=== PATIENT | male | born 1945 | race Caucasian/White ===

== ENCOUNTER → 2017-08-26 07:46 | Outpatient (CLI) | payer OTHER, SELFPAY ==
[2017-08-26 10:06] LABS: Hematocrit 43.9 % (40-54); Hemoglobin 14.7 g/dl (13.0-16.5); Mean Corp Hgb Conc 33.5 g/gl (32-36); Mean Corpuscular Hgb 30.6 pg (27.0-32.0); Mean Corpuscular Volume 91.3 fL (80-94); Mean Platelet Vol. 9.6 fl (6.2-12.0); Platelet Count 251 K/mm3 (150-450); RBC Distribution Width CV 13.4 % (11.6-14.6); RBC Distribution Width SD 44.7 fl (35.1-43.9); Red Blood Count 4.81 M/mm3 (4.6-6.2); White Blood Count 6.7 K/mm3 (4.4-11.0)
[2017-08-26 10:07] LABS: Scan Indicated on CBC? Y/N NO
[2017-08-26 10:29] LABS: AST(SGOT) 16 U/L (15-37); Alanine Aminotransfer ALT/SGPT 20 U/L (16-61); Albumin, Serum 3.9 g/dL (3.2-5.0); Alkaline Phosphatase 80 U/L (45-117); Anion Gap 6 (5-15); BUN 18 mg/dL (7-18); BUN/Creat Ratio 16.1 RATIO (10-20); Bilirubin, Direct 0.09 mg/dL (0.00-0.30); Calcium,Total 8.6 mg/dL (8.5-10.1); Chloride 107 mmol/L (98-107); Cholesterol 143 mg/dL (200); Creatinine, Serum 1.12 mg/dL (0.70-1.30); EST Glomerular Filtration Rate 69 mL/min (>60); Est Glom Filt Rate - Afr Amer 83 mL/min (>60); Globulin 3.6 g/dL (2.2-4.2); Glucose 88 mg/dL (74-106); High Density Lipoprotein 42 mg/dL; PSA,Total - Annual Screen 5.02 ng/mL (0.00-4.00); Protein, Total 7.5 g/dL (6.4-8.2); Sodium Level 143 mmol/L (136-145); Triglycerides 117 mg/dL; Very Low Density Lipoprotein 23 mg/dL (5-40)
== END ==
PROVIDERS: Family Provider Family Medicine; PCP Family Medicine; Visit Provider Family Medicine
DX: N40.0 Benign prostatic hyperplasia without lower urinary tract symptoms (principal); K85.90 Acute pancreatitis without necrosis or infection, unspecified; Z13.220 Encounter for screening for lipoid disorders; R56.9 Unspecified convulsions; Z13.1 Encounter for screening for diabetes mellitus
CPT/HCPCS: 36415; 80048; 80061; 80076; 84153; 85027; G0103

== ENCOUNTER → 2017-11-08 09:02 | Outpatient (CLI) | payer OTHER, SELFPAY ==
--- NOTE | 2017-11-08 09:02 | DT_ITS ---
This patient was seen during an EMR downtime November 07, 2017 - November 14, 2017. This patient may have a combination of paper and electronic documentation or all paper documentation. All documentation is viewable within the e-chart portion of [facility] for each patient visit.
[2017-11-15 02:52] LABS: ALB/GLOB Ratio 1.2 RATIO (0.9-2.4); Albumin, Serum 3.9 g/dL (3.2-5.0); BUN 14 mg/dL (7-18); BUN/Creat Ratio 13.1 RATIO (10-20); Creatinine, Serum 1.07 mg/dL (0.70-1.30); EST Glomerular Filtration Rate 73 mL/min (>60); Est Glom Filt Rate - Afr Amer 88 mL/min (>60); Globulin 3.2 g/dL (2.2-4.2); Glucose 85 mg/dL (74-106); Protein, Total 7.1 g/dL (6.4-8.2)
[2017-11-15 02:53] LABS: AST(SGOT) 17 U/L (15-37); Alanine Aminotransfer ALT/SGPT 39 U/L (16-61); Alkaline Phosphatase 69 U/L (45-117); Anion Gap 9 (5-15); CRP < 2.90 mg/L (0.0-3.0); Calcium,Total 8.8 mg/dL (8.5-10.1); Chloride 108 mmol/L (98-107); Sodium Level 143 mmol/L (136-145); Thyroid Stim Hormone (TSH) 0.73 uIU/mL (0.358-3.74)
== END ==
PROVIDERS: Family Provider Family Medicine; PCP Family Medicine; Visit Provider Nurse Practitioner Adult Health
DX: R97.20 Elevated prostate specific antigen [PSA] (principal); N40.1 Benign prostatic hyperplasia with lower urinary tract symptoms; N40.2 Nodular prostate without lower urinary tract symptoms; I10 Essential (primary) hypertension
CPT/HCPCS: 36415; 80053; 84153; 84443; 86038; 86140

== ENCOUNTER → 2017-11-21 07:08 | Outpatient (CLI) | payer OTHER, SELFPAY ==
[2017-11-22 11:14] LABS: PSA, Free 0.99 ng/mL; PSA, Free % 23.6 % (.); PSA, Total Ultrasensitive 4.2 ng/mL (0.0-4.0)
== END ==
PROVIDERS: Family Provider Family Medicine; PCP Family Medicine; Visit Provider Nurse Practitioner Adult Health
DX: R97.20 Elevated prostate specific antigen [PSA] (principal)
CPT/HCPCS: 36415; 84153; 84154

== ENCOUNTER → 2018-03-15 06:39 | Outpatient (CLI) | payer OTHER, SELFPAY ==
--- NOTE | 2018-03-15 06:44 | CT_ITS ---
STUDY: CT ABDOMEN AND PELVIS WITH CONTRAST REASON FOR EXAM: Male, 72 years old. Pulsatile abdominal mass RADIATION DOSAGE (If Supplied By Facility): CTDIvol = ( 16.13 ) mGy, DLP = ( 1155.68 ) mGycm TECHNIQUE: Transaxial images were obtained from the dome of the diaphragm to the symphysis pubis without oral contrast. 100 ml of Isovue 300 contrast was administered. Sagittal and coronal images were reconstructed. Individualized dose optimization techniques were used for this CT. COMPARISON: August 26, 2015 FINDINGS: The lung bases are clear. The liver is normal. No dilated intrahepatic biliary radicles. The gallbladder is normal with no calcifications within it. There is no pericholecystic fluid collection or streakiness The spleen is normal. The pancreas is normal. Both adrenals are normal. No hydronephrosis and no abnormal calcifications but there is a 1.6 cm benign left renal cyst. The stomach is normal. There is no bowel distention, acute appendicitis or diverticulitis. No constricting lesions are seen in large bowel. The abdominal wall is intact with no hernias. There is no ascites or any free intraperitoneal air. No indication of epiploic appendagitis. 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 The mass has displaced the loops of small bowel laterally and posteriorly. The vascular structures in the retroperitoneum are normal. No abdominal aortic aneurysm There is no retrocrural, retroperitoneal or mesenteric adenopathy. The bones and joints are normal. The urinary bladder is normal.--The prostate is enlarged. There is no inguinal or pelvic adenopathy. There is no inguinal hernia. . CT/Abdomen/Pelvis WITH Contrast IMPRESSION: Prostatic enlargement. Not much change since the last study A very large mesenteric panniculitis which has not significantly changed since the last dated August 26, 2015. No acute appendicitis or diverticulitis. No abdominal aortic aneurysm Electronically Signed: Barrie Villaseñor MD at 8:06 EDT Tel , Service support ,
[2018-03-15 06:56] LABS: CREATININE FINGERSTICK 0.8 mg/dL (0.70-1.30); EGFR FINGERSTICK > 60.0000 mL/min (>60)
== END ==
PROVIDERS: Family Provider Family Medicine; PCP Family Medicine; Referring Provider Family Medicine; Visit Provider Family Medicine
DX: R19.00 Intra-abdominal and pelvic swelling, mass and lump, unspecified site (principal)
CPT/HCPCS: 74177; Q9967

== ENCOUNTER → 2018-05-09 07:10 | Outpatient (CLI) | payer OTHER, SELFPAY ==
[2018-05-09 11:05] LABS: Anion Gap 5 (5-15); BUN 19 mg/dL (7-18); BUN/Creat Ratio 16.4 RATIO (10-20); Calcium,Total 8.7 mg/dL (8.5-10.1); Chloride 109 mmol/L (98-107); Creatinine, Serum 1.16 mg/dL (0.70-1.30); EST Glomerular Filtration Rate 66 mL/min (>60); Est Glom Filt Rate - Afr Amer 80 mL/min (>60); Glucose 87 mg/dL (74-106); Potassium 4.3 mmol/L (3.5-5.1); Sodium Level 143 mmol/L (136-145)
[2018-05-09 11:38] LABS: PSA,Total- Diagnostic 6.89 ng/mL (0.0-4.0)
== END ==
PROVIDERS: Family Provider Family Medicine; PCP Family Medicine; Referring Provider Urology; Visit Provider Urology
DX: I10 Essential (primary) hypertension (principal); R97.20 Elevated prostate specific antigen [PSA]
CPT/HCPCS: 36415; 80048; 84153

== ENCOUNTER 2018-06-17 02:57 | Emergency (ER) | payer OTHER, SELFPAY ==
[2018-06-17 03:00] VITALS: BP 166/99; PULSE 112; RESP 18; TEMP 36.6; O2SAT 99; BMI 27.8
[2018-06-17 03:40] LABS: Bacteria 0 SEEN /hpf (None Seen); Mucous, Urine 0 SEEN /hpf (<or=2+); White Blood Cells 0 SEEN /hpf (0-5)
[2018-06-17 03:42] LABS: Color, Urine Yellow (Yellow); Glucose, Dipstick Normal (Normal); Ketone-Dipstick Negative (Negative); Leukocyte Esterase-Dipstick Negative /ul (Negative); Nitrite-Dipstick Negative (Negative); Occult Blood-Urine 10 /ul (Negative); Protein-Dipstick Negative (Negative); Urine Bilirubin Dipstick Negative (Negative); Urine Clarity Clear (Clear); Urine Urobilinogen Normal (Normal); Urine pH 6.5 (5.0 - 8.0)
[2018-06-17 03:47] LABS: Red Blood Cells-Urine 0-5 SEEN /hpf (0-5); Squamous Epithelial Cells - UA 0-5 SEEN /hpf (0-5)
--- NOTE | 2018-06-17 05:07 | ED.DCSUM_ITS ---
- ER Visit Summary Date of Service: 06/17/18 Chief Complaint: Urinary retention History of Present Illness: The patient is a 72 M presenting for evaluation secondary to urinary retention. Patient states that over the course last 5 hours he has been unable to urinate. He has a history of this in the past. He has BPH and has a scheduled biopsy coming up the end of this month. Patient denies fevers or flank pain. Physical Examination: Vital signs are normal. Moist mucous membranes. Heart regular lungs clear. Abdomen was soft. was normal to inspection. Test Results: Urinalysis was negative Emergency Department Course and Treatment: Patient presented secondary to urinary retention. Catheter was placed with relief of the patient's urinary retention and a large amount of urine obtained. Urinalysis was negative. Patient will be discharged with follow-up with urology for Vera catheter removal. Disposition: Discharge Impression: 1. Urinary retention This note was generated with [employer] dictation software. It may contain incorrect words, spelling, and punctuation that were not noted in review of the chart prior to signing ED Disposition - Plan for ED Patient: Disposition: Home or Assisted Living Chief Complaint: Complaint Diagnosis: Urinary retention Instructions: ED Retention Urinary Male Referrals: Arnie Ann MD [STAFF PHYSICIAN] - 3-5 Days
[2018-06-17 05:24] VITALS: BP 134/64; PULSE 60; RESP 18; TEMP 36.6; O2SAT 95
== END 2018-06-17 05:25 | disposition home or self-care (01) ==
PROVIDERS: Emergency Provider Emergency Medicine; Family Provider Family Medicine; PCP Family Medicine
DX: N40.1 Benign prostatic hyperplasia with lower urinary tract symptoms (principal); R33.8 Other retention of urine
CPT/HCPCS: 81001; 99282

== ENCOUNTER 2018-07-08 03:17 | Emergency (ER) | payer OTHER, SELFPAY ==
[2018-07-08 03:17] VITALS: BP 141/98; PULSE 112; RESP 18; TEMP 36.6; O2SAT 98; O2SAT 99; BMI 27.1
--- NOTE | 2018-07-08 03:43 | ED.VISSUMM ---
- ER Visit Summary Date of Service: 07/08/18 Chief Complaint: Urinary retention History of Present Illness: The patient is a 72 M who presents unable to urinate. Patient notes suprapubic discomfort. Patient had similar events approximately 2 weeks ago and had a catheter placement. He follows up with Dr. arzola and is scheduled for prostate surgery in the very near future. Last urinated around 2100 Physical Examination: Afebrile noted slight tachycardia. Gen: Well-nourished well-developed Head: Normocephalic atraumatic Eyes: Perrl EOMI ENT: TMs clear no rhinorrhea moist mucous membranes Neck: Supple no lymphadenopathy no JVD nontender CVS: Regular rate rhythm no murmurs normal S1-S2 Respiratory: No distress clear to auscultation bilaterally chest nontender Abdomen: Soft distended bladder normal bowel sounds no masses Back: Nontender Extremity: Nontender no edema Skin: Normal color no rash Neuro: alert orientated ?3 CN II-XII intact normal strength sensation reflexes gait cerebellar Psych: Normal affect normal mood Test Results: Urinalysis obtained Emergency Department Course and Treatment: Bedside ultrasound demonstrates a bladder with the fundus above the umbilicus. Vera catheter was placed. 800 cc removed. Patient be discharged home with leg bag and instructions to follow-up with urology next week. Impression: 1. Acute urinary retention 2. Benign prostatic hypertrophy This note was generated with [employer] dictation software. It may contain incorrect words, spelling, and punctuation that were not noted in review of the chart prior to signing ED Disposition - Plan for ED Patient: Disposition: Home or Assisted Living Instructions: ED Retention Urinary Male Referrals: Arnie Ann MD [STAFF PHYSICIAN] - (call on Tuesday)
[2018-07-08 03:49] LABS: Mucous, Urine 0 SEEN /hpf (<or=2+); Squamous Epithelial Cells - UA 0 SEEN /hpf (0-5)
[2018-07-08 03:50] LABS: Color, Urine Straw (Yellow); Glucose, Dipstick Normal (Normal); Ketone-Dipstick Negative (Negative); Leukocyte Esterase-Dipstick 100 /ul (Negative); Nitrite-Dipstick Negative (Negative); Occult Blood-Urine 25 /ul (Negative); Protein-Dipstick Negative (Negative); Urine Bilirubin Dipstick Negative (Negative); Urine Clarity Clear (Clear); Urine Urobilinogen Normal (Normal)
[2018-07-08 03:57] LABS: Bacteria 1+ /hpf (None Seen); White Blood Cells 0-5 SEEN /hpf (0-5)
[2018-07-08 03:58] LABS: Red Blood Cells-Urine 0-5 SEEN /hpf (0-5)
[2018-07-08 04:58] VITALS: BP 102/74; PULSE 81; RESP 20; O2SAT 97
--- NOTE | 2018-07-08 04:59 | ED.RN ---
THIS NURSE REVIEWED D/C INSTRUCTIONS WITH PT. PT VERBALIZED UNDERSTANDING OF INSTRUCTIONS. PT DENIES FURTHER NEEDS OR QUESTIONS AT THIS TIME. PT AMBULATES FROM ROOM ON OWN WITHOUT ASSISTANCE FROM STAFF
== END 2018-07-08 04:59 | disposition home or self-care (01) ==
PROVIDERS: Emergency Provider Emergency Medicine; Family Provider Family Medicine; PCP Family Medicine
DX: N40.1 Benign prostatic hyperplasia with lower urinary tract symptoms (principal); R33.8 Other retention of urine; Z86.711 Personal history of pulmonary embolism; Z87.19 Personal history of other diseases of the digestive system; Z79.899 Other long term (current) drug therapy
CPT/HCPCS: 51702; 81001; 99283

== ENCOUNTER 2018-07-21 13:08 | Day surgery (SDC) | payer OTHER, SELFPAY ==
[2018-07-14 13:46] VITALS: BP 121/69; PULSE 70; RESP 18; TEMP 36.4; O2SAT 96; BMI 27.3
[2018-07-14 14:18] LABS: Absolute Lymphocyte Count 1.52 X10^3/ul (0.83-4.51); Absolute Neutrophil Count 5.3 X10^3/uL (2.0-7.7); Basophil# 0.02 X10^3/uL; Basophil% 0.3 % (0-1); Eosinophil# 0.23 X10^3/uL; Hematocrit 42.4 % (40-54); Hemoglobin 13.8 g/dl (13.0-16.5); Lymphocyte # 1.52 X10^3/ul (4.0); Lymphocyte % 19.5 % (19-41); Mean Corp Hgb Conc 32.5 g/gl (32-36); Mean Corpuscular Hgb 30.2 pg (27.0-32.0); Mean Corpuscular Volume 92.8 fL (80-94); Mean Platelet Vol. 9.5 fl (6.2-12.0); Monocyte# 0.69 X10^3/uL; Monocyte% 8.9 % (0-10); Neutrophil # 5.32 X10^3/uL (2.7-7.7); Neutrophil % 68.2 % (47-70); Platelet Count 209 K/mm3 (150-450); RBC Distribution Width CV 13.2 % (11.6-14.6); RBC Distribution Width SD 44.7 fl (35.1-43.9); Red Blood Count 4.57 M/mm3 (4.6-6.2); White Blood Count 7.8 K/mm3 (4.4-11.0)
[2018-07-14 14:21] LABS: POSITIVE COUNT NO; POSITIVE DIFFERENTIAL NO; POSITIVE MORPHOLOGY NO
[2018-07-14 14:28] LABS: International Normalized Ratio 1.1; Partial Thromboplast Time 30.7 Seconds (24.1-36.2); Prothrombin Time (Protime)PT. 13.7 SECONDS (11.7-14.9)
[2018-07-14 15:00] LABS: AST(SGOT) 11 U/L (15-37); Alanine Aminotransfer ALT/SGPT 21 U/L (16-61); Albumin, Serum 3.7 g/dL (3.2-5.0); Alkaline Phosphatase 81 U/L (45-117); Bilirubin, Direct 0.07 mg/dL (0.00-0.30); Globulin 3.5 g/dL (2.2-4.2); Protein, Total 7.2 g/dL (6.4-8.2)
--- NOTE | 2018-07-20 17:48 | PCM.HP.BLA ---
History and Physical Date of Admission: 07/21/18 I have urinary retention. HPI: RHONDA PAT is a 72 year-old male established patient who is here for urinary retention. His problem was diagnosed 1 week ago. His current symptoms did not begin after he had a surgical procedure. His urinary retention is being treated with wilkins catheter. Patient denies suprapubic tube, intemittent catheterization, flomax, hytrin, cardura, uroxatrol, rapaflo, avodart, and proscar. He does have an abnormal sensation when needing to urinate. He does have to strain or bear down to start his urinary stream. He does not have a good size and strength to his urinary stream. He is having problems with emptying his bladder well. His urine has shut off completely. He is not having problems with urinary control or incontinence. He has previously had an indwelling catheter in for more than two weeks at a time. CC: I have symptoms of an enlarged prostate. HPI: His symptoms have gotten worse over the last year. He has been treated with Flomax and Proscar. The patient has never had a surgical procedure for bladder outlet obstruction to his prostate. He has previously had an indwelling catheter in for more than two weeks at a time. He has had a PSA done. CC: My PSA is elevated above the normal range. HPI: He has had PSA's drawn prior to this one. When the elevated PSA was drawn, he reports having urinary retention. He denies having urinary tract infection, urinary frequency, urinary burning, slow urine flow, pelvic discomfort, fever, chills, flu symptoms, low back pain, and indwelling catheter. He has had a prostate nodule on a physical examination. He has not had recurrent prostate infections or chronic prostatitis. He has not been on antibiotics for prostate infections previously. He has not had a prostate biopsy done. plan to do biopsy ALLERGIES: Penicillin MEDICATIONS: Finasteride 5 mg tablet 1 tablet PO Daily Fleet Enema 1 kit AR x1 As instructed. At least an hour before procedure. Flomax 0.4 mg capsule 1 capsule PO BID Levetiracetam 750 mg tablet 1 tablet PO BID Lisinopril Lorazepam 0.5 mg tablet PSH: Cystoscopy - 06/19/2018, 2012 Cystoscopy TURBT 2-5 cm - 2012 NON- PSH: Cholecystectomy - 2008 Colonoscopy Patient documented to have received pneumococcal vaccination Pneumococcal Vaccine Admin PMH: Other retention of urine - 06/19/2018 Benign prostatic hyperplasia with lower urinary tract symptoms - 09/06/2017, - 2015, - 2015, - 2014, - 2013 (Stable), - 2012, - 2012 Elevated prostate specific antigen [PSA] - 09/06/2017 Elevated prostate specific antigen [PSA] - 2015, - 2014, - 2013, - 2011 Hematospermia - 2015, - 2014, - 2013, - 2013 Nodular prostate without lower urinary tract symptoms - 2014 Benign prostatic hyperplasia without lower urinary tract symptoms - 2013, - 2012 Nodular prostate with lower urinary tract symptoms - 2013 Spermatocele of epididymis, unspecified - 2013 Encounter for screening for malignant neoplasm of prostate - 2012 Frequency of micturition - 2012 Neoplasm of uncertain behavior of bladder - 2012 Retention of urine, unspecified - 2012, - 2012, - 2012 Neoplasm of uncertain behavior of prostate, Right - 2011 Other microscopic hematuria - 2011 NON- PMH: Other acute pancreatitis Other depressive episodes Other pulmonary embolism without acute cor pulmonale Other seizures Immunizations: None FAMILY HISTORY: None SOCIAL HISTORY: Marital Status: Preferred Language: Gabonese; Ethnicity: Not Or ; Race: White Current Smoking Status: Patient does not smoke anymore. Has not smoked since 03/06/1972. Tobacco Use Assessment Completed: Used Smokeless in last 30 days? Smoking cessation counseling was provided. Does not use smokeless tobacco. Light Drinker. Does not use drugs. Drinks 2 caffeinated drinks per day. Has not had a blood transfusion. Notes: Former chewer of tobacco, quit 15 yrs ago. REVIEW OF SYSTEMS: Constitutional: Patient denies fever, chills, weight loss, and weight gain. Genitourinary: Patient reports urinary retention. Patient denies frequent urination, get up at night to void, leakage of urine, painful urination, blood in the urine, frequent uti's, history of stones, difficulty starting stream, weak stream/scanty, and bedwetting. Notes: Reviewed previous review of systems 06/19/2018. No changes. VITAL SIGNS: 07/13/2018 01:10 PM Weight 194 lb / 88 kg Height 70 in / 177.8 cm BP 128/76 mmHg BMI 27.8 kg/m? - BMI Counseling was provided. PHYSICAL EXAMINATION: Anus and Perineum: No hemorrhoids. No anal stenosis. No rectal fissure, no anal fissure. No edema, no dimple, no perineal tenderness, no anal tenderness. Penis: Penile wilkins catheter present. Circumcised, no foreskin warts, no cracks. No dorsal peyronie's plaques, no left corporal peyronie's plaques, no right corporal peyronie's plaques, no scarring, no shaft warts. No balanitis, no meatal stenosis. Prostate: 40 gram or 2+ size. Nodular left lobe, small nodule at base, and larger nodule along left right lobe normal consistency. Left lobe no tenderness, right lobe no tenderness. Seminal Vesicles: Nonpalpable. Sphincter Tone: Normal sphincter. No rectal tenderness. No rectal mass. MULTI-SYSTEM PHYSICAL EXAMINATION: Constitutional: Well-nourished. No physical deformities. Normally developed. Good grooming. Respiratory: No labored breathing, no use of accessory muscles. Skin: No paleness, no jaundice, no cyanosis. No lesion, no ulcer, no rash. Neurologic / Psychiatric: Oriented to time, oriented to place, oriented to person. No depression, no anxiety, no agitation. Gastrointestinal: No mass, no tenderness, no rigidity, non obese abdomen. Eyes: Normal conjunctivae. Normal eyelids. Ears, Nose, Mouth, and Throat: Left ear no scars, no lesions, no masses. Right ear no scars, no lesions, no masses. Nose no scars, no lesions, no masses. Normal hearing. Normal lips. Musculoskeletal: Normal gait and station of head and neck. PAST DATA REVIEWED: Source Of History: Patient Lab Test Review: PSA, Basic Metabolic Panel (BMP), CBC Records Review: Previous Doctor Records, Previous Hospital Records, Previous Patient Records Urine Test Review: Urinalysis Urodynamics Review: Review Bladder Scan 05/09/18 11/21/17 11/14/17 11/08/17 08/24/17 10/07/15 02/27/15 02/27/14 PSA Total PSA 6.89 ng/mL 4.2 5.00 ng/mL 5.00 5.02 3.54 ng/mL 3.51 ng/ml 2.78 ng/ml Notes [facility] [address] [place] [address]. [place], [place], [id number] This test was performed using the TPSA assay method for the Dimension chemistry system. Values obtained with different assay methods cannot be used interchangably. When changing PSA assays in the course of monitoring a patient, additional sequential testing should be carried out to confirm baseline values. RESULT(S) PREVIOUSLY REPORTED ON MANUAL REQUISITION DURING DOWNTIME. [facility] [address] [place], [place], [id number] This test was performed using the TPSA assay method for the Dimension chemistry system. Values obtained with different assay methods cannot be used interchangably. When changing PSA assays in the course of monitoring a patient, additional sequential testing should be carried out to confirm baseline values. [facility] [address] [place], [address] This test was performed using the TPSA assay method for the Dimension chemistry system. Values obtained with different assay methods cannot be used interchangably. When changing PSA assays in the course of monitoring a patient, additional sequential testing should be carried out to confirm baseline values. Test performed at: [facility] [address] [place] [address] This test was performed using the TPSA assay method for the Dimension chemistry system. Values obtained with different assay methods cannot be used interchangably. When changing PSA assays in the course of monitoring a patient, additional sequential testing should be carried out to confirm baseline values. This test was performed using the TPSA assay method for the Dimension chemistry system. Values obtained with different assay methods cannot be used interchangably. When changing PSA assays in the course of monitoring a patient, additional sequential testing should be carried out to confirm baseline values. PROCEDURES: None ASSESSMENT: ICD-10 Details 1 : Benign prostatic hyperplasia with lower urinary tract symptoms - N40.1 2 Elevated prostate specific antigen [PSA] - R97.20 3 Other retention of urine - R33.8 PLAN: Schedule Procedure: Unspecified Date - Cystoscopy TURP - 25270 Document Letter(s): Created for Patient: Clinical Summary The risks, benefits, and some of the possible complications of the proposed procedure were discussed with the patient at length and in detail including the possibility of postoperative urinary urgency, frequency, incontinence, dysuria, hematuria, retrograde ejaculation, urinary retention, bladder neck contracture, and urethral stricture, as well as the need for a bladder biopsy, retrograde pyelograms, resection of a bladder lesion, dilation of the urethra, postoperative catheterization, placement of a ureteral stent, discovering asymptomatic prostate cancer and others. The possible need for postoperative treatments including further surgical procedures was discussed with the patient. The general risks of the operative procedure and the perioperative period were discussed with the patient at length and in detail including swelling, pain, nausea, fever, infection, wound infection, sepsis, renal failure, internal or external bleeding, postoperative formation of scar tissue, the need for blood transfusions, deep venous thrombosis or blood clots, pulmonary embolus, pulmonary complications and cardiac complications. All of the patient's questions were answered and he voiced an understanding of these risks, benefits and possible complications. The patient gave fully informed consent to proceed with the procedure. Notes: Back in retention, keep wilkins in for now on flomax 0.4mg bid and proscar set up for TURP and prostate biopsy in the OR
[2018-07-21] VITALS (9 sets, daily range): BP systolic 95–136; BP diastolic 60–80; PULSE 52–81; RESP 16–18; TEMP 35.9–36.6; O2SAT 95–99; BMI 27.3
--- NOTE | 2018-07-21 | IMM_PTH ---
PATIENT: RHONDA PAT LOC: [facility] U#:[id number] AGE/SX: 72/M ROOM: RE07/21/[address]: Dr. Arnie Ann MD : 1945 BED: DIS: 07/22/2018 SPEC #: [id number] RECD: 07/25/18 13:15 STATUS: ABEL REQ #: [id number] SONIA: 07/21/18 00:[address]: Arnie Ann DEPT: IMMUNOHISTOCHEMISTRY RECD BY: Norma Richard ENTERED: 07/25/18 13:16 SP TYPE: IMMUNO OTHR DR: Dr. Quentin Dixon MD Tissues: B - PROSTATE RIGHT C - PROSTATE RIGHT Procedures: 34BE12 (add) P40 (add) 34BE12 (initial) PHYSICIAN & INSTITUTION [place] [id number] SPECIMEN INFORMATION: Tissue Source: B - Right apex prostate biopsy, C - Right mid prostate biopsy Clinical Info: BPH, elevated PSA Specimen Number: [id number] B & C CPT code: 56586, 02890 x3 METHODOLOGY: Deparaffinized sections of prefer/formalin-fixed tissue or PAP/DQ stained slides are incubated with monoclonal/polyclonal antibodies/oligonucleotide probes. Localization is made via biotin free immunoperoxidase method. Appropriate controls are performed and reacted as expected. Results on target cell population are indicated in the following table: RESULTS: ANTIBODY / CLONE RESULT Block B P40 (BC28) positive, rare cells 34BE12 (34BE12) negative Block C P40 (BC28) positive 34BE12 (34BE12) positive These tests were developed and their performance characteristics determined by [facility]. They may not have been cleared or approved by the U.S. Food and Drug Administration. The FDA has determined that such clearance or approval is not necessary. INTERPRETATION: B. Right apex prostate, biopsy: Focal adenocarcinoma. C. 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 SJ:samuel 07/25/18 Case has been reviewed in consultation with Dr. Vann who concurs with the above diagnosis. IDC:[id number]
--- NOTE | 2018-07-21 15:10 | PROSBIL_PTH ---
PATIENT: RHONDA PAT [place] [facility] [place][id number] AGE/SX: 72/M ROOM: RE07/21/[address]: Dr. Arnie Ann MD : [id number] BED: DIS: 07/22/2018 SPEC #: [id number] RECD: 07/24/18 10:56 STATUS: ABEL REMarilyn #: [id number] SONIA: 07/21/18 15:[address]: Arnie Ann DEPT: SURGICAL PATHOLOGY RECD BY: Sam Judge ENTERED: 07/24/18 12:53 SP TYPE: PROST BX OTHR DR: Dr. Quentin Dixon MD Tissues: A - Prostate, NOS B - PROSTATE BIOPSY C - PROSTATE BIOPSY D - PROSTATE BIOPSY E - PROSTATE BIOPSY F - PROSTATE BIOPSY G - PROSTATE BIOPSY Procedures: PROSTATE BX Surgery Specimen Level V HEADER OPERATION: Cysto, TUR, prostate, Olympus with finger-guided biopsy PRE-OP DIAGNOSIS: BPH, elevated PSA TISSUE SUBMITTED: A ? Prostate tissue, B ? Right apex prostate biopsy, C - Right mid prostate biopsy, D - Right base prostate biopsy, E ? Left apex prostate biopsy, F ? Left mid prostate biopsy, G ? Left base prostate biopsy MICROSCOPIC DIAGNOSIS A. Prostate, TUR: Prostatic adenocarcinoma: Talmage grade: 3+4=7 Benign prostatic hyperplasia, glandular and stromal type. Chronic inflammation. See comment. B. Right prostate, apex, core biopsy: Prostatic adenocarcinoma: Brando grade: 4+4=8 Number of cores involved: 1/1 Proportion of tissue involved: ~5-10% Perineural invasion: Not identified. Greatest tumor length: 0.1 cm See comment. C. 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 See comment. D. Right prostate, base, core biopsy: Prostatic tissue, negative for malignancy. E. Left prostate, apex, core biopsy: Prostatic adenocarcinoma: Brando grade: 4+5=9 Number of cores involved: 1/1 Proportion of tissue involved: ~90% Perineural invasion: Present, focal. Greatest tumor length: 0.9 cm F. Left prostate, mid, core biopsy: Prostatic stromal tissue, negative for malignancy. G. Left prostate, base, core biopsy: Prostatic adenocarcinoma: Talmage grade: 4+5=9 Number of cores involved: See comment. Proportion of tissue involved: 90% Perineural invasion: present. Greatest tumor length: 0.2 cm SJ:samuel 07/25/18 COMMENT A. The prostatic adenocarcinoma is noted in 16 of about 150 chips and involves about 5-10% of the specimen examined . Perineural invasion is not seen. B & C. Immunohistochemistry ([id number]) supports the above diagnosis. The specimenS predominantly consist of prostatic stromal tissue. G. The specimen is fragmented so exact number of cores involved is difficult to estimate. Case has been reviewed in consultation with Dr. Vann who concurs with the above diagnosis. IDC:AM MICROSCOPIC DESCRIPTION Slides are reviewed. GROSS DESCRIPTION A - Received is one container labeled with the patient's name and designated prostate tissue. The specimen consists of multiple irregular fragments of pink-cage, rubbery, soft tissue that in aggregate weigh 39.8 gm and measure in aggregate 9 x 9 x 4 cm. Lav Crewman tissue is submitted in 12 cassettes. B - Received is one container designated prostate, right apex. The specimen consists of one elongated fragment of light cage-white soft tissue measuring 1.3 cm in length and 0.1 cm in diameter. The specimen is totally submitted in one cassette. C - Received is one container designated prostate, right mid. The specimen consists of one elongated fragment of light cage-white soft tissue measuring 1.5 cm in length and 0.1 cm in diameter. The specimen is totally submitted in one cassette. D - Received is one container designated prostate, right base. The specimen consists of one elongated fragment of light cage-white soft tissue measuring 1.5 cm in length and 0.1 cm in diameter. The specimen is totally submitted in one cassette. E - Received is one container designated prostate, left apex. The specimen consists of one elongated fragment of light cage-white soft tissue measuring 1.5 cm in length and 0.1 cm in diameter. The specimen is totally submitted in one cassette. F - Received is one container designated prostate, left mid. The specimen consists of one elongated fragment of light cage-white soft tissue measuring 1.3 cm in length and 0.1 cm in diameter. The specimen is totally submitted in one cassette. G - Received is one container designated prostate, left base. The specimen consists of multiple minute fragments of light cage-white soft tissue measuring 0.1 to 0.3 cm in length and 0.1 cm in diameter. The specimen is totally submitted in one cassette. / SJ:rg 07/24/18 TC:0 CPT: G0146, 90501
[2018-07-21] MEDS: Cefazolin 2 GM in 0.9% Normal Saline 100 ML IV (15:37)
--- NOTE | 2018-07-21 17:12 | PCM.OPRPT ---
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 72-year-old male taken back to the operating room at the smooth induction of general anesthesia he was placed supine on the table I went into the urethra with a 26 Irish continuous flow resectoscope using the bipolar Olympus resection device he was in the dorsolithotomy position the penis testicles are prepped and draped in usual sterile fashion. I then started the resection he had a large median lobe this resected I had large lateral lobes these were resected and a very large prostate had a lot of tissue resected at the end of the case nice wide open channel from the verumontanum all the way into the bladder no resection past the sphincter identified the sphincter and was intact Ellik out all the chips obtain hemostasis prior took about an hour and a half to resect all the prostate tissue a large median lobe large lateral lobes the rest of the right side of the left side. At the end of the case I got good hemostasis but a 22 Irish catheter into the bladder and continues irrigation the urine was clear I then double gloved and then prostate biopsies in the right and left side of the right mid right apex and right base of the prostate left base left mid left apex biopsies were completed of the prostate and these were handed off as a specimen anesthetic was reversed taken back to PACU good condition. Type of Anesthesia:: General Drains: 22fr - Admit VTE Documentation VTE Present on Admission: No VTE Mechan Device Prophylaxis: SCD's
--- NOTE | 2018-07-21 17:15 | OP.PCM_ITS ---
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 72-year-old male taken back to the operating room at the smooth induction of g eneral anesthesia he was placed supine on the table I went into the urethra with a 26 [place] continuous flow resectoscope using the bipolar [place] resection device he was in the dorsolithotomy position the penis testicles are prepped and draped in usual sterile fashion. I then started the resection he had a large median lobe this resected I had large lateral lobes these were resected and a very large prostate had a lot of tissue resected at the end of the case nice wide open channel from the verumontanum all the way into the bladder no resection past the sphincter identified the sphincter and was intact Ellik out all the chips obtain hemostasis prior took about an hour and a half to resect all the prostate tissue a large median lobe large lateral lobes the rest of the right side of the left side. At the end of the case I got good hemostasis but a 22 [place] catheter into the bladder and continues irrigation the urine was clear I then double gloved and then prostate biopsies in the right and left side of the right mid right apex and right base of the prostate left base left mid left apex biopsies were completed of the prostate and these were handed off as a specimen anesthetic was reversed taken back to PACU good condition. Type of Anesthesia:: General Drains: 22fr - Admit VTE Documentation VTE Present on Admission: No VTE Mechan Device Prophylaxis: SCD's
[2018-07-21] MEDS: 0.9% Normal Saline 1,000 ML 125 ML IV (18:58)
[2018-07-21] MEDS: Ciprofloxacin 400 MG/200 ML BAG 200 MG IV (22:09)
[2018-07-21] MEDS: levETIRAcetam 750 MG Tablet PO (22:15)
[2018-07-21] MEDS: Docusate Sodium 100 MG Capsule PO (22:15)
[2018-07-21] MEDS: LORazepam 0.5 MG Tablet PO (22:15)
[2018-07-22] MEDS: 0.9% Normal Saline 1,000 ML 125 ML IV (05:57)
--- NOTE | 2018-07-22 06:46 | DCINST_ITS ---
Discharge Diet: Light diet - advance as tolerated Discharge Activity: May not drive while taking narcotic pain medications. Call your doctor if your incision/area has: Continuous Slow Oozing, Sudden Increased Bleeding, Increased Pain/ Swelling, Increased Redness, Foul Smelling Discharge, Swelling at the incision site Suture Line Care: Avoid Pulling/Pushing, Avoid Pinching/Bending Instructions: Transurethral Resection of the Prostate (TURP): Home Recovery Allergies/Adverse Reactions: Allergies Penicillins Allergy (Verified 07/14/18 13:14) Unknown Medications to take at Discharge Lorazepam [Ativan] 0.5 mg PO DAILY PRN PRN 08/26/15 levETIRAcetam tablet [Keppra tablet] 750 mg PO BID 08/26/15 Lisinopril [Prinivil] 10 mg PO DAILY 06/17/18 Ciprofloxacin [Cipro] 500 mg PO BID 07/21/18 Ibuprofen 600 mg PO Q6H PRN PRN #20 tablet 07/22/18 The following prescriptions were given: Ibuprofen 600 mg PO Q6H PRN PRN #20 tablet PRN Reason: Pain Primary Care Physician: Bib Dixon MD [Primary Care Provider] - Test Results: Test results from this visit will be discussed in further detail at your follow- up appointment, if applicable. Please Follow Up With: Arnie Ann MD When: in 2 weeks, please call to make an appointment.
[2018-07-22 07:10] VITALS: O2SAT 94
[2018-07-22 07:43] LABS: Hematocrit 40.2 % (40-54); Hemoglobin 13.3 g/dl (13.0-16.5); Mean Corp Hgb Conc 33.1 g/gl (32-36); Mean Corpuscular Hgb 31.1 pg (27.0-32.0); Mean Corpuscular Volume 93.9 fL (80-94); Mean Platelet Vol. 9.5 fl (6.2-12.0); Platelet Count 234 K/mm3 (150-450); RBC Distribution Width CV 12.8 % (11.6-14.6); Red Blood Count 4.28 M/mm3 (4.6-6.2); White Blood Count 11.2 K/mm3 (4.4-11.0)
[2018-07-22 07:47] LABS: Scan Indicated on CBC? Y/N NO
[2018-07-22 07:56] LABS: Anion Gap 8 (5-15); BUN 15 mg/dL (7-18); BUN/Creat Ratio 15.1 RATIO (10-20); Calcium,Total 8.5 mg/dL (8.5-10.1); Chloride 108 mmol/L (98-107); EST Glomerular Filtration Rate 79 mL/min (>60); Est Glom Filt Rate - Afr Amer 95 mL/min (>60); Estimated Creatinine Clearance 69.96 ml/min; Glucose 111 mg/dL (74-106); Potassium 4.3 mmol/L (3.5-5.1); Sodium Level 142 mmol/L (136-145)
[2018-07-22 09:00] VITALS: BP 101/55; PULSE 60; RESP 16; TEMP 36.6; O2SAT 97
[2018-07-22] MEDS: Ciprofloxacin 400 MG/200 ML BAG 200 MG IV (09:06)
[2018-07-22] MEDS: levETIRAcetam 750 MG Tablet PO (09:08)
[2018-07-22] MEDS: Tamsulosin HCl 0.4 MG Capsule PO (09:08)
[2018-07-22] MEDS: Docusate Sodium 100 MG Capsule PO (09:08)
[2018-07-22] MEDS: Pantoprazole Sodium 40 MG Tablet PO (09:08)
[2018-07-22] MEDS: Lisinopril 10 MG Tablet PO (09:08)
[2018-07-22] MEDS: Finasteride 5 MG Tablet PO (09:08)
[2018-07-22] MEDS: LORazepam 0.5 MG Tablet PO (09:12)
== END 2018-07-22 12:45 | disposition home or self-care (01) ==
LOC: SDC 13:09 → AC 13:10 → MS3 13:39
PROVIDERS: Anesthesiology; Family Provider Family Medicine; PCP Family Medicine; Referring Provider Urology; Visit Provider Urology
PROC: (CPT 52601; principal; 2018-07-21 15:00)
DX: C61 Malignant neoplasm of prostate (principal); N40.1 Benign prostatic hyperplasia with lower urinary tract symptoms; R33.8 Other retention of urine; G40.89 Other seizures; F32.89 Other specified depressive episodes; F41.9 Anxiety disorder, unspecified; Z86.711 Personal history of pulmonary embolism; Z87.891 Personal history of nicotine dependence; Z79.899 Other long term (current) drug therapy; I10 Essential (primary) hypertension; G25.81 Restless legs syndrome
CPT/HCPCS: 52601; 36415; 80048; 80076; 85025; 85027; 85610; 85730; 88305; 88307; 88341; 88342; J7030; J7120; G0416; J0744; J2405

== ENCOUNTER 2018-07-24 02:52 | Emergency (ER) | payer OTHER, SELFPAY ==
[2018-07-21 18:39] VITALS: BMI 27.3
[2018-07-24 02:56] VITALS: BP 164/98; PULSE 110; RESP 16; TEMP 36.6; O2SAT 98; BMI 27.8
--- NOTE | 2018-07-24 04:25 | ED.VISSUMM ---
- ER Visit Summary Date of Service: 07/24/18 Chief Complaint: Unable to void History of Present Illness: The patient is a 72 M who presents with inability to void. He has a history of benign prostatic hypertrophy. He had a transurethral resection of the prostate on July 21. He has been unable to void since about 4 hours prior to presentation. A urinary catheter had been placed prior to my evaluation at bedside of the patient. He states he is already had significant relief after placement of the catheter. He otherwise is doing well. No fevers nausea vomiting. He states he did have some bladder spasm earlier but this is also improved. Physical Examination: Afebrile heart rate 110 vitals unremarkable Moist mucous membranes Heart regular rhythm Lungs clear Abdomen soft nontender nondistended Test Results: Not indicated Emergency Department Course and Treatment: Vera catheter was placed. He had 500 cc of light pink/red urine out. Tiny clots. His catheter is draining well. He will be discharged with Vera in place to follow-up with urology in the office. Treatment Plan: [] Disposition: Discharge Impression: Urinary retention This note was generated with Vendscreen dictation software. It may contain incorrect words, spelling, and punctuation that were not noted in review of the chart prior to signing ED Disposition - Plan for ED Patient: Referrals: Bib Dixon MD [Primary Care Provider] -
--- NOTE | 2018-07-24 04:26 | ED.DEP ---
ED Disposition - Plan for ED Patient: Instructions: ED Retention Urinary Male Referrals: Bib Dixon MD [Primary Care Provider] -
[2018-07-24 04:49] VITALS: BP 120/72; PULSE 68; RESP 16; O2SAT 96
== END 2018-07-24 05:01 | disposition home or self-care (01) ==
PROVIDERS: Emergency Provider Emergency Medicine; Family Provider Family Medicine; PCP Family Medicine
DX: N40.1 Benign prostatic hyperplasia with lower urinary tract symptoms (principal); R33.8 Other retention of urine; I10 Essential (primary) hypertension; Z79.899 Other long term (current) drug therapy
CPT/HCPCS: 51702; 99283

== ENCOUNTER → 2018-07-31 10:25 | Outpatient (CLI) | payer OTHER, SELFPAY ==
[2018-07-24 02:56] VITALS: BMI 27.8
--- NOTE | 2018-07-31 10:27 | NM_ITS ---
CLINICAL: 72-year-old male with reported recent diagnosis of carcinoma of the prostate. WHOLE BODY 99m Tc MDP RADIONUCLIDE BONE SCINTIGRAPHY COMPARISON: CT of the abdomen-pelvis report 03/15/2018 FINDINGS: Following the intravenous administration of 25.2 mCi of 99m Tc MDP, whole body bone images reveal: 1. Increased radiopharmaceutical concentration is identified in the the acromioclavicular and sternoclavicular compartments of both shoulders, mid cervical spine posteriorly on the left, left elbow articulation, both wrists, right-left hands, fifth lumbar vertebra posteriorly on the right, the right knee articulation. 2. Facilitated the uptake appears evident in the right and to lesser extent left superior pubic ramus 3. The remaining skeletal structures are scintigraphically unremarkable with normal-appearing renal images and urinary bladder activity identified. NM/Bone Scan Whole Body IMPRESSION: 1. The increase in radiopharmaceutical concentration identified in the bilateral superior pubic ramus may be further investigated with plain film radiography in the setting of known prostate carcinoma. 2. Degenerative arthritis appears expressed in the bilateral shoulders, cervical and lumbar spine, left elbow, wrist articulations bilaterally, right-left hands and right knee. 3. There is no definitive typical scintigraphic evidence of diffuse axial skeletal metastatic disease on the current examination. Electronically Signed: Serafin Ryan DO at 23:33 EST Tel , Service support ,
== END ==
PROVIDERS: Family Provider Family Medicine; PCP Family Medicine; Referring Provider Urology; Visit Provider Urology
DX: C61 Malignant neoplasm of prostate (principal)
CPT/HCPCS: 78306

== ENCOUNTER → 2018-08-04 12:59 | Outpatient (CLI) | payer OTHER, SELFPAY ==
[2018-07-24 02:56] VITALS: BMI 27.8
--- NOTE | 2018-08-04 13:01 | CT_ITS ---
STUDY: CT ABDOMEN AND PELVIS WITH CONTRAST REASON FOR EXAM: Male, 72 years old. Newly diagnosed prostate cancer RADIATION DOSAGE (If Supplied By Facility): CTDIvol = ( 17.84 ) mGy, DLP = ( 970.41 ) mGycm TECHNIQUE: Transaxial images were obtained from the dome of the diaphragm to the symphysis pubis without oral contrast. 100 mL Isovue-300 was administered. Sagittal and coronal images were reconstructed. Individualized dose optimization techniques were used for this CT. COMPARISON: 03/15/2018 CT, 07/31/2018 bone scan FINDINGS: The visualized lung bases are unremarkable. The visualized portions of the heart are within normal limits. Small low-density lesion in the right hepatic lobe on image 22 is stable accounting for variation in contrast bolus timing. Likely represents hepatic cyst. The gallbladder is surgically absent with expected mild biliary prominence. Normal spleen. Normal pancreas. Normal bilateral adrenal glands. Normal right kidney. Normal left kidney. Normal visualized stomach. Normal small intestine. There are multiple colonic diverticula consistent with diverticulosis. There is non-visualization of the appendix. Normal abdominal aorta. Normal inferior vena cava. Normal retroperitoneum. Persistent induration of the mesentery with a ringlike sparing around the mesenteric vessels; no adenopathy/luz marina mass. Urinary bladder is not well-distended but there is circumferential wall thickening which is more conspicuous since the prior study. The prostate continues to be enlarged with apparent intervertebral operative changes, perhaps TURP. Normal abdominal wall. There are degenerative changes of the lumbar spine. Well-defined sclerotic lesion of the inferior right obturator ring on axial image 113 is stable when compared to 03/15/2018 and does NOT correlate to abnormal activity on recent bone scan. In the region of abnormal isotope activity on recent bone scan, there is NO sclerotic or lytic lesion. No new lytic or sclerotic bone lesions are identified. Specifically, the pelvic ring is intact and the issue CT/Abdomen/Pelvis WITH Contrast IMPRESSION: 1. No suspicious lytic or sclerotic bone lesion (none correlating to the bone scan findings). 2. No pelvic sidewall or iliac chain adenopathy. 3. Interval TURP. Urinary bladder wall thickening without discrete mass suggesting cystitis or muscular hyperplasia. Electronically Signed: Juan Manuel Bender MD at 10:58 EST , Service support ,
== END ==
PROVIDERS: Family Provider Family Medicine; PCP Family Medicine; Referring Provider Urology; Visit Provider Urology
DX: C61 Malignant neoplasm of prostate (principal)
CPT/HCPCS: 74177; Q9967

== ENCOUNTER 2018-09-06 05:41 | Day surgery (SDC) | payer OTHER, SELFPAY ==
--- NOTE | 2018-09-05 14:50 | PCM.HP.BLA ---
History and Physical Date of Admission: 09/06/18 I have prostate cancer. HPI: RHONDA PAT is a 72 year-old male established patient who is here evaluation for treatment of prostate cancer. His prostate cancer was diagnosed 1 month ago. His cancer was diagnosed by Dr Ann. He does not have urinary incontinence. He does have problems with erectile dysfunction. He has not recently had unwanted weight loss. He is not having pain in new locations. He does have a good appetite. [place] score 9 (4+5) or (5+4). No perineural invasion. Elicity of hope, phoenixd today set up for markers and Spacer OAR next week. CC/HPI: tearful today lots of stress with family situations. ALLERGIES: Penicillin MEDICATIONS: Citracal + D 600 mg calcium-500 unit tablet, extended release 1 tablet PO BID Levetiracetam 750 mg tablet 1 tablet PO BID Lisinopril Lorazepam 0.5 mg tablet Shingrix PSH: Cystoscopy - 06/19/2018, 2012 Cystoscopy TURBT 2-5 cm - 2012 Cystoscopy TURP - 07/21/2018 NON- PSH: Cholecystectomy - 2008 Colonoscopy Patient documented to have received pneumococcal vaccination Pneumococcal Vaccine Admin PMH: Malignant neoplasm of prostate - 08/14/2018, - 07/27/2018 ? Histology/Primary Site: Adenocarcinoma, no subtype (morphologic abnormality), Malignant neoplasm of prostate ? Brando Score: 9 ? Clinical Staging: [id number], Staged on 08/14/2018 ? Diagnostic Confirmation: Positive histology ? Behaviour, Grade: Uncertain whether benign or malignant, Grade IV ? Laterality: Bilateral ? Provider at the office diagnosed the cancer Benign prostatic hyperplasia with lower urinary tract symptoms - 07/13/2018, - 09/06/2017, - 2015, - 2015, - 2014, - 2013 (Stable), - 2012, - 2012 Elevated prostate specific antigen [PSA] - 07/13/2018, - 09/06/2017 Other retention of urine - 07/13/2018, - 06/19/2018 Elevated prostate specific antigen [PSA] - 2015, - 2014, - 2013, - 2011 Hematospermia - 2015, - 2014, - 2013, - 2013 Nodular prostate without lower urinary tract symptoms - 2014 Benign prostatic hyperplasia without lower urinary tract symptoms - 2013, - 2012 Nodular prostate with lower urinary tract symptoms - 2013 Spermatocele of epididymis, unspecified - 2013 Encounter for screening for malignant neoplasm of prostate - 2012 Frequency of micturition - 2012 Neoplasm of uncertain behavior of bladder - 2013 Retention of urine, unspecified - 2012, - 2013, - 2013 Neoplasm of uncertain behavior of prostate, Right - 2011 Other microscopic hematuria - 2011 Male erectile dysfunction, unspecified NON- PMH: Encounter for surgical aftcr following surgery on the sys - 07/27/2018 Anxiety disorder, unspecified Essential (primary) hypertension Other acute pancreatitis Other depressive episodes Other pulmonary embolism without acute cor pulmonale Other seizures Immunizations: None FAMILY HISTORY: None SOCIAL HISTORY: Marital Status: Preferred Language: Palauan; Ethnicity: Not Or ; Race: White Current Smoking Status: Patient does not smoke anymore. Has not smoked since 03/06/1972. Tobacco Use Assessment Completed: Used Smokeless in last 30 days? Smoking cessation counseling was provided. Does not use smokeless tobacco. Light Drinker. Does not use drugs. Drinks 2 caffeinated drinks per day. Has not had a blood transfusion. Notes: Former chewer of tobacco, quit 15 yrs ago. REVIEW OF SYSTEMS: Constitutional: Patient denies fever, chills, weight loss, and weight gain. Eyes: Patient denies blurry vision, cataracts, and glaucoma. Ears, Nose, Mouth, Throat: Patient denies sleep apnea, hearing loss, and sinus infections. Cardiovascular: Patient denies chest pains, swollen ankles, irregular heartbeat, and pacemaker/defib. Respiratory: Patient denies shortness of breath, wheezing, oxygen, and cpap machine. Gastrointestinal: Patient denies abdominal pain, diarrhea, constipation, nausea, and vomiting. Genitourinary: Patient denies frequent urination, urinary retention, get up at night to void, leakage of urine, painful urination, blood in the urine, frequent uti's, history of stones, difficulty starting stream, weak stream/scanty, and bedwetting. Musculoskeletal: Patient denies sore muscles, back pain, and gout. Integumentary/Skin: Patient denies rash, skin cancer, and chronic itching. Neurological: Patient denies falling/unsteady, paralysis, and stroke/tia. Hematologic/Lymphatic: Patient denies abnormal bleeding, blood transfusion, swollen lymph nodes, deep venous thrombosis, and pulmonary embolism. VITAL SIGNS: 08/29/2018 03:19 PM Weight 194 lb / 88 kg Height 70 in / 177.8 cm BP 132/68 mmHg BMI 27.8 kg/m? - BMI Counseling was provided. MULTI-SYSTEM PHYSICAL EXAMINATION: Constitutional: Well-nourished. No physical deformities. Normally developed. Good grooming. Neck: Neck symmetrical, not swollen. Normal tracheal position. Respiratory: No labored breathing, no use of accessory muscles. Cardiovascular: Normal temperature, normal extremity pulses, no swelling, no varicosities. Lymphatic: No enlargement of neck, axillae, groin. Skin: No paleness, no jaundice, no cyanosis. No lesion, no ulcer, no rash. Neurologic / Psychiatric: Oriented to time, oriented to place, oriented to person. No depression, no anxiety, no agitation. Gastrointestinal: No mass, no tenderness, no rigidity, non obese abdomen. Eyes: Normal conjunctivae. Normal eyelids. Ears, Nose, Mouth, and Throat: Left ear no scars, no lesions, no masses. Right ear no scars, no lesions, no masses. Nose no scars, no lesions, no masses. Normal hearing. Normal lips. Musculoskeletal: Normal gait and station of head and neck. PAST DATA REVIEWED: Source Of History: Patient 05/09/18 11/21/17 11/14/17 11/08/17 08/24/17 10/07/15 02/27/15 02/27/14 PSA Total PSA 6.89 ng/mL 4.2 5.00 ng/mL 5.00 5.02 3.54 ng/mL 3.51 ng/ml 2.78 ng/ml Notes [facility] [address] [place], [address] This test was performed using the TPSA assay method for the [employer]uxe chemistry system. Values obtained with different assay methods cannot be used interchangably. When changing PSA assays in the course of monitoring a patient, additional sequential testing should be carried out to confirm baseline values. RESULT(S) PREVIOUSLY REPORTED ON MANUAL REQUISITION DURING DOWNTIME. [facility] [address] [place], [address] This test was performed using the TPSA assay method for the Dimension chemistry system. Values obtained with different assay methods cannot be used interchangably. When changing PSA assays in the course of monitoring a patient, additional sequential testing should be carried out to confirm baseline values. [facility] [address] [place], [place], [id number] This test was performed using the TPSA assay method for the Dimension chemistry system. Values obtained with different assay methods cannot be used interchangably. When changing PSA assays in the course of monitoring a patient, additional sequential testing should be carried out to confirm baseline values. Test performed at: [facility] [address] [place], [place] [id number] This test was performed using the TPSA assay method for the Dimension chemistry system. Values obtained with different assay methods cannot be used interchangably. When changing PSA assays in the course of monitoring a patient, additional sequential testing should be carried out to confirm baseline values. This test was performed using the TPSA assay method for the Dimension chemistry system. Values obtained with different assay methods cannot be used interchangably. When changing PSA assays in the course of monitoring a patient, additional sequential testing should be carried out to confirm baseline values. PROCEDURES: Ronna (3month) - [id number], [id number] SQ injection. Qty: 1 Adm. By: Michael Lima Unit: kit Lot No [id number] Route: SQ Exp. Date 03/06/2020 Freq: Q3M Mfgr.: Tolmar Site: left abdomen ASSESSMENT: ICD-10 Details 1 : Malignant neoplasm of prostate - C61 2 Elevated prostate specific antigen [PSA] - R97.2 3 Benign prostatic hyperplasia with lower urinary tract symptoms - N40.1 PLAN: Schedule Return Visit/Planned Activity: 3 Months - Office VisitRonna Document Letter(s): Created for Patient: Clinical Summary Notes: for XRT, + hormone therapy + spacer AOR will needs at least 2 years of hormone therapy discussed side effects citracal with D Rx.
[2018-09-06 06:02] VITALS: BP 114/74; PULSE 65; RESP 16; TEMP 36.4; O2SAT 98; BMI 27.8
[2018-09-06] MEDS: Cefazolin 2 GM in 0.9% Normal Saline 100 ML IV (07:18)
[2018-09-06] MEDS: Lubricating Jelly 60 GM Tube 30 GM TOPICAL (07:33)
--- NOTE | 2018-09-06 07:52 | DCINST_ITS ---
Discharge Diet: Light diet - advance as tolerated Discharge Activity: Return to Normal Activity Allergies/Adverse Reactions: Allergies Penicillins Allergy (Verified 08/30/18 10:00) Unknown Medications to take at Discharge Lorazepam [Ativan] 0.5 mg PO DAILY PRN PRN 08/26/15 levETIRAcetam tablet [Keppra tablet] 750 mg PO BID 08/26/15 Lisinopril [Prinivil] 10 mg PO DAILY 06/17/18 Naproxen Sodium [Aleve] 220 mg PO PRN PRN 08/30/18 Primary Care Physician: Bib Dixon MD [Primary Care Provider] - Test Results: Test results from this visit will be discussed in further detail at your follow- up appointment, if applicable. Please Follow Up With: Arnie Ann MD When: in 2 weeks, please call to make an appointment.
--- NOTE | 2018-09-06 07:56 | PCM.OPRPT ---
Report of Operation Date of Procedure: 09/06/18 Pre-Operative Diagnosis: Prostate cancer, planning for radiation treatments Post-Operative Diagnosis: Same Surgery/Procedure Performed:: Transrectal ultrasonography of the prostate, placement of gold fiducial markers for radiation treatments, placement of a spacer organ at risk gel to protect the rectum from radiation. Description of Surgical Findings:: Indication 72-year-old male who was recently diagnosed with prostate cancer after transurethral resection of the prostate he was found to have intermediate grade high-grade cancer in the prostate and and biopsies done of the prostate. We talked about options of management for his prostate cancer including radical prostatectomy, radiation therapy, hormone therapy and observation. After counseling the patient that the treatment options he could consider he is going to proceed with radiation treatments with hormone deprivation therapy. And planning for radiation treatments place gold markers of the prostate, also get a place a gel spacer between the rectum and the prostate using the spacer O AR system to place the gel between the rectum the prostate to separate the rectum from the prostate to try to decrease the rectal toxicity from radiation., 72-year-old male was taken back to the operating room he underwent general anesthesia, he was then placed on the table supine, we placed him in dorsolithotomy position with the legs in stirrups making sure that the legs were padded properly, we then remove the end of the bed and then placed the brachytherapy template onto the bed. We aligned the prostate ultrasound on the brachytherapy template. We then introduced the transrectal ultrasound probe into the rectum and did ultrasonography of the prostate identify the landmarks of the levator muscle, the bright denovies fascia, we identified the seminal vesicles, we identified the prostate, we could see the TUR defect within the prostate. After completing ultrasonography of the prostate to identify the critical landmarks I then prepped and draped the perineum in the usual sterile fashion, we used a iodoform Ioban to hold the testicles and penis out of the field. I then used a marker, marker delivery and advanced the on the right side of the prostate to the right base this was advanced under ultrasound guidance once the marker was in good position within the prostate I then took off the protective rubber shield and advanced the pusher and push the marker into the prostate. After the marker was placed we pulled the needle out and then performed ultrasonography we could see the marker in the prostate. We then went to the left side of the prostate again advanced the needle into the prostate under ultrasonography guidance and once the marker was in the left side of the prostate to the base we then pulled the protective rubber stopper on the pusher and then push the marker of the prostate and then gently retracted the needle again performed ultrasonography could see the marker on the prostate on that side we then went anteriorly at 12 o'clock position and placed the cutter plastics rolls close to the apex of the prostate at the 12 o'clock position this was done in a similar fashion after completing the placement of the 3 gold markers we then did ultrasonography of the prostate again we could see the 3 gold markers nicely within the prostate. We then prepared the spacer AOR gel for the procedure by first mixing the blue diluted and with the powder and then mixing the activator we prepared this on the back table as instructed following the manufactures instructions once the gel was prepared then I used a finder needle we marked the bowel and the finder needle to the level side up and the use a trans-view view on the ultrasound to advance the needle through the levator muscle into the obvious fascia we had injectable saline within the needle and we gently injected and could see the spacing of the fluid and an obvious fascia once we located the space and the fascia below the prostate in the midline confirming after injecting, the normal saline was injected below the prostate above the rectum once a space was confirmed then we slowly injected the gel over the course of 12 seconds we could see the gel form nicely between the rectum and the prostate there was good separation of the rectal anterior wall from the prostate. We then removed the needle and the gel altogether. I then did not examination of the prostate with a rectal exam he could feel the gel there was no perforation of the rectal wall. Patient's anesthetic was reversed is taken back to the PACU in stable condition plan will be to see him back as planned for his next hormone shot in a few months. He is good to proceed with radiation treatments. Type of Anesthesia:: General - Admit VTE Documentation VTE Present on Admission: No VTE Mechan Device Prophylaxis: SCD's
[2018-09-06 07:58] VITALS: BP 108/74; BP 114/74; PULSE 78; RESP 16; TEMP 36.3; O2SAT 97
[2018-09-06 08:05] VITALS: BP 100/60; BP 114/74; PULSE 84; RESP 16; O2SAT 96
[2018-09-06 08:15] VITALS: BP 104/66; BP 114/74; PULSE 70; RESP 17; O2SAT 97
[2018-09-06 08:23] VITALS: BP 105/69; BP 114/74; PULSE 64; RESP 16; TEMP 36.4; O2SAT 98
[2018-09-06 10:14] VITALS: BP 114/74; BP 128/79; PULSE 60; RESP 16; TEMP 36.1; O2SAT 99
== END 2018-09-06 10:17 | disposition home or self-care (01) ==
LOC: SDC 05:47 → AC 05:48
PROVIDERS: Family Provider Family Medicine; PCP Family Medicine; Referring Provider Urology; Visit Provider Urology
PROC: (CPT 55874; principal; 2018-09-06 07:15)
DX: C61 Malignant neoplasm of prostate (principal); I10 Essential (primary) hypertension; F32.9 Major depressive disorder, single episode, unspecified; G40.89 Other seizures; F41.9 Anxiety disorder, unspecified; Z86.711 Personal history of pulmonary embolism; Z79.899 Other long term (current) drug therapy; Z87.891 Personal history of nicotine dependence; N40.1 Benign prostatic hyperplasia with lower urinary tract symptoms; R33.8 Other retention of urine; G25.81 Restless legs syndrome
CPT/HCPCS: 55876; J7120; J2405

== ENCOUNTER → 2018-09-20 14:28 | Outpatient (CLI) | payer OTHER, SELFPAY ==
[2018-09-06 06:02] VITALS: BMI 27.8
[2018-09-20 16:05] LABS: Absolute Lymphocyte Count 1.79 X10^3/ul (0.83-4.51); Absolute Neutrophil Count 6.9 X10^3/uL (2.0-7.7); Basophil# 0.03 X10^3/uL; Basophil% 0.3 % (0-1); Eosinophil# 0.14 X10^3/uL; Eosinophils% 1.5 % (0-5); Hematocrit 43.7 % (40-54); Hemoglobin 14.4 g/dl (13.0-16.5); Lymphocyte # 1.79 X10^3/ul (4.0); Lymphocyte % 19.1 % (19-41); Mean Corpuscular Hgb 29.8 pg (27.0-32.0); Mean Corpuscular Volume 90.3 fL (80-94); Mean Platelet Vol. 9.7 fl (6.2-12.0); Monocyte# 0.51 X10^3/uL; Monocyte% 5.4 % (0-10); Neutrophil % 73.5 % (47-70); Platelet Count 264 K/mm3 (150-450); RBC Distribution Width CV 13.1 % (11.6-14.6); Red Blood Count 4.84 M/mm3 (4.6-6.2); White Blood Count 9.4 K/mm3 (4.4-11.0)
[2018-09-20 16:11] LABS: POSITIVE COUNT NO; POSITIVE DIFFERENTIAL NO; POSITIVE MORPHOLOGY NO
[2018-09-20 16:12] LABS: Creatinine, Serum 1.45 mg/dL (0.70-1.30); EST Glomerular Filtration Rate 51 mL/min (>60); Est Glom Filt Rate - Afr Amer 62 mL/min (>60)
== END ==
PROVIDERS: Family Provider Family Medicine; PCP Family Medicine; Referring Provider Radiology Radiation Oncology; Visit Provider Radiology Radiation Oncology
DX: Z01.818 Encounter for other preprocedural examination (principal); C61 Malignant neoplasm of prostate
CPT/HCPCS: 36415; 82565; 84153; 85025

== ENCOUNTER → 2018-09-21 11:47 | Outpatient (CLI) | payer OTHER, SELFPAY ==
[2018-09-06 06:02] VITALS: BMI 27.8
--- NOTE | 2018-09-21 11:49 | CT_ITS ---
STUDY: CT PELVIS WITH CONTRAST REASON FOR EXAM: Male, 72 years old. Prostate cancer. Treatment planning. RADIATION DOSAGE (If Supplied By Facility): CTDIvol = ( 24.62 ) mGy, DLP = ( 831.85 ) mGycm TECHNIQUE: Transaxial imaging of the pelvis was performed with oral contrast. 100ml IV/Oral Isovue 300 was administered intravenously. Scan performed according to treatment planning protocol Individualized dose optimization techniques were used for this CT. COMPARISON: None. FINDINGS: Prostate gland is enlarged impressing upon the urinary bladder. There are metallic seed implants. There is contrast in the urethra. Normal visualized small intestine. Normal visualized colon. There is no pelvic fluid. There is no pelvic lymphadenopathy. Normal visualized pelvic arteries. Normal abdominal wall. There is degenerative change of the spine and hips. CT/CT Pelvis W/CONT Therapy IMPRESSION: Treatment planning scan. Enlarged heterogeneous prostate impressing upon the urinary bladder Electronically Signed: Patrick Song MD at 14:41 EDT , Service support ,
== END ==
PROVIDERS: Family Provider Family Medicine; PCP Family Medicine; Referring Provider Radiology Radiation Oncology; Visit Provider Radiology Radiation Oncology
DX: C61 Malignant neoplasm of prostate (principal)
CPT/HCPCS: 51600; 72193; Q9965; Q9967

== ENCOUNTER → 2018-10-24 | Outpatient (CLI) | payer OTHER, SELFPAY ==
[2018-10-24 12:21] LABS: Absolute Lymphocyte Count 0.74 X10^3/ul (0.83-4.51); Absolute Neutrophil Count 3.1 X10^3/uL (2.0-7.7); Basophil# 0.02 X10^3/uL; Basophil% 0.4 % (0-1); Eosinophils% 4.3 % (0-5); Hematocrit 39.6 % (40-54); Hemoglobin 13.2 g/dl (13.0-16.5); Lymphocyte # 0.74 X10^3/ul (4.0); Mean Corp Hgb Conc 33.3 g/gl (32-36); Mean Corpuscular Hgb 29.7 pg (27.0-32.0); Mean Platelet Vol. 9.2 fl (6.2-12.0); Neutrophil # 3.06 X10^3/uL (2.7-7.7); Neutrophil % 66.1 % (47-70); Platelet Count 162 K/mm3 (150-450); RBC Distribution Width CV 13.1 % (11.6-14.6); RBC Distribution Width SD 42.3 fl (35.1-43.9); Red Blood Count 4.45 M/mm3 (4.6-6.2); White Blood Count 4.6 K/mm3 (4.4-11.0)
[2018-10-24 12:22] LABS: POSITIVE COUNT NO; POSITIVE DIFFERENTIAL NO; POSITIVE MORPHOLOGY NO
== END | disposition home or self-care (01) ==
LOC: MTLAB 10:53
PROVIDERS: Family Provider Family Medicine; PCP Family Medicine; Referring Provider Radiology Radiation Oncology; Visit Provider Radiology Radiation Oncology
DX: C61 Malignant neoplasm of prostate (principal)
CPT/HCPCS: 36415; 85025

== ENCOUNTER → 2018-11-15 | Outpatient (CLI) | payer OTHER, SELFPAY ==
[2018-11-15 12:26] LABS: Absolute Lymphocyte Count 0.57 X10^3/ul (0.83-4.51); Absolute Neutrophil Count 3.3 X10^3/uL (2.0-7.7); Basophil# 0.03 X10^3/uL; Basophil% 0.6 % (0-1); Eosinophil# 0.22 X10^3/uL; Eosinophils% 4.5 % (0-5); Hematocrit 38.3 % (40-54); Hemoglobin 12.8 g/dl (13.0-16.5); Lymphocyte # 0.57 X10^3/ul (4.0); Lymphocyte % 11.8 % (19-41); Mean Corp Hgb Conc 33.4 g/gl (32-36); Mean Corpuscular Hgb 29.8 pg (27.0-32.0); Mean Corpuscular Volume 89.1 fL (80-94); Monocyte% 14.5 % (0-10); Neutrophil # 3.31 X10^3/uL (2.7-7.7); Neutrophil % 68.4 % (47-70); Platelet Count 211 K/mm3 (150-450); RBC Distribution Width CV 13.8 % (11.6-14.6); RBC Distribution Width SD 44.8 fl (35.1-43.9); White Blood Count 4.8 K/mm3 (4.4-11.0)
[2018-11-15 12:27] LABS: Differential Indicated SCAN CRITERIA MET; POSITIVE COUNT NO; POSITIVE DIFFERENTIAL YES; POSITIVE MORPHOLOGY NO
== END | disposition home or self-care (01) ==
LOC: MTLAB 10:39
PROVIDERS: Family Provider Family Medicine; PCP Family Medicine; Referring Provider Radiology Radiation Oncology; Visit Provider Radiology Radiation Oncology
DX: C61 Malignant neoplasm of prostate (principal)
CPT/HCPCS: 36415; 85025

== ENCOUNTER → 2019-03-07 10:53 | Outpatient (CLI) | payer OTHER, SELFPAY ==
[2019-03-07 12:21] LABS: Hematocrit 38.8 % (40-54); Hemoglobin 12.3 g/dL (13.0-16.5); Mean Corp Hgb Conc 31.7 g/dL (32-36); Mean Corpuscular Hgb 29.7 pg (27.0-32.0); Mean Corpuscular Volume 93.7 fL (80-94); Mean Platelet Vol. 9.6 fl (6.2-12.0); Platelet Count 213 K/mm3 (150-450); RBC Distribution Width CV 12.4 % (11.6-14.6); RBC Distribution Width SD 42.7 fl (35.1-43.9); Red Blood Count 4.14 M/mm3 (4.6-6.2); White Blood Count 6.1 K/mm3 (4.4-11.0)
[2019-03-07 13:02] LABS: Anion Gap 8 (5-15); BUN 27 mg/dL (7-18); BUN/Creat Ratio 24.1 RATIO (10-20); Calcium,Total 8.9 mg/dL (8.5-10.1); Chloride 108 mmol/L (98-107); Creatinine, Serum 1.12 mg/dL (0.70-1.30); EST Glomerular Filtration Rate 69 mL/min (>60); Est Glom Filt Rate - Afr Amer 83 mL/min (>60); Glucose 86 mg/dL (74-106); Magnesium 1.9 mg/dL (1.6-2.6); Potassium 4.2 mmol/L (3.5-5.1); Sodium Level 143 mmol/L (136-145); Thyroid Stim Hormone (TSH) 0.93 uIU/mL (0.358-3.74)
[2019-03-07 13:03] LABS: Vitamin D,25 Hydroxy 35.1 ng/mL (29.95-100.01)
== END ==
PROVIDERS: Family Provider Family Medicine; PCP Family Medicine; Visit Provider Family Medicine
DX: R00.2 Palpitations (principal)
CPT/HCPCS: 36415; 80048; 82306; 83735; 84443; 85027

== ENCOUNTER → 2019-06-07 08:32 | Outpatient (CLI) | payer OTHER, SELFPAY ==
[2019-06-07 10:21] LABS: PSA,Total- Diagnostic 0.38 ng/mL (0.0-4.0)
== END ==
PROVIDERS: Family Provider Family Medicine; PCP Family Medicine; Referring Provider Urology; Visit Provider Urology
DX: C61 Malignant neoplasm of prostate (principal)
CPT/HCPCS: 36415; 84153

== ENCOUNTER → 2019-09-03 11:22 | Outpatient (CLI) | payer OTHER, SELFPAY | PROVIDERS: PCP Family Medicine; Referring Provider Urology; Visit Provider Urology | DX: C61 Malignant neoplasm of prostate (principal) | CPT/HCPCS: 36415; 84153 ==

== ENCOUNTER → 2019-12-06 12:16 | Outpatient (CLI) | payer OTHER, SELFPAY ==
[2019-12-06 15:13] LABS: Absolute Lymphocyte Count 1.24 X10^3/uL (0.83-4.51); Absolute Neutrophil Count 3.7 X10^3/uL (2.0-7.7); Basophil# 0.03 X10^3/uL; Basophil% 0.5 % (0-1); Eosinophil# 0.16 X10^3/uL; Eosinophils% 2.8 % (0-5); Hematocrit 42.5 % (40-54); Hemoglobin 13.7 g/dL (13.0-16.5); Lymphocyte # 1.24 X10^3/ul (4.0); Lymphocyte % 21.5 % (19-41); Mean Corp Hgb Conc 32.2 g/dL (32-36); Mean Corpuscular Hgb 30.2 pg (27.0-32.0); Mean Corpuscular Volume 93.6 fL (80-94); Mean Platelet Vol. 9.5 fl (6.2-12.0); Monocyte% 10.4 % (0-10); NRBC Flagged by Analyzer 0 % (0-5); Neutrophil # 3.71 X10^3/uL (2.7-7.7); Neutrophil % 64.3 % (47-70); Platelet Count 274 K/mm3 (150-450); RBC Distribution Width CV 13.2 % (11.6-14.6); RBC Distribution Width SD 45.1 fl (35.1-43.9); Red Blood Count 4.54 M/mm3 (4.6-6.2); White Blood Count 5.8 K/mm3 (4.4-11.0)
[2019-12-06 15:50] LABS: BUN 19 mg/dL (7-18); Creatinine, Serum 1.07 mg/dL (0.70-1.30); Glucose 93 mg/dL (74-106)
[2019-12-06 15:51] LABS: Anion Gap 3 (5-15); BUN/Creat Ratio 17.8 RATIO (10-20); Calcium,Total 9.3 mg/dL (8.5-10.1); Chloride 107 mmol/L (98-107); EST Glomerular Filtration Rate 72 mL/min (>60); Est Glom Filt Rate - Afr Amer 87 mL/min (>60); PSA,Total- Diagnostic 2.74 ng/mL (0.0-4.0); Potassium 4.3 mmol/L (3.5-5.1); Sodium Level 140 mmol/L (136-145); Thyroid Stim Hormone (TSH) 1.02 uIU/mL (0.358-3.74)
== END ==
PROVIDERS: PCP Family Medicine; Visit Provider Family Medicine
DX: M25.473 Effusion, unspecified ankle (principal); C61 Malignant neoplasm of prostate
CPT/HCPCS: 36415; 80048; 84153; 84443; 85025

== ENCOUNTER → 2019-12-27 09:03 | Outpatient (CLI) | payer OTHER, SELFPAY ==
[2019-12-27 09:57] LABS: Absolute Lymphocyte Count 0.95 X10^3/uL (0.83-4.51); Absolute Neutrophil Count 3.5 X10^3/uL (2.0-7.7); Basophil# 0.04 X10^3/uL; Basophil% 0.8 % (0-1); Eosinophil# 0.18 X10^3/uL; Eosinophils% 3.4 % (0-5); Hematocrit 39.5 % (40-54); Hemoglobin 12.6 g/dL (13.0-16.5); Lymphocyte # 0.95 X10^3/ul (4.0); Lymphocyte % 18.1 % (19-41); Mean Corp Hgb Conc 31.9 g/dL (32-36); Mean Corpuscular Hgb 29.9 pg (27.0-32.0); Mean Corpuscular Volume 93.8 fL (80-94); Mean Platelet Vol. 9.1 fl (6.2-12.0); Monocyte# 0.54 X10^3/uL; Monocyte% 10.3 % (0-10); NRBC Flagged by Analyzer 0 % (0-5); Neutrophil # 3.52 X10^3/uL (2.7-7.7); Platelet Count 250 K/mm3 (150-450); RBC Distribution Width CV 13.2 % (11.6-14.6); RBC Distribution Width SD 45.2 fl (35.1-43.9); Red Blood Count 4.21 M/mm3 (4.6-6.2); White Blood Count 5.3 K/mm3 (4.4-11.0)
[2019-12-27 10:23] LABS: PSA,Total- Diagnostic 3.41 ng/mL (0.0-4.0)
[2019-12-27 10:35] LABS: Anion Gap 2 (5-15); BUN 17 mg/dL (7-18); Calcium,Total 9.1 mg/dL (8.5-10.1); Chloride 109 mmol/L (98-107); Creatinine, Serum 0.94 mg/dL (0.70-1.30); EST Glomerular Filtration Rate 83 mL/min (>60); Est Glom Filt Rate - Afr Amer 101 mL/min (>60); Glucose 98 mg/dL (74-106); Sodium Level 142 mmol/L (136-145); Thyroid Stim Hormone (TSH) 1.41 uIU/mL (0.358-3.74)
== END ==
PROVIDERS: Family Medicine; PCP Family Medicine; Referring Provider Urology; Visit Provider Urology
DX: C61 Malignant neoplasm of prostate (principal); M25.473 Effusion, unspecified ankle
CPT/HCPCS: 36415; 80048; 84153; 84443; 85025

== ENCOUNTER → 2020-04-07 10:28 | Outpatient (CLI) | payer MEDICARE, OTHER, SELFPAY | PROVIDERS: PCP Family Medicine; Referring Provider Urology; Visit Provider Urology | DX: C61 Malignant neoplasm of prostate (principal) | CPT/HCPCS: 36415; 84153; 84403 ==

== ENCOUNTER → 2020-04-11 09:53 | Outpatient (CLI) | payer MEDICARE, OTHER, SELFPAY ==
--- NOTE | 2020-04-11 09:57 | NM_ITS ---
CLINICAL: 74-year-old male with reported history of carcinoma of the prostate with elevation of the serum PSA level. WHOLE BODY 99m Tc MDP RADIONUCLIDE BONE SCINTIGRAPHY COMPARISON: Previous whole body bone scintigraphy study dated 07/31/2018 FINDINGS: Following the intravenous administration of 26.3 mCi of 99m Tc MDP, whole body bone images reveal: 1. Increased radiopharmaceutical concentration is defined in the left posterior ilium, the left posterior lower sacrum-coccyx, bilateral inferior pubic ramus. 2. Enhanced tracer distribution is defined in the acromioclavicular compartments of both shoulders, bilateral elbows, fifth lumbar vertebra posteriorly on the right, right and left wrist articulations, both hands, knees bilaterally, the right forefoot. 3. The remaining skeletal structures are scintigraphically unremarkable with normal-appearing renal images and urinary bladder activity identified. The previously defined enhanced radiotracer distribution observed in the bilateral superior pubic ramus on the whole body bone scintigraphy study dated 07/31/2018 is not apparent on the current examination. FL/Bone Scan Whole Body IMPRESSION: 1. The increase in radiopharmaceutical concentration currently defined in the left posterior ilium, left lower sacrum-coccyx, bilateral inferior pubic ramus is consistent with osteoblastic turnover attributed to skeletal metastatic disease. 2. Degenerative arthritis appears expressed in the bilateral shoulder and elbow articulations, right and left wrists, bilateral hands, right and left knees, the right forefoot, fifth lumbar vertebra. 3. Overall compared to the previous whole body bone scintigraphy study dated 07/31/2018, there is interim development of newly visualized axial skeletal metastatic disease to include the left posterior ilium, sacrum-coccyx and bilateral inferior pubic ramus with interval resolution of the previously described right and left superior pubic rami scintigraphic abnormalities. Electronically Signed: Serafin Ryan DO at 20:14 EST Tel , Service support ,
== END ==
PROVIDERS: PCP Family Medicine; Referring Provider Urology; Visit Provider Urology
DX: C61 Malignant neoplasm of prostate (principal)
CPT/HCPCS: 78306

== ENCOUNTER → 2020-04-14 06:51 | Outpatient (CLI) | payer MEDICARE, OTHER, SELFPAY ==
--- NOTE | 2020-04-14 06:53 | CT_ITS ---
STUDY: CT ABDOMEN AND PELVIS WITHOUT CONTRAST REASON FOR EXAM: Male, 74 years old. Prostate cancer restaging, elevated PSA, prior radiation treatments 2019, cholecystectomy, CBD stone removed, hypertension. RADIATION DOSAGE (If Supplied By Facility): CTDIvol = ( 20.48 ) mGy, DLP = ( 207.21 ) mGycm TECHNIQUE: Transaxial images were obtained from the dome of the diaphragm to the symphysis pubis without oral contrast, and without intravenous contrast. Sagittal and coronal images were reconstructed. Individualized dose optimization techniques were used for this CT. COMPARISON: Comparison is made with prior study dated 08/04/2018. FINDINGS: There is a 6.5 mm noncalcified nodule in the right middle lobe as seen on image #1. Is also evidence of a 1.3 cm slightly spiculated nodule in the posterior medial segment of the right lower lobe as seen on image #11. The visualized portions of the heart are within normal limits. There is decreased attenuation of the liver consistent with steatosis. The patient is status post cholecystectomy. Normal spleen. Normal pancreas. Normal bilateral adrenal glands. Normal right kidney. Normal left kidney. There is a small hiatal hernia. Normal small intestine. There are multiple colonic diverticula consistent with diverticulosis. The appendix is visualized and appears normal. There is scattered atherosclerotic calcification of the abdominal aorta, without a demonstrated aneurysm. Normal inferior vena cava. Normal retroperitoneum. Stable induration of the root of the mesenteric fat with increased density within it. This may represent chronic as enteritis. Normal urinary bladder. There is evidence of prior TURP as well as radiation seeds within the remainder of the prostate gland. Normal abdominal wall. There are degenerative changes of the visualized lumbar spine. Stable loss of height of the superior endplate of the T12, L1 and L5 vertebrae. Stable irregularity of the superior endplates of the L1 and L5 vertebrae. Stable tiny well-defined sclerotic lesion in the inferior right upper treatment or ring. CT/Abdomen/Pelvis W IV Cont ONLY IMPRESSION: 2 new lung nodules in the right middle lobe and right lower lobe as described. Stable appearance of the induration of the root of mesentery. Status post TURP and radiation seeds within the prostate. Electronically Signed: Alvin Barragan, at 8:44 EST , Service support ,
[2020-04-14 07:16] LABS: CREATININE FINGERSTICK 1.1 mg/dL (0.70-1.30); EGFR FINGERSTICK > 60.0000 mL/min (>60)
== END ==
PROVIDERS: PCP Family Medicine; Referring Provider Urology; Visit Provider Urology
DX: C61 Malignant neoplasm of prostate (principal)
CPT/HCPCS: 74177; Q9967

== ENCOUNTER → 2020-04-15 11:54 | Outpatient (CLI) | payer MEDICARE, OTHER, SELFPAY ==
[2020-04-15 15:23] LABS: Absolute Lymphocyte Count 0.95 X10^3/uL (0.83-4.51); Absolute Neutrophil Count 3.9 X10^3/uL (2.0-7.7); Basophil# 0.05 X10^3/uL; Basophil% 0.9 % (0-1); Eosinophil# 0.14 X10^3/uL; Eosinophils% 2.5 % (0-5); Hemoglobin 12.9 g/dL (13.0-16.5); Lymphocyte # 0.95 X10^3/ul (4.0); Lymphocyte % 16.9 % (19-41); Mean Corp Hgb Conc 32.3 g/dL (32-36); Mean Corpuscular Hgb 29.8 pg (27.0-32.0); Mean Corpuscular Volume 92.4 fL (80-94); Mean Platelet Vol. 9.5 fl (6.2-12.0); Monocyte# 0.56 X10^3/uL; NRBC Flagged by Analyzer 0 % (0-5); Neutrophil # 3.89 X10^3/uL (2.7-7.7); Neutrophil % 69.3 % (47-70); Platelet Count 255 K/mm3 (150-450); RBC Distribution Width CV 13.2 % (11.6-14.6); RBC Distribution Width SD 44.7 fl (35.1-43.9); Red Blood Count 4.33 M/mm3 (4.6-6.2); White Blood Count 5.6 K/mm3 (4.4-11.0)
== END ==
PROVIDERS: PCP Family Medicine; Referring Provider Radiology Radiation Oncology; Visit Provider Radiology Radiation Oncology
DX: Z01.818 Encounter for other preprocedural examination (principal); C79.51 Secondary malignant neoplasm of bone; Z85.46 Personal history of malignant neoplasm of prostate
CPT/HCPCS: 36415; 85025

== ENCOUNTER → 2020-05-08 12:49 | Outpatient (CLI) | payer MEDICARE, OTHER, SELFPAY | PROVIDERS: PCP Family Medicine; Referring Provider Radiology Radiation Oncology; Visit Provider Radiology Radiation Oncology | DX: C61 Malignant neoplasm of prostate (principal); C79.51 Secondary malignant neoplasm of bone | CPT/HCPCS: 79101; A9606 ==

== ENCOUNTER → 2020-05-20 08:34 | Outpatient (CLI) | payer MEDICARE, OTHER, SELFPAY | PROVIDERS: PCP Family Medicine; Referring Provider Urology; Visit Provider Urology | DX: C61 Malignant neoplasm of prostate (principal) | CPT/HCPCS: 36415; 84153 ==

== ENCOUNTER → 2020-06-03 10:50 | Outpatient (CLI) | payer MEDICARE, OTHER, SELFPAY ==
[2020-06-03 12:11] LABS: Absolute Lymphocyte Count 0.81 X10^3/uL (0.83-4.51); Absolute Neutrophil Count 2.2 X10^3/uL (2.0-7.7); Basophil# 0.02 X10^3/uL; Basophil% 0.5 % (0-1); Eosinophil# 0.06 X10^3/uL; Eosinophils% 1.6 % (0-5); Hematocrit 38.7 % (40-54); Hemoglobin 12.3 g/dL (13.0-16.5); Lymphocyte # 0.81 X10^3/ul (4.0); Lymphocyte % 22.2 % (19-41); Mean Corp Hgb Conc 31.8 g/dL (32-36); Mean Corpuscular Hgb 29.2 pg (27.0-32.0); Mean Corpuscular Volume 91.9 fL (80-94); Mean Platelet Vol. 9.1 fl (6.2-12.0); Monocyte# 0.52 X10^3/uL; Monocyte% 14.2 % (0-10); NRBC Flagged by Analyzer 0 % (0-5); Neutrophil # 2.23 X10^3/uL (2.7-7.7); Neutrophil % 61.2 % (47-70); Platelet Count 212 K/mm3 (150-450); RBC Distribution Width CV 13.6 % (11.6-14.6); RBC Distribution Width SD 46.3 fl (35.1-43.9); Red Blood Count 4.21 M/mm3 (4.6-6.2); White Blood Count 3.7 K/mm3 (4.4-11.0)
== END ==
PROVIDERS: PCP Family Medicine; Referring Provider Radiology Radiation Oncology; Visit Provider Radiology Radiation Oncology
DX: Z01.818 Encounter for other preprocedural examination (principal); C79.51 Secondary malignant neoplasm of bone; Z85.46 Personal history of malignant neoplasm of prostate
CPT/HCPCS: 36415; 85025

== ENCOUNTER → 2020-06-12 11:38 | Outpatient (CLI) | payer MEDICARE, OTHER, SELFPAY | PROVIDERS: PCP Family Medicine; Referring Provider Radiology Radiation Oncology; Visit Provider Radiology Radiation Oncology | DX: C61 Malignant neoplasm of prostate (principal); C79.51 Secondary malignant neoplasm of bone | CPT/HCPCS: 79101; A9606 ==

== ENCOUNTER → 2020-06-23 13:53 | Outpatient (CLI) | payer MEDICARE, OTHER, SELFPAY ==
[2020-06-23 16:20] LABS: ALB/GLOB Ratio 1.1 RATIO (0.9-2.4); AST(SGOT) 12 U/L (15-37); Alanine Aminotransfer ALT/SGPT 21 U/L (16-61); Albumin, Serum 3.9 g/dL (3.2-5.0); Alkaline Phosphatase 97 U/L (45-117); Anion Gap 8 (5-15); BUN 17 mg/dL (7-18); Calcium,Total 8.9 mg/dL (8.5-10.1); Chloride 103 mmol/L (98-107); Creatinine, Serum 1.13 mg/dL (0.70-1.30); EST Glomerular Filtration Rate 68 mL/min (>60); Est Glom Filt Rate - Afr Amer 82 mL/min (>60); Globulin 3.5 g/dL (2.2-4.2); Glucose 104 mg/dL (74-106); Protein, Total 7.4 g/dL (6.4-8.2); Sodium Level 139 mmol/L (136-145)
== END ==
PROVIDERS: PCP Family Medicine; Referring Provider Urology; Visit Provider Urology
DX: C61 Malignant neoplasm of prostate (principal)
CPT/HCPCS: 36415; 80053; 84153

== ENCOUNTER → 2020-07-01 10:45 | Outpatient (CLI) | payer MEDICARE, OTHER, SELFPAY ==
[2020-07-01 12:12] LABS: Absolute Lymphocyte Count 0.99 X10^3/uL (0.83-4.51); Absolute Neutrophil Count 3.3 X10^3/uL (2.0-7.7); Basophil# 0.03 X10^3/uL; Basophil% 0.6 % (0-1); Eosinophil# 0.07 X10^3/uL; Eosinophils% 1.4 % (0-5); Hematocrit 37.9 % (40-54); Hemoglobin 12.4 g/dL (13.0-16.5); Lymphocyte # 0.99 X10^3/ul (4.0); Lymphocyte % 20.2 % (19-41); Mean Corp Hgb Conc 32.7 g/dL (32-36); Mean Corpuscular Hgb 30.2 pg (27.0-32.0); Mean Corpuscular Volume 92.4 fL (80-94); Mean Platelet Vol. 9.2 fl (6.2-12.0); Monocyte# 0.51 X10^3/uL; Monocyte% 10.4 % (0-10); NRBC Flagged by Analyzer 0 % (0-5); Neutrophil # 3.28 X10^3/uL (2.7-7.7); Neutrophil % 66.8 % (47-70); Platelet Count 175 K/mm3 (150-450); RBC Distribution Width CV 13.9 % (11.6-14.6); RBC Distribution Width SD 47.3 fl (35.1-43.9); White Blood Count 4.9 K/mm3 (4.4-11.0)
== END ==
PROVIDERS: PCP Family Medicine; Referring Provider Radiology Radiation Oncology; Visit Provider Radiology Radiation Oncology
DX: Z01.818 Encounter for other preprocedural examination (principal); C79.51 Secondary malignant neoplasm of bone; Z85.46 Personal history of malignant neoplasm of prostate
CPT/HCPCS: 36415; 85025

== ENCOUNTER → 2020-07-10 11:45 | Outpatient (CLI) | payer MEDICARE, OTHER, SELFPAY | PROVIDERS: PCP Family Medicine; Referring Provider Radiology Radiation Oncology; Visit Provider Radiology Radiation Oncology | DX: C61 Malignant neoplasm of prostate (principal); C79.51 Secondary malignant neoplasm of bone | CPT/HCPCS: 79101; A9606 ==

== ENCOUNTER → 2020-07-16 08:09 | Outpatient (CLI) | payer MEDICARE, OTHER, SELFPAY ==
[2020-07-16 10:42] LABS: Anion Gap 3 (5-15); BUN 23 mg/dL (7-18); Calcium,Total 9.1 mg/dL (8.5-10.1); Chloride 104 mmol/L (98-107); Cholesterol 184 mg/dL (200); EST Glomerular Filtration Rate 78 mL/min (>60); Est Glom Filt Rate - Afr Amer 94 mL/min (>60); Glucose 96 mg/dL (74-106); High Density Lipoprotein 66 mg/dL; Potassium 4.2 mmol/L (3.5-5.1); Sodium Level 138 mmol/L (136-145); Triglycerides 117 mg/dL; Very Low Density Lipoprotein 23 mg/dL (5-40)
== END ==
PROVIDERS: PCP Family Medicine; Referring Provider Urology; Visit Provider Urology
DX: C61 Malignant neoplasm of prostate (principal); I10 Essential (primary) hypertension
CPT/HCPCS: 36415; 80048; 80061; 84153

== ENCOUNTER → 2020-07-29 11:45 | Outpatient (CLI) | payer MEDICARE, OTHER, SELFPAY ==
[2020-07-29 15:20] LABS: Absolute Neutrophil Count 2.8 X10^3/uL (2.0-7.7); Basophil# 0.02 X10^3/uL; Basophil% 0.5 % (0-1); Eosinophil# 0.09 X10^3/uL; Eosinophils% 2.2 % (0-5); Hematocrit 34.9 % (40-54); Hemoglobin 11.4 g/dL (13.0-16.5); Lymphocyte % 16.9 % (19-41); Mean Corp Hgb Conc 32.7 g/dL (32-36); Mean Corpuscular Hgb 30.4 pg (27.0-32.0); Mean Corpuscular Volume 93.1 fL (80-94); Monocyte# 0.55 X10^3/uL; Monocyte% 13.3 % (0-10); NRBC Flagged by Analyzer 0 % (0-5); Neutrophil # 2.78 X10^3/uL (2.7-7.7); Neutrophil % 66.9 % (47-70); Platelet Count 181 K/mm3 (150-450); RBC Distribution Width CV 14.7 % (11.6-14.6); RBC Distribution Width SD 49.7 fl (35.1-43.9); Red Blood Count 3.75 M/mm3 (4.6-6.2); White Blood Count 4.2 K/mm3 (4.4-11.0)
== END ==
PROVIDERS: PCP Family Medicine; Referring Provider Radiology Radiation Oncology; Visit Provider Radiology Radiation Oncology
DX: Z01.818 Encounter for other preprocedural examination (principal); C79.51 Secondary malignant neoplasm of bone; Z85.46 Personal history of malignant neoplasm of prostate
CPT/HCPCS: 36415; 85025

== ENCOUNTER → 2020-08-12 11:53 | Outpatient (CLI) | payer MEDICARE, OTHER, SELFPAY | PROVIDERS: PCP Family Medicine; Referring Provider Radiology Radiation Oncology; Visit Provider Radiology Radiation Oncology | DX: C61 Malignant neoplasm of prostate (principal); C79.51 Secondary malignant neoplasm of bone | CPT/HCPCS: 79101; A9606 ==

== ENCOUNTER → 2020-08-28 11:37 | Outpatient (CLI) | payer MEDICARE, OTHER, SELFPAY ==
[2020-08-28 15:25] LABS: Absolute Lymphocyte Count 0.61 X10^3/uL (0.83-4.51); Absolute Neutrophil Count 2.5 X10^3/uL (2.0-7.7); Basophil# 0.02 X10^3/uL; Basophil% 0.5 % (0-1); Eosinophils% 2.7 % (0-5); Hematocrit 33.5 % (40-54); Hemoglobin 10.8 g/dL (13.0-16.5); Lymphocyte # 0.61 X10^3/ul (4.0); Lymphocyte % 16.7 % (19-41); Mean Corp Hgb Conc 32.2 g/dL (32-36); Mean Corpuscular Hgb 31.6 pg (27.0-32.0); Mean Platelet Vol. 9.1 fl (6.2-12.0); Monocyte# 0.46 X10^3/uL; Monocyte% 12.6 % (0-10); NRBC Flagged by Analyzer 0 % (0-5); Neutrophil # 2.46 X10^3/uL (2.7-7.7); Neutrophil % 67.2 % (47-70); Platelet Count 180 K/mm3 (150-450); RBC Distribution Width CV 15.3 % (11.6-14.6); RBC Distribution Width SD 54.8 fl (35.1-43.9); Red Blood Count 3.42 M/mm3 (4.6-6.2); White Blood Count 3.7 K/mm3 (4.4-11.0)
== END ==
PROVIDERS: PCP Family Medicine; Referring Provider Radiology Radiation Oncology; Visit Provider Radiology Radiation Oncology
DX: Z01.818 Encounter for other preprocedural examination (principal); C79.51 Secondary malignant neoplasm of bone; Z85.46 Personal history of malignant neoplasm of prostate
CPT/HCPCS: 36415; 85025

== ENCOUNTER → 2020-09-09 12:17 | Outpatient (CLI) | payer MEDICARE, OTHER, SELFPAY | PROVIDERS: PCP Family Medicine; Referring Provider Radiology Radiation Oncology; Visit Provider Radiology Radiation Oncology | DX: C61 Malignant neoplasm of prostate (principal); C79.51 Secondary malignant neoplasm of bone | CPT/HCPCS: 79101; A9606 ==

== ENCOUNTER → 2020-09-30 12:07 | Outpatient (CLI) | payer MEDICARE, OTHER, SELFPAY ==
[2020-09-30 15:02] LABS: Absolute Lymphocyte Count 0.35 X10^3/uL (0.83-4.51); Absolute Neutrophil Count 3.6 X10^3/uL (2.0-7.7); Basophil# 0.03 X10^3/uL; Basophil% 0.6 % (0-1); Eosinophil# 0.08 X10^3/uL; Eosinophils% 1.7 % (0-5); Hematocrit 34.5 % (40-54); Hemoglobin 10.9 g/dL (13.0-16.5); Lymphocyte # 0.35 X10^3/ul (0.83-4.51); Lymphocyte % 7.5 % (19-41); Mean Corp Hgb Conc 31.6 g/dL (32-36); Mean Corpuscular Hgb 31.4 pg (27.0-32.0); Mean Corpuscular Volume 99.4 fL (80-94); Mean Platelet Vol. 8.8 fl (6.2-12.0); Monocyte# 0.52 X10^3/uL; Monocyte% 11.2 % (0-10); NRBC Flagged by Analyzer 0 % (0-5); Neutrophil # 3.63 X10^3/uL (2.7-7.7); Neutrophil % 78.4 % (47-70); POSITIVE DIFFERENTIAL YES; Platelet Count 183 K/mm3 (150-450); RBC Distribution Width CV 14.4 % (11.6-14.6); RBC Distribution Width SD 52.5 fl (35.1-43.9); Red Blood Count 3.47 M/mm3 (4.6-6.2); White Blood Count 4.6 K/mm3 (4.4-11.0)
[2020-09-30 15:03] LABS: Differential Indicated SCAN CRITERIA MET
== END ==
PROVIDERS: PCP Family Medicine
DX: Z01.818 Encounter for other preprocedural examination (principal); C79.51 Secondary malignant neoplasm of bone; Z85.46 Personal history of malignant neoplasm of prostate
CPT/HCPCS: 36415; 85025

== ENCOUNTER → 2020-10-09 11:47 | Outpatient (CLI) | payer MEDICARE, OTHER, SELFPAY | PROVIDERS: PCP Family Medicine; Referring Provider Radiology Radiation Oncology; Visit Provider Radiology Radiation Oncology | DX: C61 Malignant neoplasm of prostate (principal); C79.51 Secondary malignant neoplasm of bone | CPT/HCPCS: 79101; A9606 ==

== ENCOUNTER → 2020-10-15 10:39 | Outpatient (CLI) | payer MEDICARE, OTHER, SELFPAY ==
[2020-10-15 12:47] LABS: Anion Gap 3 (5-15); BUN 20 mg/dL (7-18); BUN/Creat Ratio 18.7 RATIO (10-20); Calcium,Total 9.1 mg/dL (8.5-10.1); Chloride 106 mmol/L (98-107); Creatinine, Serum 1.07 mg/dL (0.70-1.30); EST Glomerular Filtration Rate 72 mL/min (>60); Est Glom Filt Rate - Afr Amer 87 mL/min (>60); Glucose 95 mg/dL (74-106); Potassium 4.1 mmol/L (3.5-5.1); Sodium Level 137 mmol/L (136-145)
== END ==
PROVIDERS: PCP Family Medicine; Referring Provider Urology; Visit Provider Urology
DX: C61 Malignant neoplasm of prostate (principal)
CPT/HCPCS: 36415; 80048; 84153

== ENCOUNTER → 2020-11-17 12:36 | Outpatient (CLI) | payer MEDICARE, OTHER, SELFPAY ==
--- NOTE | 2020-11-17 13:03 | RAD_ITS ---
HISTORY: BACK PAIN COMPARISON: CT scan of the lumbar spine from April 14, 2020. FINDINGS: # of images incl. paperwork: 5 XR Spine Lumbar Min 4 Views: Dextroscoliosis of the thoracolumbar spine is similar. Facet arthropathy is similar. Superior endplate fracture with mild wedging to the T12 and L1 vertebral bodies is similar. Modic type endplate sclerosis within the superior endplates of L5 and L2 are similar. Facet arthropathy throughout the lumbar spine is similar. Is greatest at the L3-L4, L4-L5, and L5-S1 levels. Lumbar vertebral bodies are normal in height. Lumbar disc spaces aredemonstrates loss of disc height was enthesophytes. This disease is greatest within the lower thoracic spine and at the L4-L5 level. No acute lumbar spine fracture or subluxation. RAD/L/S Spine Min 4 Views IMPRESSION: No acute lumbar spine fracture or subluxation. Multilevel degenerative disc disease with facet arthropathy and dextroscoliosis and moderate in severity April 14, 2020. at 0656 Reported and signed by: Aldair Rodriguez MD Electronically Signed: Aldair Rodriguez MD at 6:55 EDT Tel , Service support ,
== END ==
PROVIDERS: PCP Family Medicine; Referring Provider Family Medicine; Visit Provider Family Medicine
DX: M54.9 Dorsalgia, unspecified (principal)
CPT/HCPCS: 72110

== ENCOUNTER → 2020-11-24 15:46 | Outpatient (CLI) | payer MEDICARE, OTHER, SELFPAY | PROVIDERS: PCP Family Medicine; Referring Provider Urology; Visit Provider Urology | DX: C61 Malignant neoplasm of prostate (principal) | CPT/HCPCS: 36415; 84153; 84403 ==

== ENCOUNTER 2020-11-26 15:05 | Outpatient (RCR) | payer MEDICARE, OTHER, SELFPAY ==
--- NOTE | 2020-11-27 14:43 | HP.PTEVAL_ITS ---
Patient's Visit Information RHONDA PAT is a 74 year old M referred to Physical Therapy by Dr. Bib Dixon MD with a diagnosis of BACK PAIN. Date of Evaluation: 11/26/20 Physical Therapist: Rhonda Mullen PT, Cert MDT, OCS - Visit Plan Frequency: 2x /Week Duration: 4 Weeks Plan: PATIENT HAS POSTRATE CA NO MODALTIES.PLAN TO FLOW UP WITH MD HERRERA FOR PROSTRATE ,DISCUSSED WITH PATIENT IF SYMPTOMS WORSEN CONTACT . PT INTERVENTIONS POSTURAL EX'S,DSL ,LUMBAR ROM AND LE STRENGTHENING - Subjective This 74 y/o male presents to physical therapy with back pain. Patient has had back with radicular symptoms left leg for 3 weeks which has progressively worse. Seen DR recommended PT ,prednisone and muscle relaxer. Then return to MED recommended gabepetin. Location left back to hamstring occasionally left ankle .Patient had x-rays showed DDD lumbar. Patient was using FWW when seeing DR and currently worse and has difficulty walking. Aggravating factors sitting, bending, standing, walking with walker . Alleviating factors ice /MEDS. Coughing/sneezing-.Bowel/bladder -. c/o parathesia/tingling feet. Pain affects sleeping. Patient has h/o back pain. Patient pain influences function and ADL's. Patient 3 -4weeks using pry bar felt twinge and getting worse. Patient has had no prior treatment. Patient pain affects QOL .Pain is intermittent in leg based on activity. Patient has h/o of prostrate CA plans to see MD tomorrow. SOCIAL: . VOCATION: retired - Pain Left Back Pain Intensity (Out of 10): 10 Pain Intensity Range: 10 Left Lower Extremity Pain Intensity (Out of 10): 10 Pain Intensity Range: 10 - Objective POSTURE: guarded position forward hips/knees flexed. NEURO: C/O parathesia/tingling ,reflexes 3/3 L3-4,mytome weakness quads/hams/hip. GAIT: ambulates with fww short distances paifull unsteady. PALPTION: tender LS LEFT. FLEXABLABLITY: hams mod tight. LUMBAR ROM: mod/severe loss with flexion and extension with pain, side glides mod loss pain left. MMT: quads/hams/hip 3- /4,ankle 4-/5 left ,right 4-/5 - Special Tests L/S Slump test left side: Positive L/S Slump test right side: Negative L/S Left Straight Leg Raise: Positive L/S Right Straight Leg Raise: Negative - Goals Goal 1:: I with HEP Goal Time Frame: 4-6 Weeks Goal 2:: Decrease pain in back and left leg by 50% or> to improve function and GAIT Goal Time Frame: 4-6 Weeks Goal 3:: Patient to ambulate with least restrictive device community distance with improved gait pattern with normal maryanne and less pain. Goal Time Frame: 4-6 Weeks Goal 4:: Patient to improve lumbar ROM for function of recovery Goal Time Frame: 4-6 Weeks Goal 5:: Patient to increase strength of left leg by 4-/5 to improve function with gait Goal Time Frame: 4-6 Weeks Goal 6:: Patient to improve back owestry score by 5 points or > to improve function and QOL. Goal Time Frame: 4-6 Weeks - Rehabilitation Potential Physical Therapy Diagnosis: Patient has severe back pain with radicular symptoms left leg with possible stenosis and/or derangement with pain with test movements ,positioning unable to walk needs FWW, worse with bending ,standing unable to lift ,standing worse affects ADLS' and function as well as comorbities with p rostate CA Rehabilitation Potential: Fair - Anticipated Interventions Patient/Client Instruction: Educate patient on: Condition, Plan of Care For the Purpose of:: To decrease pain, To increase ROM, To improve muscle performance and motor function, To improve ability to perform ADL's, To increase tolerance to activity/condition/position, To improve performance and independence with ADL's, To decrease level of supervision to perform tasks, To increase flexibility/ROM, To improve safety with gait, To assume or resume ADL's, To reduce risk of recurrence, To improve health and function, To improve self management, To improve ability to perform tasks related to life management, To improve tolerance to ADL's Therapeutic Exercise to Include: Strength training, Balance training, Body mechanics, Postural training, Flexibilty training, Gait and locomotor training, Active ROM, Dynamic Lumbar Stabilization Comment: BLE For the Purpose of:: To decrease pain, To increase ROM, To improve muscle performance and motor function, To improve ability to perform ADL's, To increase tolerance to activity/condition/position, To improve ability of physical actions for home/community/work/leisure, To improve gait and locomotor functions, To im prove health of tissue, To decrease soft tissue restriction, To increase flexibility/ROM, To improve balance, To improve safety with gait, To assume or resume ADL's, To reduce risk of recurrence, To improve self management, To improve ability to perform tasks related to life management, To improve tolerance to ADL's Thank you for the opportunity to evaluate your patient. For Medicare and Medicare HMO plans, please review the plan of care and approve it. It will need to be FAXED BACK to us at [phone] for Medicare purposes. For Medicare only, by signing this I certify the plan of care. Please let me know if there are questions or concerns regarding this plan of care. Physician Signature: Date:
--- NOTE | 2021-03-12 17:03 | HP.PT.NRP ---
RHONDA Tash PAT was seen in my office for initial evaluation on 11/26/20. The following Plan of Care was established for this patient: Initial Frequency: 2x /Week Initial Duration: 4 Weeks Patient/Client Instruction: Educate patient on: Condition, Plan of Care For the Purpose of:: To decrease pain, To increase ROM, To improve muscle performance and motor function, To improve ability to perform ADL's, To increase tolerance to activity/condition/position, To improve performance and independence with ADL's, To decrease level of supervision to perform tasks, To increase flexibility/ROM, To improve safety with gait, To assume or resume ADL's, To reduce risk of recurrence, To improve health and function, To improve self management, To improve ability to perform tasks related to life management, To improve tolerance to ADL's Therapeutic Exercise to Include: Strength training, Balance training, Body mechanics, Postural training, Flexibilty training, Gait and locomotor training, Active ROM, Dynamic Lumbar Stabilization For the Purpose of:: To decrease pain, To increase ROM, To improve muscle performance and motor function, To improve ability to perform ADL's, To increase tolerance to activity/condition/position, To improve ability of physical actions for home/community/work/leisure, To improve gait and locomotor functions, To improve health of tissue, To decrease soft tissue restriction, To increase flexibility/ROM, To improve balance, To improve safety with gait, To assume or resume ADL's, To reduce risk of recurrence, To improve self management, To improve ability to perform tasks related to life management, To improve tolerance to ADL's This patient was last seen in our office . Pertinent comments regarding their Physical therapy will appear below: Patient seen for PT for back pain for HEP,but RTD At this point I will be discontinuing this patient from physical therapy. I would be happy to see this patient again in the future if found appropriate by the physician. Thank you! Rhonda Mullen, PT, Cert MDT, OCS Balance/Gait/Functional tests - Balance/Special Test Scores Oswestry Low Back Score: 44
== END 2020-11-26 19:00 | disposition home or self-care (01) ==
LOC: PT 15:05
PROVIDERS: PCP Family Medicine; Visit Provider Family Medicine
DX: M54.9 Dorsalgia, unspecified (principal)
CPT/HCPCS: 97163

== ENCOUNTER → 2020-11-28 13:58 | Outpatient (CLI) | payer MEDICARE, OTHER, SELFPAY ==
--- NOTE | 2020-11-28 14:30 | MRI_ITS ---
STUDY: MRI LUMBAR SPINE WITH AND WITHOUT CONTRAST REASON FOR EXAM: Male, 74 years old. LBP.sciatica. Previously reported history of metastatic prostate CA. TECHNIQUE: Standardized fat and water weighted pulse sequences were obtained in the sagittal and axial planes. IV 19ml Dotarem was administered for the contrast portion of the examination. COMPARISON: X-ray 11/17/2020, CT abdomen and pelvis 04/14/2020, bone scan 04/11/2020. FINDINGS: Mild chronic loss of vertebral body height at T12 and L1. T12-L1: Prior mild compression at T12 and L1 with Schmorl''s nodes in the superior endplates. Normal disc height, hydration and morphology. Normal bilateral facet joints. Normal central canal and bilateral lateral recesses. Normal bilateral intervertebral neural foramina. Normal lumbar lordosis. There is no substantial scoliosis. Normal conus medullaris that terminates at the L1 level. L1-2: Normal endplates. Disc dehydration and small Schmorl''s nodes. Normal bilateral facet joints. Normal central canal and bilateral lateral recesses. Small left inferior foraminal disc protrusion, noncompressive. L2-3: Normal endplates. Disc dehydration. Small L2 Schmorl''s node. Normal bilateral facet joints. Normal central canal and bilateral lateral recesses. Normal bilateral intervertebral neural foramina. L3-4: Normal endplates. Disc dehydration. Borderline canal stenosis due to mild spondylotic bar, mild facet and ligamentous hypertrophy. Mild left foraminal encroachment due to spurring. L4-5: Normal endplates. Disc dehydration and mild disc space narrowing. Small Schmorl''s nodes. Moderate concentric canal stenosis due to annular disc bulge, moderate facet and ligamentous hypertrophy. Foraminal stenosis is mild on the left and moderate on the right due to disc bulge and facet hypertrophy. L5-S1: Normal endplates. Disc dehydration. Mild annular disc bulge. No canal stenosis. Moderate right foraminal stenosis due to disc bulge, spondylosis and mild facet hypertrophy. Unilateral L5 spondylolysis on the right. Marrow edema in the S2 vertebral body with horizontal fracture. Mild acute angulation at the S1-2 level. No subluxation. Acute fractures of the sacral ala bilaterally. 3.7 x 1.9 cm T1 hypointense lesion in the left posterior ilium consistent with metastatic lesion as reported on prior bone scan. MRI/Spine Lumbar W/WO Contrast IMPRESSION: 1. Acute S2 fracture with bilateral sacral ala fractures. The pattern is consistent with insufficiency fracture, although underlying metastatic disease is not excluded. 2. Left iliac bone lesion consistent with previously reported metastatic disease. 3. L4-5 disc bulge and canal stenosis. 4. Moderate foraminal stenosis at L4-5 and L5-S1. 5. Unilateral spondylolysis at L5. 6. Additional chronic findings are detailed above. Electronically Signed: Patricia Fallon MD at 17:28 EDT Tel , Service support ,
== END ==
PROVIDERS: PCP Family Medicine; Referring Provider Urology; Visit Provider Urology
DX: M54.40 Lumbago with sciatica, unspecified side (principal); R97.21 Rising PSA following treatment for malignant neoplasm of prostate
CPT/HCPCS: 72158; A9575

== ENCOUNTER 2021-01-15 12:00 | Outpatient (RCR) | payer SELFPAY | END 2021-01-15 19:00 | disposition home or self-care (01) | LOC: PT 12:00 | PROVIDERS: PCP Family Medicine | DX: Z00.00 Encounter for general adult medical examination without abnormal findings (principal) ==

== ENCOUNTER → 2021-01-15 12:52 | Outpatient (CLI) | payer MEDICARE, OTHER, SELFPAY | PROVIDERS: PCP Family Medicine; Referring Provider Urology; Visit Provider Urology | DX: C61 Malignant neoplasm of prostate (principal) | CPT/HCPCS: 36415; 84153 ==

== ENCOUNTER 2021-01-18 05:34 | Emergency (ER) | payer MEDICARE, OTHER, SELFPAY ==
[2021-01-18 05:34] VITALS: BP 144/91; PULSE 115; RESP 18; TEMP 36.6; O2SAT 93; BMI 30.1
--- NOTE | 2021-01-18 05:43 | CT_ITS ---
STUDY: CT BRAIN WITHOUT CONTRAST REASON FOR EXAM: Male, 75 years old. seizure RADIATION DOSAGE (If Supplied By Facility): CTDIvol = ( 44.99 ) mGy, DLP = ( 812.98 ) mGycm TECHNIQUE: Transaxial CT imaging of the brain was performed without administration of intravenous contrast material. Individualized dose optimization techniques were used for this CT. COMPARISON: No relevant priors. FINDINGS: Normal soft tissue structures. Normal calvarium. There is mild cerebral atrophy with widening of the extra-axial spaces and ventricular dilatation. There are areas of decreased attenuation within the white matter tracts of the supratentorial brain, consistent with microvascular disease changes. Normal basal ganglia and thalami. Normal brainstem. Normal cerebellum. There is atherosclerotic calcification of the cavernous carotid arteries. There is no intracranial hemorrhage. There are no findings of an acute ischemic infarction. There is mild mucoperiosteal thickening ethmoid sinuses. There is no evidence for acute sinusitis. CT/Brain/Head without Contrast IMPRESSION: Mild chronic involutional changes of the brain. No demonstrated acute intracranial process. Electronically Signed: Brandon Sanchez MD at 6:31 EDT , Service support ,
--- NOTE | 2021-01-18 05:45 | RAD_ITS ---
STUDY: X-RAY - LUMBAR SPINE REASON FOR EXAM: Male, 75 years old. pain -- known back fracture - worse after seizure TECHNIQUE: 2 view(s) of the lumbar spine were obtained. X-Ray Lumbar Spine 11/17/2020. COMPARISON: CT scan abdomen and pelvis 04/14/2020. FINDINGS: Normal lumbar lordosis. There is no substantial scoliosis. There is a normal alignment of the vertebrae. There are mild chronic wedge-shaped deformities of the T12 and L1 vertebral bodies, stable in appearance.. There is multilevel spondylosis.. There is multilevel disc space narrowing. There are multilevel degenerative changes of facet joints. The soft tissue structures are unremarkable. RAD/Lumbar Spine 2 or 3 Views IMPRESSION: Degenerative changes of the spine, as detailed above. Old compression fractures T12 and L1. No demonstrated acute fracture. Electronically Signed: Brandon Sanchez MD at 6:38 EDT , Service support ,
--- NOTE | 2021-01-18 05:45 | RAD_ITS ---
STUDY: X-RAY - PELVIS REASON FOR EXAM: Male, 75 years old. pain TECHNIQUE: One view of the pelvis was obtained. COMPARISON: CT scan abdomen and pelvis 04/14/2020. FINDINGS: There is a non-specific bowel gas pattern. Normal visualized soft tissue structures. Normal bilateral iliac wings, sacroiliac joints and visualized sacrum. Normal pubic symphysis. Normal ischial tuberosities. No acute-appearing fractures extending through the right inferior pubic ramus and through the right superior pubic ramus at the level the right acetabulum. Normal visualized right femoral head. Normal right acetabulum. Normal right hip joint. Normal visualized left femoral head. Normal left acetabulum. Normal left hip joint. RAD/Pelvis 1 or 2 Views IMPRESSION: Fractures of the right superior and inferior pubic rami. Electronically Signed: Brandon Sanchez MD at 6:42 EDT , Service support ,
[2021-01-18] MEDS: fentaNYL 100 MCG/2 ML Ampul 25 MCG IV (05:50)
[2021-01-18 05:55] LABS: Absolute Lymphocyte Count 0.84 X10^3/uL (0.83-4.51); Absolute Neutrophil Count 3.4 X10^3/uL (2.0-7.7); Basophil# 0.02 X10^3/uL; Basophil% 0.4 % (0-1); Eosinophil# 0.18 X10^3/uL; Eosinophils% 3.5 % (0-5); Hematocrit 32.8 % (40-54); Lymphocyte # 0.84 X10^3/ul (0.83-4.51); Lymphocyte % 16.4 % (19-41); Mean Corp Hgb Conc 33.5 g/dL (32-36); Mean Corpuscular Hgb 32.6 pg (27.0-32.0); Mean Corpuscular Volume 97.3 fL (80-94); Mean Platelet Vol. 8.5 fl (6.2-12.0); Monocyte# 0.64 X10^3/uL; Monocyte% 12.5 % (0-10); NRBC Flagged by Analyzer 0 % (0-5); Neutrophil # 3.41 X10^3/uL (2.7-7.7); Neutrophil % 66.6 % (47-70); Platelet Count 228 K/mm3 (150-450); RBC Distribution Width CV 13.2 % (11.6-14.6); RBC Distribution Width SD 47.1 fl (35.1-43.9); Red Blood Count 3.37 M/mm3 (4.6-6.2); White Blood Count 5.1 K/mm3 (4.4-11.0)
--- NOTE | 2021-01-18 06:04 | EDS_ITS ---
HPI History of Present Illness Chief Complaint: Seizure Informant: patient, spouse/S.O. and EMS Onset/Context/Timing Onset: Today Narrative Narrative: Patient presents with EMS after a seizure. He has a history of s eizure disorder but states it has been several years since his last seizure. He is currently on Keppra 250 twice daily. Patient reportedly had a seizure during his sleep. EMS was called. They remained on scene for a while but because patient did not completely go back to baseline did decide to transport. Patient is complaining of pain to his left hip and thigh area. He reports having recent diagnosis of a back fracture. He is unsure what level. [facility] Medical History Anxiety Back pain Depression Seizures Home Medications levetiracetam 250 mg PO BID 08/26/15 [History Last Taken 09/06/18 05:20] lorazepam 0.5 mg PO DAILY PRN PRN 08/26/15 [History Last Taken 09/06/18 05:20] amlodipine 5 mg PO DAILY 01/18/21 [History Last Taken Unknown] duloxetine 30 mg PO DAILY 01/18/21 [History Last Taken Unknown] enzalutamide [Xtandi] 160 mg PO 4X/DAY 01/18/21 [History Last Taken Unknown] escitalopram oxalate 10 mg PO DAILY 01/18/21 [History Last Taken Unknown] gabapentin 100 mg PO BID 01/18/21 [History Last Taken Unknown] oxycodone 5 mg PO BID PRN 01/18/21 [History Last Taken Unknown] Allergy/AdvReac Type Severity Reaction Status Date / Time Penicillins Allergy Unknown Verified 01/18/21 05:37 Social History Smoking Status: Former smoker ROS ROS ED Constitutional Constitutional ED: Denies chills or fever(s) Eyes Eyes: Denies change in vision ENT ENT ED: Denies sore throat Cardiovascular Cardiovascular: Denies chest pain Respiratory/Chest Respiratory/Chest: Denies cough or dyspnea Gastrointestinal Gastrointestinal: Denies abdominal pain, diarrhea, nausea or vomiting Genitourinary Genitourinary ED: Denies dysuria Musculoskeletal Musculoskeletal: Reports back pain Integumentary Denies rash Neurologic Neurologic: Denies headache(s), paresthesias or weakness Allergic/Immunologic Allergic/Immunologic ED: Denies urticaria EXAM Physical Exam Const Vital Signs: 01/18/21 05:34 Temperature 97.9 F Temperature Source Temporal Pulse Rate 115 H Respiratory Rate 18 Blood Pressure 144/91 H Blood Pressure Mean 108 Pulse Ox 93 Oxygen Delivery Method Room Air Positive well nourished and well developed General Appearance ED: well developed HEENT Reports normocephalic and head/scalp atraumatic HEENT Narrative: No tongue bite injury noted Eyes PERRL and EOMs intact bilaterally Neck supple Chest Wall inspection of chest normal and palpation of chest normal Resp normal respiratory effort and clear to auscultation bilaterally Cardio regular rate and regular rhythm GI normal to inspection, nondistended, normoactive bowel sounds Palpation: soft Extremity normal to inspection Extremity Narrative: Equal leg lengths bilaterally. Strong distal pulses. No pain with logroll of the hips. Neuro oriented x3 Neuro Narrative: No focal neurologic deficits. Sensorium / Orientation: alert Psych mental status grossly normal Skin no rashes or lesions noted MDM MDM MDM Narrative Medical decision making narrative: Patient does have history of seizure disorder however has not had a seizure in several years. In light of this CT scan of the head and lab work is obtained. Due to patient's increased lower back pain and left thigh pain lumbar spine and pelvis x-rays are obtained. Patient is given a dose of fentanyl for pain. He is also given an extra dose of his Keppra through the IV. Lab Data Attestation: I reviewed the patient's lab results. Labs: Laboratory Results - last 24 hr 01/18/21 01/18/21 05:40 05:40 WBC 5.1 RBC 3.37 L Hgb 11.0 L Hct 32.8 L MCV 97.3 H MCH 32.6 H MCHC 33.5 RDW Std Deviation 47.1 H RDW Coeff of Nemo 13.2 Plt Count 228 MPV 8.5 Immature Gran % (Auto) 0.600 Neut % (Auto) 66.6 Lymph % (Auto) 16.4 L Ashley % (Auto) 12.5 H Eos % (Auto) 3.5 Baso % (Auto) 0.4 Absolute Neuts (auto) 3.4 Absolute Lymphs (auto) 0.84 Nucleated RBC % 0 Sodium 141 Potassium 3.6 Chloride 108 H Carbon Dioxide 24.0 Anion Gap 9 BUN 15 Creatinine 1.03 Estim Creat Clear Calc 64.97 Est GFR (MDRD) Af Amer 91 Est GFR (MDRD) Non-Af 75 BUN/Creatinine Ratio 14.6 Glucose 119 H Calcium 8.8 Radiography Diagnostic Testing: Radiology Impression Brain CT 01/18/21 05:43 IMPRESSION: Mild chronic involutional changes of the brain. No demonstrated acute intracranial process. Electronically Signed: Brandon Sanchez MD at 6:31 EDT , Service support , Lumbar Spine X-Ray 01/18/21 05:45 IMPRESSION: Degenerative changes of the spine, as detailed above. Old compression fractures T12 and L1. No demonstrated acute fracture. Electronically Signed: Brandon Sanchez MD at 6:38 EDT , Service support , Pelvis X-Ray 01/18/21 05:45 IMPRESSION: Fractures of the right superior and inferior pubic rami. Electronically Signed: Brandon Sanchez MD at 6:42 EDT , Service support , Treatment and Re-Evaluation Comments:: Lumbar spine x-rays per my interpretation reveal chronic changes. Pelvis x-rays reveal old appearing fractures on the right side. I am able to see at least 1 of those fractures on some L-spine x-rays that were obtained from November of this year. Lab work is unremarkable. On repeat examination patient r esting, but still complains of spasms in his left leg. It sounds as though this has been an ongoing issue for the last 7 or 8 weeks. Patient will be given a dose of morphine at this time. also states that the neurologist has been slowly weaning down the patient's Keppra. They were advised to call the office on Tuesday to notify of a breakthrough seizure to see if Keppra dosing will need to be adjusted. They voiced understanding and agreement. Discharge Plan Triage Chief Complaint: Seizure ED Provider: Azucena Kennedy Dx/Rx/DC Orders Clinical Impression: Breakthrough seizure, Chronic back pain Instructions: ED Back Pain (Acute or Chronic), ED Seizure, Recurrent (Adult) Prescriptions: No Action lorazepam 0.5 MG tablet 0.5 mg PO DAILY PRN PRN (Reason: Anxiety) RF: 0 levetiracetam 750 MG tablet 250 mg PO BID RF: 0 amlodipine 5 mg Tablet 5 mg PO DAILY RF: 0 oxycodone 5 mg Capsule 5 mg PO BID PRN (Reason: Pain) RF: 0 gabapentin 100 mg Capsule 100 mg PO BID RF: 0 escitalopram oxalate 10 mg Tablet 10 mg PO DAILY RF: 0 duloxetine 30 mg Capsule,Delayed Release(Dr/Ec) 30 mg PO DAILY RF: 0 Xtandi 80 mg Tablet 160 mg PO 4X/DAY RF: 0 Primary Care Provider: Bib Dixon Referrals: Bib Dixon MD [Primary Care Provider] - As Needed Activity Restrictions/Additional Instructions: As discussed, please contact your neurologist to notify them of your breakthrough seizure. Your Keppra dose may need to be adjusted. Please follow- up closely with your pain management physician and spine doctor. Disposition Disposition: Home, Self Care
[2021-01-18 06:43] LABS: Anion Gap 9 (5-15); BUN 15 mg/dL (7-18); BUN/Creat Ratio 14.6 RATIO (10-20); Calcium,Total 8.8 mg/dL (8.5-10.1); Chloride 108 mmol/L (98-107); Creatinine, Serum 1.03 mg/dL (0.70-1.30); EST Glomerular Filtration Rate 75 mL/min (>60); Est Glom Filt Rate - Afr Amer 91 mL/min (>60); Estimated Creatinine Clearance 64.97 ml/min; Glucose 119 mg/dL (74-106); Potassium 3.6 mmol/L (3.5-5.1); Sodium Level 141 mmol/L (136-145)
[2021-01-18] MEDS: Ondansetron 4 MG/2 ML Vial IV (07:24)
[2021-01-18] MEDS: Morphine 4 MG/ML Syringe IV (07:25)
[2021-01-18 08:00] VITALS: BP 136/71; PULSE 101; RESP 12; O2SAT 94
== END 2021-01-18 08:00 | disposition home or self-care (01) ==
PROVIDERS: Emergency Provider Emergency Medicine; PCP Family Medicine
DX: G40.909 Epilepsy, unspecified, not intractable, without status epilepticus (principal); G89.29 Other chronic pain; M54.5 Low back pain; F41.9 Anxiety disorder, unspecified; F32.9 Major depressive disorder, single episode, unspecified; Z79.899 Other long term (current) drug therapy; Z87.891 Personal history of nicotine dependence
CPT/HCPCS: 70450; 72100; 72170; 80048; 85025; 96365; 96375; 99285; J7050; A4216; J2405

== ENCOUNTER → 2021-02-12 07:26 | Outpatient (CLI) | payer MEDICARE, OTHER, SELFPAY ==
--- NOTE | 2021-02-12 07:34 | CT_ITS ---
STUDY: CT CHEST, ABDOMEN T PELVIS WITH CONTRAST REASON FOR EXAM: Male, 75 years old. PROSTATE CANCER RADIATION DOSAGE (If Supplied By Facility): CTDIvol = ( 15.93 ) mGy, DLP = ( 1651.20 ) mGycm TECHNIQUE: Transaxial imaging was performed following intravenous administration of IV 100mL Isovue-300. Individualized dose optimization techniques were used for this CT. COMPARISON: Comparison is made with prior examination of 08/26/2015. FINDINGS: CHEST There is a 6 mm noncalcified pleural-based density in the right upper lobe laterally as seen on axial image #36. There is also evidence of a 7.8 mm slightly lobulated nodule in the posterior aspect of the superior segment of the left lower lobe as seen on axial image #51. A 4 mm slightly spiculated nodule is also seen along the anterior medial aspect of the left upper lobe as seen on axial image #71. These nodules were not visualized on prior examination. The previously seen 6.5 mm noncalcified nodule in the right middle lobe has decreased in size. It presently measures approximately 3 mm. There is no demonstrated pleural abnormality. Normal heart and pericardium. Normal mediastinum. Normal hilar regions. Normal unenhanced pulmonary arteries. Normal aorta arch and descending thoracic aorta. There are degenerative changes of the thoracic spine. ABDOMEN There is a 3.8 cm x 4.3 cm rounded hypodense nodule in the medial midportion of the right lobe of the liver. A metastatic deposit should be ruled out. The patient is status post cholecystectomy. Normal spleen. Normal pancreas. Normal bilateral adrenal glands. Normal right kidney. Normal left kidney. Normal visualized stomach. Normal small intestine. There are multiple colonic diverticula consistent with diverticulosis. There are surgical clips in the region of the appendix consistent with a prior appendectomy. There is scattered atherosclerotic calcification of the abdominal aorta, without a demonstrated aneurysm. Normal inferior vena cava. Normal retroperitoneum. There is evidence of increased markings in the mesenteric fat of the root of the mesentery. This is a nonspecific finding and is unchanged as compared to prior study. PELVIS The bladder is not completely distended. Mild degree of bladder wall thickening. The patient is status post prostate resection with metallic radiation seeds within the prostatic bed. There is diffuse atherosclerotic calcification of the pelvic arteries. Normal abdominal wall. There are degenerative changes of the visualized lumbar spine. Irregularity along the superior endplate of the L5 vertebrae. CT/CT Chest, Abd, Pel w/Contrast IMPRESSION: Findings in keeping with metastatic nodule in the right lobe of the liver as described. Multiple small pulmonary nodules. Status post prostatectomy with the radiation seeds within the prostatic bed. Electronically Signed: Alvin Barragan MD at 13:19 EDT , Service support ,
[2021-02-12 15:29] LABS: Xtra Tube EP Lab EXTRA TUBE
== END ==
PROVIDERS: PCP Family Medicine; Referring Provider Internal Medicine Medical Oncology; Visit Provider Internal Medicine Medical Oncology
DX: C61 Malignant neoplasm of prostate (principal); C79.51 Secondary malignant neoplasm of bone; N40.0 Benign prostatic hyperplasia without lower urinary tract symptoms
CPT/HCPCS: 36415; 71260; 74177; 84153; Q9967

== ENCOUNTER → 2021-02-16 08:00 | Outpatient (CLI) | payer MEDICARE, OTHER, SELFPAY ==
--- NOTE | 2021-02-16 08:02 | NM_ITS ---
CLINICAL: 75-year-old male with reported history of carcinoma of the prostate. WHOLE BODY 99m Tc MDP RADIONUCLIDE BONE SCINTIGRAPHY COMPARISON: Previous whole body bone scintigraphy study dated 04/11/2020 FINDINGS: Following the intravenous administration of 25.0 mCi of 99m Tc MDP, whole body bone images reveal: 1. On the current examination, there is persistently defined increased radiopharmaceutical concentration noted in the left posterior ilium, the bilateral inferior pubic ramus, newly defined in the right acetabulum, posterior sacrum and pubic symphysis. 2. An increase in tracer distribution is presently visualized in the acromioclavicular compartment of the left shoulder, bilateral wrists, knee articulations bilaterally. 3. The remaining skeletal structures are scintigraphically unremarkable with normal-appearing renal images and urinary bladder activity identified. NM/Bone Scan Whole Body IMPRESSION: 1. The increase in radiopharmaceutical distribution presently visualized in the left posterior ilium, bilateral inferior pubic ramus, right acetabulum, posterior sacrum, pubic symphysis is most consistent with skeletal metastatic disease. 2. Degenerative arthritis appears currently expressed in the left shoulder, bilateral wrists, right and left knee articulations. 3. Overall compared to the previous whole body bone scintigraphy study dated 04/11/2020, there is both persistently and newly identified axial skeletal foci commensurate with osseous metastasis. Electronically Signed: Serafin Ryan DO at 22:16 EDT Tel , Service support ,
== END ==
PROVIDERS: PCP Family Medicine; Referring Provider Internal Medicine Medical Oncology; Visit Provider Internal Medicine Medical Oncology
DX: C61 Malignant neoplasm of prostate (principal); C79.51 Secondary malignant neoplasm of bone
CPT/HCPCS: 78306; A9503

== ENCOUNTER → 2021-02-23 10:46 | Outpatient (CLI) | payer MEDICARE, OTHER, SELFPAY ==
--- NOTE | 2021-02-23 11:11 | MRI_ITS ---
HISTORY: BACK PAIN, HX PROSTATE CA, BONE METS. TECHNIQUE: Multiplanar and multisequence MR images of the lumbar spine without and with contrast. IV Contrast dosage and agent: 19 mL Dotarem. # of images incl. paperwork: 200. COMPARISON: CT 02/12/2021, MR 11/28/2020. FINDINGS: VERTEBRAE: Mild chronic loss of height of the T12 and L1 vertebral bodies. Degenerative bone marrow endplate changes at multiple levels with Schmorl's nodes. 8 mm T1 hypointense and STIR hyperintense lesion in the T1 vertebral body now seen with enhancement. Probable small hemangioma in the L3 vertebral body again seen. Chronic S2 fracture with enhancement and T1 hypointense signal again seen. Bone marrow edema associated with bilateral sacral insufficiency fractures again noted. Persistent lesion in the left iliac bone. ALIGNMENT: No significant anterior or posterior subluxation. SPINAL CANAL: Normal morphology and position of the conus at L1. No gross epidural collection or enhancing intradural extramedullary mass. Prominent epidural fat at the L5-S1 level again noted. SOFT TISSUES: Mild posterior intramuscular edema. INTERVERTEBRAL DISCS: Multilevel degenerative changes with posterior disc bulge osteophyte complexes and facet arthropathy, superimposed on a developmentally narrow spinal canal. L1-2: Mild left foraminal narrowing. L2-3:No significant central canal stenosis or foraminal narrowing. L3-4: Moderate central canal stenosis and mild left foraminal narrowing. L4-5: Severe central canal stenosis. Bilateral foraminal narrowing. L5-S1: Tapering of the thecal sac secondary to prominent epidural fat. Mild right foraminal narrowing. MRI/Spine Lumbar W/WO Contrast IMPRESSION: New small enhancing lesion in the L1 vertebral body, suspicious for progression of osseous metastases. Redemonstration of bilateral sacral insufficiency fractures with a chronic S2 fracture, possible pathologic fracture with underlying metastasis. 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 Multilevel degenerative disc disease as described above. at 1111 Reported and signed by: Ольга Rosales MD Electronically Signed: Ольга Rosales MD at 11:10 EDT Tel , Service support ,
[2021-02-23 15:11] LABS: EGFR FINGERSTICK > 60.0000 mL/min (>60)
== END ==
PROVIDERS: PCP Family Medicine; Visit Provider Internal Medicine Hematology & Oncology
DX: M54.41 Lumbago with sciatica, right side (principal); M54.42 Lumbago with sciatica, left side; G89.29 Other chronic pain; C61 Malignant neoplasm of prostate; C79.51 Secondary malignant neoplasm of bone
CPT/HCPCS: 72158; A9575

== ENCOUNTER → 2021-02-26 08:51 | Outpatient (CLI) | payer MEDICARE, OTHER, SELFPAY ==
[2021-02-26] VITALS (9 sets, daily range): BP systolic 115–135; BP diastolic 68–82; PULSE 82–102; RESP 10–18; TEMP 36.9; O2SAT 92–98; BMI 27.9
--- NOTE | 2021-02-26 | IMM_PTH ---
PATIENT: RHONDA PAT LOC: CT U#:[id number] AGE/SX: 79/M ROOM: RE02/26/[address]: Dr. Devin Michel MD : 1945 BED: DIS: SPEC #: [id number] RECD: 02/27/21 12:28 STATUS: ABEL REQ #: [id number] SONIA: 02/26/21 00:[address]: Devin Michel DEPT: IMMUNOHISTOCHEMISTRY RECD BY: Norma Richard ENTERED: 02/27/21 12:31 SP TYPE: IMMUNO OTHR DR: MD Dr. Rc Estes DO Tissues: Liver, NOS Procedures: RCC (add) NAPSIN A (add) CK20 (add) CK5-6 (add) CK7 (add) CK8 (add) HEP PAR (add) TTF1 (add) Pankeratin (initial) P40 (add) PSAP (add) PHYSICIAN & [address] [address] SPECIMEN INFORMATION: Tissue Source: Liver, CT-guided core biopsy Clinical Info: Liver mass right lobe Specimen Number: [id number] CPT code: 15423, 80916 x10 METHODOLOGY: Deparaffinized sections of prefer/formalin-fixed tissue or PAP/DQ stained slides are incubated with monoclonal/polyclonal antibodies/oligonucleotide probes. Localization is made via biotin free immunoperoxidase method. Appropriate controls are performed and reacted as expected. Results on target cell population are indicated in the following table: RESULTS: ANTIBODY / CLONE RESULT AE1-3 (AE1/AE3/PCK26) positive CK7 (OV-TL12/30) negative CK8 (26kzgsX12) positive CK20 (KS20.8) positive, a few cells TTF-1 (8G7G3/1) negative Napsin A (Rabbit Polyclonal) negative HepPar (OCh1E5) negative RCC (PN-15) negative PSAP (PASE/4LJ) positive, focal CK5-6 (D5 & 1684) negative P40 (BC28) negative These tests were developed and their performance characteristics determined by [facility]. They may not have been cleared or approved by the U.[place]. Food and Drug Administration. The FDA has determined that such clearance or approval is not necessary. The above immunohistochemical/dualISH markers are ordered and reviewed by the Pathologist. INTERPRETATION: Liver, CT-guided core biopsy: Metastatic carcinoma, consistent with prostate primary. SJ:samuel 03/02/2021
--- NOTE | 2021-02-26 | ASPIGT_PTH ---
PATIENT: RHONDA PAT LOC: CT U#:[id number] AGE/SX: 79/M ROOM: RE02/26/[address]: Dr. Devin Michel MD : 1945 BED: DIS: SPEC #: [id number] RECD: 02/26/21 10:58 STATUS: ABEL [place] #: [id number] SONIA: 02/26/21 00:[address]: Devin Michel DEPT: SURGICAL PATHOLOGY RECD BY: Malika Calle ENTERED: 02/26/21 10:58 SP TYPE: ASP RAD OTHR DR: MD Dr. Rc Estes DO Tissues: Liver, NOS Procedures: FNA Specimen Adequacy Special Stain Group II Surgery Specimen Level IV Imprint (control) HEADER OPERATION: CT-guided liver biopsy PRE-OP DIAGNOSIS: Liver mass right lobe TISSUE SUBMITTED: Liver 18-gauge core x4 MICROSCOPIC DIAGNOSIS Liver, CT-guided core biopsy: Metastatic carcinoma consistent with prostate primary. See comment. AISSATOU:samuel 02/27/2021 COMMENT The specimen is evaluated at the time of biopsy by Dr. Fiore. Immediate Evaluation = Adequate for evaluation. Atypical cells noted. Immunohistochemistry ([id number]) supports the above diagnosis. Please make reference to previous specimen ([id number]) prostate, TUR with diagnosis of ?prostatic adenocarcinoma? and right prostate, apex, left prostate, apex and left prostate, base, core biopsies with diagnosis of ?prostatic adenocarcinoma.? Case has been reviewed in consultation with Dr. Vann who concurs with the above diagnosis. IDC:AM MICROSCOPIC DESCRIPTION Slides are reviewed. GROSS DESCRIPTION Received in fixative is one container labeled with the patient's name and designated liver biopsy. The specimen consists of multiple irregular fragments of cage soft tissue that in aggregate measure 1.5 x 0.3 x 0.1 cm. The specimen is totally submitted in one cassette. Two touch imprints are prepared at the time of core biopsy. / AISSATOU:samuel 02/26/21 TC:0 CPT: 68811, 04881
--- NOTE | 2021-02-26 09:09 | CT_ITS ---
PROCEDURE: CT DIRECTED CORE LIVER BIOPSY INDICATION: Male, 75 years old. LIVER MASS-RIGHT LOBE PHYSICIAN: Dr. BEST Kelley CONSENT: Written informed consent was obtained having explained the risks, benefits and alternatives in detail with the patient who accepted the risks and agreed to proceed. Laboratory review and clinical assessment was performed. CONSCIOUS SEDATION PROTOCOL: The Drugs used were: 1 mg Versed, IV., and 25 mcg Fentanyl, IV. The sedation time was: 14 minutes. Conscious sedation was started at 10:24 AM and terminated at 10:38 AM. The conscious sedation protocol was independently monitored. RADIATION DOSAGE (If Supplied By Facility): CTDIvol = ( 12 ) mGy, DLP = ( 517.39 ) mGycm Individualized dose optimization techniques were used for this CT. TECHNIQUE: Using CT image guidance with image documentation, a suitable location in the right lobe of the liver was identified. Using a right lateral approach, puncture of the liver was uneventful with an 18-gauge core needle system. 4, 18-gauge core samples were obtained, and submitted in formalin to the pathologist for further assessment. Followup CT scan revealed no distinct sequelae. CT/Biopsy/Inj or Needle Placement IMPRESSION: 1. CT directed core needle biopsy of the liver, using CT image guidance with image documentation as described. 2. Conscious Sedation protocol utilized with independent monitoring. Electronically Signed: Alvin Barragan MD at 11:14 EDT , Service support ,
[2021-02-26 09:33] LABS: Absolute Lymphocyte Count 0.54 X10^3/uL (0.83-4.51); Absolute Neutrophil Count 3.7 X10^3/uL (2.0-7.7); Basophil# 0.02 X10^3/uL; Basophil% 0.4 % (0-1); Eosinophil# 0.12 X10^3/uL; Eosinophils% 2.5 % (0-5); Hematocrit 35.5 % (40-54); Hemoglobin 11.6 g/dL (13.0-16.5); Lymphocyte # 0.54 X10^3/ul (0.83-4.51); Lymphocyte % 11.1 % (19-41); Mean Corp Hgb Conc 32.7 g/dL (32-36); Mean Corpuscular Hgb 32.1 pg (27.0-32.0); Mean Corpuscular Volume 98.3 fL (80-94); Mean Platelet Vol. 8.5 fl (6.2-12.0); Monocyte# 0.48 X10^3/uL; Monocyte% 9.8 % (0-10); NRBC Flagged by Analyzer 0 % (0-5); Neutrophil % 75.8 % (47-70); POSITIVE DIFFERENTIAL YES; Platelet Count 215 K/mm3 (150-450); RBC Distribution Width CV 13.1 % (11.6-14.6); RBC Distribution Width SD 47.3 fl (35.1-43.9); Red Blood Count 3.61 M/mm3 (4.6-6.2); White Blood Count 4.9 K/mm3 (4.4-11.0)
[2021-02-26 09:34] LABS: Differential Indicated SCAN CRITERIA MET
[2021-02-26 09:38] LABS: Prothrombin Time (Protime)PT. 12.1 SECONDS (11.7-14.9)
[2021-02-26 09:39] LABS: Partial Thromboplast Time 26.1 Seconds (24.1-36.2)
[2021-02-26] MEDS: Midazolam 2 MG/2 ML Syringe IV (10:24)
[2021-02-26] MEDS: fentaNYL 100 MCG/2 ML Ampul IV (10:26)
[2021-02-26] MEDS: Lidocaine 2% (20 ml mdv) 20 ML Vial INFILT (10:31)
[2021-03-01 10:34] LABS: AFP, Tumor Marker 2.6 ng/mL (0.0-8.3)
== END | disposition home or self-care (01) ==
PROVIDERS: PCP Family Medicine; Referring Provider Internal Medicine Medical Oncology; Visit Provider Internal Medicine Medical Oncology
DX: C78.7 Secondary malignant neoplasm of liver and intrahepatic bile duct (principal); C61 Malignant neoplasm of prostate; C79.51 Secondary malignant neoplasm of bone; R91.1 Solitary pulmonary nodule; K85.90 Acute pancreatitis without necrosis or infection, unspecified; G40.909 Epilepsy, unspecified, not intractable, without status epilepticus
CPT/HCPCS: 47000; 36415; 77012; 82105; 85025; 85610; 85730; 88172; 88305; 88307; 88313; 88341; 88342; J7040; A4216

== ENCOUNTER 2021-08-25 13:15 | Outpatient (RCR) | payer MEDICARE, OTHER, SELFPAY ==
--- NOTE | 2021-08-07 10:19 | PCM.WC.HP ---
History of Present Illness Date of Service: 08/07/21 Chief Complaint: swelling of BLE, left heel ulcer History of Wound: Mo is a pleasant 75-year-old male who [facility]) for evaluation of bilateral lower extremity swelling. 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 He is a former tobacco user, who quit smoking cigarettes in 1980 (10-year pack history), and quit chewing tobacco in 2000. He sees Dr. Dixon as his primary care provider, and sees Dr. Montano (oncology) and Dr. Ann (urology) for his cancer. He has no history of cardiac disease, heart failure, or diabetes. He has a penicillin allergy and an allergy to morphine. Past medical records indicate a history of elevated LFTs. The patient was diagnosed with prostate cancer around 2018, and shortly thereafter underwent TURP and subsequently began radiation x9 weeks. Following radiation, he began to notice intermittent lower extremity swelling which had not been present before. He later underwent treatment of his prostate cancer with oral medications, and later began chemotherapy in April 2021. His chemotherapy ended at the end of July 2021. In the past several months, he has had an increase in his bilateral lower extremity swelling. He was previously taking gabapentin, but due to concern for this causing swelling, he was switched to Lyrica. This change has been of mild benefit for his swelling. Recently, his Lyrica dose has been decreased, which has also been felt to be of mild benefit for his swelling. However, the patient continues to experience bilateral lower extremity swelling from thighs to feet. He was placed on Lasix, which was not of any benefit for his swelling. He had bilateral lower extremity venous studies on 06/30/2021, which demonstrated normal flow and compression in the veins of the bilateral lower extremities, and was negative for DVT. A CMP from 08/03/2021 was reviewed and was unremarkable aside from an albumin of 3.8 and total protein of 5.9. The patient has a left heel ulcer, which she states has been present for a couple of months. He was given Bactroban ointment to apply to the left heel ulcer. In recent days, he has discontinued Bactroban and has been cleaning the heel ulcer with soap and water and covering with a Band-Aid. The patient also has a right heel fissure today, of which he was not aware, and has not been applying any dressing or treatment. He had purchased a pair of copper compression stockings, but only wore these for 1 day. The patient denies fever, chills, general malaise, or poor appetite. The patient has not had increased redness, swelling, or purulent/malodorous drainage from affected area. He has not been on any antibiotics since April 2021. 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 Seizures Skin ulcer of right heel with fat layer exposed Home Medications levetiracetam 500 mg PO BID 08/26/15 [History Last Taken 09/06/18 05:20] amlodipine 5 mg PO DAILY 01/18/21 [History Last Taken Unknown] escitalopram oxalate 10 mg PO DAILY 01/18/21 [History Last Taken Unknown] calcium carbonate 600 mg-vitamin D3 20 mcg (800 unit) tablet 1 tab PO DAILY 02/18/21 [History Last Taken Unknown] casanthranol-docusate sodium 30 mg-100 mg capsule 1 cap PO DAILY PRN 02/18/21 [History Last Taken Unknown] pramipexole 2.25 mg tablet,extended release 24 hr 0.25 mg PO DAILY 02/18/21 [History Last Taken Unknown] meloxicam 15 mg tablet 15 mg PO DAILY 02/23/21 [History Last Taken Unknown] oxycodone-acetaminophen 1 tab PO Q8H PRN 08/07/21 [History Last Taken Unknown] pregabalin 150 mg PO DAILY 08/07/21 [History Last Taken Unknown] Allergy/AdvReac Type Severity Reaction Status Date / Time Penicillins Allergy Unknown Verified 08/07/21 10:52 morphine AdvReac Nausea/Vom/ Verified 08/07/21 10:52 Diarrhea Family History Mother Cancer Hypertension Heart disease Sister Cancer Brother Cancer Sister Ovarian cancer Father Alcohol-induced persisting dementia Social History (Updated 02/04/21 @ 15:19 by Candi Perez) Smoking Status: Former smoker quit date: 06/06/84 alcohol intake: current alcohol intake frequency: holidays/special occasions only ROS Constitutional Constitutional: Reports chills; Denies fever(s) or night sweats Eyes Eyes: Denies change in vision or double vision ENT HEENT: Denies lip swelling or tongue swelling Cardiovascular Cardiovascular: Reports leg edema; Denies chest pain or palpitations Respiratory/Chest Respiratory/Chest: Denies cough, shortness of breath at rest, shortness of breath with exertion or wheezing Gastrointestinal Gastrointestinal: Denies diarrhea, nausea or vomiting Genitourinary Genitourinary: Denies dysuria or hematuria Musculoskeletal Musculoskeletal: Denies muscle weakness Integumentary Integumentary: Reports wounds; Denies rash Neurologic Neurologic: Denies abnormal speech or focal weakness Endocrine Endocrinology: Reports cold intolerance; Denies heat intolerance, polydipsia or polyuria Hematologic/Lymphatic Hematologic/Lymphatic: Denies easy bleeding or easy bruising Physical Exam Const alert, no apparent distress and healthy appearing General Appearance: cooperative, comfortable and well kempt HEENT Head and Scalp: normocephalic and atraumatic Eyes EOMs intact bilaterally Neck supple and no JVD Resp normal respiratory effort, normal air movement and no use of accessory muscles Auscultation: clear to auscultation bilaterally; Negative for crackles, rales, rhonchi or wheezes Cardio regular rate and regular rhythm GI normal to inspection, nondistended, normoactive bowel sounds Extremity normal capillary refill, no joint enlargement and no calf tenderness General Extremity: edema bilateral lower extremity Details: severe; Negative for clubbing or cyanosis Peripheral Pulses: Yes posterior tibial pulses present bilateral 2+ and dorsalis pedis pulses present bilateral 2+ Skin Rashes: No no rashes Wounds: wounds noted No malodorous Wound Narrative: Left heel ulcer with subcutaneous layer exposed. Small amount of slough and devitalized tissue present. No tunneling, undermining, or probing to bone. No periulcer erythema, warmth, or tenderness. No purulent or malodorous drainage. Right heel ulcer, linear/fissure shape. Subcutaneous layer exposed. Small amount of slough and devitalized tissue present. No tunneling, undermining, or probing to bone. No periulcer erythema, warmth, or tenderness. No purulent or malodorous drainage. Neuro oriented x3, moves all extremities and no focal motor deficits Psych mental status grossly normal, cooperative and affect normal Debridement Note Debridement Note Wound debrided: Left heel ulcer Laterality: Left Type of Debridement: Excisional debridement Anesthesia Used: 4% Lidocaine Solution Depth: in the subcutaneous layer Percentage of wound debrided: 100 Instrument Used: 3mm curette Tissue Removed: Slough and devitalized tissue Severity: Fat Layer Exposed Amount of bleeding with debridement: Mild Bleeding Controlled with: Pressure Patient tolerated procedure: Patient tolerated procedure well Additional Wound Wound debrided: Right heel ulcer Laterality: Right Type of Debridement: Excisional debridement Anesthesia Used: 4% Lidocaine Solution Depth: in the subcutaneous layer Percentage of wound debrided: 100 Instrument Used: - (1 mm curette) Tissue Removed: Slough and devitalized tissue Severity: Fat Layer Exposed Amount of bleeding with debridement: Mild Bleeding Controlled with: Pressure Patient tolerated procedure: Patient tolerated procedure well Charges/Coding Visit Charges Office Visits / Consults: [id number] OV L4 Est Procedures Integumentary [id number]: [id number] Alysa subq tissue 20 sq cm/< Assessment/Plan Assessment/Plan (1) Skin ulcer of right heel with fat layer exposed: CODE(S): L97.412 - Non-pressure chronic ulcer of right heel and midfoot with fat layer exposed (2) Chronic ulcer of left heel with fat layer exposed: CODE(S): L97.422 - Non-pressure chronic ulcer of left heel and midfoot with fat layer exposed (3) Lymphadenopathy: CODE(S): R59.1 - Generalized enlarged lymph nodes (4) Bilateral lower extremity edema: CODE(S): R60.0 - Localized edema (5) History of radiation therapy: CODE(S): Z92.3 - Personal history of irradiation (6) History of chemotherapy: CODE(S): Z92.21 - Personal history of antineoplastic chemotherapy (7) Prostate cancer metastatic to bone: CODE(S): C61 - Malignant neoplasm of prostate; C79.51 - Secondary malignant neoplasm of bone (8) Liver mass, right lobe: CODE(S): R16.0 - Hepatomegaly, not elsewhere classified PLAN: Debridement performed today in clinic as annotated above. Slightly moistened Delmy applied to the bilateral heel ulcers. Unna boots applied to the bilateral lower extremities for compression. At home wound-care instructions: Keep Unna boots clean and dry. Cover when showering using a cast cover or garbage bags. If anytime your wraps become tight, or you experience numbness/tingling or discoloration of the toes, elevate the feet. If the symptoms do not resolve with elevation of the feet, contact the wound healing center or remove the wraps. Compression: Bilateral Unna boots Off-loading: The patient was instructed to avoid pressure and friction on the affected areas. Reposition every 2 hours at minimum. Avoid prolonged standing and/or dangling of legs. Avoid prolonged ambulation. When seated, feet should be elevated at chest level or higher. Frequent, short periods of ambulation encouraged. Diet: Patient encouraged to increase protein intake while taking caution to avoid high carbohydrate and/or sugar intake. Labs/cultures/imaging: Cultures deferred today due to the absence of clinical signs of infection. Routine baseline lab work ordered. Vascular studies reviewed as annotated above. Follow-up: Return to clinic in 1 week for re-evaluation. Return sooner or report to the emergency room should symptoms worsen, or new symptoms arise. Note: [employer] speech recognition ticker wirer software was used to create portions of this document. Sound-alike and misspelled words, as well as other ticker wirer errors may be contained in the documentation.
[2021-08-07 10:24] VITALS: BP 131/81; PULSE 102; RESP 16; TEMP 35.8; BMI 30.2
[2021-08-11 13:39] VITALS: BMI 30.2
[2021-08-14 11:03] VITALS: BP 117/67; PULSE 104; RESP 18; TEMP 36.1; O2SAT 97; BMI 30.2
--- NOTE | 2021-08-14 14:24 | PN.PCM_ITS ---
History of Present Illness Date of Service: 08/14/21 Chief Complaint: swelling of BLE, left heel ulcer History of Wound: Mo is a pleasant 75-year-old male who [facility]) for evaluation of bilateral lower extremity swelling. 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 He is a former tobacco user, who quit smoking cigarettes in 1980 (10-year pack history), and quit chewing tobacco in 2000. He sees Dr. Dixon as his primary care provider, and sees Dr. Montano (oncology) and Dr. Ann (urology) for his cancer. He has no history of cardiac disease, heart failure, or diabetes. He has a penicillin allergy and an allergy to morphine. Past medical records indicate a history of elevated LFTs. The patient was diagnosed with prostate cancer around 2018, and shortly thereafter underwent TURP and subsequently began radiation x9 weeks. Following radiation, he began to notice intermittent lower extremity swelling which had not been present before. He later underwent treatment of his prostate cancer with oral medications, and later began chemotherapy in April 2021. His chemotherapy ended at the end of July 2021. In the past several months, he has had an increase in his bilateral lower extremity swelling. He was previously taking gabapentin, but due to concern for this causing swelling, he was switched to Lyrica. This change has been of mild benefit for his swelling. Recently, his Lyrica dose has been decreased, which has also been felt to be of mild benefit for his swelling. However, the patient continues to experience bilateral lower extremity swelling from thighs to feet. He was placed on Lasix, which was not of any benefit for his swelling. He had bilateral lower extremity venous studies on 06/30/2021, which demonstrated normal flow and compression in the veins of the bilateral lower extremities, and was negative for DVT. A CMP from 08/03/2021 was reviewed and was unremarkable aside from an albumin of 3.8 and total protein of 5.9. The patient has a left heel ulcer, which she states has been present for a couple of months. He was given Bactroban ointment to apply to the left heel ulcer. In recent days, he has discontinued Bactroban and has been cleaning the heel ulcer with soap and water and covering with a Band-Aid. The patient also has a right heel fissure today, of which he was not aware, and has not been applying any dressing or treatment. He had purchased a pair of copper compression stockings, but only wore these for 1 day. The patient denies fever, chills, general malaise, or poor appetite. The patient has not had increased redness, swelling, or purulent/malodorous drainage from affected area. He has not been on any antibiotics since April 2021. Progress of Wound: Right heel ulcer is closed today. Left heel ulcer is improved in size and appearance. Bilateral lower extremity edema is improved. Dry skin is also improved. Tolerating Unna boots well, though he has some accumulation of swelling in the thighs. Objective Data Objective Data Vital Signs: Vital Signs Temp Pulse Resp BP Pulse Ox 97 F L 104 H 18 117/67 97 08/14/21 11:03 08/14/21 11:03 08/14/21 11:03 08/14/21 11:03 08/14/21 11:03 Oxygen Delivery Method Room Air Weight: 211 lb Body Mass Index (BMI) 30.2 Charges/Coding Procedures Integumentary 111xxx-113xx: 12408 Alysa subq tissue 20 sq cm/< Physical Exam Const alert, no apparent distress and healthy appearing General Appearance: cooperative, comfortable and well kempt HEENT Head and Scalp: normocephalic and atraumatic Eyes EOMs intact bilaterally Neck supple and no JVD Resp normal respiratory effort Extremity normal capillary refill, no joint enlargement and no calf tenderness General Extremity: edema bilateral lower extremity Details: moderate; Negative for clubbing or cyanosis Peripheral Pulses: Yes dorsalis pedis pulses present bilateral 2+ Skin Rashes: No no rashes Wounds: wounds noted No malodorous Wound Narrative: Left heel ulcer with subcutaneous layer exposed. Small amount of slough and devitalized tissue present. No tunneling, undermining, or probing to bone. No periulcer erythema, warmth, or tenderness. No purulent or malodorous drainage. Right heel ulcer closed today. Neuro oriented x3, moves all extremities and no focal motor deficits Psych mental status grossly normal, cooperative and affect normal Debridement Note Debridement Note Wound debrided: Right heel ulcer Laterality: Right Type of Debridement: Excisional debridement Anesthesia Used: 4% Lidocaine Solution Depth: in the subcutaneous layer Percentage of wound debrided: 100 Instrument Used: 3mm curette Tissue Removed: slough and devitalized tissue Severity: Fat Layer Exposed Amount of bleeding with debridement: Mild Bleeding Controlled with: Pressure Patient tolerated procedure: Patient tolerated procedure well Post-Debridement Measurements and Additional Note: Post-Debridement Measurements/Treatment - Nurse 1 - General Ulcer Assessment Start: 08/07/21 09:59 Freq: Status: Active Protocol: JABIER Activity Type Activity Date Activity User E-Sign Co-Sign Detail Recorded Client Recorded Date Recorded By Document 08/07/21 10:24 [facility] [id number] 08/07/21 10:49 [facility] Document 08/11/21 13:39 [place] [id number] 08/11/21 13:40 [place] Document 08/14/21 11:03 [place] [id number] 08/14/21 11:20 [place] 08/07/21 08/11/21 08/14/21 10:24 13:39 11:03 - Today's Visit Information Type of service Initial Visit Nurse-only Follow-up Visit Visit (Physician/[employer] ) Arrival Mode Ambulatory, Ambulatory, Ambulatory, Walker Walker Walker Transfer Assistance None Accompanied by Lorena Carrillo Patient Identification Verified (Name & Yes Yes Yes ) Patient Requires Transmission-Based No No Precautions Safety Precautions NA Height and Weight Height 5 ft 10 in Weight 211 lb Weight in Pounds 211.0 lbs Weight Measurement Method Stated by Patient Body Mass Index (BMI) 30.2 30.2 30.2 BMI Classification Obese Obese Obese BSA - Mack 2.14 Vital Signs Temperature (97.8 F-99.1 F) 96.5 F L 97 F L Temperature Source Temporal Temporal Pulse Rate (60-100) 102 H 104 H Pulse Location Monitor Monitor Respiratory Rate (12-18) 16 18 Respiratory rate source Observation Observation Pulse Oximetry 97 Oxygen Delivery Method Room Air Room Air Blood Pressure (90/60-120/80) 131/81 H 117/67 Blood Pressure Mean (mm Hg) 97 83 Source Monitor Monitor Position Sitting Sitting Blood Pressure Location Right Arm Left Arm Have you changed medications since your No last visit? Any new allergies or adverse reactions No Had a fall/change in ADL's that may No increase risk of falls Signs or symptoms of abuse and/or No neglect since last visit Have you been in the hospital since your No last visit? Has dressing in place as prescribed Yes Yes Has compression in place as prescribed Yes Yes Has offloadiing in place as prescribed N/A Yes Experienced any changes in pain level or No Yes management History Since Last Visit- (Skip if this is Patient's initial visit) Left Footwear Regular Shoe Regular Shoe Regular Shoe Right Footwear Regular Shoe Regular Shoe Regular Shoe Pain Scale: 0-10 Numeric Is Patient Pain Free? Yes Yes No back -Description Throbbing, Aching -Intensity 8 -Duration (hours) Chronic -Pain Behavior Irritability -Pain Aggravating Factors ADL's -Alleviating Factors/Interventions Medication, Medicate when due -Comments pt has spinal stenosis Lower Extremity Assessment/ Foot Assessment/ Toe Nail Assessment Right -Lower Extremity Comment (If N/A Above DOPPLER ) PERFORMED BY [place] BANK ACCOUNTANT -Posterior Tibial Palpable No -Posterior Tibial Doppler Monophasic -Dorsalis Pedis Palpable No -Dorsalis Pedis Doppler Multiphasic -Hair Growth on Legs No -Hair Growth on Toes No -Thick Yes -Discolored Yes -Deformed No -Improper Length & Hygeine No Left -Lower Extremity Comment (If N/A Above DOPPLER ) PERFORMED BY [place] BANK ACCOUNTANT -Posterior Tibial Palpable No -Posterior Tibial Doppler Multiphasic -Dorsalis Pedis Doppler Multiphasic -Extremity Color Pale -Hair Growth on Legs No -Hair Growth on Toes No -Other Deformity No -Prior Foot Ulcer No -Charcot Joint No -Prior Amputation No -Thick Yes -Discolored Yes -Deformed No -Improper Length & Hygeine No Neuropathy Assessment Feet - Top Side and Bottom <Entered> (a) Communication Assessment Preferred language Guyanese Window Cutter Required No Able to Read Yes Able to Write Yes Communication Tools None Right Hearing Abillity Normal Left Hearing Abillity Normal Visual Assistive Devices Glasses Teaching Assessment Preferences Verbal,Written, Audio/Visual, Demonstration Barriers to Learning None Readiness To Learn Excellent Willingness to Engage in Self Management High Activies Readiness to Engage in Self Management High Activities Anxiety Level Calm Cooperation Cooperative Perception Coherent Interest in Health Problem Asks Questions Education Importance Acknowledges Need Does Patient Smoke tobacco or other No substances Smoking Status Former smoker Is Patient Diabetic No Functional Assessment Recent Decline in Ability to Perform Ambulation, Transferring Culture/Tenriism/Chopper Feeder Cultural/Tenriism Needs that may affect No Treatment Plan Teaching: Wound Center Welcome to the [facility] Guyanese (a) 1 - - 2 - - 3 - + 4 - - 5 - - 6 - + 7 - - 8 - + 9 - - 10 - + - Nurse 1 - General Ulcer Measurement Start: 08/07/21 09:59 Freq: Status: Active Protocol: Activity Type Activity Date Activity User E-Sign Co-Sign Detail Recorded Client Recorded Date Recorded By Document 08/07/21 10:24 [facility] [id number] 08/07/21 10:49 [facility] Document 08/14/21 11:03 CT [id number] 08/14/21 11:20 CT Document 08/14/21 11:22 CT [id number] 08/14/21 11:23 CT 08/07/21 08/14/21 08/14/21 10:24 11:03 11:22 Wound Center Nurse 1 #2 Right Heel -Current Size (cm) - Length 0.1 -Current Size (cm) - Width 0.1 -Current Size (cm) - Depth 0.1 -Total Square Cm 0.01 -Exudate Amt None Present -Wound Margin Flat & Intact -Granulation Amt None Present (0 %) -Texture (Genna-wound Skin Appearance) Assessed -Moisture (Genna-wound Skin Appearance) Assessed -Color (Genna-wound Skin Appearance) Assessed -Temperature (Genna-wound Skin No Abnormality Appearance) (Pt Warm) -Tenderness on Palpation (Genna-wound No Skin Appearance) -Ulcer Cleansing Rinsed/ Irrigated with Saline -Foul Odor after Cleansing No -Anesthetic Used 4% Lidocaine Solution #1- L HEEL -Combined with other wound No -Current Size (cm) - Length 0.4 0.1 -Current Size (cm) - Width 1 0.1 -Current Size (cm) - Depth 0.1 0.1 -Total Square Cm 0.4 0.01 -Date of Last Picture (Recall this 08/07/21 field) -Photo Taken Yes -Epithelialization None Present -Tunneling No -Undermining/Tunneling No -Circular Undermining No -Exudate Amt Small Small -Exudate Type Serous Serosanguineous -Wound Margin Distinct, Flat & Intact Outline Attached -Granulation Amt None Present (0 %) -Slough/Fibrin Yes -Necrosis Amt Large (67-100%) -Necrotic Tissue Type Adherent Slough -Texture (Genna-wound Skin Appearance) Assessed, Assessed Scarring -Moisture (Genna-wound Skin Appearance) Assessed,Dry/ Assessed Scaly -Color (Genna-wound Skin Appearance) Assessed Assessed -Temperature (Genna-wound Skin No Abnormality No Abnormality Appearance) (Pt Warm) (Pt Warm) -Tenderness on Palpation (Genna-wound No No Skin Appearance) -Ulcer Cleansing Rinsed/ Rinsed/ Irrigated with Irrigated with Saline Saline -Foul Odor after Cleansing No No -Anesthetic Used 5% Lidocaine 4% Lidocaine Gel Solution Lower Limb Edema Present Yes Right Calf (cm) 42.8 42 Right Ankle (cm) 24.8 24 Point of Measurement (cm from the distal 40 point) Left Calf (cm) 40 Point of measurement (cm from the medial 24 instep) Left Ankle (cm) 25.5 WC - Nurse 2 - General Ulcer CM Notes Start: 08/07/21 09:59 Freq: Status: Active Protocol: Activity Type Activity Date Activity User E-Sign Co-Sign Detail Recorded Client Recorded Date Recorded By Document 08/07/21 13:13 PL [id number] 08/07/21 13:16 PL Document 08/14/21 13:48 PL [id number] 08/14/21 13:51 PL 08/07/21 08/14/21 13:13 13:48 Wound Center Nurse 2 #2 Right Heel -Time 10:50 11:56 -Correct Patient Yes -Correct Side, Site, Position Yes -Correct Procedure Yes -Procedure Performed Yes -Type of Procedure Debridement -Clinical Debridement Subcutaneous -Tissue Removed Subcutaneous -Post Debridement (cm) - Length 0.1 -Post Debridement (cm) - Width 0.8 -Post Debridement (cm) - Depth 0.1 -Total Square (Post) (cm) 0.08 -Area of Debridement (cm) - Length 0.1 -Area of Debridement (cm) - Width 0.8 -Total Square (Area) (cm) 0.08 -Tunneling No -Undermining/Tunneling No -Circular Undermining No -Wound/Ulcer Outcome Not Healed Healed- Epithelialized -Ulcer Cleansing Rinsed/ Rinsed/ Irrigated with Irrigated with Saline Saline -Foul Odor after Cleansing No No -Bioengineered Tissue No No -Bleeding Controlled with Pressure -Treatment Response Procedure Tolerated Well -Debridement - Subq, 1st 20sq cm Yes #1- L HEEL -Time 10:50 11:56 -Correct Patient Yes Yes -Correct Side, Site, Position Yes Yes -Correct Procedure Yes Yes -Procedure Performed Yes Yes -Type of Procedure Debridement Debridement -Clinical Debridement Subcutaneous Subcutaneous -Tissue Removed Subcutaneous Subcutaneous -Post Debridement (cm) - Length 0.4 0.2 -Post Debridement (cm) - Width 1.0 0.6 -Post Debridement (cm) - Depth 0.1 0.1 -Total Square (Post) (cm) 0.40 0.12 -Area of Debridement (cm) - Length 0.4 0.2 -Area of Debridement (cm) - Width 1.0 0.6 -Total Square (Area) (cm) 0.40 0.12 -Tunneling No No -Undermining/Tunneling No No -Circular Undermining No No -Wound/Ulcer Outcome Not Healed Not Healed -Ulcer Cleansing Rinsed/ Rinsed/ Irrigated with Irrigated with Saline Saline -Foul Odor after Cleansing No No -Bioengineered Tissue No No -Bleeding Controlled with Pressure Pressure -Treatment Response Procedure Procedure Tolerated Well Tolerated Well -Debridement - Subq, 1st 20sq cm No Yes Pain Scale: 0-10 Numeric Is Patient Pain Free? Yes Yes WC - Nurse 3 - General Ulcer D/C NN Start: 08/07/21 09:59 Freq: Status: Active Protocol: Activity Type Activity Date Activity User E-Sign Co-Sign Detail Recorded Client Recorded Date Recorded By Document 08/07/21 11:44 MS [id number] 08/07/21 11:45 [place] Document 08/11/21 13:40 MS [id number] 08/11/21 13:41 [place] Document 08/14/21 12:41 MS [id number] 08/14/21 12:42 [place] 08/07/21 08/11/21 08/14/21 11:44 13:40 12:41 Wound Care Nurse 3 #2 Right Heel -Ulcer Cleansing Rinsed/ Irrigated with Saline -Foul Odor after Cleansing No -Negative Pressure Wound Therapy N/A -Primary Dressing Applied Promogran Delmy Matter -Promogran Delmy Matter 1 #1- L HEEL -Ulcer Cleansing Rinsed/ Rinsed/ Rinsed/ Irrigated with Irrigated with Irrigated with Saline Saline Saline -Foul Odor after Cleansing No No -Negative Pressure Wound Therapy N/A N/A -Primary Dressing Applied Promogran Promogran Promogran Delmy Matter Delmy Matter -Primary Dressing Covered/Secured with Dry Gauze, Secured with Tape -Promogran 1 -Promogran Delmy Matter 1 0 Left -Lotion applied to leg before No No No compression wrap -Multi-Layered Wrap Application Unna Boot - Unna Boot - Unna Boot - Bilateral ($) Bilateral ($) Bilateral ($) -Unna Boots (Bilat) ($) 2 2 2 -Stockings No Pain Scale: 0-10 Numeric Is Patient Pain Free? 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: CODE(S): L97.422 - Non-pressure chronic ulcer of left heel and midfoot with fat layer exposed (3) Lymphadenopathy: CODE(S): R59.1 - Generalized enlarged lymph nodes (4) Bilateral lower extremity edema: CODE(S): R60.0 - Localized edema (5) History of radiation therapy: CODE(S): Z92.3 - Personal history of irradiation (6) History of chemotherapy: CODE(S): Z92.21 - Personal history of antineoplastic chemotherapy (7) Prostate cancer metastatic to bone: CODE(S): C61 - Malignant neoplasm of prostate; C79.51 - Secondary malignant neoplasm of bone (8) Liver mass, right lobe: CODE(S): R16.0 - Hepatomegaly, not elsewhere classified PLAN: Right heel ulcer healed. Debridement performed today in clinic as annotated above. Slightly moistened Delmy applied to the left heel ulcer. Unna boots applied to the bilateral lower extremities for compression. At home wound-care instructions: Keep Unna boots clean and dry. Cover when vianey wering using a cast cover or garbage bags. If anytime your wraps become tight, or you experience numbness/tingling or discoloration of the toes, elevate the feet. If the symptoms do not resolve with elevation of the feet, contact the wound healing center or remove the wraps. Compression: Bilateral Unna boots Off-loading: The patient was instructed to avoid pressure and friction on the affected areas. Reposition every 2 hours at minimum. Avoid prolonged standing and/or dangling of legs. Avoid prolonged ambulation. When seated, feet should be elevated at chest level or higher. Frequent, short periods of ambulation encouraged. Diet: Patient encouraged to increase protein intake while taking caution to avoid high carbohydrate and/or sugar intake. Labs/cultures/imaging: Cultures deferred today due to the absence of clinical signs of infection. Routine baseline lab work ordered. Vascular studies reviewed as annotated above. Follow-up: Return to clinic Tuesday and Tuesday for nurse visits. Return to clinic in 2 weeks for reevaluation with a provider. Return sooner or report to the emergency room should symptoms worsen, or new symptoms arise. Note: [employer] speech recognition lapel stitcher software was used to create portions of this document. Sound-alike and misspelled words, as well as other lapel stitcher errors may be contained in the documentation.
[2021-08-19 15:25] VITALS: BP 118/50; PULSE 110; RESP 16; TEMP 36.4; BMI 30.2
[2021-08-21 13:46] VITALS: BP 115/62; PULSE 117; RESP 18; TEMP 36.1; BMI 30.2
[2021-08-25 13:09] VITALS: BP 122/77; PULSE 95; RESP 20; TEMP 36.8; BMI 30.2
== END 2021-08-28 13:07 | disposition home or self-care (01) ==
LOC: WC 13:15
PROVIDERS: PCP Family Medicine; Visit Provider Nurse Practitioner Family
DX: L97.422 Non-pressure chronic ulcer of left heel and midfoot with fat layer exposed (principal); L97.412 Non-pressure chronic ulcer of right heel and midfoot with fat layer exposed; G40.909 Epilepsy, unspecified, not intractable, without status epilepticus; R60.0 Localized edema; R59.9 Enlarged lymph nodes, unspecified; R16.0 Hepatomegaly, not elsewhere classified; Z79.1 Long term (current) use of non-steroidal anti-inflammatories (NSAID); Z79.899 Other long term (current) drug therapy; Z92.3 Personal history of irradiation; Z87.891 Personal history of nicotine dependence; Z92.21 Personal history of antineoplastic chemotherapy
CPT/HCPCS: 11042; 29580; 99213; G0463

== ENCOUNTER → 2021-10-20 | Outpatient (CLI) | payer MEDICARE, OTHER, SELFPAY ==
--- NOTE | 2018-07-21 | IMM_PTH ---
PATIENT: RHONDA PAT LOC: [facility] U#:[id number] AGE/SX: 75/M ROOM: RE10/20/[address]: Dr. Rc Montano DO : 1945 BED: DIS: 10/20/2021 SPEC #: [id number] RECD: 10/20/21 10:08 STATUS: ABEL REQ #: [id number] SONIA: 07/21/18 00:[address]: Rc Montano DEPT: IMMUNOHISTOCHEMISTRY RECD BY: Norma Richard Tissues: A - PROSTATE BIOPSY Procedures: MSH2 (add) MLH-1 (add) MSH6 (add) Anti-PMS2 (add) KI-67 (add) P53 (add) HER-2-REINA (initial) PHYSICIAN & INSTITUTION [place] [phone] SPECIMEN INFORMATION: Tissue Source: A ? Prostate, TUR Clinical Info: BPH, elevated PSA Specimen Number: [id number] CPT code: 70513, 30071 x6 METHODOLOGY: Deparaffinized sections of prefer/formalin-fixed tissue or PAP/DQ stained slides are incubated with monoclonal/polyclonal antibodies/oligonucleotide probes. Localization is made via biotin free immunoperoxidase method. Appropriate controls are performed and reacted as expected. Results on target cell population are indicated in the following table: RESULTS: ANTIBODY / CLONE RESULT Block A9 Her-2neu (CB11) negative (0) MLH-1 (M1) positive MSH2 (25D12) positive MSH6 (44) positive PMS2 (CUH0147) positive Ki-67 (30-9) positive, very low (<1%) P53 (DO-7) negative These tests were developed and their performance characteristics determined by [facility]. They may not have been cleared or approved by the U.S. Food and Drug Administration. The FDA has determined that such clearance or approval is not necessary. The above immunohistochemical/dualISH markers are ordered and reviewed by the Pathologist. INTERPRETATION: A. Prostate tissue, transurethral resection: Prostatic adenocarcinoma. Result of Microsatellite Instability Study: Negative (no loss of mismatch protein; no microsatellite instability detected). AISSATOU:samuel 10/21/2021
== END | disposition home or self-care (01) ==
LOC: LABSPEC 10:07
PROVIDERS: Visit Provider Internal Medicine Hematology & Oncology
DX: C61 Malignant neoplasm of prostate (principal)
CPT/HCPCS: 88341; 88342

== ENCOUNTER → 2021-11-03 | Outpatient (CLI) | payer MEDICARE, OTHER, SELFPAY ==
--- NOTE | 2021-11-03 14:55 | RAD_ITS ---
STUDY: X-RAY - PELVIS AND BILATERAL HIPS REASON FOR EXAM: Male, 75 years old. HIP JOINT PAIN TECHNIQUE: AP view of the pelvis.? 2 views of the right hip, and 2 views of the left hip were obtained. COMPARISON: Comparison is made with prior study dated 01/18/2021. FINDINGS: There is a non-specific bowel gas pattern. Normal visualized soft tissue structures. Normal bilateral iliac wings, sacroiliac joints and visualized sacrum. Healed fracture of the right inferior pubic ramus. Partial healing of the right superior pubic ramus fracture. Normal pubic symphysis. Normal bilateral ischial tuberosities. Normal visualized right femoral head. Normal right acetabulum. There is mild articular joint space narrowing of the right hip. Normal visualized left femoral head. Normal left acetabulum. There is mild articular joint space narrowing of the left hip. RAD/Hips B/L min 2 views w/ Pelvis IMPRESSION: Partially healed fracture of the right superior pubic ramus with healed fracture of the right inferior pubic ramus. Electronically Signed: Alvin Barragan MD at 15:31 EDT ,
== END | disposition home or self-care (01) ==
LOC: RAD 14:34
PROVIDERS: PCP Family Medicine; Visit Provider Nurse Practitioner Family
DX: M25.559 Pain in unspecified hip (principal)
CPT/HCPCS: 73521

== ENCOUNTER 2021-11-09 11:37 | Outpatient (RCR) | payer MEDICARE, OTHER, SELFPAY ==
--- NOTE | 2022-03-16 12:55 | HP.PTEVAL_ITS ---
Patient's Visit Information RHONDA PAT is a 76 year old M referred to Physical Therapy by CLAY ParedesM with a diagnosis of BALANCE LOSS. Date of Evaluation: 11/09/21 Physical Therapist: Marlyn Duggan, PT, Cert MDT - Visit Plan Plan: COMPLETE PT EVAL APPROPRIATE WHEN PATIENT AGREEABLE AND ACCORDING TO HIS COMFORT LEVEL AFTER CONSULTING OTHER SPECIALISTS. - Subjective Work/Leisure: RETIRED. Present symptoms: PATIENT REPORTS HE HAS PAIN IN HIS HIPS, THIGHS, FEET ALL THE TIME. RIGHT GROIN PAIN. NUMBNESS AND TINGLING IN BOTTOMS OF FEET AND UP LEGS JUST ABOVE ANKLE. NO LOW BACK PAIN. UNSTABLE AND UNCOORDINATED GAIT. Present since: FEW YEARS AGO. LAST 2 YEARS HAVE BEEN GOING THROUGH PROSTATE CANCER. SUELLEN LEG SWELLING. Pain Scale: WORST 6/10, LEAST 1/10. Currently: 06/15. Commenced as a result of: PATIENT RELATES HIS CURRENT SX'S TO HIS RADIATION THERAPY 2019 X 9 WKS. Worse: WHEN PAIN MEDICATION WEARS OFF. SITTING, STANDING AND WALKING. Better: PAIN MEDICINE AND LAYING DOWN. Disturbed sleep: YES. Previous history/Previous treatment: LOW BACK SURGERY 09/03/[address] LLOYD WITH [facility]. NO PHYSICAL THERAPY. Coughing/sneezing/straining: NEGATIVE. Gait: HAS IMPROVED SINCE SURGERY. SURGERY HAS DECREASED A LOT OF HIS LOW BACK PAIN AND IS ABLE TO GET UP ON HIS FEET ON HIS OWN AND WALK WITH WALKER ON HIS OWN NOW SINCE SURGERY. ABLE TO TAKE A SHOWER INDEP'LY ( SUPERVISES). HAS BEEN USING A WALKER OR CANE SINCE summer. CURRENTLY CAN ONLY WALK ABOUT 400 FEET OR SO WITH THE WALKER AND THEN HAS TO STOP DUE TO FEELING WEAKNESS IN LEGS AND FEET (LEFT FOOT DROP). HOME HEALTH PT AFTER BACK SURGERY UNTIL LAST WEEK. NO FOLLOW UPS PENDING WITH BACK SURGEON AT THIS TIME. PATIENT REPORTS HAVING L FOOT DROP SINCE BEFORE BACK SURGERY (MAYBE SINCE LAST SUMMER). Bowel or Bladder Dysfunction: NO. Accidents: NO. Unexplained weight loss: NO. Imaging: RECENT X-RAYS OF HIPS BY DR. TRIMBLE AND HAS AN QUENTIN'T TOMORROW TO GO OVER RESULTS. PMH/Recent major surgery: PROSTATE CANCER APPROX 2019. 11/12/21 HAS ONCOLOGY FOLLOW UP TO GO OVER MOST RECENT BLOODWORK. CURRENTLY NOT HAVING ANY CHEMO OR RADIATION TREATMENTS. PATIENT REPORTS RADIATION THERAPY WAS NOT SUCCESSFUL. CHEMO WAS SUCCESSFUL PER PATIENT REPORT. OTHER: PATIENTS ORDER GIVES DX'S OF NEUROPATHY AND SPINAL STENOISIS BUT STATES THAT BALANCE LOSS IS MAIN REASON FOR THE REFERRAL. OTHER: PATIENT REPORTS HE IS REALLY SURPRISED THAT THE TECHNOLOGY INTERN ISSUED THIS PT ORDER. HE REPORTS HE THOUGHT THE ORDER WAS COMING FROM HIS ONCOLOGIST WHEN HE AGREED TO COME TODAY. HE REPORTS - Objective PATIENT PRESENTED TO PT TODAY WITH HIS . TESTING/TREATMENT WAS DEFERRED BY THEM TODAY. THEY WANT TO TALK TO HIS ONCOLOGIST TUESDAY BEFORE STARTING PT. THEY THOUGHT HE WAS THE ONE THAT SENT HIM HERE TODAY. - Balance/Special Test Scores Lower Extremity Functional Score: 10 - Anticipated Interventions Thank you for the opportunity to evaluate your patient. For Medicare and Medicare HMO plans, please review the plan of care and approve it. It will need to be FAXED BACK to us at [phone] for Medicare purposes. For Medicare only, by signing this I certify the plan of care. Please let me know if there are questions or concerns regarding this plan of care. Physician Signature: Date:
--- NOTE | 2022-03-16 12:56 | HP.PT.NRP ---
RHONDA Bianchi BI was seen in my office for initial evaluation on 11/09/21. The following Plan of Care was established for this patient: This patient was last seen in our office 11/09/21. Pertinent comments regarding their Physical therapy will appear below: This patient has not returned to Physical Therapy and is appropriate to return to MD for further follow-up as needed. At this point I will be discontinuing this patient from physical therapy. I would be happy to see this patient again in the future if found appropriate by the physician. Thank you! Marlyn Duggan, PT, Cert MDT Balance/Gait/Functional tests - Balance/Special Test Scores Lower Extremity Functional Score: 10
== END 2021-11-09 19:00 | disposition home or self-care (01) ==
LOC: PT 11:37
PROVIDERS: PCP Family Medicine; Referring Provider Podiatrist; Visit Provider Podiatrist
DX: R26.89 Other abnormalities of gait and mobility (principal)

== ENCOUNTER 2022-01-01 13:51 | Emergency (ER) | payer MEDICARE, OTHER, SELFPAY ==
[2022-01-01] VITALS (9 sets, daily range): BP systolic 108–140; BP diastolic 63–80; PULSE 72–100; RESP 16–20; TEMP 36.4–36.9; O2SAT 95–100; BMI 26.8
--- NOTE | 2022-01-01 14:15 | EX.ED.DYSGE1 ---
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 Patient is currently undergoing chemotherapy, this is the patient's second round of chemo. Patient last chemo was December 20, 2021, patient had blood work today, and he found that his hemoglobin is 7.5. Patient states for last 4 days he has been feeling more weak, has been sleepy a lot, and per the he has been more pale. Patient denies any chest pain or shortness of breath. Patient states that he is having diarrhea, there could be some blood in his diarrhea. He denies any fevers or chills. The oncologist did call, requesting 1 unit of blood transfused. 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 Prostate CA Seizures Skin ulcer of right heel with fat layer exposed Home Medications levetiracetam 750 mg tablet 500 mg PO BID 08/26/15 [History Last Taken 09/06/18 05:20] escitalopram oxalate 10 mg tablet 10 mg PO DAILY 01/18/21 [History Last Taken Unknown] pramipexole 2.25 mg tablet,extended release 24 hr 0.25 mg PO DAILY 02/18/21 [History Last Taken Unknown] meloxicam 15 mg tablet 15 mg PO DAILY 02/23/21 [History Last Taken Unknown] oxycodone-acetaminophen 7.5 mg-325 mg tablet 1 tab PO Q8H PRN Pain 08/07/21 [History Last Taken Unknown] pregabalin 150 mg capsule 150 mg PO DAILY 08/07/21 [History Last Taken Unknown] prednisone 5 mg tablet 10 tab PO DAILY 01/01/22 [History Last Taken Unknown] Allergy/AdvReac Type Severity Reaction Status Date / Time Iodinated Contrast Media Allergy Hives Verified 01/01/22 13:55 [CONTRASTS] Penicillins Allergy Unknown Verified 08/07/21 10:52 morphine AdvReac Nausea/Vom/ Verified 08/07/21 10:52 Diarrhea Family History Mother Cancer Hypertension Heart disease Sister Cancer Brother Cancer Sister Ovarian cancer Father Alcohol-induced persisting dementia Social History (Updated 02/04/21 @ 15:19 by Candi Perez) Smoking Status: Former smoker quit date: 06/06/84 alcohol intake: current alcohol intake frequency: holidays/special occasions only ROS <NIKITA Kirk - Last Filed: 01/01/22 16:03> ROS ED ROS Narrative Constitutional: Negative for fever, chills, weight loss. Positive for generalized malaise, weakness. Eyes: Negative for vision loss, vision change, double vision ENT: Negative for any sore throat, ear pain, congestion Cardiovascular: Negative for any chest pain, tightness, palpitations Respiratory: Negative for any cough, sputum production, hemoptysis, dyspnea, dyspnea on exertion, orthopnea Gastrointestinal: Negative for any abdominal pain, nausea, vomiting, constipation, blood in stool, blood in vomit. Positive for diarrhea : Negative for any urinary frequency, dysuria, retention, blood in urine Muscle skeletal: Negative for any muscle joint pain, stiffness, myalgias, arthralgias, neck pain, back pain Neurological: Negative for any headache, syncope, numbness or tingling, dizziness Skin: Negative for any rashes, lumps, itching, abrasions, lacerations. Positive for feeling of pale Psychiatric: Negative for any depression, anxiety, stress, suicidal ideation, homicidal ideation Hematologic: Negative for any easy bruising, excessive bruising, easy bleeding Allergies: Negative for any eczema, hives, rash EXAM <NIKITA Kirk - Last Filed: 01/01/22 16:03> Physical Exam Narrative Exam Narrative: Vital signs reviewed. Tachycardic HEET: Head normocephalic atraumatic, TMs clear bilaterally. Posterior pharynx is clear, moist mucous membranes. Nares clear bilaterally. Pale conjunctiva Neck: Supple with no lymphadenopathy or tenderness. No signs of meningismus, negative jolt sign. Cardiac: Regular rate and rhythm no murmurs gallops or rubs, equal peripheral pulses bilaterally. Respiratory: Lungs clear to auscultation bilaterally. No chest tenderness. Abdomen: Soft, nontender, nondistended. No abdominal bruit or pulsatile masses. No hepatosplenomegaly Extremities: No peripheral edema, no signs of gross trauma or deformity. Active full range of motion of all extremities. Neuro: Cranial nerves II through XII intact, no focal neurological deficits. Skin: Clean dry and intact with no rash, purpura, petechiae, vesicles or pustules. Backs/flank: No CVA tenderness, no midline spinal tenderness, no deformity. Psych: Normal mood and affect. No SI, HI or acute psychosis. Rectal: Rectal exam completed with a female nurse health data analyst, patient had a hemorrhoid however it was not thrombosed or bleeding. Minimal stool in the rectal vault, no masses felt. No bright red blood or dark stool. Const Vital Signs: 01/01/22 13:52 01/01/22 14:10 01/01/22 14:17 Temperature 97.5 F L 97.5 F L Temperature Source Temporal Temporal Pulse Rate 100 100 Respiratory Rate 16 18 Respiratory Effort Normal Non-Labored Respiratory Pattern Normal Blood Pressure 140/80 H 140/80 H Blood Pressure Mean 100 100 Pulse Ox 100 100 Oxygen Delivery Method Room Air Room Air <Dr. Enrique Saldana MD - Last Filed: 01/01/22 15:07> Physical Exam Const Vital Signs: 01/01/22 13:52 01/01/22 14:10 01/01/22 14:17 Temperature 97.5 F L 97.5 F L Temperature Source Temporal Temporal Pulse Rate 100 100 Respiratory Rate 16 18 Respiratory Effort Normal Non-Labored Respiratory Pattern Normal Blood Pressure 140/80 H 140/80 H Blood Pressure Mean 100 100 Pulse Ox 100 100 Oxygen Delivery Method Room Air Room Air [facility] <NIKITA Kirk - Last Filed: 01/01/22 16:03> [facility] Lab Data Labs: Laboratory Results - last 24 hr 01/01/22 01/01/22 01/01/22 14:24 14:24 14:24 WBC 0.5 L* RBC 2.35 L Hgb 7.4 L Hct 23.2 L MCV 98.7 H MCH 31.5 MCHC 31.9 L RDW Std Deviation 56.1 H RDW Coeff of [place] 15.8 H Plt Count 16 L* MPV 11.8 Immature Gran % (Auto) 1.900 H Neut % (Auto) 20.7 L Lymph % (Auto) 49.1 H [place] % (Auto) 22.6 H Eos % (Auto) 1.9 Baso % (Auto) 3.8 H Absolute Neuts (auto) 0.1 L Absolute Lymphs (auto) 0.26 L Nucleated RBC % 0 Sodium 140 Potassium 4.6 Chloride 107 Carbon Dioxide 26.0 Anion Gap 7 BUN 20 H Creatinine 1.31 H Estim Creat Clear Calc 50.31 Est GFR (MDRD) Af Amer 69 Est GFR (MDRD) Non-Af 57 L BUN/Creatinine Ratio 15.3 Glucose 120 H Calcium 9.3 Blood Type AB POSITIVE Antibody Screen NEGATIVE Treatment and Re-Evaluation Narrative: Patient does appear pale, patient states to feel tired, presents to the emergency department for anemia, patient does not look septic. Patient was instructed to come in via the oncologist secondary to low blood count. Patient CBC shows a white blood count of 0.5, hemoglobin of 7.4 with a hematocrit of 23.2. Patient's platelet count was 16. Patient did receive a rectal exam concerning for any rectal bleed, this was negative. Patient was typed and screened, patient be given 1 unit of packed red blood cells. He is ambulatory and stable, I believe the patient has stable for discharge and will follow outpatient. Patient is happy with the plan of care and follow-up with his oncologist. <Dr. Enrique Saldana MD - Last Filed: 01/01/22 15:07> [facility] Narrative Medical decision making narrative: I have personally performed a face to face assessment of the patient and have reviewed the QUENTIN Note. I performed a substantive portion of the visit including all aspects of the following. My dolan findings include: History is [76-year-old male that I am seeing with our nurse practitioner. Patient has a history of cancer for which he is undergoing chemotherapy. He was seen today by his oncologist he has been feeling fatigued. They did a blood count it was running low and he sentiment for transfusion. Patient is also recently had several days of diarrhea.] Exam is [well-appearing 76-year-old male. No acute distress. Vital signs stable afebrile. Lungs are clear. Heart regular rhythm. Abdomen soft nontender. Moving all 4 extremities. Pale. Neurologically is awake and alert.] Medical Decision Making [patient had screening labs done. Showed his white count count of 0.5. Hemoglobin 7.4. Platelets were 16,000. He will be typed and crossed and transfused a unit of blood. Discharged to home. His electrolytes are unremarkable. Gap is 7. BUN and creatinine are 20 and 1.3. Glucose of 120.] Other additions or changes: [None] Lab Data Labs: Laboratory Results - last 24 hr 01/01/22 01/01/22 01/01/22 14:24 14:24 14:24 WBC 0.5 L* RBC 2.35 L Hgb 7.4 L Hct 23.2 L MCV 98.7 H MCH 31.5 MCHC 31.9 L RDW Std Deviation 56.1 H RDW Coeff of [place] 15.8 H Plt Count 16 L* MPV 11.8 Immature Gran % (Auto) 1.900 H Neut % (Auto) 20.7 L Lymph % (Auto) 49.1 H [place] % (Auto) 22.6 H Eos % (Auto) 1.9 Baso % (Auto) 3.8 H Absolute Neuts (auto) 0.1 L Absolute Lymphs (auto) 0.26 L Nucleated RBC % 0 Sodium 140 Potassium 4.6 Chloride 107 Carbon Dioxide 26.0 Anion Gap 7 BUN 20 H Creatinine 1.31 H Estim Creat Clear Calc 50.31 Est GFR (MDRD) Af Amer 69 Est GFR (MDRD) Non-Af 57 L BUN/Creatinine Ratio 15.3 Glucose 120 H Calcium 9.3 Blood Type AB POSITIVE Antibody Screen NEGATIVE Discharge Plan Triage Chief Complaint: Abn Labs ED Midlevel Provider: Rc Brunner ED Provider: Enrique Saldana Dx/Rx/DC Orders Clinical Impression: Prostate cancer metastatic to bone, Autoimmune leukopenia, Anemia Instructions: Anemia Chemo Prescriptions: No Action pramipexole 2.25 mg tablet extended release 24 hr 0.25 mg PO DAILY meloxicam 15 mg tablet 15 mg PO DAILY levetiracetam 750 MG tablet 500 mg PO BID Label Comments: SEIZURE escitalopram oxalate 10 mg Tablet 10 mg PO DAILY oxycodone-acetaminophen 7.5-325 mg Tablet 1 tab PO Q8H PRN (Reason: Pain) pregabalin 150 mg Capsule 150 mg PO DAILY prednisone 5 mg tablet 10 tab PO DAILY Label Comments: TAKE 1 TABLET BY MOUTH TWICE DAILY Primary Care Provider: Bib Dixon Referrals: Bib Dixon MD [Primary Care Provider] - Activity Restrictions/Additional Instructions: Your hemoglobin was 7.4 here, you received 1 unit of packed red blood cells. Please follow-up with your oncologist Disposition Disposition: Home, Self Care
[2022-01-01 14:43] LABS: Absolute Lymphocyte Count 0.26 X10^3/uL (0.83-4.51); Absolute Neutrophil Count 0.1 X10^3/uL (2.0-7.7); Basophil# 0.02 X10^3/uL; Basophil% 3.8 % (0-1); Eosinophil# 0.01 X10^3/uL; Eosinophils% 1.9 % (0-5); Hematocrit 23.2 % (40-54); Hemoglobin 7.4 g/dL (13.0-16.5); Lymphocyte # 0.26 X10^3/ul (0.83-4.51); Lymphocyte % 49.1 % (19-41); Mean Corp Hgb Conc 31.9 g/dL (32-36); Mean Corpuscular Hgb 31.5 pg (27.0-32.0); Mean Corpuscular Volume 98.7 fL (80-94); Mean Platelet Vol. 11.8 fl (6.2-12.0); Monocyte# 0.12 X10^3/uL; Monocyte% 22.6 % (0-10); NRBC Flagged by Analyzer 0 % (0-5); Neutrophil # 0.11 X10^3/uL (2.7-7.7); Neutrophil % 20.7 % (47-70); POSITIVE COUNT YES; POSITIVE DIFFERENTIAL YES; POSITIVE MORPHOLOGY YES; RBC Distribution Width CV 15.8 % (11.6-14.6); RBC Distribution Width SD 56.1 fl (35.1-43.9); Red Blood Count 2.35 M/mm3 (4.6-6.2)
[2022-01-01 14:44] LABS: Differential Indicated SCAN CRITERIA MET
[2022-01-01 15:04] LABS: Anion Gap 7 (5-15); BUN 20 mg/dL (7-18); BUN/Creat Ratio 15.3 RATIO (10-20); Calcium,Total 9.3 mg/dL (8.5-10.1); Chloride 107 mmol/L (98-107); Creatinine, Serum 1.31 mg/dL (0.70-1.30); EST Glomerular Filtration Rate 57 mL/min (>60); Est Glom Filt Rate - Afr Amer 69 mL/min (>60); Estimated Creatinine Clearance 50.31 ml/min; Glucose 120 mg/dL (74-106); Potassium 4.6 mmol/L (3.5-5.1); Sodium Level 140 mmol/L (136-145)
[2022-01-01 16:00] LABS: White Blood Count 0.5 K/mm3 (4.4-11.0)
[2022-01-01 16:01] LABS: Platelet Count 16 K/mm3 (150-450)
[2022-01-01 16:02] LABS: Anisocytosis 1+; Atypical Lymphocyte 1+ %; Differential Comment SEE COMMENTS; Macrocytosis RARE; Platelet Estimate MKD DEC (ADEQ); Red Cell Morphology N CHROM NORMAL (NORM C&C)
[2022-01-04 13:07] LABS: Pathologist Review Reviewed
== END 2022-01-01 21:59 | disposition home or self-care (01) ==
PROVIDERS: Nurse Practitioner; Emergency Provider Emergency Medicine; PCP Family Medicine; Visit Provider Emergency Medicine
DX: D64.9 Anemia, unspecified (principal); C79.51 Secondary malignant neoplasm of bone; C78.7 Secondary malignant neoplasm of liver and intrahepatic bile duct; C61 Malignant neoplasm of prostate; R19.7 Diarrhea, unspecified; D72.819 Decreased white blood cell count, unspecified; Z79.1 Long term (current) use of non-steroidal anti-inflammatories (NSAID); Z79.52 Long term (current) use of systemic steroids; Z79.899 Other long term (current) drug therapy; Z87.891 Personal history of nicotine dependence
CPT/HCPCS: 36430; 80048; 82274; 85025; 86850; 86900; 86901; 86920; 99283; J7030; P9016; A4216

== ENCOUNTER → 2022-01-25 | Outpatient (CLI) | payer MEDICARE, OTHER, SELFPAY ==
[2022-01-25 08:57] VITALS: BP 110/64; PULSE 114; RESP 16; TEMP 36.1; O2SAT 97; BMI 26.4
[2022-01-25 09:44] VITALS: BP 111/62; PULSE 93; RESP 16; TEMP 36.3; O2SAT 95
[2022-01-25 10:44] VITALS: BP 114/77; RESP 16; TEMP 36.3
[2022-01-25 11:14] VITALS: BP 115/70; PULSE 80; RESP 16; TEMP 36.3; O2SAT 96
== END | disposition home or self-care (01) ==
LOC: MEDOUTP 08:41
PROVIDERS: PCP Family Medicine; Referring Provider Internal Medicine Hematology & Oncology; Visit Provider Internal Medicine Hematology & Oncology
DX: D50.8 Other iron deficiency anemias (principal)
CPT/HCPCS: 36430; 86850; 86900; 86901; 86920; 86922; P9016; A4216

== ENCOUNTER 2022-02-11 07:58 | Inpatient (IN) | payer OTHER, SELFPAY ==
[2022-02-11] VITALS (17 sets, daily range): BP systolic 92–123; BP diastolic 56–82; PULSE 77–106; RESP 12–18; TEMP 36–36.9; O2SAT 94–98; BMI 26.9; BMI 26.2
--- NOTE | 2022-02-11 08:21 | EDS_ITS ---
HPI History of Present Illness Chief Complaint: Abd Pain Informant: patient Onset/Context/Timing Onset: Weeks Timing: Intermittent Current Severity: Moderate Maximum Severity: Moderate Narrative Narrative: Patient presents secondary to hematuria. Patient has a history of prostate cancer currently receiving IV chemotherapy every 3 weeks. Patient states that about 2 weeks ago he developed hematuria. He called to make an appoint with Dr. Ann and was scheduled to be seen today at 11:00. Symptoms had improved but recurred again yesterday. He has been up most of the night with hematuria and passing blood clots. He does complain of some suprapubic pain. Patient has a history of recurrent anemia as well as leukopenia. He was scheduled to have blood drawn today to check blood counts for possible transfusion. Patient denies fever or chills. No vomiting or diarrhea. Mild dysuria. 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 Prostate CA Seizures Skin ulcer of right heel with fat layer exposed Spinal stenosis Home Medications levetiracetam 750 mg tablet 500 mg PO BID 08/26/15 [History Last Taken 09/06/18 05:20] escitalopram oxalate 10 mg tablet 10 mg PO DAILY 01/18/21 [History Last Taken Unknown] pramipexole 2.25 mg tablet,extended release 24 hr 0.25 mg PO QHS 02/18/21 [History Last Taken Unknown] oxycodone-acetaminophen 7.5 mg-325 mg tablet 1 tab PO Q8H PRN Pain 08/07/21 [History Last Taken Unknown] prednisone 5 mg tablet 5 tab PO DAILY 01/01/22 [History Last Taken Unknown] calcium 600 mg capsule 1,200 mg PO DAILY 01/25/22 [History Last Taken Unknown] cholecalciferol (vitamin D3) 25 mcg (1,000 unit) tablet (Vitamin D3) 25 mcg PO DAILY 01/25/22 [History Last Taken Unknown] levofloxacin 500 mg tablet 500 mg PO DAILY 02/11/22 [History Last Taken Unknown] Allergy/AdvReac Type Severity Reaction Status Date / Time Iodinated Contrast Media Allergy Hives Verified 01/01/22 13:55 [CONTRASTS] Penicillins Allergy Unknown Verified 08/07/21 10:52 morphine AdvReac Nausea/Vom/ Verified 08/07/21 10:52 Diarrhea Family History Mother Cancer Hypertension Heart disease Sister Cancer Brother Cancer Sister Ovarian cancer Father Alcohol-induced persisting dementia Social History Smoking Status: Former smoker quit date: 06/06/84 alcohol intake: current alcohol intake frequency: holidays/special occasions only ROS ROS ED Constitutional Constitutional ED: Denies chills or fever(s) Eyes Eyes: Denies change in vision or discharge from eye(s) ENT ENT ED: Denies discharge from eye(s), rhinorrhea or sore throat Cardiovascular Cardiovascular: Denies chest pain or palpitations Respiratory/Chest Respiratory/Chest: Denies cough or dyspnea Gastrointestinal Gastrointestinal: Reports abdominal pain; Denies diarrhea, nausea or vomiting Genitourinary Genitourinary ED: Reports difficulty urinating, dysuria and hematuria Musculoskeletal Musculoskeletal: Denies back pain or extremity pain Integumentary Denies Abrasions or rash Neurologic Neurologic: Reports weakness; Denies headache(s) Psychiatric Psychiatric: Denies anxiety or depression Allergic/Immunologic Allergic/Immunologic ED: Denies lip swelling or urticaria EXAM Physical Exam Const Vital Signs: 02/11/22 08:01 02/11/22 08:06 02/11/22 10:11 Temperature 96.8 F L 96.8 F L 98.1 F Temperature Source Temporal Temporal Oral Pulse Rate 96 89 89 Respiratory Rate 14 16 16 Blood Pressure 123/82 H 123/82 H 120/70 Blood Pressure Mean 95 95 86 Pulse Ox 95 97 98 Oxygen Delivery Method Room Air Room Air Room Air 02/11/22 10:11 Temperature 98.1 F Temperature Source Oral Pulse Rate 89 Respiratory Rate 18 Blood Pressure 120/70 Blood Pressure Mean 86 Pulse Ox 97 Oxygen Delivery Method Room Air Positive well nourished and well developed General Appearance ED: well developed HEENT Reports normocephalic and head/scalp atraumatic Eyes PERRL and EOMs intact bilaterally Neck supple Chest Wall inspection of chest normal and palpation of chest normal Resp normal respiratory effort and clear to auscultation bilaterally Cardio regular rate and regular rhythm GI GI Narrative: Mild suprapubic tenderness. No guarding or rebound. Palpation: soft Extremity normal to inspection Neuro oriented x3 and no sensory deficits noted Sensorium / Orientation: alert Motor Exam: strength 5/5 throughout Psych mental status grossly normal Skin no rashes or lesions noted MDM MDM MDM Narrative Medical decision making narrative: Lab work ordered. Vera catheter with irrigation and urinalysis ordered. Patient given IV fluids. Lab Data Attestation: I reviewed the patient's lab results. Labs: Laboratory Results - last 24 hr 02/11/22 02/11/22 02/11/22 08:35 08:35 08:35 WBC 1.7 L RBC 2.47 L Hgb 7.9 L Hct 25.3 L MCV 102.4 H MCH 32.0 MCHC 31.2 L RDW Std Deviation 67.5 H RDW Coeff of [place] 18.4 H Plt Count 19 L* MPV 13.8 H Immature Gran % (Auto) 1.700 H Neut % (Auto) 47.7 Lymph % (Auto) 40.1 [place] % (Auto) 8.7 Eos % (Auto) 0.6 Baso % (Auto) 1.2 H Absolute Neuts (auto) 0.8 L Absolute Lymphs (auto) 0.69 L Nucleated RBC % 0 Differential Comment COMMENT Diff Path Review May foll Platelet Estimate MKD DEC Anisocytosis 1+ PT 12.6 INR 1.0 APTT 22.4 L Sodium 141 Potassium 3.8 Chloride 104 Carbon Dioxide 28.0 Anion Gap 9 BUN 26 H Creatinine 1.12 Estim Creat Clear Calc 58.84 Est GFR (MDRD) Af Amer 82 Est GFR (MDRD) Non-Af 68 BUN/Creatinine Ratio 23.2 H Glucose 133 H Calcium 9.7 Urine Color Urine Clarity Urine pH Ur Specific [place] Urine Protein Urine Glucose (UA) Urine Ketones Urine Occult Blood Urine Nitrite Urine Bilirubin Urine Urobilinogen Ur Leukocyte Esterase Urine RBC Urine WBC Ur Squamous Epith Cells Urine Bacteria Urine Mucus 02/11/22 09:15 WBC RBC Hgb Hct MCV MCH MCHC RDW Std Deviation RDW Coeff of [place] Plt Count MPV Immature Gran % (Auto) Neut % (Auto) Lymph % (Auto) [place] % (Auto) Eos % (Auto) Baso % (Auto) Absolute Neuts (auto) Absolute Lymphs (auto) Nucleated RBC % Differential Comment Diff Path Review Platelet Estimate Anisocytosis PT INR APTT Sodium Potassium Chloride Carbon Dioxide Anion Gap BUN Creatinine Estim Creat Clear Calc Est GFR (MDRD) Af Amer Est GFR (MDRD) Non-Af BUN/Creatinine Ratio Glucose Calcium Urine Color Red Urine Clarity Turbid Urine pH 6.5 Ur Specific [place] 1.015 Urine Protein 500 H Urine Glucose (UA) Normal Urine Ketones 5 H Urine Occult Blood 250 H Urine Nitrite Negative Urine Bilirubin Negative Urine Urobilinogen Normal Ur Leukocyte Esterase Negative Urine RBC > 100 SEEN Urine WBC 0 SEEN Ur Squamous Epith Cells 0 SEEN Urine Bacteria 0 SEEN Urine Mucus 0 SEEN Treatment and Re-Evaluation Narrative: Patient's white count is low at 1.7 and hemoglobin is 7.9. Platelet count is 19,000. Chemistry studies reveal normal renal function with a creatinine of 1.12. Coags normal. Urinalysis shows blood with no sign of infection. Three- way catheter was placed by nursing staff. They have pulled out 3 syringeful's of clots. Urine cleared for short time but is now back to heredia red color. I spoke with Dr. Montano. He did recommend transfusion of 1 unit of platelets. I also spoke with Dr. Ann. He recommended hospitalist admit the patient for management of his anemia and thrombocytopenia and he will see patient for continuous bladder irrigation as well. Discharge Plan Triage Chief Complaint: Abd Pain Other Complaint: Complaint ED Provider: Azucena Kennedy Dx/Rx/DC Orders Clinical Impression: Hematuria, Prostate cancer, Thrombocytopenia, Anemia Prescriptions: No Action pramipexole 2.25 mg tablet extended release 24 hr 0.25 mg PO QHS levetiracetam 750 MG tablet 500 mg PO BID Label Comments: SEIZURE escitalopram oxalate 10 mg Tablet 10 mg PO DAILY oxycodone-acetaminophen 7.5-325 mg Tablet 1 tab PO Q8H PRN (Reason: Pain) prednisone 5 mg tablet 5 tab PO DAILY Label Comments: TAKE 1 TABLET BY MOUTH TWICE DAILY calcium 600 mg Capsule 1,200 mg PO DAILY cholecalciferol (vitamin D3) [Vitamin D3] 25 mcg (1,000 unit) Tablet 25 mcg PO DAILY levofloxacin 500 mg tablet 500 mg PO DAILY Label Comments: TAKE 1 TABLET BY MOUTH ONCE DAILY FOR 5 DAYS Primary Care Provider: Bib Dixon Referrals: Bib Dixon MD [Primary Care Provider] - Disposition Disposition: Acute Care [facility]
[2022-02-11] MEDS: 0.9% Normal Saline 1,000 ML 150 ML IV (08:32)
[2022-02-11 09:01] LABS: Absolute Lymphocyte Count 0.69 X10^3/uL (0.83-4.51); Absolute Neutrophil Count 0.8 X10^3/uL (2.0-7.7); Basophil# 0.02 X10^3/uL; Basophil% 1.2 % (0-1); Eosinophil# 0.01 X10^3/uL; Eosinophils% 0.6 % (0-5); Hematocrit 25.3 % (40-54); Hemoglobin 7.9 g/dL (13.0-16.5); Lymphocyte # 0.69 X10^3/ul (0.83-4.51); Lymphocyte % 40.1 % (19-41); Mean Corp Hgb Conc 31.2 g/dL (32-36); Mean Corpuscular Volume 102.4 fL (80-94); Mean Platelet Vol. 13.8 fl (6.2-12.0); Monocyte# 0.15 X10^3/uL; Monocyte% 8.7 % (0-10); NRBC Flagged by Analyzer 0 % (0-5); Neutrophil # 0.82 X10^3/uL (2.7-7.7); Neutrophil % 47.7 % (47-70); POSITIVE COUNT YES; POSITIVE DIFFERENTIAL YES; POSITIVE MORPHOLOGY YES; Platelet Count 19 K/mm3 (150-450); RBC Distribution Width CV 18.4 % (11.6-14.6); RBC Distribution Width SD 67.5 fl (35.1-43.9); Red Blood Count 2.47 M/mm3 (4.6-6.2); White Blood Count 1.7 K/mm3 (4.4-11.0)
[2022-02-11 09:07] LABS: Differential Indicated SCAN CRITERIA MET
[2022-02-11 09:10] LABS: Partial Thromboplast Time 22.4 Seconds (24.1-36.2); Prothrombin Time (Protime)PT. 12.6 SECONDS (11.7-14.9)
[2022-02-11 09:15] LABS: Anion Gap 9 (5-15); BUN 26 mg/dL (7-18); BUN/Creat Ratio 23.2 RATIO (10-20); Calcium,Total 9.7 mg/dL (8.5-10.1); Chloride 104 mmol/L (98-107); Creatinine, Serum 1.12 mg/dL (0.70-1.30); EST Glomerular Filtration Rate 68 mL/min (>60); Est Glom Filt Rate - Afr Amer 82 mL/min (>60); Estimated Creatinine Clearance 58.84 ml/min; Glucose 133 mg/dL (74-106); Potassium 3.8 mmol/L (3.5-5.1); Sodium Level 141 mmol/L (136-145)
[2022-02-11 09:25] LABS: Bacteria 0 SEEN /hpf (None Seen); Mucous, Urine 0 SEEN /hpf (<or=2+); Squamous Epithelial Cells - UA 0 SEEN /hpf (0-5); White Blood Cells 0 SEEN /hpf (0-5)
[2022-02-11 09:27] LABS: Color, Urine Red (Yellow); Glucose, Dipstick Normal (Normal); Ketone-Dipstick 5 mg/dl (Negative); Leukocyte Esterase-Dipstick Negative /ul (Negative); Nitrite-Dipstick Negative (Negative); Occult Blood-Urine 250 /ul (Negative); Protein-Dipstick 500 mg/dl (Negative); Specific Gravity, Urine 1.015 (1.002-1.030); Urine Bilirubin Dipstick Negative (Negative); Urine Clarity Turbid (Clear); Urine Urobilinogen Normal (Normal); Urine pH 6.5 (5.0 - 8.0)
[2022-02-11 09:28] LABS: Anisocytosis 1+; Platelet Estimate MKD DEC (ADEQ)
[2022-02-11 09:34] LABS: Red Blood Cells-Urine > 100 SEEN /hpf (0-5)
--- NOTE | 2022-02-11 11:01 | PCM.HP.STD ---
[facility] - General General Date of Admission: 02/11/22 Date of Service: 02/11/22 Chief Complaint: Hematuria 2 weeks ago and then started continuously yesterday. Mild pelvic pain. Chemotherapy 2 weeks ago HPI Narrative RHONDA PAT, is a 76 M with history of CA prostate on chemotherapy was brought to ED for hematuria and mild pelvic pain. EMS note reviewed. The patient was mild tachycardic heart rate 105/min, blood pressure normal as per EMS. Patient had last chemotherapy about 2 weeks ago after that he had 1 episode of hematuria which is stopped. After that he had second episode after few days which also started. Hematuria recurred yesterday night with continuous passage of blood with clots. He felt weak, dizzy and lightheaded in the morning today. He also complained of mild pain on the right pelvic anteriorly which is 2-4/10 intensity, localized without radiation. Patient has leukopenia and anemia. He has an appointment to see Dr. Ann at 11 AM today. He is having mild nausea but no vomiting or diarrhea. Mild burning micturition. He follows Dr. Montano and was started on Levaquin yesterday empirically as WBC count was low, 0.5 thousand, ANC 0.1 thousand on 01/01. In the ED, CBC shows improvement in WBC count 1.7 thousand, ANC 0.8 thousand but platelet count 19,000 and H&H 7.9/25.3%. MCV 82.4 Patient had lumbar surgery for lumbar spinal stenosis in August 2021 during that time his chemotherapy was interrupted. He is on chemotherapy every 3 weeks, last one 2 weeks ago. Patient also had radiation therapy for prostate cancer. Dr. 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 Prostate CA Seizures Skin ulcer of right heel with fat layer exposed Spinal stenosis Home Medications levetiracetam 750 mg tablet 500 mg PO BID 08/26/15 [History Last Taken 09/06/18 05:20] escitalopram oxalate 10 mg tablet 10 mg PO DAILY 01/18/21 [History Last Taken Unknown] pramipexole 2.25 mg tablet,extended release 24 hr 0.25 mg PO QHS 02/18/21 [History Last Taken Unknown] oxycodone-acetaminophen 7.5 mg-325 mg tablet 1 tab PO Q8H PRN Pain 08/07/21 [History Last Taken Unknown] prednisone 5 mg tablet 5 tab PO DAILY 01/01/22 [History Last Taken Unknown] calcium 600 mg capsule 1,200 mg PO DAILY 01/25/22 [History Last Taken Unknown] cholecalciferol (vitamin D3) 25 mcg (1,000 unit) tablet (Vitamin D3) 25 mcg PO DAILY 01/25/22 [History Last Taken Unknown] levofloxacin 500 mg tablet 500 mg PO DAILY 02/11/22 [History Last Taken Unknown] Allergy/AdvReac Type Severity Reaction Status Date / Time Iodinated Contrast Media Allergy Hives Verified 01/01/22 13:55 [CONTRASTS] Penicillins Allergy Unknown Verified 08/07/21 10:52 morphine AdvReac Nausea/Vom/ Verified 08/07/21 10:52 Diarrhea Family History Mother Cancer Hypertension Heart disease Sister Cancer Brother Cancer Sister Ovarian cancer Father Alcohol-induced persisting dementia Social History Smoking Status: Former smoker quit date: 06/06/84 alcohol intake: current alcohol intake frequency: holidays/special occasions only ROS ROS Narrative Constitutional: Reports fatigue and weakness. No fever or chills. Mild dizziness and lightheadedness. He is dehydrated HEENT: 1 reports systems reviewed and no addt'l complaints, except as documented Respiratory/Chest: Denies chest pain, shortness of breath at rest or with exertion Gastrointestinal: Denies coffee ground emesis, hematemesis or vomiting. Genitourinary: As mentioned in HPI Musculoskeletal: Reports joint pain and limited range of motion Neurologic: Denies seizure-like activity. No acute weakness numbness or tingling. skin: No ulcer. No rash Endocrinology: Reports systems reviewed and no addt'l complaints, except as documented Hematologic/Lymphatic: Pancytopenia. As mentioned in HPI. History of bilateral pulmonary embolism. Reports systems reviewed and no addt'l complaints, except as documented Rest 14 ROS are negative except as mentioned in HPI Vital Signs Vital Signs Vital Signs: 02/11/22 08:01 02/11/22 08:06 02/11/22 10:11 Temperature 96.8 F L 96.8 F L 98.1 F Temperature Source Temporal Temporal Oral Pulse Rate 96 89 89 Respiratory Rate 14 16 16 Blood Pressure 123/82 H 123/82 H 120/70 Blood Pressure Mean 95 95 86 Pulse Ox 95 97 98 Oxygen Delivery Method Room Air Room Air Room Air 02/11/22 10:11 Temperature 98.1 F Temperature Source Oral Pulse Rate 89 Respiratory Rate 18 Blood Pressure 120/70 Blood Pressure Mean 86 Pulse Ox 97 Oxygen Delivery Method Room Air Weight Weight: 187 lb 6.287 oz Body Mass Index (BMI) 26.9 Physical Exam Narrative General: Alert, Oriented x3, Cooperative HEENT: Atraumatic, PERRLA, EOMI, Normocephalic Oral: Oral mucosa are dry. No oral blood clot/bleeding. No Gingival or Mucosal Lesions/ Ulcerations Neck: Supple, No JVD, Negative Carotid Bruits Lungs: Air entry equal in bilateral lung bases. No crepitation/rhonchi Cardiovascular: Regular rate, Regular Rhythm, Normal S1, Normal S2, No murmurs Abdomen: Bowel Sounds Present, Soft, Non-Distended : Blood mixed with urine in catheter tube. Mild suprapubic tenderness. Triple-lumen catheter, on CBI. Renal angle tenderness or fullness. Extremities: Mild 1+ bilateral ankle edema, Capillary Refill Less than 3 Seconds Skin: No rashes, No breakdown Musculoskeletal/back: Surgical scar ho of lumbar spine. No acute tenderness/induration Neurological: Cranial nerves II-XII grossly intact, DTR 2+/4 and Symmetrical Psych/Mental Status: Flat affect Results Lab / Micro Data Result Diagrams: 02/11/22 08:35 02/11/22 08:35 Labs: Laboratory Results - last 24 hr 02/11/22 08:35: WBC 1.7 L, RBC 2.47 L, Hgb 7.9 L, Hct 25.3 L, MCV 102.4 H, MCH 32.0, MCHC 31.2 L, RDW Std Deviation 67.5 H, RDW Coeff of Nemo 18.4 H, Plt Count 19 L*, MPV 13.8 H, Immature Gran % (Auto) 1.700 H, Neut % (Auto) 47.7, Lymph % (Auto) 40.1, Jennings % (Auto) 8.7, Eos % (Auto) 0.6, Baso % (Auto) 1.2 H, Absolute Neuts (auto) 0.8 L, Absolute Lymphs (auto) 0.69 L, Nucleated RBC % 0, Differential Comment COMMENT, Diff Path Review May foll, Platelet Estimate MKD DEC, Anisocytosis 1+ 02/11/22 08:35: PT 12.6, INR 1.0, APTT 22.4 L 02/11/22 08:35: Sodium 141, Potassium 3.8, Chloride 104, Carbon Dioxide 28.0, Anion Gap 9, BUN 26 H, Creatinine 1.12, Estim Creat Clear Calc 58.84, Est GFR (MDRD) Af Amer 82, Est GFR (MDRD) Non-Af 68, BUN/Creatinine Ratio 23.2 H, Glucose 133 H, Calcium 9.7 02/11/22 08:35: Blood Type AB POSITIVE, Antibody Screen NEGATIVE 02/11/22 09:15: Urine Color Red, Urine Clarity Turbid, Urine pH 6.5, Ur Specific [place] 1.015, Urine Protein 500 H, Urine Glucose (UA) Normal, Urine Ketones 5 H, Urine Occult Blood 250 H, Urine Nitrite Negative, Urine Bilirubin Negative, Urine Urobilinogen Normal, Ur Leukocyte Esterase Negative, Urine RBC > 100 SEEN, Urine WBC 0 SEEN, Ur Squamous Epith Cells 0 SEEN, Urine Bacteria 0 SEEN, Urine Mucus 0 SEEN Assessment & Plan Assessment/Plan (1) Hematuria: (2) Thrombocytopenia: (3) Anemia: PLAN: Plan This 76-year-old question gentleman with history of prostate cancer on chemotherapy came to ED with active, continuous, recurrent hematuria and mild suprapubic/pelvic pain. 1. 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 Patient has continuous bladder irrigation. Urologist Dr. Hayes is consulted. 2. Severe thrombocytopenia, acute on chronic macrocytic anemia due to hematuria and leukopenia with neutropenia: 1 unit of single donor platelet transfusion is ordered. Hemoglobin 7.9 therefore repeat CBC after 6-hour after platelet transfusion. Monitor H&H every 8 [address] Discuss[address] with Dr. Montano. Patient last blood work on 02/09 shows WBC 0.91 thousand, H&H 8.2/25, MCV 100 platelet count 23,000. ANC 0.43 thousand. 3. Mild pelvic pain probably related to blood clot/inflammatory pain: UA is not suggestive of UTI with negative nitrite and LE WBC 0 but the patient started on Levaquin yesterday prophylactically by Dr. Montano. Continue Levaquin. Urine culture ordered. No fever. 4 history of bilateral several pulmonary emboli: This was discovered on CT angiography of the chest done for elevated d-dimer in August 2015.? At that time patient was treated with Xarelto. Currently not on anticoagulant. #3 seizure disorder: On Keppra continued #4 benign prostatic hypertrophy: Currently patient is not on Proscar or Flomax. With symptoms patient was in the past. #5 Other comorbidities include chronic lumbar spinal stenosis status post lumbar's spinal surgery, osteoarthritis, restless leg syndrome: Patient is on oxycodone, pramipexole, vitamin D and calcium supplement continued. VTE prophylaxis: Formula products contraindicated. Bilateral SCDs Living will/advanced directive/end of life care: Patient does have living will or advanced directive. His is present in the room and she is power of executive director of nursing for health. After discussion of benefits/risks procedures involved with full code, DNR CC arrest and DNR CC, the patient and his opted for full code. Both do want artificial life support including intubation, tube feed, ventilator and/chest compression, central venous catheter, vasopressor and DC shock if needed Total time spent in [id number] encounter in discussion of advanced directive 16 minutes. Laboratory Results 02/11/22 08:35: WBC 1.7 L, RBC 2.47 L, Hgb 7.9 L, Hct 25.3 L, MCV 102.4 H, MCH 32.0, MCHC 31.2 L, RDW Std Deviation 67.5 H, RDW Coeff of Nemo 18.4 H, Plt Count 19 L*, MPV 13.8 H, Immature Gran % (Auto) 1.700 H, Neut % (Auto) 47.7, Lymph % (Auto) 40.1, Jennings % (Auto) 8.7, Eos % (Auto) 0.6, Baso % (Auto) 1.2 H, Absolute Neuts (auto) 0.8 L, Absolute Lymphs (auto) 0.69 L, Nucleated RBC % 0, Differential Comment COMMENT, Diff Path Review May foll, Platelet Estimate MKD DEC, Anisocytosis 1+ 02/11/22 08:35: PT 12.6, INR 1.0, APTT 22.4 L 02/11/22 08:35: Sodium 141, Potassium 3.8, Chloride 104, Carbon Dioxide 28.0, Anion Gap 9, BUN 26 H, Creatinine 1.12, Estim Creat Clear Calc 58.84, Est GFR (MDRD) Af Amer 82, Est GFR (MDRD) Non-Af 68, BUN/Creatinine Ratio 23.2 H, Glucose 133 H, Calcium 9.7 02/11/22 08:35: Blood Type AB POSITIVE, Antibody Screen NEGATIVE 02/11/22 08:35: Phosphorus 3.4, Magnesium 2.0 02/11/22 09:15: Urine Color Red, Urine Clarity Turbid, Urine pH 6.5, Ur Specific [place] 1.015, Urine Protein 500 H, Urine Glucose (UA) Normal, Urine Ketones 5 H, Urine Occult Blood 250 H, Urine Nitrite Negative, Urine Bilirubin Negative, Urine Urobilinogen Normal, Ur Leukocyte Esterase Negative, Urine RBC > 100 SEEN, Urine WBC 0 SEEN, Ur Squamous Epith Cells 0 SEEN, Urine Bacteria 0 SEEN, Urine Mucus 0 SEEN Charges/Coding Visit Charges Inpatient E&M: 06838 Init Hosp L3 Procedures Hospitalists Procedures: 01316 Advncd Care Plan 30 Min
--- NOTE | 2022-02-11 11:01 | ED.RN ---
CLOTS CONTINUED TO PREVENT FLOW TO PERKINS, MANUAL IRRIGATION PERFORMED WITH RELEASE OF SEVERAL CLOTS. CONTINUOUS BLADDER IRRIGATION INITIATED, PATIENT RESTING COMFORTABLY AT THIS TIME.
[2022-02-11] MEDS: levoFLOXacin 500 MG Tablet PO (11:15)
[2022-02-11] MEDS: levETIRAcetam 500 MG Tablet PO ×2 (11:15→20:28)
[2022-02-11 11:31] LABS: Phosphorus 3.4 mg/dL (2.5-4.9)
[2022-02-11] MEDS: oxyCODONE 5 MG Tablet PO ×2 (13:53→19:41)
[2022-02-11] MEDS: Acetaminophen 325 MG Tablet 650 MG PO ×2 (13:54→20:27)
[2022-02-11] MEDS: Lactated Ringers 1,000 ML 100 ML IV (14:01)
[2022-02-11 15:02] LABS: Absolute Lymphocyte Count 0.42 X10^3/uL (0.83-4.51); Basophil# 0.02 X10^3/uL; Basophil% 1.2 % (0-1); Eosinophil# 0.01 X10^3/uL; Eosinophils% 0.6 % (0-5); Hematocrit 22.6 % (40-54); Hemoglobin 7.3 g/dL (13.0-16.5); Lymphocyte # 0.42 X10^3/ul (0.83-4.51); Lymphocyte % 26.1 % (19-41); Mean Corp Hgb Conc 32.3 g/dL (32-36); Mean Corpuscular Hgb 32.4 pg (27.0-32.0); Mean Corpuscular Volume 100.4 fL (80-94); Mean Platelet Vol. 13.1 fl (6.2-12.0); Monocyte# 0.19 X10^3/uL; Monocyte% 11.8 % (0-10); NRBC Flagged by Analyzer 0 % (0-5); Neutrophil # 0.96 X10^3/uL (2.7-7.7); Neutrophil % 59.7 % (47-70); POSITIVE COUNT YES; POSITIVE DIFFERENTIAL YES; POSITIVE MORPHOLOGY YES; RBC Distribution Width CV 18.2 % (11.6-14.6); RBC Distribution Width SD 66.3 fl (35.1-43.9); Red Blood Count 2.25 M/mm3 (4.6-6.2); White Blood Count 1.6 K/mm3 (4.4-11.0)
[2022-02-11 15:04] LABS: Differential Indicated SCAN CRITERIA MET; Platelet Count 16 K/mm3 (150-450)
[2022-02-11 16:11] LABS: Anisocytosis 1+; Differential Comment SEE COMMENTS; Hypochromasia 1+; Macrocytosis 1+; Platelet Estimate MKD DEC (ADEQ); Red Cell Morphology N CHROM NORMAL (NORM C&C)
--- NOTE | 2022-02-11 17:00 | PCM.CONS.U ---
Assessment & Plan Assessment/Plan (1) Prostate cancer: PLAN: He has been on chemotherapy for prostate cancer (2) Gross hematuria: PLAN: Plan to take him to surgery for cystoscopy evacuation of blood clots cauterization of bleeding and TURP n.p.o. midnight. 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 Prostate CA Seizures Skin ulcer of right heel with fat layer exposed Spinal stenosis Home Medications levetiracetam 750 mg tablet 500 mg PO BID seizure 08/26/15 [History Last Taken 02/11/22 11:00] escitalopram oxalate 10 mg tablet 10 mg PO DAILY mood 01/18/21 [History Last Taken 02/10/22 21:00] pramipexole 2.25 mg tablet,extended release 24 hr 0.25 mg PO QHS health maintenance 02/18/21 [History Last Taken 02/10/22 21:00] oxycodone-acetaminophen 7.5 mg-325 mg tablet 1 tab PO Q8H PRN Pain 08/07/21 [History Last Taken 02/11/22 04:00] prednisone 5 mg tablet 5 tab PO DAILY sterioid 01/01/22 [History Last Taken 02/10/22 09:00] calcium 600 mg capsule 1,200 mg PO DAILY health maintenance 01/25/22 [History Last Taken 02/10/22 09:00] cholecalciferol (vitamin D3) 25 mcg (1,000 unit) tablet (Vitamin D3) 25 mcg PO DAILY health maintence 01/25/22 [History Last Taken 02/10/22 09:00] levofloxacin 500 mg tablet 500 mg PO DAILY ATB 02/11/22 [History Last Taken 02/11/22 11:00] Allergy/AdvReac Type Severity Reaction Status Date / Time Iodinated Contrast Media Allergy Hives Verified 01/01/22 13:55 [CONTRASTS] Penicillins Allergy Unknown Verified 08/07/21 10:52 morphine AdvReac Nausea/Vom/ Verified 08/07/21 10:52 Diarrhea Family History Mother Cancer Hypertension Heart disease Sister Cancer Brother Cancer Sister Ovarian cancer Father Alcohol-induced persisting dementia Social History Smoking Status: Former smoker quit date: 06/06/84 alcohol intake: current alcohol intake frequency: holidays/special occasions only ROS Constitutional Constitutional: Denies chills, fever(s) or malaise Eyes Eyes: Denies blurry vision or change in vision ENT HEENT: Reports none Cardiovascular Cardiovascular: Denies chest pain or palpitations Respiratory/Chest Respiratory/Chest: Denies cough or shortness of breath with exertion Gastrointestinal Gastrointestinal: Denies abdominal pain, constipation or diarrhea Genitourinary Genitourinary: Reports systems reviewed and no addt'l complaints, except as documented Musculoskeletal Musculoskeletal: Denies back pain, joint stiffness or joint swelling Integumentary Integumentary: Denies dry skin, jaundice, lesions or rash Neurologic Neurologic: Denies confusion, syncope or weakness Psychiatric Psychiatric: Reports none; Denies anxiety or depression Endocrine Endocrinology: Denies excessive sweating, fatigue or flushing Hematologic/Lymphatic Hematologic/Lymphatic: Denies anemia, easy bleeding or easy bruising Physical Exam Const alert and oriented x3 General Appearance: cooperative HEENT normocephalic, head/scalp atraumatic, EAC's normal and TM's normal bilaterally Eyes PERRL and EOMs intact bilaterally Pupil: sluggish Neck no lymphadenopathy, supple and no JVD General: trachea midline Lymph Lymphatic: no lymphadenopathy noted, lymphedema and lymphadenopathy Resp normal respiratory effort, normal air movement and clear to auscultation bilaterally Cardio regular rate, regular rhythm and peripheral pulses 2+ throughout GI soft to palpation, non-tender and non-distended Extremity normal capillary refill and no clubbing, cyanosis or edema General Extremity: no tenderness to palpation of joints or extremities Skin no rashes or lesions noted General Skin Exam: turgor normal Lesions: no lesions Rashes: no rashes Neuro CN's II-XII intact bilaterally Speech: speech normal Motor Exam: strength 5/5 throughout; Negative for general weakness Psych thought process normal, cooperative and affect normal Appearance: appropriate Lab / Micro Data Result Diagrams: 02/11/22 14:50 02/11/22 08:35 Labs: Laboratory Results - last 24 hr 02/11/22 08:35: WBC 1.7 L, RBC 2.47 L, Hgb 7.9 L, Hct 25.3 L, MCV 102.4 H, MCH 32.0, MCHC 31.2 L, RDW Std Deviation 67.5 H, RDW Coeff of Nemo 18.4 H, Plt Count 19 L*, MPV 13.8 H, Immature Gran % (Auto) 1.700 H, Neut % (Auto) 47.7, Lymph % (Auto) 40.1, [place] % (Auto) 8.7, Eos % (Auto) 0.6, Baso % (Auto) 1.2 H, Absolute Neuts (auto) 0.8 L, Absolute Lymphs (auto) 0.69 L, Nucleated RBC % 0, Differential Comment COMMENT, Diff Path Review May wenceslao, Platelet Estimate MKD DEC, Anisocytosis 1+ 02/11/22 08:35: PT 12.6, INR 1.0, APTT 22.4 L 02/11/22 08:35: Sodium 141, Potassium 3.8, Chloride 104, Carbon Dioxide 28.0, Anion Gap 9, BUN 26 H, Creatinine 1.12, Estim Creat Clear Calc 58.84, Est GFR (MDRD) Af Amer 82, Est GFR (MDRD) Non-Af 68, BUN/Creatinine Ratio 23.2 H, Glucose 133 H, Calcium 9.7 02/11/22 08:35: Blood Type AB POSITIVE, Antibody Screen NEGATIVE 02/11/22 08:35: Phosphorus 3.4, Magnesium 2.0 02/11/22 08:35: Crossmatch See Detail 02/11/22 09:15: Urine Color Red, Urine Clarity Turbid, Urine pH 6.5, Ur Specific [place] 1.015, Urine Protein 500 H, Urine Glucose (UA) Normal, Urine Ketones 5 H, Urine Occult Blood 250 H, Urine Nitrite Negative, Urine Bilirubin Negative, Urine Urobilinogen Normal, Ur Leukocyte Esterase Negative, Urine RBC > 100 SEEN, Urine WBC 0 SEEN, Ur Squamous Epith Cells 0 SEEN, Urine Bacteria 0 SEEN, Urine Mucus 0 SEEN 02/11/22 14:50: WBC 1.6 L, RBC 2.25 L, Hgb 7.3 L, Hct 22.6 L, MCV 100.4 H, MCH 32.4 H, MCHC 32.3, RDW Std Deviation 66.3 H, RDW Coeff of Nemo 18.2 H, Plt Count 16 L*, MPV 13.1 H, Immature Gran % (Auto) 0.600, Neut % (Auto) 59.7, Lymph % (Auto) 26.1, [place] % (Auto) 11.8 H, Eos % (Auto) 0.6, Baso % (Auto) 1.2 H, Absolute Neuts (auto) 1.0 L, Absolute Lymphs (auto) 0.42 L, Nucleated RBC % 0, Differential Comment SEE COMMENTS, Diff Path Review Gladys billy, Platelet Estimate MKD DEC, RBC Morphology N CHROM, Hypochromasia 1+, Anisocytosis 1+, Macrocytosis 1+
[2022-02-11] MEDS: Senna/Docusate Sodium 1 Tablet 2 TABLET PO (20:28)
[2022-02-11] MEDS: Pramipexole Di-HCl 0.25 MG Tablet PO (20:29)
[2022-02-11] MEDS: 0.9% Saline Lock 10 ML Syringe IV (20:31)
[2022-02-11 21:58] LABS: Hematocrit 23.5 % (40-54); Hemoglobin 7.8 g/dL (13.0-16.5)
[2022-02-12] VITALS (15 sets, daily range): BP systolic 88–117; BP diastolic 57–78; PULSE 83–106; RESP 14–18; TEMP 36.1–36.8; O2SAT 92–100; BMI 27.1
[2022-02-12 00:44] LABS: Hematocrit 21.9 % (40-54); Hemoglobin 7.2 g/dL (13.0-16.5); POSITIVE COUNT YES
[2022-02-12] MEDS: oxyCODONE 5 MG Tablet PO (01:20)
--- NOTE | 2022-02-12 02:44 | NURSING ---
Patient spO2 87% on room with eyes closed patient opened eyes states he doesn't wear oxygen while in the room patient oxygen level came up to spO2 97%. Patient states alarm has gone off a few time and it was okay to apply oxygen on while sleeping. Patient has 2.5L with nasal cannula on at this time. Will make nurse Christianne NAILS aware.
[2022-02-12] MEDS: Lactated Ringers 1,000 ML 100 ML IV ×2 (04:14→18:44)
[2022-02-12] MEDS: Acetaminophen 325 MG Tablet 650 MG PO (04:56)
--- NOTE | 2022-02-12 05:55 | EKG12_ITS ---
Test Reason : AM EKG Blood Pressure : / mmHG Vent. Rate : 086 BPM Atrial Rate : 086 BPM P-R Int : 154 ms QRS Dur : 084 ms QT Int : 368 ms P-R-T Axes : 035 -16 003 degrees QTc Int : 440 ms Normal sinus rhythm Normal ECG When compared with ECG of 28-AUG-2015 09:31, No significant change was found Confirmed by CHANEL DENTON, JAVON ([id number]), online content editor BRADLEY VELASCO ([id number]) on 02/12/2022 2:25:26 PM Referred By: Confirmed By:JAVON BUCHANAN MD
[2022-02-12 06:42] LABS: Absolute Lymphocyte Count 0.47 X10^3/uL (0.83-4.51); Absolute Neutrophil Count 0.9 X10^3/uL (2.0-7.7); Basophil# 0.01 X10^3/uL; Basophil% 0.6 % (0-1); Eosinophil# 0.01 X10^3/uL; Eosinophils% 0.6 % (0-5); Hematocrit 23.1 % (40-54); Hemoglobin 7.3 g/dL (13.0-16.5); Lymphocyte # 0.47 X10^3/ul (0.83-4.51); Lymphocyte % 30.5 % (19-41); Mean Corp Hgb Conc 31.6 g/dL (32-36); Mean Corpuscular Hgb 31.3 pg (27.0-32.0); Mean Corpuscular Volume 99.1 fL (80-94); Mean Platelet Vol. 11.3 fl (6.2-12.0); Monocyte# 0.18 X10^3/uL; Monocyte% 11.7 % (0-10); NRBC Flagged by Analyzer 1.3 % (0-5); Neutrophil # 0.86 X10^3/uL (2.7-7.7); POSITIVE COUNT YES; POSITIVE DIFFERENTIAL YES; POSITIVE MORPHOLOGY YES; Platelet Count 47 K/mm3 (150-450); RBC Distribution Width CV 18.4 % (11.6-14.6); RBC Distribution Width SD 66.4 fl (35.1-43.9); Red Blood Count 2.33 M/mm3 (4.6-6.2); White Blood Count 1.5 K/mm3 (4.4-11.0)
[2022-02-12 06:47] LABS: Differential Indicated SCAN CRITERIA MET
[2022-02-12 06:59] LABS: International Normalized Ratio 1.1; Partial Thromboplast Time 21.3 Seconds (24.1-36.2); Prothrombin Time (Protime)PT. 13.4 SECONDS (11.7-14.9)
[2022-02-12 07:04] LABS: Anisocytosis 2+; Macrocytosis 1+; Platelet Estimate MKD DEC (ADEQ)
[2022-02-12 07:11] LABS: Anion Gap 5 (5-15); BUN 16 mg/dL (7-18); BUN/Creat Ratio 17.1 RATIO (10-20); Calcium,Total 8.5 mg/dL (8.5-10.1); Chloride 108 mmol/L (98-107); Creatinine, Serum 0.93 mg/dL (0.70-1.30); EST Glomerular Filtration Rate 84 mL/min (>60); Est Glom Filt Rate - Afr Amer 101 mL/min (>60); Estimated Creatinine Clearance 70.86 ml/min; Glucose 88 mg/dL (74-106); Sodium Level 140 mmol/L (136-145)
--- NOTE | 2022-02-12 10:15 | CASEMGMT ---
RN CM JUICE MIXER CM to room to meet with patient for initial transition planning/care coordination assessment. RN TREV introduced self and role at [facility]. Pt voices understanding and consents to assessment at this time. Pt resting in bed in no distress at this time. Pt is A/O at this time and answers all questions appropriately. Care providers, pharmacy, and demographics verified/updated at this time. PCP: Dr Quentin Dixon. Pt also goes to [facility] yearly. Specialists: Dr Ann-urology, Dr Montano-oncology, Dr Mcmahon-podiatry, Dr Alexis-pain mgmt [facility]erred [facility]acy: [facility] Insurance: [place] benefits. Pt states he also has MCR A/B and [employer] secondary. Prescription Benefit: Yes, [employer] Living Will/HPOA: Pt has both LW and HPOA, who is his , Akiko LNOK: , Akiko. Dtr, Sandra. 2 sons Living Arrangements: Lives w/his , Akiko, in one-story home w/basement. One step to enter. Pt states, I really have to be careful on the steps going to the basement. He states takes them slowly and has a walker in the basement to use once he gets down there. He also has a walker he keeps on the main floor. Pt states he is independent w/ADL's. manages home mgmt tasks. Pt manages his own medications and appts. Transportation: Pt and both drive. DME: States has the following DME: shower chair, toilet riser, quad cane (no longer uses it), shower chair, hand held shower, lift chair, walker, 2 rollators. Pt states would be interested in medical alert info. Same provided to pt at this time. Pt states he plans to call the [facility] soon to inquire about getting a power sc[facility] Pt states no need for further DME at this time. HHC/SNF: No hx of SNF. Had HHC in the past after back surgery. Pt declines wanting HHC @ discharge. Pt made aware to ask for CM if he would change his mind prior to discharge and also made aware, if he decides he would like HHC once he returns home to discuss this w/his PCP. He voices understanding. Pt wishes to return home and states has no concerns with going home at time of discharge. CM to follow for any discharge planning/needs. Pt voices no further concerns/needs at this time. Advised pt to ask for CM if any further questions/concerns/needs arise. Voices understanding. PLAN: Home w/spousal support and discharge plans in place. Janes ELIZALDEN RN CM
--- NOTE | 2022-02-12 10:25 | NURSING ---
This RN into pt room to assess CBI. Noted that there was no output into bag. Irrigated catheter with 60ml sterile saline. Removed several large blood clots. Re-attached wilkins to catheter bag noted good steady flow of bright red drainage.
[2022-02-12] MEDS: levETIRAcetam 500 MG Tablet PO ×2 (10:39→20:55)
[2022-02-12 11:52] LABS: Pathologist Review Reviewed
[2022-02-12 11:52] LABS: Pathologist Review Reviewed
[2022-02-12 11:53] LABS: Pathologist Review Reviewed
--- NOTE | 2022-02-12 11:57 | PCM.PN.HOSP ---
Documented by User: Destinee Valdes NP, REIMBURSEMENT COUNSELOR-C 02/12/22 12:08 Subjective Subjective Patient seen and examined. Reports feeling fatigued/tired. States he did not sleep well overnight. Denies other symptoms or complaints. Objective Data Objective Data Vital Signs: Vital Signs Temp Pulse Resp BP Pulse Ox O2 Del Method O2 Flow Rate 97.9 F 106 H 18 105/68 99 Room Air 3 02/12/22 09:18 02/12/22 09:18 02/12/22 09:18 02/12/22 09:18 02/12/22 09:18 02/12/22 09:18 02/12/22 07:18 Oxygen Flow Rate (L/min) 3 Oxygen Delivery Method Room Air Weight: 189 lb 6.033 oz Body Mass Index (BMI) 27.1 Intake & Output: Intake and Output for Last 24 Hours 02/10/22 02/11/22 02/12/22 23:59 23:59 23:59 Intake Total 2240 / 2240 493.33 / 493.33 Output Total 5425 / 5425 1050 / 1050 Balance -3185 / -3185 -556.67 / -556.67 Lab / Micro Data Result Diagrams: 02/12/22 05:45 02/12/22 05:45 Labs: Laboratory Results - last 24 hr 02/11/22 08:35: Diff Path Review Reviewed 02/11/22 08:35: Crossmatch See Detail 02/11/22 14:50: WBC 1.6 L, RBC 2.25 L, Hgb 7.3 L, Hct 22.6 L, MCV 100.4 H, MCH 32.4 H, MCHC 32.3, RDW Std Deviation 66.3 H, RDW Coeff of [place] 18.2 H, Plt Count 16 L*, MPV 13.1 H, Immature Gran % (Auto) 0.600, Neut % (Auto) 59.7, Lymph % (Auto) 26.1, [place] % (Auto) 11.8 H, Eos % (Auto) 0.6, Baso % (Auto) 1.2 H, Absolute Neuts (auto) 1.0 L, Absolute Lymphs (auto) 0.42 L, Nucleated RBC % 0, Differential Comment SEE COMMENTS, Diff Path Review Reviewed, Platelet Estimate MKD DEC, RBC Morphology N CHROM, Hypochromasia 1+, Anisocytosis 1+, Macrocytosis 1+ 02/11/22 20:30: Hgb 7.8 L, Hct 23.5 L 02/12/22 00:25: Hgb 7.2 L, Hct 21.9 L 02/12/22 05:45: WBC 1.5 L, RBC 2.33 L, Hgb 7.3 L, Hct 23.1 L, MCV 99.1 H, MCH 31.3, MCHC 31.6 L, RDW Std Deviation 66.4 H, RDW Coeff of [place] 18.4 H, Plt Count 47 L*, MPV 11.3, Immature Gran % (Auto) 0.600, Neut % (Auto) 56.0, Lymph % (Auto) 30.5, [place] % (Auto) 11.7 H, Eos % (Auto) 0.6, Baso % (Auto) 0.6, Absolute Neuts (auto) 0.9 L, Absolute Lymphs (auto) 0.47 L, Nucleated RBC % 1.3, Diff Path Review Reviewed, Platelet Estimate MKD DEC, Anisocytosis 2+, Macrocytosis 1+ 02/12/22 05:45: Sodium 140, Potassium 4.0, Chloride 108 H, Carbon Dioxide 27.0, Anion Gap 5, BUN 16, Creatinine 0.93, Estim Creat Clear Calc 70.86, Est GFR (MDRD) Af Amer 101, Est GFR (MDRD) Non-Af 84, BUN/Creatinine Ratio 17.1, Glucose 88, Calcium 8.5 02/12/22 06:40: PT 13.4, INR 1.1, APTT 21.3 L Micro: Microbiology 02/11/22 09:15 Urine Catheter - Vera Urine Culture - Preliminary Culture exhibits no growth. Physical Exam Narrative Continuous bladder irrigation in place. Vera catheter with bright red blood. No clots noted. Const alert and oriented x3 Constitutional Narrative: Fatigued appearing HEENT normocephalic Mouth: dry mucous membranes Eyes PERRL, EOMs intact bilaterally and conjunctivae normal Neck no lymphadenopathy Resp clear to auscultation bilaterally Auscultation: diminished lung sounds Cardio regular rate, regular rhythm and no murmurs Peripheral Pulses: pulses 2+ throughout GI normal to inspection, nondistended, normoactive bowel sounds, non-tender and non-distended Extremity normal to inspection Skin no rashes or lesions noted Lesions: no lesions Rashes: no rashes Trauma: no lacerations or abrasions Neuro CN's II-XII intact bilaterally, no focal motor deficits, no sensory deficits noted and deep tendon reflexes 2+ bilaterally Psych mental status grossly normal and affect normal Assessment & Plan Assessment/Plan (1) Gross hematuria: PLAN: Plan 1. Gross hematuria, history of progressive prostate cancer-urology consulted. Plan for cystoscopy with TURP. Continuous bladder irrigation in place. 2. Acute on chronic macrocytic anemia with thrombocytopenia-discussed with oncology on admission. Patient follows with Dr. Montano. Status post 1 unit platelet transfusion. Plan for blood transfusion if hemoglobin less than 7. Trend CBC. 3. History of bilateral PE-documented in 2015. No longer on Xarelto. 4. History of seizure disorder-on Keppra. 5. BPH-on Proscar, Flomax. 6. Chronic back pain with chronic lumbar spinal stenosis/osteoarthritis/restless leg syndrome-continue as needed pain regimen, Mirapex. 7. Depression/anxiety-on escitalopram. DVT prophylaxis-SCDs This patient was seen by NIKITA Saldana under the supervision of Dr. Amin. Time spent examining patient, reviewing data and subsequent management of care: 16 minutes Documented by User: Dr. Eris Amin MD 02/12/22 16:03 Subjective Subjective Patient seen and examined. Reports feeling fatigued/tired. States he did not sleep well overnight. Denies other symptoms or complaints. Seen and examined. Follow-up for hematuria and pancytopenia especially severe acute blood loss anemia and severe thrombocytopenia Vera catheter tube pinkish. Patient had clot in the Vera catheter which was flushed. No fever. Objective Data Lab / Micro Data Result Diagrams: 02/12/22 05:45 02/12/22 05:45 Physical Exam Narrative Physical exam findings General: Alert, Oriented x3, Cooperative HEENT: Atraumatic, PERRLA, EOMI, Normocephalic Oral: Oral mucosa moist.? No oral blood clot/bleeding.? Neck: Supple, No JVD, Negative Carotid Bruits Lungs:? Air entry equal in bilateral lung bases.? No crepitation/rhonchi Cardiovascular: Regular rate, Regular Rhythm, Normal S1, Normal S2, No murmurs Abdomen: Bowel Sounds Present, Soft,? Non-Distended : Blood mixed with urine in catheter tube, pinkish colored with intermittent blood clot.? Triple-lumen catheter, on CBI.? No renal angle or suprapubic tenderness or fullness. Extremities: Mild 1+ bilateral ankle edema, Capillary Refill Less than 3 Seconds Skin: No rashes, No breakdown Musculoskeletal/back: Surgical scar ho of lumbar spine.? No acute tenderness/induration Neurological: Cranial nerves II-XII grossly intact, DTR? 2+/4 and Symmetrical Psych/Mental Status: Flat affect Assessment & Plan Assessment/Plan (1) Gross hematuria: PLAN: Plan 1. Gross hematuria, history of progressive prostate cancer-urology consulted. Plan for cystoscopy with TURP. Continuous bladder irrigation in place. 2. Acute on chronic macrocytic anemia with thrombocytopenia-discussed with oncology on admission. Patient follows with Dr. Montano. Status post 1 unit platelet transfusion. Plan for blood transfusion if hemoglobin less than 7. Trend CBC. 3. History of bilateral PE-documented in 2016. No longer on Xarelto. 4. History of seizure disorder-on Keppra. 5. BPH-on Proscar, Flomax. 6. Chronic back pain with chronic lumbar spinal stenosis/osteoarthritis/restless leg syndrome-continue as needed pain regimen, Mirapex. 7. Depression/anxiety-on escitalopram. DVT prophylaxis-SCDs This patient was seen by JERSON SaldanaC under the supervision of Dr. Amin. Time spent examining patient, reviewing data and subsequent management of care: 16 minutes This patient was seen in conjunction with Destinee PLAZA. I have independently interviewed and examined the patient and reviewed pertinent history, examination findings, laboratory and plan of management. I have reviewed the note and agree with the documented findings with the few additional points. This 76-year-old question gentleman with history of prostate cancer on chemotherapy came to ED with active, continuous, recurrent hematuria and mild suprapubic/pelvic pain. 1.? 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 Patient has continuous bladder irrigation.? Urologist Dr. Ann is consulted. 02/12: Plan for cystoscopy in afternoon. Overall urine is little clearer than yesterday. Continue CBI. Prostate cancer diagnosis discussed with Dr. Montano. Patient was initially treated with Taxotere which showed initially decreasing PSA but later increased. Chemotherapy regimen changed to CAPEAZITAXEL and had 4 cycles, last 1 on 02/02/2022. Patient had TURP in 2019 which showed high-grade adenocarcinoma of the prostate. Infiltrate 2018 patient had external beam radiotherapy. Bone scan in 2019 showed metastasis of pelvic bones, iliac and sacrum. CT chest s in April 2020 shows RML plus RUL, 2 new lung nodules. 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 Severe thrombocytopenia, acute on chronic macrocytic anemia due to hematuria and leukopenia with neutropenia: 1 unit of single donor platelet transfusion is ordered.? Hemoglobin 7.9 therefore repeat CBC after 6-hour after platelet transfusion.? Monitor H&H every 8 hourly afterwards.? Discussed with Dr. Montano.? Patient last blood work on 02/09 shows WBC 0.91 thousand, H&H 8.2/25, MCV 100 platelet count 23,000.? ANC 0.43 thousand. 02/12: Hemoglobin 7.3, microcytic, WBC 1.5 thousand, platelet count 47,000 and ANC 0.9 thousand. Patient had 1 unit of blood transfusion. Monitor PRBC ordered. Monitor posttransfusion CBC. 3.? Mild pelvic pain probably related to blood clot/inflammatory pain/metastatic: UA is not suggestive of UTI with negative nitrite and LE WBC 0 but the patient started on Levaquin yesterday prophylactically by Dr. Montano.? Continue Levaquin.? Urine culture ordered.? No fever. 4 history of bilateral several pulmonary emboli: This was discovered on CT angiography of the chest done for elevated d-dimer in August 2015.? At that time patient was treated with Xarelto.? Currently not on anticoagulant. #3 seizure disorder: On Keppra continued #4 benign prostatic hypertrophy: Currently patient is not on Proscar or Flomax.? With symptoms patient was in the past. #5? Other comorbidities include chronic lumbar spinal stenosis status post lumbar's spinal surgery, osteoarthritis, restless leg syndrome: Patient is on oxycodone, pramipexole, vitamin D and calcium supplement continued. VTE prophylaxis: Formula products contraindicated.? Bilateral SCDs Total time of the visit including total time spent in counseling or coordination of care, (more than 50% of the total time, spent in obtaining medical information from nurses and other ancillary care providers,explaining to the patient about labs, imaging, diagnosis and management of active complex medical conditions), , review of labs and imaging is 40 minutes. BOLA Felipe and spent 16 minutes and I spent 34 minutes. Living will/advanced directive/end of life care: Patient does have living will or advanced directive.? His is present in the room and she is power of attorney law clerk for health.? After discussion of benefits/risks procedures involved with? full code, DNR CC arrest and DNR CC, the patient and his opted for full code.? Both do want artificial life support including intubation, tube feed, ventilator and/chest compression, central venous catheter, vasopressor and DC shock if needed ?? Total time spent in [id number] encounter in discussion of advanced directive 16 minutes. Microbiology Past 72 Hours 02/11/22 09:15 Urine Catheter - Vera Urine Culture - Preliminary Culture exhibits no growth. Laboratory Results 02/11/22 08:35: Diff Path Review Reviewed 02/11/22 08:35: Crossmatch See Detail 02/11/22 08:35: Crossmatch See Detail 02/11/22 14:50: Differential Comment SEE COMMENTS, Diff Path Review Reviewed, Platelet Estimate MKD DEC, RBC Morphology N CHROM, Hypochromasia 1+, Anisocytosis 1+, Macrocytosis 1+ 02/11/22 20:30: Hgb 7.8 L, Hct 23.5 L 02/12/22 00:25: Hgb 7.2 L, Hct 21.9 L 02/12/22 05:45: WBC 1.5 L, RBC 2.33 L, Hgb 7.3 L, Hct 23.1 L, MCV 99.1 H, MCH 31.3, MCHC 31.6 L, RDW Std Deviation 66.4 H, RDW Coeff of Nemo 18.4 H, Plt Count 47 L*, MPV 11.3, Immature Gran % (Auto) 0.600, Neut % (Auto) 56.0, Lymph % (Auto) 30.5, [place] % (Auto) 11.7 H, Eos % (Auto) 0.6, Baso % (Auto) 0.6, Absolute Neuts (auto) 0.9 L, Absolute Lymphs (auto) 0.47 L, Nucleated RBC % 1.3, Diff Path Review Reviewed, Platelet Estimate MKD DEC, Anisocytosis 2+, Macrocytosis 1+ 02/12/22 05:45: Sodium 140, Potassium 4.0, Chloride 108 H, Carbon Dioxide 27.0, Anion Gap 5, BUN 16, Creatinine 0.93, Estim Creat Clear Calc 70.86, Est GFR (MDRD) Af Amer 101, Est GFR (MDRD) Non-Af 84, BUN/Creatinine Ratio 17.1, Glucose 88, Calcium 8.5 02/12/22 06:40: PT 13.4, INR 1.1, APTT 21.3 L I have discussed my assessment with Destinee PLAZA and orders have been reviewed. Charges/Coding Visit Charges Inpatient E&M: 81590 Subs Hosp L3
[2022-02-12] MEDS: Lactated Ringers 1,000 ML 15 ML IV (13:18)
--- NOTE | 2022-02-12 13:40 | THRO_PTH ---
PATIENT: RHONDA PAT LOC: [facility] U#:[id number] AGE/SX: 76/M ROOM: [facility] RE02/11/[address]: Dr. Eris Amin MD : 1945 BED: 1 DIS: 02/14/2022 SPEC #: [id number] RECD: 02/12/22 15:59 STATUS: ABEL KIRKLAND #: [id number] SONIA: 02/12/22 13:[address]: Arnie Ann DEPT: SURGICAL PATHOLOGY RECD BY: Jennie Darden ENTERED: 02/15/22 08:38 SP TYPE: THROMBUS OTHR DR: MD Dr. Arnie Estes MD Dr. Prakash Chand, MD Tissues: CALCULI BLOOD CLOT, NOS Procedures: Surgery Specimen Level III Comments: @ Ordering doctor for SUIII edited from to @ by IFEOMA at 02/15/22 1438 @ Submitting doctor edited from to @ by RGOOD at 02/15/22 1438 HEADER OPERATION: Cysto, cauterization of prostate, Olympus, evacuation of blood clot PRE-OP DIAGNOSIS: Significant bleeding from bladder and prostate TISSUE SUBMITTED: Evacuated blood/stone MICROSCOPIC DIAGNOSIS Evacuated blood/stone: Fragments of blood clots (58 gm). AISSATOU:samuel 02/16/2022 MICROSCOPIC DESCRIPTION Slides are reviewed. GROSS DESCRIPTION Received is one container labeled with the patient's name and not further designated. The specimen consists of multiple fragments of blood clot weighing 58 gm and measuring in aggregate 7 x 8 x 4 cm. No tissue is identified. Schedule Clerk portion of the specimen is submitted in one cassette. / AISSATOU:samuel 02/15/2022 TC:5 CPT: 04818
--- NOTE | 2022-02-12 14:41 | PCM.CONS.B ---
Consult Date of Consult: 02/12/22 Reason for Consult 76-year-old male with a history of prostate cancer he has pancytopenia low platelets low blood count low white blood cells but he is got significant bleeding from the bladder and prostate area plan to take him to surgery today just to evacuate of the blood clots and cauterized extensively probably will not do a TURP given his pancytopenia and is cauterized the significant the bleeding stopped until see if we get his blood counts back to normal. I spoke to the patient today regarding the situation. No guarantees were made that we will stop the bleeding but hopefully if I cauterized extensively I will be able to stop this and put a new catheter in. He signed the consent form.
[2022-02-12] MEDS: Ciprofloxacin 400 MG/200 ML BAG 200 MG IV (15:09)
--- NOTE | 2022-02-12 15:38 | PCM.OPRPT ---
Report of Operation Date of Procedure: 02/12/22 Pre-Operative Diagnosis: Bleeding gross hematuria from bladder history of metastatic prostate cancer Post-Operative Diagnosis: The same Surgery/Procedure Performed:: Cystoscopy, clot evacuation from the bladder cauterization of prostatic bleeding, removal of small bladder stone from the bladder Description of Surgical Findings:: Patient was taken back to the operating room at the smooth induction of general anesthesia Vera catheter was removed quite bloody, went into the bladder with a 26 [place] continuous-flow resectoscope once inside the bladder he had a significant amount of clots within the bladder this was all manually irrigated out once this was irrigated out then I went back in with a resectoscope upon the stone the stone was then removed there was a small stone less than 2.5 cm in size, after removing the stone then I cauterized inside the prostate is a lot of bleeding from the prostate ortiz bleeding is probably both which is normal prostatic bleeding but he has pancytopenic think a significant contributing factor to cauterize the prostatic ortiz cauterize around the sphincter area controlled all bleeding after this was done then I put it 22 [place] three-way catheter into the bladder and continuous irrigation the urine was nice and clear patient anesthetic reversed taken back to PACU in good condition neck successful removal of old blood clots cauterization of the bleeding from the prostate and removal of the stone from the bladder. Surgeon: Arnie Ann Type of Anesthesia: General Drains: [address]
--- NOTE | 2022-02-12 17:49 | NURSING ---
1730 Report given to JAQUI SANCHEZ. Care handed over to JAQUI SANCHEZ at this time.
[2022-02-12 18:30] LABS: Hemoglobin 7.2 g/dL (13.0-16.5); POSITIVE COUNT YES
[2022-02-12] MEDS: oxyCODONE 5 MG Tablet 10 MG PO (18:43)
[2022-02-12] MEDS: predniSONE 5 MG Tablet PO (18:44)
[2022-02-12] MEDS: Calcium (Elemental) 500 MG Tablet 1000 MG PO (18:44)
[2022-02-12] MEDS: Escitalopram Oxalate 10 MG Tablet PO (18:45)
[2022-02-12] MEDS: Cholecalciferol (VIT D3) 25 MCG TABLET (1,000 UNITS) PO (18:45)
[2022-02-12] MEDS: Pramipexole Di-HCl 0.25 MG Tablet PO (20:55)
[2022-02-13] VITALS (17 sets, daily range): BP systolic 89–109; BP diastolic 52–68; PULSE 68–97; RESP 12–18; TEMP 36.5–37.1; O2SAT 96–100
[2022-02-13] MEDS: oxyCODONE 5 MG Tablet 10 MG PO ×2 (00:23→06:46)
[2022-02-13] MEDS: Lactated Ringers 1,000 ML 100 ML IV (04:43)
[2022-02-13 06:41] LABS: Absolute Lymphocyte Count 0.32 X10^3/uL (0.83-4.51); Absolute Neutrophil Count 2.2 X10^3/uL (2.0-7.7); Hematocrit 19.8 % (40-54); Hemoglobin 6.4 g/dL (13.0-16.5); Lymphocyte # 0.32 X10^3/ul (0.83-4.51); Lymphocyte % 11.6 % (19-41); Mean Corp Hgb Conc 32.3 g/dL (32-36); Mean Corpuscular Hgb 32.3 pg (27.0-32.0); Monocyte# 0.18 X10^3/uL; Monocyte% 6.5 % (0-10); NRBC Flagged by Analyzer 0 % (0-5); Neutrophil # 2.23 X10^3/uL (2.7-7.7); Neutrophil % 80.8 % (47-70); POSITIVE COUNT YES; POSITIVE DIFFERENTIAL YES; POSITIVE MORPHOLOGY YES; RBC Distribution Width SD 64.5 fl (35.1-43.9); Red Blood Count 1.98 M/mm3 (4.6-6.2); White Blood Count 2.8 K/mm3 (4.4-11.0)
[2022-02-13 06:52] LABS: Differential Indicated SCAN CRITERIA MET
[2022-02-13 06:53] LABS: Platelet Count 44 K/mm3 (150-450)
[2022-02-13 07:18] LABS: Anion Gap 5 (5-15); BUN 17 mg/dL (7-18); BUN/Creat Ratio 20.2 RATIO (10-20); Calcium,Total 8.7 mg/dL (8.5-10.1); Chloride 107 mmol/L (98-107); Creatinine, Serum 0.84 mg/dL (0.70-1.30); EST Glomerular Filtration Rate 95 mL/min (>60); Est Glom Filt Rate - Afr Amer 115 mL/min (>60); Estimated Creatinine Clearance 78.46 ml/min; Glucose 132 mg/dL (74-106); Potassium 4.3 mmol/L (3.5-5.1); Sodium Level 140 mmol/L (136-145)
[2022-02-13 07:29] LABS: Differential Comment SCANNED
[2022-02-13] MEDS: Escitalopram Oxalate 10 MG Tablet PO (09:31)
[2022-02-13] MEDS: levoFLOXacin 500 MG Tablet PO (09:31)
[2022-02-13] MEDS: levETIRAcetam 500 MG Tablet PO ×2 (09:31→22:03)
[2022-02-13] MEDS: predniSONE 5 MG Tablet PO (09:32)
[2022-02-13] MEDS: Cholecalciferol (VIT D3) 25 MCG TABLET (1,000 UNITS) PO (09:32)
[2022-02-13] MEDS: Calcium (Elemental) 500 MG Tablet 1000 MG PO (09:32)
--- NOTE | 2022-02-13 10:02 | PCM.CONS.B ---
Consult Date of Consult: 02/13/22 Reason for Consult Urine clear, no bleeding stop irrigation may d/c wilkins tomorrow?
--- NOTE | 2022-02-13 10:13 | PN.HOSP_ITS ---
Documented by User: Destinee Valdes NP, [employer] ATTENDANT-C 02/13/22 10:19 Subjective Subjective Patient seen and examined. Denies current symptoms or complaints. Urine and catheter now clear. Objective Data Objective Data Vital Signs: Vital Signs Temp Pulse Resp BP Pulse Ox O2 Del Method O2 Flow Rate 98 F 71 16 89/52 L 98 Nasal Cannula 2 02/13/22 09:03 02/13/22 09:03 02/13/22 09:03 02/13/22 09:03 02/13/22 09:03 02/13/22 09:03 02/13/22 09:03 Oxygen Flow Rate (L/min) 2 Oxygen Delivery Method Nasal Cannula Weight: 190 lb 11.198 oz Body Mass Index (BMI) 27.1 Intake & Output: Intake and Output for Last 24 Hours 02/11/22 02/12/22 02/13/22 23:59 23:59 23:59 Intake Total 2240 / 2240 5522.58 / 5522.58 1398.33 / 1398.33 Output Total 5425 / 5425 6000 / 6000 500 / 500 Balance -3185 / -3185 -477.42 / -477.42 898.33 / 898.33 Lab / Micro Data Result Diagrams: 02/13/22 05:39 02/13/22 05:39 Labs: Laboratory Results - last 24 hr 02/11/22 08:35: Diff Path Review Reviewed 02/11/22 08:35: Crossmatch See Detail 02/11/22 14:50: Diff Path Review Reviewed 02/12/22 05:45: Diff Path Review Reviewed 02/12/22 18:00: Hgb 7.2 L, Hct 22.0 L 02/13/22 05:39: WBC 2.8 L, RBC 1.98 L, Hgb 6.4 L, Hct 19.8 L, MCV 100.0 H, MCH 32.3 H, MCHC 32.3, RDW Std Deviation 64.5 H, RDW Coeff of Nemo 18.0 H, Plt Count 44 L*, MPV 12.0, Immature Gran % (Auto) 1.100 H, Neut % (Auto) 80.8 H, Lymph % (Auto) 11.6 L, [place] % (Auto) 6.5, Eos % (Auto) 0.0, Baso % (Auto) 0.0, Absolute Neuts (auto) 2.2, Absolute Lymphs (auto) 0.32 L, Nucleated RBC % 0, Differential Comment SCANNED, Diff Path Review October02/13/22 05:39: Sodium 140, Potassium 4.3, Chloride 107, Carbon Dioxide 28.0, Anion Gap 5, BUN 17, Creatinine 0.84, Estim Creat Clear Calc 78.46, Est GFR (MDRD) Af Amer 115, Est GFR (MDRD) Non-Af 95, BUN/Creatinine Ratio 20.2 H, Glucose 132 H, Calcium 8.7 Micro: Microbiology 02/11/22 09:15 Urine Catheter - Vera Urine Culture - Final Culture exhibits no growth. Physical Exam Const alert and oriented x3 HEENT normocephalic and moist oral mucous membranes Eyes PERRL, EOMs intact bilaterally and conjunctivae normal Neck no lymphadenopathy Resp clear to auscultation bilaterally Auscultation: diminished lung sounds Cardio regular rate, regular rhythm and no murmurs Peripheral Pulses: pulses 2+ throughout GI normal to inspection, nondistended, normoactive bowel sounds, non-tender and non-distended Extremity normal to inspection Skin no rashes or lesions noted Lesions: no lesions Rashes: no rashes Trauma: no lacerations or abrasions Neuro CN's II-XII intact bilaterally, no focal motor deficits, no sensory deficits noted and deep tendon reflexes 2+ bilaterally Psych mental status grossly normal and affect normal Assessment & Plan Assessment/Plan (1) Gross hematuria: (2) Anemia: PLAN: Plan 1.? Gross hematuria, history of metastatic prostate cancer-urology consulted.? Underwent cystoscopy with clot evacuation from the bladder with cauterization of prostate bleeding. Per urology, discontinue continuous bladder irrigation. Possibly discontinue Vera tomorrow. 2.? Acute on chronic macrocytic anemia with thrombocytopenia-discussed with oncology on admission.? Patient follows with Dr. Montano.? Status post 1 unit platelet transfusion.? Transfuse 1 unit PRBC for hemoglobin less than 7. Repeat H&H following transfusion. 3. History of bilateral PE-documented in 2015.? No longer on Xarelto. 4. History of seizure disorder-on Keppra. 5. BPH-on Proscar, Flomax. 6. Chronic back pain with chronic lumbar spinal stenosis/osteoarthritis/restless leg syndrome-continue as needed pain regimen, Mirapex. 7. Depression/anxiety-on escitalopram. DVT prophylaxis-SCDs This patient was seen by NIKITA Saldana under the supervision of Dr. Amin. Time spent examining patient, reviewing data and subsequent management of care: 12 minutes Documented by User: Dr. Eris Amni MD 02/13/22 15:56 Subjective Subjective Patient seen and examined. Denies current symptoms or complaints. Urine and catheter now clear. Follow-up for pancytopenia and hematuria. Urine is clear in the Vera catheter tubing and bag. CBI stopped. No dizziness headache, chest pain or shortness of breath. Objective Data Lab / Micro Data Result Diagrams: 02/13/22 05:39 02/13/22 05:39 Physical Exam Narrative Physical exam findings General: Alert, Oriented x3, Cooperative HEENT: Atraumatic, PERRLA, EOMI, Normocephalic Oral: Oral mucosa moist.? No oral blood clot/bleeding.? Neck: Supple, No JVD, Negative Carotid Bruits Lungs:? Air entry equal in bilateral lung bases.? No crepitation/rhonchi Cardiovascular: Regular rate, Regular Rhythm, Normal S1, Normal S2, No murmurs Abdomen: Bowel Sounds Present, Soft,? Non-Distended : Blood mixed with urine in catheter tube, pinkish colored with intermittent blood clot.? Triple-lumen catheter, on CBI.? No renal angle or suprapubic tenderness or fullness. Extremities: Mild 1+ bilateral ankle edema, Capillary Refill Less than 3 Seconds Skin: No petechial rash. Mild bruising near IV line Musculoskeletal/back: Surgical scar ho of lumbar spine.? No acute tenderness/induration Neurological: Cranial nerves II-XII grossly intact, DTR? 2+/4 and Symmetrical Psych/Mental Status: Flat affect Assessment & Plan Assessment/Plan (1) Gross hematuria: (2) Anemia: PLAN: Plan 1.? Gross hematuria, history of metastatic prostate cancer-urology consulted.? U nderwent cystoscopy with clot evacuation from the bladder with cauterization of prostate bleeding. Per urology, discontinue continuous bladder irrigation. Possibly discontinue Vera tomorrow. 2.? Acute on chronic macrocytic anemia with thrombocytopenia-discussed with oncology on admission.? Patient follows with Dr. Montano.? Status post 1 unit platelet transfusion.? Transfuse 1 unit PRBC for hemoglobin less than 7. Repeat H&H following transfusion. 3. History of bilateral PE-documented in 2016.? No longer on Xarelto. 4. History of seizure disorder-on Keppra. 5. BPH-on Proscar, Flomax. 6. Chronic back pain with chronic lumbar spinal stenosis/osteoarthritis/restless leg syndrome-continue as needed pain regimen, Mirapex. 7. Depression/anxiety-on escitalopram. DVT prophylaxis-SCDs This patient was seen by NIKITA Saldana under the supervision of Dr. Amin. Time spent examining patient, reviewing data and subsequent management of care: 12 minutes This 76-year-old question gentleman with history of prostate cancer on chemotherapy came to ED with active, continuous, recurrent hematuria and mild suprapubic/pelvic pain. 1.? 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 Patient has continuous bladder irrigation.? Urologist Dr. Ann is consulted. 02/12: Plan for cystoscopy in afternoon.? Overall urine is little clearer than yesterday.? Continue CBI.? Prostate cancer diagnosis discussed with Dr. Montano.? Patient was initially treated with Taxotere which showed initially decreasing PSA but later increased.? Chemotherapy regimen changed to CAPEAZITAXEL and had 4 cycles, last 1 on 02/02/2022.? Patient had TURP in 2019 which showed high-grade adenocarcinoma of the prostate.? Infiltrate 2018 patient had external beam radiotherapy.? Bone scan in 2019 showed metastasis of pelvic bones, iliac and sacrum.? CT chest s in April 2020 shows RML plus RUL, 2 new lung nodules.? 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 CBI started. Monitor for hematuria and Vera catheter. Plan for removal of Vera catheter tomorrow if urine remains clear. 2.? Severe thrombocytopenia, acute on chronic macrocytic anemia due to hematuria and leukopenia with neutropenia: 1 unit of single donor platelet transfusion is ordered.? Hemoglobin 7.9 therefore repeat CBC after 6-hour after platelet transfusion.? Monitor H&H every 8 hourly afterwards.? Discussed with Dr. Montano.? Patient last blood work on 02/09 shows WBC 0.91 thousand, H&H 8.2/25, MCV 100 platelet count 23,000.? ANC 0.43 thousand. 02/12: Hemoglobin 7.3, microcytic, WBC 1.5 thousand, platelet count 47,000 and ANC 0.9 thousand.? Patient had 1 unit of blood transfusion.? Monitor PRBC ordered.? Monitor posttransfusion CBC. 02/13: Hemoglobin 6.4. 1 unit PRBC plan to transfuse. Platelet count is 44,000. WBC 2.8 thousand. No active bleeding. Discussed with Dr. Montano. 3.? Mild pelvic pain probably related to blood clot/inflammatory pain/metastatic: UA is not suggestive of UTI with negative nitrite and LE WBC 0 but the patient started on Levaquin yesterday prophylactically by Dr. Montano.? Continue Levaquin.? Urine culture no growth. No fever. 4 history of bilateral several pulmonary emboli: This was discovered on CT angiography of the chest done for elevated d-dimer in August 2015.? At that time patient was treated with Xarelto.? Currently not on anticoagulant. #3 seizure disorder: On Keppra continued #4 benign prostatic hypertrophy: Currently patient is not on Proscar or Flomax.? With symptoms patient was in the past. #5? Other comorbidities include chronic lumbar spinal stenosis status post lumbar's spinal surgery, osteoarthritis, restless leg syndrome: Patient is on oxycodone, pramipexole, vitamin D and calcium supplement continued. VTE prophylaxis: Formula products contraindicated.? Bilateral SCDs I have discussed my assessment with [employer] ATTENDANTDestinee and orders have been reviewed. Total time of the visit including total time spent in counseling or coordination of care, (more than 50% of the total time, spent in obtaining medical information from nurses and other ancillary care providers,explaining to the patient about labs, imaging, diagnosis and management of active complex medical conditions), , review of labs and imaging is?30 minutes.? Destinee, BOLA and spent 12 minutes and I spent 18 minutes. Microbiology Past 72 Hours 09/08/22 09:15 Urine Catheter - Vera Urine Culture - Final Culture exhibits no growth. Laboratory Results 02/11/22 08:35: Crossmatch See Detail 02/12/22 18:00: Hgb 7.2 L, Hct 22.0 L 02/13/22 05:39: WBC 2.8 L, RBC 1.98 L, Hgb 6.4 L, Hct 19.8 L, MCV 100.0 H, MCH 32.3 H, MCHC 32.3, RDW Std Deviation 64.5 H, RDW Coeff of [place]o 18.0 H, Plt Count 44 L*, MPV 12.0, Immature Gran % (Auto) 1.100 H, Neut % (Auto) 80.8 H, Lymph % (Auto) 11.6 L, [place] % (Auto) 6.5, Eos % (Auto) 0.0, Baso % (Auto) 0.0, Absolute Neuts (auto) 2.2, Absolute Lymphs (auto) 0.32 L, Nucleated RBC % 0, Differential Comment SCANNED, Diff Path Review October02/13/22 05:39: Sodium 140, Potassium 4.3, Chloride 107, Carbon Dioxide 28.0, Anion Gap 5, BUN 17, Creatinine 0.84, Estim Creat Clear Calc 78.46, Est GFR (MDRD) Af Amer 115, Est GFR (MDRD) Non-Af 95, BUN/Creatinine Ratio 20.2 H, Glucose 132 H, Calcium 8.7 Living will/advanced directive/end of life care: Patient does have living will or advanced directive.? His is present in the room and she is power of compliance attorney for health.? After discussion of benefits/risks procedures involved with? full code, DNR CC arrest and DNR CC, the patient and his opted for full code.? Both do want artificial life support including intubation, tube feed, ventilator and/chest compression, central venous catheter, vasopressor and DC shock if needed ?? Total time spent in [id number] encounter in discussion of advanced directive 16 minutes. Charges/Coding Visit Charges Inpatient E&M: 48476 Subs Hosp L2
--- NOTE | 2022-02-13 12:58 | CASEMGMT ---
JAQUI KARIMI NOTE: PT/OT evals reviewed. Additional therapy recommended. JAQUI KARIMI to room to discuss discharge planning. Pt confirms he wishes to return home and again declines offer of HHC or OP therapy, stating, I don't think that's necessary right now. Pt reminded to contact his PCP to discuss HHC or OP therapy if he changes his mind later. He voices understanding and appreciation. Janes HARRIS RN, CM
[2022-02-13 16:06] LABS: Hematocrit 22.9 % (40-54); Hemoglobin 7.4 g/dL (13.0-16.5); POSITIVE COUNT YES
[2022-02-13] MEDS: oxyCODONE 5 MG Tablet PO (18:46)
[2022-02-13] MEDS: Pramipexole Di-HCl 0.25 MG Tablet PO (22:03)
[2022-02-14] VITALS (7 sets, daily range): BP systolic 104–121; BP diastolic 71–73; PULSE 70–84; RESP 16; TEMP 36.6–36.7; O2SAT 94–98
[2022-02-14] MEDS: oxyCODONE 5 MG Tablet PO (02:00)
[2022-02-14 06:48] LABS: Absolute Lymphocyte Count 0.77 X10^3/uL (0.83-4.51); Absolute Neutrophil Count 1.6 X10^3/uL (2.0-7.7); Basophil# 0.01 X10^3/uL; Basophil% 0.3 % (0-1); Eosinophil# 0.01 X10^3/uL; Eosinophils% 0.3 % (0-5); Hematocrit 22.6 % (40-54); Hemoglobin 7.1 g/dL (13.0-16.5); Lymphocyte # 0.77 X10^3/ul (0.83-4.51); Lymphocyte % 25.6 % (19-41); Mean Corp Hgb Conc 31.4 g/dL (32-36); Mean Corpuscular Hgb 31.3 pg (27.0-32.0); Mean Corpuscular Volume 99.6 fL (80-94); Mean Platelet Vol. 12.3 fl (6.2-12.0); Monocyte% 16.6 % (0-10); NRBC Flagged by Analyzer 0.7 % (0-5); Neutrophil # 1.59 X10^3/uL (2.7-7.7); Neutrophil % 52.9 % (47-70); POSITIVE COUNT YES; RBC Distribution Width CV 17.8 % (11.6-14.6); Red Blood Count 2.27 M/mm3 (4.6-6.2)
[2022-02-14 07:02] LABS: Differential Indicated SCAN CRITERIA MET; Platelet Count 50 K/mm3 (150-450)
[2022-02-14] MEDS: levoFLOXacin 500 MG Tablet PO (09:23)
[2022-02-14] MEDS: Calcium (Elemental) 500 MG Tablet 1000 MG PO (09:23)
[2022-02-14] MEDS: predniSONE 5 MG Tablet PO (09:23)
[2022-02-14] MEDS: levETIRAcetam 500 MG Tablet PO (09:23)
[2022-02-14] MEDS: Escitalopram Oxalate 10 MG Tablet PO (09:23)
[2022-02-14] MEDS: Cholecalciferol (VIT D3) 25 MCG TABLET (1,000 UNITS) PO (09:24)
[2022-02-14] MEDS: Acetaminophen 325 MG Tablet 650 MG PO (09:24)
[2022-02-14 09:49] LABS: Differential Comment SCANNED; Platelet Estimate MKD DEC (ADEQ)
--- NOTE | 2022-02-14 11:21 | DCINST_ITS ---
Discharge Instructions Diet Discharge Diet: No restrictions Activity Discharge Activity: Return to Normal Activity Dressing / Incision Call your doctor if you observe: Inability to urinate, Shortness of breath, Dizziness, Chest pain and - (Recurrent hematuria) Follow Up Care Test Results: Test results from this visit will be discussed in further detail at your follow- up appointment, if applicable. Discharge Plan Admission Admit Date/Time: 02/11/22 10:54 Primary Reason for Your Visit: Hematuria Attending Provider: Eris Amin Primary Care Provider: Bib Dixon Consulting Providers: Arnie Ann Instructions Additional Instructions / Restrictions: Repeat BMP in 3-5 days. Discharge Orders/Prescriptions Prescriptions: Continued pramipexole 2.25 mg tablet extended release 24 hr 0.25 mg PO QHS levetiracetam 750 MG tablet 500 mg PO BID Label Comments: SEIZURE escitalopram oxalate 10 mg Tablet 10 mg PO DAILY oxycodone-acetaminophen 7.5-325 mg Tablet 1 tab PO Q8H PRN (Reason: Pain) prednisone 5 mg tablet 5 tab PO DAILY calcium 600 mg Capsule 1,200 mg PO DAILY cholecalciferol (vitamin D3) [Vitamin D3] 25 mcg (1,000 unit) Tablet 25 mcg PO DAILY Discontinued levofloxacin 500 mg tablet 500 mg PO DAILY Label Comments: TAKE 1 TABLET BY MOUTH ONCE DAILY FOR 5 DAYS Referrals / Follow Up: Bib Dixon MD [Primary Care Provider] - In 1 Week Arnie Ann MD [Med Staff - Active Staff] - In 1 Week Rc Montano DO [Med Staff - Active Staff] - In 1 Week Disposition Disposition (needs filled in before D/C Order can be placed): Home, Self Care
--- NOTE | 2022-02-14 11:35 | PCM.DC.SUM ---
Documented by User: Destinee Valdes NP, TIPPLE TENDER-C 02/14/22 11:39 Providers Date of Admission: 02/11/22 Date of Discharge: 02/14/22 Primary Care Physician: Dr. Bib Dixon MD Consultations 02/11/22 12:28 Consult: Urology Routine Consulting Provider: Arnie Ann Reason for Consult: Hematuriaon CBI, Bladder Ca EMERGENT Consult: No MD Notified: Yes Date Notified: 02/11/22 Time Notified: 10:59 Method of Notification: ED Physician Initiated Reason For Visit: PANCYTOPENIA, HEMATURIA Diagnosis Discharge Diagnosis (1) Gross hematuria: Status: Acute Code(s): R31.0 - Gross hematuria (2) Anemia: Status: Acute Code(s): D64.9 - Anemia, unspecified Medications at Discharge Home Medications levetiracetam 750 mg tablet 500 mg PO BID seizure 08/26/15 escitalopram oxalate 10 mg tablet 10 mg PO DAILY mood 01/18/21 pramipexole 2.25 mg tablet,extended release 24 hr 0.25 mg PO QHS health maintenance 02/18/21 oxycodone-acetaminophen 7.5 mg-325 mg tablet 1 tab PO Q8H PRN Pain 08/07/21 prednisone 5 mg tablet 5 tab PO DAILY sterioid 01/01/22 calcium 600 mg capsule 1,200 mg PO DAILY health maintenance 01/25/22 cholecalciferol (vitamin D3) 25 mcg (1,000 unit) tablet (Vitamin D3) 25 mcg PO DAILY health maintence 01/25/22 pantoprazole 40 mg tablet,delayed release (Protonix) 40 mg PO DAILY #30 tabs 02/14/22 Hospital Course Operations - (Cystoscopy, clot evacuation from the bladder cauterization of prostatic bleeding, removal of small bladder stone from the bladder) Procedures None Summary of Care Provided Hospital Course: Patient is a 76-year-old male admitted 02/11/2022 due to hematuria. 1.? Gross hematuria, history of metastatic prostate cancer-urology consulted during admission.? Underwent cystoscopy with clot evacuation from the bladder with cauterization of prostate bleeding.?Hematuria resolved. DC wilkins with voiding trial prior to DC. Follow up with urology in one week. 2.? Acute on chronic macrocytic anemia with thrombocytopenia-discussed with oncology on admission.? Patient follows with Dr. Montano.? Status post 1 unit platelet transfusion.? S/P 1 unit PRBC for hemoglobin less than 7.? Repeat CBC in 3-5 days by PCP or oncology. 3. History of bilateral PE-documented in 2016.? No longer on Xarelto. 4. History of seizure disorder-on Keppra. 5. BPH-on Proscar, Flomax. 6. Chronic back pain with chronic lumbar spinal stenosis/osteoarthritis/restless leg syndrome-continue as needed pain regimen, Mirapex. 7. Depression/anxiety-on escitalopram. Physical Exam Const alert and oriented x3 HEENT normocephalic and moist oral mucous membranes Eyes PERRL, EOMs intact bilaterally and conjunctivae normal Neck no lymphadenopathy Resp clear to auscultation bilaterally Auscultation: diminished lung sounds Cardio regular rate, regular rhythm and no murmurs Peripheral Pulses: pulses 2+ throughout GI normal to inspection, nondistended, normoactive bowel sounds, non-tender and non-distended Extremity normal to inspection Skin no rashes or lesions noted Lesions: no lesions Rashes: no rashes Trauma: no lacerations or abrasions Neuro CN's II-XII intact bilaterally, no focal motor deficits, no sensory deficits noted and deep tendon reflexes 2+ bilaterally Psych mental status grossly normal and affect normal Patient seen and examined prior to discharge. Physical assessment as noted above. Patient is stable for discharge with follow up recommendations as noted above. This patient was seen by NIKITA Saldana under the supervision of Dr. Amin. Time spent examining patient, reviewing data and subsequent management of care: 23 minutes Weight / BMI Weight Weight: 189 lb 9.561 oz Body Mass Index (BMI) 27.1 ABG / Lab / Microbiology Data Result Diagrams: 02/14/22 05:31 02/13/22 05:39 Laboratory: Laboratory Results - last 24 hr 02/11/22 08:35: Crossmatch See Detail 02/13/22 15:53: Hgb 7.4 L, Hct 22.9 L 02/14/22 05:31: WBC 3.0 L, RBC 2.27 L, Hgb 7.1 L, Hct 22.6 L, MCV 99.6 H, MCH 31.3, MCHC 31.4 L, RDW Std Deviation 63.0 H, RDW Coeff of Nemo 17.8 H, Plt Count 50 L*, MPV 12.3 H, Immature Gran % (Auto) 4.300 H, Neut % (Auto) 52.9, Lymph % (Auto) 25.6, Placer % (Auto) 16.6 H, Eos % (Auto) 0.3, Baso % (Auto) 0.3, Absolute Neuts (auto) 1.6 L, Absolute Lymphs (auto) 0.77 L, Nucleated RBC % 0.7, Differential Comment SCANNED, Diff Path Review May foll, Platelet Estimate MKD DEC Microbiology: Microbiology 02/11/22 09:15 Urine Catheter - Wilkins Urine Culture - Final Culture exhibits no growth. D/C Instructions Discharge Diet: No restrictions Call your doctor if you observe: Inability to urinate, Shortness of breath, Dizziness, Chest pain and - (Recurrent hematuria) Meaningful Use Info Meaningful Use Diagnoses (Choose all that apply): None applicable Discharge Plan Admission Admit Date/Time: 02/11/22 10:54 Primary Reason for Your Visit: Hematuria Attending Provider: Eris Amin Primary Care Provider: Bib Dixon Consulting Providers: Arnie Ann Instructions Additional Instructions / Restrictions: Repeat BMP in 3-5 days. Discharge Orders/Prescriptions Prescriptions: New pantoprazole [Protonix] 40 mg tablet,delayed release (DR/EC) 40 mg PO DAILY Qty: 30 0RF Continued pramipexole 2.25 mg tablet extended release 24 hr 0.25 mg PO QHS levetiracetam 750 MG tablet 500 mg PO BID Label Comments: SEIZURE escitalopram oxalate 10 mg Tablet 10 mg PO DAILY oxycodone-acetaminophen 7.5-325 mg Tablet 1 tab PO Q8H PRN (Reason: Pain) prednisone 5 mg tablet 5 tab PO DAILY calcium 600 mg Capsule 1,200 mg PO DAILY cholecalciferol (vitamin D3) [Vitamin D3] 25 mcg (1,000 unit) Tablet 25 mcg PO DAILY Discontinued levofloxacin 500 mg tablet 500 mg PO DAILY Label Comments: TAKE 1 TABLET BY MOUTH ONCE DAILY FOR 5 DAYS Referrals / Follow Up: Bib Dixon MD [Primary Care Provider] - In 1 Week Arnie Ann MD [Med Staff - Active Staff] - In 1 Week Rc Montano DO [Med Staff - Active Staff] - In 1 Week Disposition Disposition (needs filled in before D/C Order can be placed): Home, Self Care Documented by User: Dr. Eris Amin MD 02/14/22 13:48 Providers Date of Admission: 02/11/22 Reason For Visit: PANCYTOPENIA, HEMATURIA Diagnosis Discharge Diagnosis (1) Gross hematuria: Status: Acute Code(s): R31.0 - Gross hematuria (2) Anemia: Status: Acute Code(s): D64.9 - Anemia, unspecified Medications at Discharge Home Medications levetiracetam 750 mg tablet 500 mg PO BID seizure 08/26/15 escitalopram oxalate 10 mg tablet 10 mg PO DAILY mood 01/18/21 pramipexole 2.25 mg tablet,extended release 24 hr 0.25 mg PO QHS health maintenance 02/18/21 oxycodone-acetaminophen 7.5 mg-325 mg tablet 1 tab PO Q8H PRN Pain 08/07/21 prednisone 5 mg tablet 5 tab PO DAILY sterioid 01/01/22 calcium 600 mg capsule 1,200 mg PO DAILY health maintenance 01/25/22 cholecalciferol (vitamin D3) 25 mcg (1,000 unit) tablet (Vitamin D3) 25 mcg PO DAILY health maintence 01/25/22 pantoprazole 40 mg tablet,delayed release (Protonix) 40 mg PO DAILY #30 tabs 02/14/22 Hospital Course Summary of Care Provided Hospital Course: Patient is a 76-year-old male admitted 02/11/2022 due to hematuria. 1.? Gross hematuria, history of metastatic prostate cancer-urology consulted during admission.? Underwent cystoscopy with clot evacuation from the bladder with cauterization of prostate bleeding.?Hematuria resolved. DC wilkins with voiding trial prior to DC. Follow up with urology in one week. 2.? Acute on chronic macrocytic anemia with thrombocytopenia-discussed with oncology on admission.? Patient follows with Dr. Montano.? Status post 1 unit platelet transfusion.? S/P 1 unit PRBC for hemoglobin less than 7.? Repeat CBC in 3-5 days by PCP or oncology. 3. History of bilateral PE-documented in 2016.? No longer on Xarelto. 4. History of seizure disorder-on Keppra. 5. BPH-on Proscar, Flomax. 6. Chronic back pain with chronic lumbar spinal stenosis/osteoarthritis/restless leg syndrome-continue as needed pain regimen, Mirapex. 7. Depression/anxiety-on escitalopram. This 76-year-old question gentleman with history of prostate cancer on chemotherapy came to ED with active, continuous, recurrent hematuria and mild suprapubic/pelvic pain. 1.? 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 Patient has continuous bladder irrigation.? Urologist Dr. Ann is consulted. 02/12: Plan for cystoscopy in afternoon.? Overall urine is little clearer than yesterday.? Continue CBI.? Prostate cancer diagnosis discussed with Dr. Montano.? Patient was initially treated with Taxotere which showed initially decreasing PSA but later increased.? Chemotherapy regimen changed to CAPEAZITAXEL and had 4 cycles, last 1 on 02/02/2022.? Patient had TURP in 2019 which showed high-grade adenocarcinoma of the prostate.? Infiltrate 2018 patient had external beam radiotherapy.? Bone scan in 2019 showed metastasis of pelvic bones, iliac and sacrum.? CT chest s in April 2020 shows RML plus RUL, 2 new lung nodules.? 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 CBI started.? Monitor for hematuria and Wilkins catheter.? Plan for removal of Wilkins catheter tomorrow if urine remains clear. 02/14: Urine remains clear after stopping CBI for 24 hours. Wilkins catheter removed. 2.? Severe thrombocytopenia, acute on chronic macrocytic anemia due to hematuria and leukopenia with neutropenia:Hemoglobin 7.9 therefore repeat CBC after 6-hour after platelet transfusion.? Monitor H&H every 8 hourly afterwards.? Discussed with Dr. Montano.? Patient last blood work on 02/09 shows WBC 0.91 thousand, H&H 8.2/25, MCV 100 platelet count 23,000.? ANC 0.43 thousand. 02/12: Hemoglobin 7.3, microcytic, WBC 1.5 thousand, platelet count 47,000 and ANC 0.9 thousand.? Patient had 1 unit of blood transfusion.? Monitor PRBC ordered.? Monitor posttransfusion CBC. 02/13: Hemoglobin 6.4.? 1 unit PRBC plan to transfuse.? Platelet count is 44,000.? WBC 2.8 thousand.? No active bleeding. Discussed with Dr. Montano. 02/14: Hemoglobin above 7. 250 mg IV iron infusion done. Patient to follow-up with Dr. Montano next week. Patient had total of 2 units of PRBC transfusion 1 unit of platelet transfusion. 3.? Mild pelvic pain probably related to blood clot/inflammatory pain/metastatic: UA is not suggestive of UTI with negative nitrite and LE WBC 0 but the patient started on Levaquin yesterday prophylactically by Dr. Montano.? Continue Levaquin.? Urine culture no growth.? No fever.? 4 history of bilateral several pulmonary emboli: This was discovered on CT angiography of the chest done for elevated d-dimer in August 2015.? At that time patient was treated with Xarelto.? Currently not on anticoagulant. #3 seizure disorder: On Keppra continued #4 benign prostatic hypertrophy: Currently patient is not on Proscar or Flomax.? With symptoms patient was in the past. #5? Other comorbidities include chronic lumbar spinal stenosis status post lumbar's spinal surgery, osteoarthritis, restless leg syndrome: Patient is on oxycodone, pramipexole, vitamin D and calcium supplement continued. VTE prophylaxis: Formula products contraindicated.? Bilateral SCDs I have discussed my assessment with TIPPLE TENDERDestinee and orders have been reviewed. Discharge medication reconciliation done. Discharge follow-up instructions completed. Discharge process discussed with the patient and all questions were answered to patient's satisfaction. Discharged home. Patient did not want home health care. Total time spent, exact 35 minutes on discharge meds reconciliation, examination, coordination of care with nurses and ancillary staff, review of imaging and blood test and discussion with the patient on follow-up instructions. Physical Exam Const alert and oriented x3 HEENT normocephalic and moist oral mucous membranes Eyes PERRL, EOMs intact bilaterally and conjunctivae normal Neck no lymphadenopathy Resp clear to auscultation bilaterally Auscultation: diminished lung sounds Cardio regular rate, regular rhythm and no murmurs Peripheral Pulses: pulses 2+ throughout GI normal to inspection, nondistended, normoactive bowel sounds, non-tender and non-distended Extremity normal to inspection Skin no rashes or lesions noted Lesions: no lesions Rashes: no rashes Trauma: no lacerations or abrasions Neuro CN's II-XII intact bilaterally, no focal motor deficits, no sensory deficits noted and deep tendon reflexes 2+ bilaterally Psych mental status grossly normal and affect normal Patient seen and examined prior to discharge. Physical assessment as noted above. Patient is stable for discharge with follow up recommendations as noted above. This patient was seen by NIKITA Saldana under the supervision of Dr. Amin. Time spent examining patient, reviewing data and subsequent management of care: 23 minutes Physical Exam Narrative Patient seen and examined on the day of discharge. Patient does not have any symptoms of anemia. Hemoglobin stable between 7 to 8 g. Had 2 units of PRBC transfusion and 1 units platelet transfusion. Urine is clear on Wilkins catheter. Physical exam findings General: Alert, Oriented x3, Cooperative HEENT: Atraumatic, PERRLA, EOMI, Normocephalic Oral: Oral mucosa moist.? No oral blood clot/bleeding.? Neck: Supple, No JVD, Negative Carotid Bruits Lungs:? Air entry equal in bilateral lung bases.? No crepitation/rhonchi Cardiovascular: Regular rate, Regular Rhythm, Normal S1, Normal S2, No murmurs Abdomen: Bowel Sounds Present, Soft,? Non-Distended : urine clear for more than 24 hours after CBI was stopped on 11/13. No renal angle or suprapubic tenderness or fullness. Extremities: Mild 1+ bilateral ankle edema, Capillary Refill Less than 3 Seconds Skin: No petechial rash. Mild bruising near IV line Musculoskeletal/back: Surgical scar ho of lumbar spine.? No acute tenderness/induration Neurological: Cranial nerves II-XII grossly intact, DTR? 2+/4 and Symmetrical Psych/Mental Status: Flat affect ABG / Lab / Microbiology Data Result Diagrams: 02/14/22 05:31 02/13/22 05:39 Discharge Plan Admission Admit Date/Time: 02/11/22 10:54 Primary Reason for Your Visit: Hematuria Attending Provider: Eris Amin Primary Care Provider: Bib Dixon Consulting Providers: Marissa,Jorden Instructions Additional Instructions / Restrictions: Repeat BMP in 3-5 days. Discharge Orders/Prescriptions Prescriptions: New pantoprazole [Protonix] 40 mg tablet,delayed release (DR/EC) 40 mg PO DAILY Qty: 30 0RF Continued pramipexole 2.25 mg tablet extended release 24 hr 0.25 mg PO QHS levetiracetam 750 MG tablet 500 mg PO BID Label Comments: SEIZURE escitalopram oxalate 10 mg Tablet 10 mg PO DAILY oxycodone-acetaminophen 7.5-325 mg Tablet 1 tab PO Q8H PRN (Reason: Pain) prednisone 5 mg tablet 5 tab PO DAILY calcium 600 mg Capsule 1,200 mg PO DAILY cholecalciferol (vitamin D3) [Vitamin D3] 25 mcg (1,000 unit) Tablet 25 mcg PO DAILY Discontinued levofloxacin 500 mg tablet 500 mg PO DAILY Label Comments: TAKE 1 TABLET BY MOUTH ONCE DAILY FOR 5 DAYS Referrals / Follow Up: Bib Dixon MD [Primary Care Provider] - In 1 Week Arnie Ann MD [Med Staff - Active Staff] - In 1 Week Rc Montano DO [Med Staff - Active Staff] - In 1 Week Disposition Disposition (needs filled in before D/C Order can be placed): Home, Self Care Charges/Coding Visit Charges Inpatient E&M: 74991 Disch Hosp
[2022-02-14] MEDS: Sodium Ferric Gluconat 250 MG in 0.9% Normal Saline 250 ML 135 MG IV (11:48)
[2022-02-15 13:27] LABS: Pathologist Review Reviewed
[2022-02-15 13:28] LABS: Pathologist Review Reviewed
== END 2022-02-14 17:17 | disposition home or self-care (01) | DRG 662 ==
LOC: ED 11:00 → PCU 11:21
PROVIDERS: Anesthesiology; Nurse Practitioner Family; Urology; Admitting Provider Internal Medicine; Emergency Provider Emergency Medicine; PCP Family Medicine; Visit Provider Internal Medicine
PROC: 0W3R8ZZ Control Bleeding in Genitourinary Tract, Via Natural or Artificial Opening Endoscopic (ICD-10-PCS; principal; 2022-02-12 13:30)
DX: R31.0 Gross hematuria (principal); N40.0 Benign prostatic hyperplasia without lower urinary tract symptoms; C78.00 Secondary malignant neoplasm of unspecified lung; C78.7 Secondary malignant neoplasm of liver and intrahepatic bile duct; C79.51 Secondary malignant neoplasm of bone; D61.810 Antineoplastic chemotherapy induced pancytopenia; D62 Acute posthemorrhagic anemia; C61 Malignant neoplasm of prostate; T45.1X5A Adverse effect of antineoplastic and immunosuppressive drugs, initial encounter; G25.81 Restless legs syndrome; D53.9 Nutritional anemia, unspecified; G40.909 Epilepsy, unspecified, not intractable, without status epilepticus; M48.061 Spinal stenosis, lumbar region without neurogenic claudication; M19.90 Unspecified osteoarthritis, unspecified site; F32.A Depression, unspecified; F41.9 Anxiety disorder, unspecified; Z79.52 Long term (current) use of systemic steroids; Z92.21 Personal history of antineoplastic chemotherapy; Z92.3 Personal history of irradiation; Z86.711 Personal history of pulmonary embolism; Z87.891 Personal history of nicotine dependence
CPT/HCPCS: 36415; 51702; 80048; 81001; 83735; 84100; 85014; 85018; 85025; 85610; 85730; 86850; 86900; 86901; 86920; 86922; 86965; 87086; 88304; 93005; 97162; 97166; 99251; 99285; J7030; J7040; J7050; J7120; P9016; P9035; A4216; G0463; J0744; J2405; J2916

== ENCOUNTER 2022-04-17 03:29 | Inpatient (IN) | payer OTHER, SELFPAY ==
[2022-04-17] VITALS (21 sets, daily range): BP systolic 73–127; BP diastolic 50–71; PULSE 73–114; RESP 16–20; TEMP 35.9–37.6; O2SAT 94–100; BMI 27.2; BMI 18.0
--- NOTE | 2022-04-17 03:48 | EDS_ITS ---
HPI History of Present Illness Chief Complaint: Complaint Narrative Narrative: Patient is a 76-year-old male with history of prostate cancer who currently is undergoing chemotherapy. He reports he has had rupture of his prostatic vessels in the past which has required cauterization. He states that this last cauterization was early February. He states that he has been having blood in his urine off and on for the last few weeks but that over the last 2 days he has been unable to urinate and has just gotten bright red blood oozing from the urethral meatus. He denies any blood thinner use but does report a chronically low blood volume and platelet counts secondary to his chemotherapy. He states he is beginning to feel generalized weakness and increasing abdominal pain and states that last time he urinated regularly was approximately 2 days ago. Therefore with his worsening symptoms and concern he may need cauterization once again he presents for evaluation. [facility] Medical History (Updated 04/17/22 @ 06:[address] 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 Prostate CA Prostate cancer Seizures Skin ulcer of right heel with fat layer exposed Spinal stenosis Thrombocytopenia Home Medications levetiracetam 750 mg tablet 500 mg PO BID seizure 08/26/15 [History Last Taken 02/11/22 11:00] escitalopram oxalate 10 mg tablet 10 mg PO DAILY mood 01/18/21 [History Last Taken 02/10/22 21:00] pramipexole 2.25 mg tablet,extended release 24 hr 0.25 mg PO QHS health maintenance 02/18/21 [History Last Taken 02/10/22 21:00] oxycodone-acetaminophen 7.5 mg-325 mg tablet 1 tab PO Q8H PRN Pain 08/07/21 [History Last Taken 02/11/22 04:00] prednisone 5 mg tablet 5 tab PO DAILY sterioid 01/01/22 [History Last Taken 02/10/22 09:00] calcium 600 mg capsule 1,200 mg PO DAILY health maintenance 01/25/22 [History Last Taken 02/10/22 09:00] cholecalciferol (vitamin D3) 25 mcg (1,000 unit) tablet (Vitamin D3) 25 mcg PO DAILY health maintence 01/25/22 [History Last Taken 02/10/22 09:00] pantoprazole 40 mg tablet,delayed release (Protonix) 40 mg PO DAILY #30 tabs 02/14/22 [Rx Last Taken Unknown] Allergy/AdvReac Type Severity Reaction Status Date / Time Iodinated Contrast Media Allergy Hives Verified 01/01/22 13:55 [CONTRASTS] Penicillins Allergy Unknown Verified 08/07/21 10:52 morphine AdvReac Nausea/Vom/ Verified 08/07/21 10:52 Diarrhea Family History Mother Cancer Hypertension Heart disease Sister Cancer Brother Cancer Sister Ovarian cancer Father Alcohol-induced persisting dementia Surgical History (Updated 04/17/22 @ 04:[address] Rosalina Rodriguez MD) Hx of cholecystectomy S/P TURP Social History (Updated 04/17/22 @ 04:[address] Rosalina Rodriguez MD) household members: spouse Smoking Status: Former smoker quit date: 06/06/84 alcohol intake: current alcohol intake frequency: holidays/special occasions only substance use type: does not use ROS ROS ED Constitutional Constitutional ED: Denies chills or fever(s) ENT ENT ED: Denies sore throat Cardiovascular Cardiovascular: Denies chest pain or palpitations Respiratory/Chest Respiratory/Chest: Denies cough or dyspnea Gastrointestinal Gastrointestinal: Reports abdominal pain; Denies diarrhea, nausea or vomiting Genitourinary Genitourinary ED: Reports hematuria; Denies dysuria Musculoskeletal Musculoskeletal: Denies back pain or myalgias Integumentary Denies rash Neurologic Neurologic: Denies headache(s) Hematologic/Lymphatic Hematologic/Lymphatic: Reports easy bleeding and easy bruising EXAM Physical Exam Const Vital Signs: 04/17/22 03:30 Temperature 96.7 F L Temperature Source Temporal Pulse Rate 98 Respiratory Rate 17 Blood Pressure 108/70 Blood Pressure Mean 82 Pulse Ox 98 Oxygen Delivery Method Room Air Positive well nourished and well developed General Appearance ED: well developed and pallor Eyes PERRL and EOMs intact bilaterally General Eye ED: Negative for pale conjunctiva Neck supple Resp normal respiratory effort and clear to auscultation bilaterally Cardio regular rate and regular rhythm Rate: other Other Details: Radial pulses are +2-4 bilaterally they are equal and symmetric GI GI Narrative: Patient has organomegaly in the suprapubic to lower midline region of the abdomen consistent with a distended bladder. There is pain with palpation at the site. The remainder of the exam displays normal active bowel sounds and the remainder the abdomen is also soft to palpation without pain. No pulsatile mass noted. Auscultation: normoactive bowel sounds Palpation: soft Narrative: Patient has dried blood at the urethral meatus without testicular swelling or masses. No overlying soft tissue changes to suggest Hannah's gangrene Back/Spine no CVA tenderness Extremity normal to inspection Neuro oriented x3 and CN's II-XII intact bilaterally Sensorium / Orientation: alert Psych mental status grossly normal Skin no rashes or lesions noted Skin Narrative: Capillary refill is 2 to 3 seconds General Skin Exam: pallor MDM MDM MDM Narrative Medical decision making narrative: Patient presented to the ER hemodynamically stable by exam has a distended bladder. With his history of prostate cancer as well as previous need for cauterization of his prostatic vessels there is concern he is developed spontaneous bleeding and will need cautery once again. A three-way Vera catheter was placed and returned dark/gross hematuria. Continuous irrigation was applied and the gross hematuria reverted to a translucent red showing improvement. Kidney function was slightly elevated from his baseline but not to a significant enough point to classify him as acute kidney injury. His hemoglobin is at his baseline of 7.8. However his platelets have dropped from baseline of approximately 50 down to 9 which would correlate with his spontaneous bleeding. He also has had drop to his white blood cell count and his neutrophil count. Despite these low values he does not have a fever and there is no obvious source of infection. Therefore blood cultures will be obtained but as he is afebrile with no obvious source of infection antibiotics will be held at this time. Platelets will be given secondary to thrombocytopenia. Urology was consulted. The agreed to follow the patient's case and states that they will not plan on taking him for cauterization until his platelet count is back at baseline. Therefore medicine was contacted and they agreed accept the patient at this time. Lab Data Attestation: I reviewed the patient's lab results. Labs: Laboratory Results - last 24 hr 04/17/22 04/17/22 04/17/22 03:45 03:45 03:45 WBC 0.9 L* RBC 2.24 L Hgb 7.8 L Hct 24.4 L MCV 108.9 H MCH 34.8 H MCHC 32.0 RDW Std Deviation 62.8 H RDW Coeff of [place] 15.9 H Plt Count 9 L* MPV 15.2 H Immature Gran % (Auto) 0.000 Neut % (Auto) 25.3 L Lymph % (Auto) 56.0 H [place] % (Auto) 16.5 H Eos % (Auto) 0.0 Baso % (Auto) 2.2 H Absolute Neuts (auto) 0.2 L Absolute Lymphs (auto) 0.51 L Nucleated RBC % 0 Differential Comment SCANNED Diff Path Review May foll Platelet Estimate MKD DEC Hypochromasia 1+ Anisocytosis 1+ PT 13.8 INR 1.1 APTT 23.9 L Sodium 137 Potassium 3.8 Chloride 104 Carbon Dioxide 22.0 Anion Gap 11 BUN 23 H Creatinine 1.38 H Estim Creat Clear Calc 47.76 Est GFR (MDRD) Af Amer 65 Est GFR (MDRD) Non-Af 53 L BUN/Creatinine Ratio 16.7 Glucose 129 H Lactic Acid Calcium 8.9 Procalcitonin Urine Color Urine Clarity Urine pH Ur Specific [place] Urine Protein Urine Glucose (UA) Urine Ketones Urine Occult Blood Urine Nitrite Urine Bilirubin Urine Urobilinogen Ur Leukocyte Esterase Urine RBC Urine WBC Ur Squamous Epith Cells Urine Bacteria Urine Mucus Blood Type Antibody Screen 04/17/22 04/17/22 04/17/22 04:00 04:20 04:20 WBC RBC Hgb Hct MCV MCH MCHC RDW Std Deviation RDW Coeff of [place] Plt Count MPV Immature Gran % (Auto) Neut % (Auto) Lymph % (Auto) [place] % (Auto) Eos % (Auto) Baso % (Auto) Absolute Neuts (auto) Absolute Lymphs (auto) Nucleated RBC % Differential Comment Diff Path Review Platelet Estimate Hypochromasia Anisocytosis PT INR APTT Sodium Potassium Chloride Carbon Dioxide Anion Gap BUN Creatinine Estim Creat Clear Calc Est GFR (MDRD) Af Amer Est GFR (MDRD) Non-Af BUN/Creatinine Ratio Glucose Lactic Acid 3.5 H* Calcium Procalcitonin 0.20 H Urine Color Urine Clarity Urine pH Ur Specific [place] Urine Protein Urine Glucose (UA) Urine Ketones Urine Occult Blood Urine Nitrite Urine Bilirubin Urine Urobilinogen Ur Leukocyte Esterase Urine RBC Urine WBC Ur Squamous Epith Cells Urine Bacteria Urine Mucus Blood Type AB POSITIVE Antibody Screen NEGATIVE 04/17/22 04:32 WBC RBC Hgb Hct MCV MCH MCHC RDW Std Deviation RDW Coeff of [place] Plt Count MPV Immature Gran % (Auto) Neut % (Auto) Lymph % (Auto) [place] % (Auto) Eos % (Auto) Baso % (Auto) Absolute Neuts (auto) Absolute Lymphs (auto) Nucleated RBC % Differential Comment Diff Path Review Platelet Estimate Hypochromasia Anisocytosis PT INR APTT Sodium Potassium Chloride Carbon Dioxide Anion Gap BUN Creatinine Estim Creat Clear Calc Est GFR (MDRD) Af Amer Est GFR (MDRD) Non-Af BUN/Creatinine Ratio Glucose Lactic Acid Calcium Procalcitonin Urine Color Red Urine Clarity Turbid Urine pH 7.0 Ur Specific [place] 1.010 Urine Protein 500 H Urine Glucose (UA) Normal Urine Ketones 15 H Urine Occult Blood 250 H Urine Nitrite Negative Urine Bilirubin Negative Urine Urobilinogen Normal Ur Leukocyte Esterase Negative Urine RBC > 100 SEEN Urine WBC 0-5 SEEN Ur Squamous Epith Cells 0 SEEN Urine Bacteria RARE Urine Mucus 0 SEEN Blood Type Antibody Screen Discharge Plan Triage Chief Complaint: Complaint ED Provider: Renzo Ortiz Dx/Rx/DC Orders Clinical Impression: Thrombocytopenia, Prostate cancer metastatic to bone, History of chemotherapy, Neutropenia, Gross hematuria Primary Care Provider: Bib Dixon Disposition Disposition: Acute Care Hospital [facility]
[2022-04-17 04:01] LABS: Absolute Lymphocyte Count 0.51 X10^3/uL (0.83-4.51); Absolute Neutrophil Count 0.2 X10^3/uL (2.0-7.7); Basophil# 0.02 X10^3/uL; Basophil% 2.2 % (0-1); Hematocrit 24.4 % (40-54); Hemoglobin 7.8 g/dL (13.0-16.5); Lymphocyte # 0.51 X10^3/ul (0.83-4.51); Mean Corpuscular Hgb 34.8 pg (27.0-32.0); Mean Corpuscular Volume 108.9 fL (80-94); Mean Platelet Vol. 15.2 fl (6.2-12.0); Monocyte# 0.15 X10^3/uL; Monocyte% 16.5 % (0-10); NRBC Flagged by Analyzer 0 % (0-5); Neutrophil # 0.23 X10^3/uL (2.7-7.7); Neutrophil % 25.3 % (47-70); POSITIVE COUNT YES; POSITIVE DIFFERENTIAL YES; POSITIVE MORPHOLOGY YES; RBC Distribution Width CV 15.9 % (11.6-14.6); RBC Distribution Width SD 62.8 fl (35.1-43.9); Red Blood Count 2.24 M/mm3 (4.6-6.2)
[2022-04-17 04:03] LABS: Platelet Count 9 K/mm3 (150-450); White Blood Count 0.9 K/mm3 (4.4-11.0)
[2022-04-17 04:04] LABS: Differential Indicated SCAN CRITERIA MET
[2022-04-17 04:09] LABS: International Normalized Ratio 1.1; Prothrombin Time (Protime)PT. 13.8 SECONDS (11.7-14.9)
[2022-04-17 04:10] LABS: Partial Thromboplast Time 23.9 Seconds (24.1-36.2)
[2022-04-17 04:12] LABS: Anion Gap 11 (5-15); BUN 23 mg/dL (7-18); BUN/Creat Ratio 16.7 RATIO (10-20); Calcium,Total 8.9 mg/dL (8.5-10.1); Chloride 104 mmol/L (98-107); Creatinine, Serum 1.38 mg/dL (0.70-1.30); EST Glomerular Filtration Rate 53 mL/min (>60); Est Glom Filt Rate - Afr Amer 65 mL/min (>60); Estimated Creatinine Clearance 47.76 ml/min; Glucose 129 mg/dL (74-106); Potassium 3.8 mmol/L (3.5-5.1); Sodium Level 137 mmol/L (136-145)
[2022-04-17 04:28] LABS: Anisocytosis 1+; Differential Comment SCANNED; Hypochromasia 1+; Platelet Estimate MKD DEC (ADEQ)
[2022-04-17 04:38] LABS: Mucous, Urine 0 SEEN /hpf (<or=2+); Squamous Epithelial Cells - UA 0 SEEN /hpf (0-5)
[2022-04-17 04:39] LABS: Color, Urine Red (Yellow); Glucose, Dipstick Normal (Normal); Ketone-Dipstick 15 mg/dl (Negative); Leukocyte Esterase-Dipstick Negative /ul (Negative); Nitrite-Dipstick Negative (Negative); Occult Blood-Urine 250 /ul (Negative); Protein-Dipstick 500 mg/dl (Negative); Urine Bilirubin Dipstick Negative (Negative); Urine Clarity Turbid (Clear); Urine Urobilinogen Normal (Normal)
[2022-04-17 04:53] LABS: Bacteria RARE /hpf (None Seen); Red Blood Cells-Urine > 100 SEEN /hpf (0-5); White Blood Cells 0-5 SEEN /hpf (0-5)
[2022-04-17 05:02] LABS: Lactic Acid 3.5 mmol/L (0.4-1.9)
--- NOTE | 2022-04-17 05:44 | HP.PCM.HOS_ITS ---
HPI - General General Date of Admission: 04/17/22 Date of Service: 04/17/22 Chief Complaint: Recurrent hematuria, urinary retention HPI Narrative The patient is a 76 y/o M w/ PMHx: RLS, Anxiety and Depression, Prostate CA metastatic to bone treated with ADT, Xofigo, Zytiga and prednisone w/ associated Chronic anemia/thrombocytopenia, Chronc back pain, Seizure disorder associated w/ Xtandi, Hx VTE (DVT, PE), BPH, 02/12/22 OR w/ bleeding gross hematuria from bladder history of metastatic prostate cancer w/ cystoscopy, clot evacuation from the bladder cauterization of prostatic bleeding, removal of small bladder stone from the bladder who now re-presents to the [facility] ED on 04/17/22 with history of recurrent episodes of intermittent hematuria for the last couple weeks however over the last 2 days he has had increased bright red blood oozing from his urethral meatus with inability to urinate with associated lower abdominal discomfort/suprapubic discomfort prompting eventual ED evaluation. Work-up in the ED included T96.7, heart rate 98, BP 108/70, respiratory rate 17, 98% on room air, CBC with WBC 0.9, hemoglobin 7.8, MCV 108.9, platelet 9 with neutropenia and lymphopenia, coags with PT 13.8, INR 1.1, PTT 23.9, BMP with BUN/creat 23/1.38, glucose 129, type and screen pending per ED physician, blood culture x2 pending per ED, procalcitonin 0.20, lactic acid 3.5, urinalysis with notable evidence of hematuria but no obvious evidence of UTI. In the ED patient initiated on continuous bladder irrigation. ED discussed case with Dr. Ann. Discussed case with ED physician and he will order 1 set of plts to be initiated in the ED and 1 additional will be ordered following admission. [facility] Medical History (Updated 04/17/22 @ 06:[address] 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 Prostate CA Prostate cancer Seizures Skin ulcer of right heel with fat layer exposed Spinal stenosis Thrombocytopenia Home Medications levetiracetam 750 mg tablet 500 mg PO BID seizure 08/26/15 [History Last Taken 02/11/22 11:00] escitalopram oxalate 10 mg tablet 10 mg PO DAILY mood 01/18/21 [History Last Taken 02/10/22 21:00] pramipexole 2.25 mg tablet,extended release 24 hr 0.25 mg PO QHS health ma intenance 02/18/21 [History Last Taken 02/10/22 21:00] oxycodone-acetaminophen 7.5 mg-325 mg tablet 1 tab PO Q8H PRN Pain 08/07/21 [History Last Taken 02/11/22 04:00] prednisone 5 mg tablet 5 tab PO DAILY sterioid 01/01/22 [History Last Taken 02/10/22 09:00] calcium 600 mg capsule 1,200 mg PO DAILY health maintenance 01/25/22 [History Last Taken 02/10/22 09:00] cholecalciferol (vitamin D3) 25 mcg (1,000 unit) tablet (Vitamin D3) 25 mcg PO DAILY [facility] maintence 01/25/22 [History Last Taken 02/10/22 09:00] pantoprazole 40 mg tablet,delayed release (Protonix) 40 mg PO DAILY #30 tabs 02/14/22 [Rx Last Taken Unknown] Allergy/AdvReac Type Severity Reaction Status Date / Time Iodinated Contrast Media Allergy Hives Verified 01/01/22 13:55 [CONTRASTS] Penicillins Allergy Unknown Verified 08/07/21 10:52 morphine AdvReac Nausea/Vom/ Verified 08/07/21 10:52 Diarrhea Family History Mother Cancer Hypertension Heart disease Sister Cancer Brother Cancer Sister Ovarian cancer Father Alcohol-induced persisting dementia Surgical History (Updated 04/17/22 @ 04:[address] Rosalina Rodriguez MD) Hx of cholecystectomy S/P TURP Social History (Updated 04/17/22 @ 04:[address] Rosalina Rodriguez MD) household members: spouse Smoking Status: Former smoker quit date: 06/06/84 alcohol intake: current alcohol intake frequency: holidays/special occasions only substance use type: does not use ROS ROS Narrative Admission Review of Systems: CONSTITUTIONAL: No weight loss, fever, chills, + weakness or fatigue. HEENT: Eyes: No visual loss, blurred vision, double vision or yellow sclerae. Ears, Nose, Throat: No hearing loss, sneezing, congestion, runny nose or sore throat. SKIN: No rash or itching, lesions, wounds. CARDIOVASCULAR: No chest pain, chest pressure or chest discomfort, palpitations, edema, orthopnea, syncopal events. RESPIRATORY: No shortness of breath, cough or sputum, wheezing, hemoptysis. GASTROINTESTINAL: No anorexia, nausea, vomiting or diarrhea, abdominal pain, melena, BRBPR. GENITOURINARY: + Retention, hematuria, suprapubic TTP. NEUROLOGICAL: + Seizure disorder. No headache, dizziness, syncope, paralysis, ataxia, numbness or tingling in the extremities, focal weakness. MUSCULOSKELETAL: + muscle, back pain, joint pain or stiffness. HEMATOLOGIC: + anemia, bleeding or bruising. LYMPHATICS: No enlarged nodes. No history of splenectomy. PSYCHIATRIC: No history of depression or anxiety. ENDOCRINOLOGIC: No reports of sweating, cold or heat intolerance. No polyuria or polydipsia. ALLERGIES: No history of asthma, hives, eczema or rhinitis. Vital Signs Vital Signs Vital Signs: 04/17/22 03:30 Temperature 96.7 F L Temperature Source Temporal Pulse Rate 98 Respiratory Rate 17 Blood Pressure 108/70 Blood Pressure Mean 82 Pulse Ox 98 Oxygen Delivery Method Room Air Weight Weight: 189 lb 13.088 oz Body Mass Index (BMI) 27.2 Physical Exam Narrative Physical Examination: General: Awake, alert, oriented x 3 and cooperative, laying in the ED bed, fatigued otherwise no acute distress, pale appearing Skin: Pale color, normal turgor, no icterus, no cyanosis. HEENT: AT/NC, EOMI, PERRLA, MMM, no carotid bruits or JVD noted. Lungs: Mildly diminished, bases, appropriate effort, no rales, ronchi or wheezing. Heart: Currently regular rate and rhythm; no gallop, rub audible. Abdomen: Soft, still some mild suprapubic discomfort but he notes it is significantly improved status post Vera catheter placement otherwise abdomen nontender, ND, hyperactive BS, no HSM. Extremities: No cyanosis, clubbing, or edema. Neurological: Patient awake, alert, oriented as noted, cognitive function intact; pupils equally reactive to light and accommodation, cranial nerves II- XII grossly normal, moving all 4 extremities, no focal deficits, strength mildly to moderately global decrease secondary to acute presentation. Psychiatric: Affect appears fatigued otherwise normal, no acute evidence of depressive or anxiety feelings. Results Lab / Micro Data Result Diagrams: 04/17/22 03:45 04/17/22 03:45 Labs: Laboratory Results - last 24 hr 04/17/22 03:45: WBC 0.9 L*, RBC 2.24 L, Hgb 7.8 L, Hct 24.4 L, MCV 108.9 H, MCH 34.8 H, MCHC 32.0, RDW Std Deviation 62.8 H, RDW Coeff of [place] 15.9 H, Plt Count 9 L*, MPV 15.2 H, Immature Gran % (Auto) 0.000, Neut % (Auto) 25.3 L, Lymph % (Auto) 56.0 H, [place] % (Auto) 16.5 H, Eos % (Auto) 0.0, Baso % (Auto) 2.2 H, Absolute Neuts (auto) 0.2 L, Absolute Lymphs (auto) 0.51 L, Nucleated RBC % 0, Differential Comment SCANNED, Diff Path Review May wenceslao, Platelet Estimate MKD DEC, Hypochromasia 1+, Anisocytosis 1+ 04/17/22 03:45: PT 13.8, INR 1.1, APTT 23.9 L 04/17/22 03:45: Sodium 137, Potassium 3.8, Chloride 104, Carbon Dioxide 22.0, Anion Gap 11, BUN 23 H, Creatinine 1.38 H, Estim Creat Clear Calc 47.76, Est GFR (MDRD) Af Amer 65, Est GFR (MDRD) Non-Af 53 L, BUN/Creatinine Ratio 16.7, Glucose 129 H, Calcium 8.9 04/17/22 04:00: Blood Type AB POSITIVE, Antibody Screen NEGATIVE 04/17/22 04:20: Lactic Acid 3.5 H* 04/17/22 04:20: Procalcitonin 0.20 H 04/17/22 04:32: Urine Color Red, Urine Clarity Turbid, Urine pH 7.0, Ur Specific [place] 1.010, Urine Protein 500 H, Urine Glucose (UA) Normal, Urine Ketones 15 H, Urine Occult Blood 250 H, Urine Nitrite Negative, Urine Bilirubin Negative, Urine Urobilinogen Normal, Ur Leukocyte Esterase Negative, Urine RBC > 100 SEEN, Urine WBC 0-5 SEEN, Ur Squamous Epith Cells 0 SEEN, Urine Bacteria RARE, Urine Mucus 0 SEEN Assessment & Plan Assessment/Plan (1) Hematuria: PLAN: Plan The patient is a 76 y/o M w/ PMHx: RLS, Anxiety and Depression, Prostate CA metastatic to bone treated with ADT, Xofigo, Zytiga and prednisone w/ associated Chronic anemia/thrombocytopenia, Seizure disorder associated w/ Xtandi, Hx VTE , BPH who now presents to the [facility] ED on 04/17/22 with history of recurrent episodes of intermittent hematuria for the last couple weeks however over the last 2 days he has had increased bright red blood oozing from his urethral meatus with inability to urinate with associated lower abdominal discomfort/suprapubic discomfort prompting eventual ED evaluation. #1. Recurrence hematuria with associated urinary retention with potential prostatic vessel rupture recurrence complicated by #2: We will admit to medical surgical floor, will continue to trend CBC, will administer platelets given current bleeding with platelet count of 9 (2 total with ED initiating one and an additionally following admission), continue three-way Vera catheter with continuous bladder irrigation pending urology evaluation, as needed pain regimen, maintain on fall precautions given increased weakness and debility, NPO status in case of OR needs if plt count improved with administration to near baseline, PT and OT assessments as well as case management consultation requested for discharge planning. Given UA without obvious evidence UTI and afebrile, will hold on abx therapy but low threshold to initiate BSA given neutropenia on chemotherapy if onset fevers. #2. Metastatic prostate cancer with chronic pancytopenia w/ acute on chronic thrombocytopenia component, neutropenic: Admission CBC with WC 0.9, hemoglobin 7.8, platelet 9 with neutropenia and lymphopenia, type and screen initiated per ED, continue closely trend H&H with PRBC administration as needed, given current bleeding and platelet count of 9 we will administer pack of platelets, continue to trend CBC, will obtain mag and phos level. #3. Lactic acidosis, unclear etiology: Lactic acid upon presentation 3.5, unclear specific etiology, continue to judiciously hydrate with lactic acid trending per facility protocol. #4. Seizure disorder: Noted onset of seizures following Xtandi per review of oncology notes, will continue patient home Keppra regimen. #5. Anxiety and depression: We will continue patient on escitalopram regimen. #6. Restless leg syndrome: We will continue patient home nightly Mirapex regimen. #7. GERD: We will continue patient on PPI. #8. DVT prophylaxis: SCDs, defer chemoprophylaxis given acute presentation as noted #1. #9. CODE status: Patient's is present and she would be his decision-maker in the event that he could not. Discussed CODE status at length including difference between FULL code, DNR-CCA and DNR-CC status. Following discussions about the differences in these status, requested Full Code status. Advanced Care Planning Face to Face Time: 16 minutes. Charges/Coding Visit Charges Inpatient E&M: 24510 Init Hosp L3 Procedures Hospitalists Procedures: 90048 Advncd Care Plan 30 Min
[2022-04-17 06:33] LABS: Phosphorus 2.6 mg/dL (2.5-4.9)
--- NOTE | 2022-04-17 06:34 | NURSING ---
325 white thrombocytopenia
[2022-04-17 08:23] LABS: Reflex Lactate? Y
[2022-04-17] MEDS: Ondansetron 4 MG/2 ML Vial IV ×2 (08:46→21:51)
[2022-04-17] MEDS: 0.9% Saline Lock 10 ML Syringe IV ×2 (08:46→21:51)
[2022-04-17] MEDS: 0.9% Normal Saline 1,000 ML 125 ML IV ×2 (08:46→18:42)
--- NOTE | 2022-04-17 09:36 | PCM.CONS.U ---
Assessment & Plan Assessment/Plan (1) Thrombocytopenia: (2) Neutropenia: (3) Gross hematuria: HPI Consult Data Date of Consult: 04/17/22 HPI Narrative Reason for Consultation: Gross hematuria HPI Narrative: RHONDA PAT, is a 76 M who presents With gross hematuria has a history of prostate cancer is currently receiving chemotherapy and is found to have very low platelet count. At the bedside I irrigated out the three-way catheter until was clear got all the clots out and will continue with irrigation. He will need to have his platelets transfused and replaced hopefully with platelet transfusion and a bladder irrigation the bleeding will stop. I think right now no plan to taken the surgery until he is medically corrected. Continue with irrigation we will continue to follow. 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 Prostate CA Prostate cancer Seizures Skin ulcer of right heel with fat layer exposed Spinal stenosis Thrombocytopenia Home Medications levetiracetam 750 mg tablet 500 mg PO BID seizure 08/26/15 [History Last Taken 02/11/22 11:00] escitalopram oxalate 10 mg tablet 10 mg PO DAILY mood 01/18/21 [History Last Taken 02/10/22 21:00] pramipexole 2.25 mg tablet,extended release 24 hr 0.25 mg PO QHS health maintenance 02/18/21 [History Last Taken 02/10/22 21:00] oxycodone-acetaminophen 7.5 mg-325 mg tablet 1 tab PO Q8H PRN Pain 08/07/21 [History Last Taken 02/11/22 04:00] prednisone 5 mg tablet 5 tab PO DAILY sterioid 01/01/22 [History Last Taken 02/10/22 09:00] calcium 600 mg capsule 1,200 mg PO DAILY health maintenance 01/25/22 [History Last Taken 02/10/22 09:00] cholecalciferol (vitamin D3) 25 mcg (1,000 unit) tablet (Vitamin D3) 25 mcg PO DAILY health maintence 01/25/22 [History Last Taken 02/10/22 09:00] pantoprazole 40 mg tablet,delayed release (Protonix) 40 mg PO DAILY #30 tabs 02/14/22 [Rx Last Taken Unknown] Allergy/AdvReac Type Severity Reaction Status Date / Time Iodinated Contrast Media Allergy Hives Verified 04/17/22 08:12 [CONTRASTS] Penicillins Allergy Unknown Verified 04/17/22 08:12 morphine AdvReac Nausea/Vom/ Verified 04/17/22 08:12 Diarrhea Family History Mother Cancer Hypertension Heart disease Sister Cancer Brother Cancer Sister Ovarian cancer Father Alcohol-induced persisting dementia Surgical History (Updated 04/17/22 @ 04:[address] Rosalina Rodriguez MD) Hx of cholecystectomy S/P TURP Social History household members: spouse Smoking Status: Former smoker quit date: 06/06/84 alcohol intake: current alcohol intake frequency: holidays/special occasions only substance use type: does not use ROS Constitutional Constitutional: Denies chills, fever(s) or malaise Eyes Eyes: Denies blurry vision or change in vision ENT HEENT: Reports none Cardiovascular Cardiovascular: Denies chest pain or palpitations Respiratory/Chest Respiratory/Chest: Denies cough or shortness of breath with exertion Gastrointestinal Gastrointestinal: Denies abdominal pain, constipation or diarrhea Musculoskeletal Musculoskeletal: Denies back pain, joint stiffness or joint swelling Integumentary Integumentary: Denies dry skin, jaundice, lesions or rash Neurologic Neurologic: Denies confusion, syncope or weakness Psychiatric Psychiatric: Reports none; Denies anxiety or depression Endocrine Endocrinology: Denies excessive sweating, fatigue or flushing Hematologic/Lymphatic Hematologic/Lymphatic: Denies anemia, easy bleeding or easy bruising Physical Exam Const alert and oriented x3 General Appearance: cooperative HEENT normocephalic, head/scalp atraumatic, EAC's normal and TM's normal bilaterally Eyes PERRL and EOMs intact bilaterally Pupil: sluggish Neck no lymphadenopathy, supple and no JVD General: trachea midline Lymph Lymphatic: no lymphadenopathy noted, lymphedema and lymphadenopathy Resp normal respiratory effort, normal air movement and clear to auscultation bilaterally Cardio regular rate, regular rhythm and peripheral pulses 2+ throughout GI soft to palpation, non-tender and non-distended Extremity normal capillary refill and no clubbing, cyanosis or edema General Extremity: no tenderness to palpation of joints or extremities Skin no rashes or lesions noted General Skin Exam: turgor normal Lesions: no lesions Rashes: no rashes Neuro CN's II-XII intact bilaterally Speech: speech normal Motor Exam: strength 5/5 throughout; Negative for general weakness Psych thought process normal, cooperative and affect normal Appearance: appropriate Medical Records Data Attestation: I reviewed the patient's medical records Lab / Micro Data Attestation: I reviewed the patient's lab results. Result Diagrams: 04/17/22 03:45 04/17/22 03:45 Labs: Laboratory Results - last 24 hr 04/17/22 03:45: WBC 0.9 L*, RBC 2.24 L, Hgb 7.8 L, Hct 24.4 L, MCV 108.9 H, MCH 34.8 H, MCHC 32.0, RDW Std Deviation 62.8 H, RDW Coeff of Nemo 15.9 H, Plt Count 9 L*, MPV 15.2 H, Immature Gran % (Auto) 0.000, Neut % (Auto) 25.3 L, Lymph % (Auto) 56.0 H, [place] % (Auto) 16.5 H, Eos % (Auto) 0.0, Baso % (Auto) 2.2 H, Absolute Neuts (auto) 0.2 L, Absolute Lymphs (auto) 0.51 L, Nucleated RBC % 0, Differential Comment SCANNED, Diff Path Review October, Platelet Estimate MKD DEC, Hypochromasia 1+, Anisocytosis 1+ 04/17/22 03:45: PT 13.8, INR 1.1, APTT 23.9 L 04/17/22 03:45: Sodium 137, Potassium 3.8, Chloride 104, Carbon Dioxide 22.0, Anion Gap 11, BUN 23 H, Creatinine 1.38 H, Estim Creat Clear Calc 47.76, Est GFR (MDRD) Af Amer 65, Est GFR (MDRD) Non-Af 53 L, BUN/Creatinine Ratio 16.7, Glucose 129 H, Calcium 8.9 04/17/22 03:45: Phosphorus 2.6, Magnesium 2.0 04/17/22 04:00: Blood Type AB POSITIVE, Antibody Screen NEGATIVE 04/17/22 04:20: Lactic Acid 3.5 H* 04/17/22 04:20: Procalcitonin 0.20 H 04/17/22 04:32: Urine Color Red, Urine Clarity Turbid, Urine pH 7.0, Ur Specific [place] 1.010, Urine Protein 500 H, Urine Glucose (UA) Normal, Urine Ketones 15 H, Urine Occult Blood 250 H, Urine Nitrite Negative, Urine Bilirubin Negative, Urine Urobilinogen Normal, Ur Leukocyte Esterase Negative, Urine RBC > 100 SEEN, Urine WBC 0-5 SEEN, Ur Squamous Epith Cells 0 SEEN, Urine Bacteria RARE, Urine Mucus 0 SEEN 04/17/22 08:44: Lactic Acid 4.0 H*
--- NOTE | 2022-04-17 10:41 | CASEMGMT ---
JAQUI KARIMI Assessment: Face to Face with pt for initial transition planning/care coordination assessment. JAQUI KARIMI introduced self and role at [facility], pt voices understanding and consents to assessment. Pt is A/O x4 and answers all questions appropriately at this time. Pt lying in bed in no distress. Care providers, pharmacy, and demographics verified/updated. Admitting Dx: hematuria, urinary retention PCP:Zack Specialists:Marissa, uro; Dusty, onc; Michaelone, pod; Reuben, pain mgmt Preferred Pharmacy: [facility] Insurance: [place] Prescription Benefit: yes LW/HPOA: Pt states he has a LW/DPOA and his is his DPOA. He is aware this is not on file at [facility] and he may bring in to be scanned into the chart. LNOK: Akiko Hoyos, ; Sandra Vallecillo, dtr Living Arrangements: Pt lives with in a single story house with 1 step to enter. Pt reports he is I in ADL's and denies concerns at home. Transportation: Pt states he has not driven recently and transports him to medical appts. DME/HHC/SNF: Pt has a shower chair, toilet riser, quad cane, HHS, lift chair, walker and 2 rollators at home. Pt has had HHC in the past but is unsure of which agency provided it. Pt denies SNF stays. Pt states no concerns with going home at time of dc. Pt states he has had a catheter in the past and should he need to dc home with one, is able to take care of it. Pt denies needs for any other homegoing services. Pt states no further concerns/needs. CM to follow. Advised pt to ask CM if any further question/concerns/needs arise, voices understanding. Pt Goal: Home Plan: Home
[2022-04-17] MEDS: Acetaminophen 325 MG Tablet 650 MG PO (12:25)
[2022-04-17] MEDS: Escitalopram Oxalate 10 MG Tablet PO (12:26)
[2022-04-17] MEDS: Pantoprazole Sodium 40 MG Tablet PO (12:26)
[2022-04-17] MEDS: predniSONE 5 MG Tablet PO (12:26)
[2022-04-17] MEDS: levETIRAcetam 500 MG Tablet PO ×2 (12:26→21:03)
[2022-04-17] MEDS: Ensure Plus High Protein 120 ML LIQUID PO ×2 (15:17→17:52)
[2022-04-17 18:12] LABS: Absolute Lymphocyte Count 0.26 X10^3/uL (0.83-4.51); Absolute Neutrophil Count 0.4 X10^3/uL (2.0-7.7); Basophil# 0.01 X10^3/uL; Basophil% 1.2 % (0-1); Hematocrit 17.4 % (40-54); Lymphocyte # 0.26 X10^3/ul (0.83-4.51); Lymphocyte % 30.6 % (19-41); Mean Corp Hgb Conc 32.2 g/dL (32-36); Mean Corpuscular Hgb 34.1 pg (27.0-32.0); Mean Corpuscular Volume 106.1 fL (80-94); Mean Platelet Vol. 9.9 fl (6.2-12.0); Monocyte# 0.22 X10^3/uL; Monocyte% 25.9 % (0-10); NRBC Flagged by Analyzer 0 % (0-5); Neutrophil # 0.35 X10^3/uL (2.7-7.7); Neutrophil % 41.1 % (47-70); POSITIVE COUNT YES; POSITIVE DIFFERENTIAL YES; POSITIVE MORPHOLOGY YES; RBC Distribution Width CV 15.7 % (11.6-14.6); RBC Distribution Width SD 61.2 fl (35.1-43.9); Red Blood Count 1.64 M/mm3 (4.6-6.2)
[2022-04-17 18:23] LABS: Differential Indicated SCAN CRITERIA MET; Hemoglobin 5.6 g/dL (13.0-16.5); Platelet Count 50 K/mm3 (150-450); White Blood Count 0.9 K/mm3 (4.4-11.0)
[2022-04-17 18:33] LABS: Differential Comment SEE COMMENTS
[2022-04-17 18:34] LABS: Anisocytosis 1+; Hypochromasia 1+; Macrocytosis 1+; Platelet Estimate MKD DEC (ADEQ); Red Cell Morphology N CHROM NORMAL (NORM C&C)
[2022-04-17 18:36] LABS: Lactic Acid 1.9 mmol/L (0.4-1.9)
[2022-04-17] MEDS: Pramipexole Di-HCl 0.25 MG Tablet PO (19:03)
--- NOTE | 2022-04-17 19:44 | PCM.HOSP.N ---
Hospitalist Note Notified by nursing that patient's hemoglobin was 5.6, down from 7.8 this a.m. Blood pressure was 73/53. By time I arrived, patient's blood pressure was 102/51. Patient is still having hematuria and blood clots. We will transfuse 2 units of packed red blood cells. Patient is feeling okay at this time.
--- NOTE | 2022-04-17 22:15 | NURSING ---
Attempted to notify pt's Akiko that pt is going to OR tonight with Dr. Ann. No answer, left message.
--- NOTE | 2022-04-17 22:18 | EKG12_ITS ---
Test Reason : PRE OP Blood Pressure : / mmHG Vent. Rate : 110 BPM Atrial Rate : 110 BPM P-R Int : 136 ms QRS Dur : 086 ms QT Int : 342 ms P-R-T Axes : 036 -29 023 degrees QTc Int : 462 ms Sinus tachycardia Leftward axis Poor R wave progression Confirmed by CHIKIS DENTON, MARCI ([id number]), design editor BRADLEY VELASCO ([id number]) on 04/21/2022 7:58:07 AM Referred By: OLEG Confirmed By:MARCI DIOP MD
[2022-04-17] MEDS: Lidocaine Jelly 2% 20 ML Syringe (URO-JET) 1 APPLIC (23:10)
--- NOTE | 2022-04-17 23:27 | PCM.OPRPT ---
Report of Operation Date of Procedure: 04/17/22 Pre-Operative Diagnosis: Gross hematuria bleeding history of prostate cancer low platelets Post-Operative Diagnosis: Same Surgery/Procedure Performed:: Cystoscopy evacuation of blood clots cauterization of prostatic bleeding Description of Surgical Findings:: 76-year-old male taken back to the operating room at a smooth induction of general anesthesia he was placed in dorsolithotomy position. The penis testicle prepped and draped in usual sterile fashion the existing catheter was removed, I then went into the bladder with a 21 Sammar[place] rigid cystourethroscope used a manual irrigation to manually irrigate all the clots out of the bladder then there was a lot of bleeding from the prostate especially at the 7:00 5:00 and also 12 o'clock position once of the bleeding was cauterized completely and all the clots were removed then after extensively removing all the clots cauterized the prostate extensively then there was no more bleeding and I placed the catheter in the bladder with continuous irrigation we used the Bugbee electrode and glycine for the solution. Patient anesthetic was reversed taken at the PACU good condition with a 22 Sammarinese three-way catheter and continuous irrigation with saline. Surgeon: Arnie Ann Type of Anesthesia: General Drains: [address] Admit VTE Documentation VTE Present on Admission: No VTE Mechan Device Prophylaxis: SCD's
[2022-04-18] VITALS (15 sets, daily range): BP systolic 85–120; BP diastolic 52–76; PULSE 82–101; RESP 16–18; TEMP 36.4–37.2; O2SAT 95–98
[2022-04-18] MEDS: oxyCODONE 5 MG Tablet PO ×2 (01:06→09:16)
[2022-04-18] MEDS: Acetaminophen 325 MG Tablet 650 MG PO (02:10)
[2022-04-18] MEDS: Mag Hydrox/Al Hydrox/Simeth 30 ML UDC PO (02:46)
[2022-04-18] MEDS: 0.9% Normal Saline 1,000 ML 125 ML IV (06:44)
[2022-04-18 07:25] LABS: Absolute Lymphocyte Count 0.43 X10^3/uL (0.83-4.51); Absolute Neutrophil Count 0.7 X10^3/uL (2.0-7.7); Basophil# 0.01 X10^3/uL; Basophil% 0.7 % (0-1); Hematocrit 22.9 % (40-54); Hemoglobin 7.5 g/dL (13.0-16.5); Lymphocyte # 0.43 X10^3/ul (0.83-4.51); Lymphocyte % 28.3 % (19-41); Mean Corp Hgb Conc 32.8 g/dL (32-36); Mean Corpuscular Hgb 32.1 pg (27.0-32.0); Mean Corpuscular Volume 97.9 fL (80-94); Mean Platelet Vol. 10.1 fl (6.2-12.0); Monocyte# 0.37 X10^3/uL; Monocyte% 24.3 % (0-10); NRBC Flagged by Analyzer 0 % (0-5); Neutrophil # 0.69 X10^3/uL (2.7-7.7); Neutrophil % 45.4 % (47-70); POSITIVE COUNT YES; POSITIVE DIFFERENTIAL YES; POSITIVE MORPHOLOGY YES; Platelet Count 37 K/mm3 (150-450); RBC Distribution Width SD 68.1 fl (35.1-43.9); Red Blood Count 2.34 M/mm3 (4.6-6.2); White Blood Count 1.5 K/mm3 (4.4-11.0)
[2022-04-18 07:32] LABS: Differential Indicated SCAN CRITERIA MET
[2022-04-18 07:54] LABS: ALB/GLOB Ratio 0.9 RATIO (0.9-2.4); AST(SGOT) 10 U/L (15-37); Alanine Aminotransfer ALT/SGPT 20 U/L (16-61); Albumin, Serum 2.5 g/dL (3.2-5.0); Alkaline Phosphatase 86 U/L (45-117); Anion Gap 7 (5-15); BUN 15 mg/dL (7-18); BUN/Creat Ratio 15.2 RATIO (10-20); Calcium,Total 7.6 mg/dL (8.5-10.1); Chloride 111 mmol/L (98-107); Creatinine, Serum 0.99 mg/dL (0.70-1.30); EST Glomerular Filtration Rate 79 mL/min (>60); Est Glom Filt Rate - Afr Amer 95 mL/min (>60); Estimated Creatinine Clearance 66.57 ml/min; Globulin 2.7 g/dL (2.2-4.2); Glucose 95 mg/dL (74-106); Potassium 3.3 mmol/L (3.5-5.1); Protein, Total 5.2 g/dL (6.4-8.2); Sodium Level 141 mmol/L (136-145)
[2022-04-18 08:19] LABS: Platelet Estimate MKD DEC (ADEQ)
[2022-04-18 08:20] LABS: Anisocytosis 1+
[2022-04-18 08:22] LABS: Hypochromasia 1+; Microcytosis 1+; Poikilocytosis 1+
[2022-04-18 08:23] LABS: Ovalocyte 1+
--- NOTE | 2022-04-18 08:57 | PCM.PN.HOSP ---
Subjective Subjective Feels much better, he had to be transfused overnight for hemoglobin of 5.6. He was taken for cystoscopy and had multiple areas of bleeding cauterized on his prostate. Continuous bladder irrigation today looks fairly clear compared to yesterday Objective Data Objective Data Vital Signs: Vital Signs Temp Pulse Resp BP Pulse Ox O2 Del Method 97.9 F 86 16 100/54 L 95 Room Air 04/18/22 08:48 04/18/22 08:48 04/18/22 08:48 04/18/22 08:48 04/18/22 08:48 04/18/22 08:48 Oxygen Delivery Method Room Air Weight: 190 lb 4.143 oz Body Mass Index (BMI) 18.0 Intake & Output: Intake and Output for Last 24 Hours 04/17/22 04/18/22 04/19/22 03:59 03:59 03:59 Intake Total 2525.0 / 2525.0 425 / 425 Output Total 90691 / 42104 6700 / 6700 Balance -53845.0 / -38166.0 -6275 / -6275 Lab / Micro Data Result Diagrams: 04/18/22 07:02 04/18/22 07:02 Labs: Laboratory Results - last 24 hr 04/17/22 03:45: Phosphorus 2.6, Magnesium 2.0 04/17/22 04:00: Crossmatch See Detail 04/17/22 08:44: Lactic Acid 4.0 H* 04/17/22 18:02: Lactic Acid 1.9 04/17/22 18:02: WBC 0.9 L*, RBC 1.64 L, Hgb 5.6 L*, Hct 17.4 L, MCV 106.1 H, MCH 34.1 H, MCHC 32.2, RDW Std Deviation 61.2 H, RDW Coeff of Nemo 15.7 H, Plt Count 50 L*, MPV 9.9, Immature Gran % (Auto) 1.200 H, Neut % (Auto) 41.1 L, Lymph % (Auto) 30.6, Christian % (Auto) 25.9 H, Eos % (Auto) 0.0, Baso % (Auto) 1.2 H, Absolute Neuts (auto) 0.4 L, Absolute Lymphs (auto) 0.26 L, Nucleated RBC % 0, Differential Comment SEE COMMENTS, Diff Path Review October foll, Platelet Estimate MKD DEC, RBC Morphology N CHROM, Hypochromasia 1+, Anisocytosis 1+, Macrocytosis 1+ 04/18/22 07:02: WBC 1.5 L, RBC 2.34 L, Hgb 7.5 L, Hct 22.9 L, MCV 97.9 H D, MCH 32.1 H, MCHC 32.8, RDW Std Deviation 68.1 H, RDW Coeff of Nemo 19.0 H, Plt Count 37 L*, MPV 10.1, Immature Gran % (Auto) 1.300 H, Neut % (Auto) 45.4 L, Lymph % (Auto) 28.3, Christian % (Auto) 24.3 H, Eos % (Auto) 0.0, Baso % (Auto) 0.7, Absolute Neuts (auto) 0.7 L, Absolute Lymphs (auto) 0.43 L, Nucleated RBC % 0, Diff Path Review October wenceslao, Platelet Estimate MKD DEC, Hypochromasia 1+, Poikilocytosis 1+, Anisocytosis 1+, Microcytosis 1+, Ovalocytes 1+ 04/18/22 07:02: Sodium 141, Potassium 3.3 L, Chloride 111 H, Carbon Dioxide 23.0, Anion Gap 7, BUN 15, Creatinine 0.99, Estim Creat Clear Calc 66.57, Est GFR (MDRD) Af Amer 95, Est GFR (MDRD) Non-Af 79, BUN/Creatinine Ratio 15.2, Glucose 95, Calcium 7.6 L, Total Bilirubin 0.20, AST 10 L, ALT 20, Alkaline Phosphatase 86, Total Protein 5.2 L, Albumin 2.5 L, Globulin 2.7, Albumin/Globulin Ratio 0.9 Physical Exam Narrative General: Alert, Oriented x3, Cooperative, No apparent distress HEENT: Atraumatic, PERRLA, EOMI, Normocephalic Oral: Moist Mucosa Neck: Supple, No JVD Lungs: Diminished, Normal air movement, No rhonchi, No wheeze, No rales Cardiovascular: Regular rate, Regular Rhythm, Normal S1, Normal S2, No murmurs Abdomen: Soft, Non Tender, Non-Distended, No Hepato-splenomegaly Extremities: No edema, Capillary Refill Less than 3 Seconds Skin: No rashes, No breakdown, pale Musculoskeletal: No Tenderness to Palpation of Joints or Extremities Neurological: Cranial nerves II-XII grossly intact, Motor Exam 5/5 strength throughout, Sensory exam intact to light touch and pain Psych/Mental Status: Normal Affect, Appropriate Assessment & Plan Assessment/Plan (1) Hematuria: PLAN: Plan 1. Acute blood loss anemia secondary to hematuria from metastatic prostate cancer with chronic pancytopenia ? Received 2 units of blood yesterday hemoglobin is now 7.5 we will continue to monitor ? Had a cystoscopy overnight and cauterized multiple areas of bleeding on the prostate ? Continue with continuous bladder irrigation ? Appreciate urology assistance ? He follows with [facility] oncology and is currently on chemotherapy which explains his pancytopenia ? He did receive platelets yesterday we will continue to monitor 2. Seizure disorder ? Stable ? Continue with Keppra, it appears he started having seizures after Xtandi was started 3. Anxiety/depression ? Stable ? Continue with his home medications 4. GERD ? Stable ? Continue with PPI DVT: SCDs Charges/Coding Visit Charges Inpatient E&M: 37287 Subs Hosp L2
[2022-04-18] MEDS: Pantoprazole Sodium 40 MG Tablet PO (09:01)
[2022-04-18] MEDS: predniSONE 5 MG Tablet PO (09:01)
[2022-04-18] MEDS: Escitalopram Oxalate 10 MG Tablet PO (09:01)
[2022-04-18] MEDS: levETIRAcetam 500 MG Tablet PO ×2 (09:01→20:38)
[2022-04-18] MEDS: Ensure Plus High Protein 120 ML LIQUID PO ×4 (09:08→20:38)
[2022-04-18 12:07] LABS: Hematocrit 23.7 % (40-54); POSITIVE COUNT YES
[2022-04-18] MEDS: 0.9% Normal Saline 1,000 ML 75 ML IV (18:13)
[2022-04-18] MEDS: Potassium Chloride Oral Tablet 20 MEQ 40 MEQ PO (20:38)
[2022-04-18] MEDS: Pramipexole Di-HCl 0.25 MG Tablet PO (20:38)
[2022-04-19] VITALS (8 sets, daily range): BP systolic 81–108; BP diastolic 47–69; PULSE 84–93; RESP 16–18; TEMP 36.8–37.4; O2SAT 94–98
[2022-04-19] MEDS: 0.9% Normal Saline 1,000 ML 999 ML IV (02:06)
[2022-04-19 02:27] LABS: Hematocrit 21.8 % (40-54); Hemoglobin 7.1 g/dL (13.0-16.5); POSITIVE COUNT YES
[2022-04-19] MEDS: 0.9% Normal Saline 1,000 ML 75 ML IV ×2 (03:05→14:35)
[2022-04-19 05:35] LABS: Absolute Neutrophil Count 1.2 X10^3/uL (2.0-7.7); Basophil# 0.02 X10^3/uL; Basophil% 0.8 % (0-1); Hemoglobin 7.3 g/dL (13.0-16.5); Lymphocyte % 24.4 % (19-41); Mean Corp Hgb Conc 31.7 g/dL (32-36); Mean Corpuscular Hgb 32.3 pg (27.0-32.0); Mean Corpuscular Volume 101.8 fL (80-94); Mean Platelet Vol. 11.4 fl (6.2-12.0); Monocyte# 0.56 X10^3/uL; Monocyte% 22.8 % (0-10); NRBC Flagged by Analyzer 0 % (0-5); Neutrophil # 1.23 X10^3/uL (2.7-7.7); POSITIVE COUNT YES; POSITIVE DIFFERENTIAL YES; POSITIVE MORPHOLOGY YES; Platelet Count 36 K/mm3 (150-450); RBC Distribution Width CV 19.2 % (11.6-14.6); RBC Distribution Width SD 71.7 fl (35.1-43.9); Red Blood Count 2.26 M/mm3 (4.6-6.2); White Blood Count 2.5 K/mm3 (4.4-11.0)
[2022-04-19 05:46] LABS: Differential Indicated SCAN CRITERIA MET
[2022-04-19 06:07] LABS: Anion Gap 5 (5-15); BUN 10 mg/dL (7-18); BUN/Creat Ratio 10.1 RATIO (10-20); Calcium,Total 7.5 mg/dL (8.5-10.1); Chloride 115 mmol/L (98-107); Creatinine, Serum 0.99 mg/dL (0.70-1.30); EST Glomerular Filtration Rate 79 mL/min (>60); Est Glom Filt Rate - Afr Amer 95 mL/min (>60); Estimated Creatinine Clearance 66.57 ml/min; Glucose 95 mg/dL (74-106); Potassium 3.7 mmol/L (3.5-5.1); Sodium Level 143 mmol/L (136-145)
[2022-04-19 06:51] LABS: Anisocytosis 2+; Macrocytosis 2+; Platelet Estimate MKD DEC (ADEQ)
[2022-04-19] MEDS: predniSONE 5 MG Tablet PO (08:21)
[2022-04-19] MEDS: Pantoprazole Sodium 40 MG Tablet PO (08:21)
[2022-04-19] MEDS: Ensure Plus High Protein 120 ML LIQUID PO ×3 (08:24→20:12)
[2022-04-19] MEDS: levETIRAcetam 500 MG Tablet PO ×2 (08:24→20:13)
[2022-04-19] MEDS: Escitalopram Oxalate 10 MG Tablet PO (08:24)
--- NOTE | 2022-04-19 14:02 | NURSING ---
Dr. Ann aware Pt doing well, stable and urine is pale yellow. Dr. Ann wants for the wilkins to stay in but to have this RN stop CBI. This RN stopped CBI.
--- NOTE | 2022-04-19 14:31 | PCM.PN.HOSP ---
Subjective Subjective Patient indicates overall he is feeling well. Concerned that his chemo which is due tomorrow, will need to be delayed. I did discuss this with Dr. Montano and he states that is fine and they will give him a call after discharge to reset up his chemotherapy. Patient voiced understanding. Bleeding has seemed to cease with continuous irrigation and Vera negative for any signs of blood. Objective Data Objective Data Vital Signs: Vital Signs Temp Pulse Resp BP Pulse Ox O2 Del Method 98.4 F 93 18 106/62 98 Room Air 04/19/22 14:02 04/19/22 14:02 04/19/22 14:02 04/19/22 14:02 04/19/22 14:02 04/19/22 14:02 Oxygen Delivery Method Room Air Weight: 92.3 kg Body Mass Index (BMI) 18.0 Intake & Output: Intake and Output for Last 24 Hours 04/17/22 04/18/22 04/19/22 23:59 23:59 23:59 Intake Total 1725.0 / 1725.0 2207.92 / 2357.92 2361.25 / 2361.25 Output Total 48611 / 23088 12361 / 19409 1300 / 1300 Balance -00953.0 / -89902.0 -88265.08 / -72629.08 1061.25 / 1061.25 Lab / Micro Data Result Diagrams: 04/19/22 05:03 04/19/22 05:03 Labs: Laboratory Results - last 24 hr 04/18/22 07:02: Magnesium 2.0 04/19/22 02:20: Hgb 7.1 L, Hct 21.8 L 04/19/22 05:03: WBC 2.5 L, RBC 2.26 L, Hgb 7.3 L, Hct 23.0 L, MCV 101.8 H, MCH 32.3 H, MCHC 31.7 L, RDW Std Deviation 71.7 H, RDW Coeff of Nemo 19.2 H, Plt Count 36 L*, MPV 11.4, Immature Gran % (Auto) 2.000 H, Neut % (Auto) 50.0, Lymph % (Auto) 24.4, [place] % (Auto) 22.8 H, Eos % (Auto) 0.0, Baso % (Auto) 0.8, Absolute Neuts (auto) 1.2 L, Absolute Lymphs (auto) 0.60 L, Nucleated RBC % 0, Diff Path Review May foll, Platelet Estimate MKD DEC, Anisocytosis 2+, Macrocytosis 2+ 04/19/22 05:03: Sodium 143, Potassium 3.7, Chloride 115 H, Carbon Dioxide 23.0, Anion Gap 5, BUN 10, Creatinine 0.99, Estim Creat Clear Calc 66.57, Est GFR (MDRD) Af Amer 95, Est GFR (MDRD) Non-Af 79, BUN/Creatinine Ratio 10.1, Glucose 95, Calcium 7.5 L Micro: Microbiology 04/17/22 04:20 Blood Culture (Wb) - Right Wrist Blood Culture - Preliminary No growth in 48 hours. 04/17/22 04:32 Blood Culture (Wb) - Left Wrist Blood Culture - Preliminary No growth in 48 hours. Physical Exam Const alert, oriented x3, no apparent distress and well nourished Constitutional Narrative: Overweight, older white male sitting up in bed watching television, appears comfortable nontoxic HEENT head/scalp atraumatic and moist oral mucous membranes Head and Scalp: normocephalic Resp normal respiratory effort, no retractions, no use of accessory muscles and clear to auscultation bilaterally Auscultation: Negative for crackles, rales, rhonchi or wheezes Cardio regular rate, regular rhythm, S1 normal heart sound, S2 normal heart sound, no murmurs, no rub, no gallops and no clicks GI normal to inspection, nondistended, normoactive bowel sounds, soft to palpation and non-tender GI Narrative: Vera in place-no blood in bag or catheter tubing Extremity no clubbing, cyanosis or edema Extremity Narrative: 2+ pedal pulses Neuro oriented x3, moves all extremities and no focal motor deficits Speech: speech normal Psych affect normal Psych Narrative: very pleasant, appropriate Assessment & Plan Assessment/Plan (1) Benign prostatic hypertrophy: (2) Pancytopenia: (3) Lactic acidosis: (4) Gross hematuria: (5) Acute blood loss anemia: PLAN: Plan Acute blood loss anemia secondary to gross hematuria -Patient with history of recurrent hematuria -Hematuria has now resolved -Required previous bladder cauterization of prostatic bleeding in February of this past year -Urology consulted and patient was taken to the OR on 04/17/2022 at which time cystoscopy with evacuation of blood clots and cauterization of prostatic bleeding was performed -Currently no signs of bleeding with continuous bladder irrigation -Per discussion with urology will hold CBI and leave Vera and to continue evaluation if stable possible discharge tomorrow -Patient was transfused both blood and platelets with chronic thrombocytopenia related to his chemo as well as acute on chronic anemia with a bleeding and ongoing chemo -Appreciate urology input Lactic acidosis -Suspect related to hemorrhagic prostatic bleeding -Now resolved with treatment and transfusion Acute blood loss anemia on chronic anemia related to chemo -Hemoglobin philip was 5.6 -Patient transfused packed red blood cells -Globin is now stabilized and has been between 7.1 and 8 over the last 24 hours Chronic pancytopenia secondary to chemotherapy -Overall counts appear to be stable -Repeat CBC in a.m. -No signs of ongoing hematuria Metastatic prostate cancer -Patient was to receive his next chemo dose tomorrow 04/20/2022 -Discussed case with Dr. Montano and they will call him once he is discharged to reschedule chemo GERD -Continue home PT PI Seizure disorder -Continue home zonisamide -Continue home Keppra Restless leg syndrome -Continue home Mirapex Chronic pain -Continue home [place] History of DVT/PE -Patient is not on full anticoagulation secondary to bleeding -No current issues next-continue to monitor Depression -Continue Lexapro DVT prophylaxis -Chemoprophylaxis contraindicated with hematuria on admission -Continue SCDs CODE STATUS -full code Charges/Coding Visit Charges Inpatient E&M: 42666 Subs Hosp L2
[2022-04-19] MEDS: Pramipexole Di-HCl 0.25 MG Tablet PO (20:13)
[2022-04-20] MEDS: 0.9% Normal Saline 1,000 ML 75 ML IV (03:18)
[2022-04-20 03:22] VITALS: BP 116/73; PULSE 89; RESP 16; TEMP 37.4; O2SAT 97
[2022-04-20 05:07] LABS: Hematocrit 23.3 % (40-54); Hemoglobin 7.6 g/dL (13.0-16.5); Mean Corp Hgb Conc 32.6 g/dL (32-36); Mean Corpuscular Volume 101.3 fL (80-94); Mean Platelet Vol. 10.3 fl (6.2-12.0); POSITIVE COUNT YES; POSITIVE MORPHOLOGY YES; Platelet Count 51 K/mm3 (150-450); RBC Distribution Width CV 18.8 % (11.6-14.6); RBC Distribution Width SD 69.4 fl (35.1-43.9); White Blood Count 4.2 K/mm3 (4.4-11.0)
[2022-04-20 05:08] LABS: Differential Indicated MANUAL DIFF
[2022-04-20 05:26] LABS: Absolute Lymphocyte Count 0.66 X10^3/uL (0.83-4.51)
[2022-04-20 05:27] LABS: Absolute Neutrophil Count 2.8 X10^3/uL (2.0-7.7); Anisocytosis 2+; Atypical Lymphocyte 2+ %; Lymphocyte 16 % (19-41); Macrocytosis 2+; Metamyelocyte 5 % (0-1); Monocyte 11 % (0-10); Myelocyte 1 % (0-0); Neutrophil-Segmented 67 % (47-70); Platelet Estimate MOD DEC (ADEQ); Total Cells Counted 100 (MANUAL DIFF)
[2022-04-20 05:32] LABS: Anion Gap 5 (5-15); BUN 9 mg/dL (7-18); BUN/Creat Ratio 10.3 RATIO (10-20); Calcium,Total 7.8 mg/dL (8.5-10.1); Chloride 113 mmol/L (98-107); Creatinine, Serum 0.87 mg/dL (0.70-1.30); EST Glomerular Filtration Rate 91 mL/min (>60); Est Glom Filt Rate - Afr Amer 110 mL/min (>60); Glucose 92 mg/dL (74-106); Potassium 3.4 mmol/L (3.5-5.1); Sodium Level 143 mmol/L (136-145)
[2022-04-20 07:22] LABS: Pathologist Review Reviewed
[2022-04-20 07:23] LABS: Pathologist Review Reviewed
[2022-04-20 07:23] LABS: Pathologist Review Reviewed
[2022-04-20 07:24] LABS: Pathologist Review Reviewed
--- NOTE | 2022-04-20 07:38 | PCM.CONS.B ---
Consult Date of Consult: 04/20/22 Reason for Consult 76-year-old male status post evacuation of blood clots cauterization of prostatic bleeding urine is completely clear today I think we can remove the catheter and as long as he can urinate okay the urine stays clear he does not need a catheter again and probably can go home.
[2022-04-20] MEDS: Escitalopram Oxalate 10 MG Tablet PO (08:14)
[2022-04-20] MEDS: predniSONE 5 MG Tablet PO (08:14)
[2022-04-20] MEDS: levETIRAcetam 500 MG Tablet PO (08:14)
[2022-04-20] MEDS: Pantoprazole Sodium 40 MG Tablet PO (08:15)
[2022-04-20] MEDS: Ensure Plus High Protein 120 ML LIQUID PO (08:15)
[2022-04-20] MEDS: Potassium Chloride Oral Tablet 20 MEQ 40 MEQ PO (08:15)
[2022-04-20 08:34] VITALS: O2SAT 97
[2022-04-20 08:38] VITALS: BP 118/70; PULSE 88; RESP 18; TEMP 36.8; O2SAT 96
[2022-04-20 08:39] VITALS: BP 118/70; PULSE 88; RESP 18; TEMP 36.8; O2SAT 96
--- NOTE | 2022-04-20 10:08 | DS.PCM_ITS ---
Providers Date of Admission: 04/17/22 Date of Discharge: 04/20/22 Primary Care Physician: Dr. Bib Dixon MD Consultations 04/17/22 06:53 Consult: Urology Routine Consulting Provider: Arnie Ann Reason for Consult: Recurrent hematuria, retention EMERGENT Consult: No MD Notified: Yes Date Notified: 04/17/22 Time Notified: 05:48 Method of Notification: ED Physician Initiated Reason For Visit: HEMATURIA, URINARY RETENTION Diagnosis Discharge Diagnosis (1) Benign prostatic hypertrophy: Status: Chronic Code(s): N40.0 - Benign prostatic hyperplasia without lower urinary tract symptoms (2) Pancytopenia: Status: Acute Code(s): D61.818 - Other pancytopenia (3) Lactic acidosis: Status: Acute Code(s): E87.20 - Acidosis, unspecified (4) Gross hematuria: Status: Acute Code(s): R31.0 - Gross hematuria (5) Acute blood loss anemia: Status: Acute Code(s): D62 - Acute posthemorrhagic anemia Medications at Discharge Home Medications levetiracetam 750 mg tablet 500 mg PO BID seizure 08/26/15 escitalopram oxalate 10 mg tablet 10 mg PO DAILY mood 01/18/21 pramipexole 2.25 mg tablet,extended release 24 hr 0.25 mg PO QHS health maintenance 02/18/21 oxycodone-acetaminophen 7.5 mg-325 mg tablet 1 tab PO Q8H PRN Pain 08/07/21 prednisone 5 mg tablet 10 tab PO DAILY sterioid 01/01/22 calcium 600 mg capsule 1,200 mg PO DAILY health maintenance 01/25/22 pantoprazole 40 mg tablet,delayed release (Protonix) 40 mg PO DAILY #30 tabs 02/14/22 promethazine 25 mg tablet 25 mg PO PRN PRN Nausea 04/17/22 zonisamide 25 mg capsule 25 mg PO DAILY Check with primary doctor 04/17/22 Hospital Course Operations - (Cystoscopy evacuation of blood clots cauterization of prostatic bleeding) Procedures None Summary of Care Provided Minutes Spent on Discharge: 37 Hospital Course: Mr. Hoyos is a 76-year-old white male who presented to the emergency department [facility] 04/17/2022 with recurrent hematuria and urinary retention. In February of this year he required admission the hospital and intervention in the OR for gross hematuria secondary to prostatic bleeding. His presentation at this time is very similar to that. He indicated that he has had recurrent episodes of intermittent hematuria for couple weeks prior to presentation but over the last 2 days prior to presentation he had increased bright red blood oozing from his urethral meatus with the inability urinate and some lower abdominal discomfort. Work-up in the ED included T96.7, heart rate 98, BP 108/70, respiratory rate 17, 98% on room air, CBC with WBC 0.9, hemoglobin 7.8, MCV 108.9, platelet 9 with neutropenia and lymphopenia, coags w ith PT 13.8, INR 1.1, PTT 23.9, BMP with BUN/creat 23/1.38, glucose 129, type and screen pending per ED physician, blood culture x2 pending per ED, procalcitonin 0.20, lactic acid 3.5, urinalysis with notable evidence of hematuria but no obvious evidence of UTI.? In the ED patient initiated on miya nuous bladder irrigation. ED discussed case with Dr. Ann and he requested that 2 units of platelets be given prior to operative intervention. The patient was taken to the OR on the evening of 04/17/2022 at which time a cystoscopy with evacuation of blood clots and cauterization of prostatic bleeding was performed. The patient was maintained with a 22 [place] three-way catheter and continuous i rrigation with saline after admission to the medical floor. By the a.m. of 04/19/2022 the continuous irrigation revealed no ongoing bleeding and was discontinued. The Vera was maintained and the patient continued to do well. Urology reevaluated the patient on the a.m. of 04/20/2022 and given no further bleeding discontinue the Vera and cleared him for discharge as long as he was able to urinate independently. With regard to cultures all cultures exhibited no growth prior to discharge. His lactic acid doses resolved with blood transfusion and his hemoglobin stabilized in the mid 7 range being 7.6 on discharge. He had pancytopenia at the time of admission related to his chemotherapy. Patient did report that he was due for his next chemo cycle on the day of discharge. I did contact Dr. Montano office and let him know about his admission and he indicated he would call the patient after discharge to set up his next chemotherapy. Counts at the time of discharge were recovering with a white count of 4.2, hemoglobin of 7.6, and platelet count of 51,000. He was discharged home in stable condition on 04/20/2022 and instructed to follow-up with his primary care physician within the next [address] Montano as previously scheduled. Discharge diagnoses: Gross hematuria secondary to prostatic bleeding status post cauterization Acute blood loss anemia Pancytopenia secondary to chemotherapy Lactic acidosis-resolved Metastatic prostate cancer GERD Seizure disorder Restless leg syndrome Chronic pain History of DVT/PE Depression Physical Exam Const alert, oriented x3, no apparent distress and well nourished Constitutional Narrative: Overweight, older white male sitting up in bed watching television and eating breakfast, appears comfortable nontoxic General Appearance: cooperative, comfortable, well kempt and well developed Orientation / Consciousness: awake, oriented to person, oriented to place and oriented to time Exam Limitations: no limitations HEENT normocephalic, head/scalp atraumatic and moist oral mucous membranes HEENT Narrative: Mild hearing impairment, dentition is fair for age, Mallampati is 2 Eyes PERRL and EOMs intact bilaterally Eyes Narrative: Slight conjunctival pallor, no scleral icterus Neck no lymphadenopathy and supple Neck Narrative: Trachea midline, no thyroid enlargement Resp normal respiratory effort, no retractions, no use of accessory muscles and clear to auscultation bilaterally Auscultation: Negative for crackles, rales, rhonchi or wheezes Cardio regular rate, regular rhythm, S1 normal heart sound, S2 normal heart sound, no murmurs, no rub, no gallops and no clicks GI normal to inspection, nondistended, normoactive bowel sounds, soft to palpation and non-tender GI Narrative: Vera moved Extremity no clubbing, cyanosis or edema Extremity Narrative: 2+ pedal pulses Skin no rashes or lesions noted, no wounds, skin turgor normal and no jaundice Neuro oriented x3, CN's II-XII intact bilaterally, moves all extremities and no focal motor deficits Speech: speech normal Psych affect normal Psych Narrative: very pleasant, appropriate Weight / BMI Weight Weight: 58.4 kg Body Mass Index (BMI) 18.0 ABG / Lab / Microbiology Data Result Diagrams: 04/20/22 04:46 04/20/22 04:46 Laboratory: Laboratory Results - last 24 hr 04/17/22 03:45: Diff Path Review Reviewed 04/17/22 18:02: Diff Path Review Reviewed 04/18/22 07:02: Diff Path Review Reviewed 04/19/22 05:03: Diff Path Review Reviewed 04/20/22 04:46: WBC 4.2 L, RBC 2.30 L, Hgb 7.6 L, Hct 23.3 L, MCV 101.3 H, MCH 33.0 H, MCHC 32.6, RDW Std Deviation 69.4 H, RDW Coeff of [place] 18.8 H, Plt Count 51 L, MPV 10.3, Neut % (Auto) Not Reportable, Absolute Neuts (auto) 2.8, Absolute Lymphs (auto) 0.66 L, Total Counted 100, Neutrophils % (Manual) 67, Lymphocytes % (Manual) 16 L, Monocytes % (Manual) 11 H, Metamyelocytes % 5 H, Myelocytes % 1 H, Diff Path Review May foll, Atypical Lymphocytes 2+, Platelet Estimate MOD DEC, Anisocytosis 2+, Macrocytosis 2+ 04/20/22 04:46: Sodium 143, Potassium 3.4 L, Chloride 113 H, Carbon Dioxide 25.0, Anion Gap 5, BUN 9, Creatinine 0.87, Estim Creat Clear Calc 60.60, Est GFR (MDRD) Af Amer 110, Est GFR (MDRD) Non-Af 91, BUN/Creatinine Ratio 10.3, Glucose 92, Calcium 7.8 L Microbiology: Microbiology 04/17/22 04:20 Blood Culture (Wb) - Right Wrist Blood Culture - Preliminary No growth in 48 hours. 04/17/22 04:32 Blood Culture (Wb) - Left Wrist Blood Culture - Preliminary No growth in 48 hours. Meaningful Use Info Meaningful Use Diagnoses (Choose all that apply): None applicable Discharge Plan Admission Admit Date/Time: 04/17/22 05:45 Primary Reason for Your Visit: Gross hematuria Attending Provider: Rica Hernandez Primary Care Provider: Bib Dixon Consulting Providers: Rosalina Rodriguez ; Arnie Ann ; Regan Omer Discharge Orders/Prescriptions Prescriptions: Continued pramipexole 2.25 mg tablet extended release 24 hr 0.25 mg PO QHS levetiracetam 750 MG tablet 500 mg PO BID Label Comments: SEIZURE escitalopram oxalate 10 mg Tablet 10 mg PO DAILY oxycodone-acetaminophen 7.5-325 mg Tablet 1 tab PO Q8H PRN (Reason: Pain) prednisone 5 mg tablet 10 tab PO DAILY calcium 600 mg Capsule 1,200 mg PO DAILY pantoprazole [Protonix] 40 mg tablet,delayed release (DR/EC) 40 mg PO DAILY Qty: 30 0RF promethazine 25 mg tablet 25 mg PO PRN PRN (Reason: Nausea) zonisamide 25 mg Capsule 25 mg PO DAILY Referrals / Follow Up: Bib Dixon MD [Primary Care Provider] - Within 2 Weeks Rc Montano DO [Med Staff - Active Staff] - See Referral Note (as scheduled) Disposition Disposition (needs filled in before D/C Order can be placed): Home, Self Care Charges/Coding Visit Charges Inpatient E&M: 37826 Disch Hosp
--- NOTE | 2022-04-20 10:46 | CASEMGMT ---
JAQUI KARIMI in to pt room, pt is ready to go home. Pt denies any homegoing needs. He is aware that should he feel once home that he needs therapy, to contact his PCP. Pt denies the need for any therapy currently.
--- NOTE | 2022-04-20 11:01 | PHA.DC.MR ---
Pharmacy Service has performed discharge medication reconciliation for this patient. The patient's discharge medication list was reviewed for discrepancies and discrepancies were resolved. Home Medications levetiracetam 750 mg tablet 500 mg PO BID seizure 08/26/15 escitalopram oxalate 10 mg tablet 10 mg PO DAILY mood 01/18/21 pramipexole 2.25 mg tablet,extended release 24 hr 0.25 mg PO QHS health maintenance 02/18/21 oxycodone-acetaminophen 7.5 mg-325 mg tablet 1 tab PO Q8H PRN Pain 08/07/21 prednisone 5 mg tablet 10 tab PO DAILY sterioid 01/01/22 calcium 600 mg capsule 1,200 mg PO DAILY health maintenance 01/25/22 pantoprazole 40 mg tablet,delayed release (Protonix) 40 mg PO DAILY #30 tabs 02/14/22 promethazine 25 mg tablet 25 mg PO PRN PRN Nausea 04/17/22 zonisamide 25 mg capsule 25 mg PO DAILY Check with primary doctor 04/17/22
[2022-04-20 11:20] VITALS: BP 110/69; PULSE 91; RESP 18; TEMP 37.3; O2SAT 98
[2022-04-20 14:56] LABS: Pathologist Review Reviewed
== END 2022-04-20 13:12 | disposition home or self-care (01) | DRG 717 ==
LOC: ED 06:05 → MS3 06:11
PROVIDERS: Family Medicine; Urology; Admitting Provider Family Medicine; Emergency Provider Emergency Medicine; PCP Family Medicine; Visit Provider Internal Medicine
PROC: 0W3R8ZZ Control Bleeding in Genitourinary Tract, Via Natural or Artificial Opening Endoscopic (ICD-10-PCS; CPT 52214; principal; 2022-04-17 22:30)
DX: N40.1 Benign prostatic hyperplasia with lower urinary tract symptoms (principal); D61.810 Antineoplastic chemotherapy induced pancytopenia; C79.51 Secondary malignant neoplasm of bone; E87.20 Acidosis, unspecified; D62 Acute posthemorrhagic anemia; D69.6 Thrombocytopenia, unspecified; C61 Malignant neoplasm of prostate; G40.909 Epilepsy, unspecified, not intractable, without status epilepticus; D70.9 Neutropenia, unspecified; G25.81 Restless legs syndrome; K21.9 Gastro-esophageal reflux disease without esophagitis; R33.8 Other retention of urine; R31.0 Gross hematuria; G89.29 Other chronic pain; T45.1X5A Adverse effect of antineoplastic and immunosuppressive drugs, initial encounter; F32.A Depression, unspecified; Z92.21 Personal history of antineoplastic chemotherapy; Z87.891 Personal history of nicotine dependence
CPT/HCPCS: 36415; 51702; 80048; 80053; 81001; 83605; 83735; 84100; 84145; 85014; 85018; 85025; 85610; 85730; 86644; 86850; 86900; 86901; 86920; 86965; 87040; 93005; 97162; 97166; 97802; 99251; 99285; J7030; J7040; P9016; P9035; A4216; G0463; J2405

== ENCOUNTER → 2022-11-25 | Outpatient (CLI) | payer MEDICARE, OTHER, SELFPAY ==
--- NOTE | 2022-11-25 15:49 | MRI_ITS ---
MRI Abdomen w/ and w/out contrast 11/25/2022 4:12 PM COMPARISON: CT 02/12/2021 CLINICAL HISTORY: PROSTATE CA,METS TO LIVER AND BONE TECHNIQUE: Multiplanar T1 and T2 weighted, diffusion and dynamic post-gadolinium images were obtained through the abdomen before and after administration of IV gadolinium. FINDINGS: Liver: There are posttreatment changes in the right hepatic lobe consistent with known metastasis from prostate carcinoma. Decreased T1 signal involving the large portion of the right hepatic lobe most likely represents post treatment changes. No suspicious enhancing lesions. Gallbladder: Surgically absent. Pancreas: Unremarkable Spleen: Unremarkable Adrenal Glands: Unremarkable Kidneys: Unremarkable GI Tract: Unremarkable Lymphadenopathy: Absent Ascites: Absent. Stable appearance of the induration of the root of mesentery. Bones: Enhancing heterogeneous lesion involving the right side of the L1 vertebral body concerning for metastatic disease. MRI/MRI Abd WITH and W/O Contrast IMPRESSION: Findings concerning for osseous metastases including a lesion involving the right side of the L1 vertebral body. Posttreatment changes in the right hepatic lobe consistent with known metastasis from prostate carcinoma. No suspicious enhancement. Stable appearance of the induration of the root of mesentery. Electronically Signed: Quentin Hoff MD at 0:11 EDT ,
== END | disposition home or self-care (01) ==
PROVIDERS: PCP Family Medicine; Referring Provider Internal Medicine Hematology & Oncology; Visit Provider Internal Medicine Hematology & Oncology
DX: C61 Malignant neoplasm of prostate (principal); C78.7 Secondary malignant neoplasm of liver and intrahepatic bile duct; C79.51 Secondary malignant neoplasm of bone
CPT/HCPCS: 74183; A9575; A4216

== ENCOUNTER 2023-01-17 12:07 | Emergency (ER) | payer MEDICARE, OTHER, SELFPAY ==
[2023-01-17 12:08] VITALS: BP 99/65; PULSE 118; RESP 20; TEMP 36.7; O2SAT 98
[2023-01-17 13:43] VITALS: BP 101/66; PULSE 100; RESP 16; TEMP 36.8; O2SAT 100; BMI 28.0
--- NOTE | 2023-01-17 13:54 | EKG12_ITS ---
Test Reason : Blood Pressure : / mmHG Vent. Rate : 100 BPM Atrial Rate : 100 BPM P-R Int : 150 ms QRS Dur : 090 ms QT Int : 348 ms P-R-T Axes : 018 -25 -04 degrees QTc Int : 448 ms Normal sinus rhythm Normal ECG Confirmed by JESUS ZHONG ([id number]), editor farm journal CASSANDRA TSANG ([id number]) on 01/22/2023 9:27:11 AM Referred By: Confirmed By:JESUS ZHONG
--- NOTE | 2023-01-17 13:55 | EDS_ITS ---
HPI History of Present Illness Chief Complaint: Weakness Informant: patient Onset/Context/Timing Onset: Yesterday Narrative Narrative: Patient presents with weakness and not feeling well since yesterday. He has a h istory of prostate cancer with mets to bone and liver. He was seen by Dr. Montano in the office this morning. He was noted to have a temperature of 100.7 and tachycardia. He was sent to the ER for possible sepsis. Patient denies cough or congestion. He denies abdominal pain, vomiting, or diarrhea. He states he is tolerating p.o. without difficulty. He denies urinary symptoms. 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 Pancytopenia Prostate CA Prostate cancer Prostate cancer metastatic to bone Pulmonary embolism Seizures Skin ulcer of right heel with fat layer exposed Spinal stenosis Thrombocytopenia Home Medications levetiracetam 750 mg tablet 500 mg PO BID seizure 08/26/15 [History Last Taken 02/11/22 11:00] escitalopram oxalate 10 mg tablet 10 mg PO DAILY mood 01/18/21 [History Last Taken 02/10/22 21:00] pramipexole 2.25 mg tablet,extended release 24 hr 0.25 mg PO QHS health maintenance 02/18/21 [History Last Taken 02/10/22 21:00] oxycodone-acetaminophen 7.5 mg-325 mg tablet 1 tab PO Q8H PRN Pain 08/07/21 [History Last Taken 02/11/22 04:00] prednisone 5 mg tablet 10 tab PO DAILY sterioid 01/01/22 [History Last Taken 02/10/22 09:00] calcium 600 mg capsule 1,200 mg PO DAILY health maintenance 01/25/22 [History Last Taken 02/10/22 09:00] pantoprazole 40 mg tablet,delayed release (Protonix) 40 mg PO DAILY #30 tabs 02/14/22 [Rx Last Taken Unknown] promethazine 25 mg tablet 25 mg PO PRN PRN Nausea 04/17/22 [History Last Taken Unknown] zonisamide 25 mg capsule 25 mg PO DAILY Check with primary doctor 04/17/22 [History Last Taken Unknown] levofloxacin 750 mg tablet 750 mg PO DAILY #4 tabs 01/17/23 [Rx Last Taken Unkno wn] Allergy/AdvReac Type Severity Reaction Status Date / Time Iodinated Contrast Media Allergy Hives Verified 01/17/23 12:10 [CONTRASTS] Penicillins Allergy Unknown Verified 01/17/23 12:10 morphine AdvReac Nausea/Vom/ Verified 01/17/23 12:10 Diarrhea Family History Mother Cancer Hypertension Heart disease Sister Cancer Brother Cancer Sister Ovarian cancer Father Alcohol-induced persisting dementia Surgical History Hx of cholecystectomy S/P TURP Social History household members: spouse Smoking Status: Former smoker quit date: 06/06/84 alcohol intake: current alcohol intake frequency: holidays/special occasions only substance use type: does not use ROS ROS ED Constitutional Constitutional ED: Reports fever(s); Denies chills Eyes Eyes: Denies change in vision or discharge from eye(s) ENT ENT ED: Denies discharge from eye(s), rhinorrhea or sore throat Cardiovascular Cardiovascular: Denies chest pain or palpitations Respiratory/Chest Respiratory/Chest: Denies cough or dyspnea Gastrointestinal Gastrointestinal: Denies abdominal pain, diarrhea, nausea or vomiting Genitourinary Genitourinary ED: Denies dysuria Musculoskeletal Musculoskeletal: Denies back pain or extremity pain Integumentary Denies Abrasions or rash Neurologic Neurologic: Reports paresthesias and weakness; Denies headache(s) Psychiatric Psychiatric: Denies anxiety or depression Allergic/Immunologic Allergic/Immunologic ED: Denies lip swelling or urticaria EXAM Physical Exam Const Vital Signs: 01/17/23 12:08 01/17/23 13:36 01/17/23 13:43 Temperature 98.1 F 98.3 F Temperature Source Oral Oral Pulse Rate 118 H 100 Respiratory Rate 20 H 16 Respiratory Effort Normal Respiratory Pattern Normal Blood Pressure 99/65 101/66 Blood Pressure Mean 76 77 Pulse Ox 98 100 Oxygen Delivery Method Room Air Room Air 01/17/23 14:00 01/17/23 15:20 Temperature 98.4 F 97.1 F L Temperature Source Oral Oral Pulse Rate 94 91 Respiratory Rate 14 16 Respiratory Effort Respiratory Pattern Blood Pressure 96/68 107/62 Blood Pressure Mean 77 77 Pulse Ox 98 96 Oxygen Delivery Method Room Air Positive well nourished and well developed General Appearance ED: well developed HEENT Reports normocephalic and head/scalp atraumatic Eyes PERRL and EOMs intact bilaterally Neck supple Chest Wall inspection of chest normal and palpation of chest normal Resp normal respiratory effort and clear to auscultation bilaterally Cardio regular rate and regular rhythm GI non-tender Auscultation: hypoactive bowel sounds Palpation: soft Extremity normal to inspection Neuro oriented x3 and no sensory deficits noted Sensorium / Orientation: alert Motor Exam: strength 5/5 throughout Psych mental status grossly normal Skin no rashes or lesions noted MDM MDM MDM Narrative Medical decision making narrative: Sepsis work-up initiated. Repeat oral temperature at this time is 98.3. IV fluids given. History & Record Review Discussion w/independent historian: Patient and Family Additional record(s) reviewed:: Prior outpatient record, Prior ED visit and Prior labs Lab Data Attestation: I reviewed the patient's lab results. Labs: Laboratory Results - last 24 hr 01/17/23 01/17/23 14:15 15:07 WBC 9.9 RBC 2.99 L Hgb 8.4 L Hct 27.8 L MCV 93.0 MCH 28.1 MCHC 30.2 L RDW Std Deviation 57.3 H RDW Coeff of [place] 16.9 H Plt Count 173 MPV 11.8 Immature Gran % (Auto) 1.500 H Neut % (Auto) 79.8 H Lymph % (Auto) 8.0 L [place] % (Auto) 9.4 Eos % (Auto) 0.6 Baso % (Auto) 0.7 Absolute Neuts (auto) 7.9 H Absolute Lymphs (auto) 0.79 L Nucleated RBC % 0 Sodium 133 L Potassium 3.4 L Chloride 100 Carbon Dioxide 24.0 Anion Gap 9 BUN 16 Creatinine 1.39 H Estim Creat Clear Calc 46.68 Est GFR (MDRD) Af Amer 64 Est GFR (MDRD) Non-Af 53 L BUN/Creatinine Ratio 11.5 Glucose 101 Lactic Acid 1.6 Calcium 9.2 Total Bilirubin 0.60 Direct Bilirubin 0.22 AST 77 H ALT 49 Alkaline Phosphatase 171 H Total Protein 7.9 Albumin 3.3 Globulin 4.6 H Urine Color Yellow Urine Clarity Clear Urine pH 6.5 Ur Specific [place] 1.010 Urine Protein 30 H Urine Glucose (UA) Normal Urine Ketones Negative Urine Occult Blood 25 H Urine Nitrite Negative Urine Bilirubin Negative Urine Urobilinogen Normal Ur Leukocyte Esterase 500 H Urine RBC 0-5 SEEN Urine WBC 25-50 SEEN Ur Squamous Epith Cells 0 SEEN Urine Bacteria 1+ Urine Mucus 0 SEEN Radiography Chest X-Ray - ED: 1 View and Left Infiltrate Diagnostic Testing: Clinical Impression(s) from Imaging Studies Chest X-Ray 01/17/23 14:30 IMPRESSION: Patchy bibasilar infiltrates worse on the left side. Blunting of the left costophrenic angle. Nondisplaced fracture of the lateral superior aspect of the right scapula superior to the glenoid. This is new as compared to prior study. Electronically Signed: Alvin Barragan MD at 15:01 EDT , EKG Initial EKG: Attestation: I personally reviewed and interpreted this EKG as follows: Interpretation: Sinus Rhythm (Sinus at 100 with no acute ischemia.) Treatment and Re-Evaluation :: CBC was normal white count at 9.9 with a hemoglobin of 8.4. This appears consistent with his prior values. He has 79% neutrophils. Chemistry studies reveal sodium of 133 and a potassium of 3.4. BUN is 16 and creatinine is 1.39. This is a slight bump when compared to his prior values. Lactic acid is normal at 1.6. LFTs reveal an alk phos of 171 with an AST of 77. Urinalysis reveals 25-50 white cells with 1+ bacteria. Nitrites are negative. Chest x-ray per my interpretation reveals a left lower lobe infiltrate. Radiology interpretation reveals a patchy bilateral infiltrates worse on the left. EKG is sinus at 100 with no acute ischemia. QTc is 448. Blood and urine cultures have been obtained. Patient be treated with a course of Levaquin. I will speak with his oncologist, Dr. Montano. Close return instructions will be given. Discharge Plan Triage Chief Complaint: Weakness Other Complaint: Confusion ED Provider: Azucena Kennedy Dx/Rx/DC Orders Clinical Impression: UTI (urinary tract infection), Pneumonia Instructions: ED Pneumonia (Adult), ED Urinary Tract Infections in Men Prescriptions: New levofloxacin 750 mg tablet 750 mg PO DAILY Qty: 4 0RF No Action pramipexole 2.25 mg tablet extended release 24 hr 0.25 mg PO QHS levetiracetam 750 MG tablet 500 mg PO BID Patient Comments: SEIZURE escitalopram oxalate 10 mg Tablet 10 mg PO DAILY oxycodone-acetaminophen 7.5-325 mg Tablet 1 tab PO Q8H PRN (Reason: Pain) prednisone 5 mg tablet 10 tab PO DAILY calcium 600 mg Capsule 1,200 mg PO DAILY pantoprazole [Protonix] 40 mg tablet,delayed release (DR/EC) 40 mg PO DAILY Qty: 30 0RF promethazine 25 mg tablet 25 mg PO PRN PRN (Reason: Nausea) zonisamide 25 mg Capsule 25 mg PO DAILY Primary Care Provider: iBb Dixon Referrals: Bib Dixon MD [Primary Care Provider] - 3-5 Days Rc Montano DO [Med Staff - Active Staff] - 5-7 Days Disposition Disposition: Home, Self Care
[2023-01-17 14:00] VITALS: BP 96/68; PULSE 94; RESP 14; TEMP 36.9; O2SAT 98
[2023-01-17 14:27] LABS: Absolute Lymphocyte Count 0.79 X10^3/uL (0.83-4.51); Absolute Neutrophil Count 7.9 X10^3/uL (2.0-7.7); Basophil# 0.07 X10^3/uL; Basophil% 0.7 % (0-1); Eosinophil# 0.06 X10^3/uL; Eosinophils% 0.6 % (0-5); Hematocrit 27.8 % (40-54); Hemoglobin 8.4 g/dL (13.0-16.5); Lymphocyte # 0.79 X10^3/ul (0.83-4.51); Mean Corp Hgb Conc 30.2 g/dL (32-36); Mean Corpuscular Hgb 28.1 pg (27.0-32.0); Mean Platelet Vol. 11.8 fl (6.2-12.0); Monocyte# 0.93 X10^3/uL; Monocyte% 9.4 % (0-10); NRBC Flagged by Analyzer 0 % (0-5); Neutrophil # 7.87 X10^3/uL (2.7-7.7); Neutrophil % 79.8 % (47-70); Platelet Count 173 K/mm3 (150-450); RBC Distribution Width CV 16.9 % (11.6-14.6); RBC Distribution Width SD 57.3 fl (35.1-43.9); Red Blood Count 2.99 M/mm3 (4.6-6.2); White Blood Count 9.9 K/mm3 (4.4-11.0)
[2023-01-17] MEDS: 0.9% Normal Saline 1,000 ML 150 ML IV (14:27)
--- NOTE | 2023-01-17 14:30 | RAD_ITS ---
STUDY: X-RAY CHEST REASON FOR EXAM: Male, 77 years old. Fever TECHNIQUE: Single AP portable view of the chest. COMPARISON: Comparison is made with prior study dated August 26, 2015. FINDINGS: EKG electrodes are seen. Patchy bibasilar infiltrates worse on the left side. Blunting of the left costophrenic angle. Normal size heart. Normal mediastinum and quinten. Normal visualized pulmonary arteries. There is atherosclerotic tortuosity of the aortic arch and descending thoracic aorta. Normal visualized thoracic spine. Nondisplaced fracture of the lateral superior aspect of the right scapula superior to the glenoid. This is new as compared to prior study. There is no demonstrated abnormality of the visualized soft tissue structures of the upper abdomen. RAD/Chest 1 View (Portable) IMPRESSION: Patchy bibasilar infiltrates worse on the left side. Blunting of the left costophrenic angle. Nondisplaced fracture of the lateral superior aspect of the right scapula superior to the glenoid. This is new as compared to prior study. Electronically Signed: Alvin Barragan MD at 15:01 EDT ,
[2023-01-17 14:45] LABS: AST(SGOT) 77 U/L (15-37); Alanine Aminotransfer ALT/SGPT 49 U/L (16-61); Albumin, Serum 3.3 g/dL (3.2-5.0); Alkaline Phosphatase 171 U/L (45-117); Anion Gap 9 (5-15); BUN 16 mg/dL (7-18); BUN/Creat Ratio 11.5 RATIO (10-20); Bilirubin, Direct 0.22 mg/dL (0.00-0.30); Calcium,Total 9.2 mg/dL (8.5-10.1); Chloride 100 mmol/L (98-107); Creatinine, Serum 1.39 mg/dL (0.70-1.30); EST Glomerular Filtration Rate 53 mL/min (>60); Est Glom Filt Rate - Afr Amer 64 mL/min (>60); Estimated Creatinine Clearance 46.68 ml/min; Globulin 4.6 g/dL (2.2-4.2); Glucose 101 mg/dL (74-106); Potassium 3.4 mmol/L (3.5-5.1); Protein, Total 7.9 g/dL (6.4-8.2); Sodium Level 133 mmol/L (136-145)
[2023-01-17 14:59] LABS: Lactic Acid 1.6 mmol/L (0.4-1.9)
[2023-01-17 15:11] LABS: Mucous, Urine 0 SEEN /hpf (<or=2+); Squamous Epithelial Cells - UA 0 SEEN /hpf (0-5)
[2023-01-17 15:13] LABS: Color, Urine Yellow (Yellow); Glucose, Dipstick Normal (Normal); Ketone-Dipstick Negative (Negative); Leukocyte Esterase-Dipstick 500 /ul (Negative); Nitrite-Dipstick Negative (Negative); Occult Blood-Urine 25 /ul (Negative); Protein-Dipstick 30 mg/dl (Negative); Urine Bilirubin Dipstick Negative (Negative); Urine Clarity Clear (Clear); Urine Urobilinogen Normal (Normal); Urine pH 6.5 (5.0 - 8.0)
[2023-01-17 15:20] VITALS: BP 107/62; PULSE 91; RESP 16; TEMP 36.2; O2SAT 96
[2023-01-17 15:22] LABS: Bacteria 1+ /hpf (None Seen); Red Blood Cells-Urine 0-5 SEEN /hpf (0-5); White Blood Cells 25-50 SEEN /hpf (0-5)
[2023-01-17] MEDS: levoFLOXacin 750 MG Tablet PO (16:58)
[2023-01-17 17:00] VITALS: BP 101/64; PULSE 84; RESP 14; TEMP 36.6; O2SAT 98
== END 2023-01-17 17:11 | disposition home or self-care (01) ==
PROVIDERS: Emergency Provider Emergency Medicine; PCP Family Medicine; Visit Provider Emergency Medicine
DX: N39.0 Urinary tract infection, site not specified (principal); C79.51 Secondary malignant neoplasm of bone; C78.7 Secondary malignant neoplasm of liver and intrahepatic bile duct; J18.9 Pneumonia, unspecified organism; R41.0 Disorientation, unspecified; Z87.891 Personal history of nicotine dependence; Z85.46 Personal history of malignant neoplasm of prostate; Z92.21 Personal history of antineoplastic chemotherapy; Z92.3 Personal history of irradiation
CPT/HCPCS: 71045; 80048; 80076; 81001; 83605; 85025; 87040; 87086; 87088; 87428; 93005; 96360; 96361; 99285; A4216

== ENCOUNTER → 2023-02-04 08:29 | Outpatient (RCR) | payer MEDICARE, OTHER, SELFPAY ==
[2023-02-04 08:56] VITALS: BP 121/69; PULSE 118; RESP 16; TEMP 36.1; O2SAT 97; BMI 25.5
[2023-02-04 09:10] VITALS: BP 99/65; PULSE 101; RESP 16; TEMP 35.8; O2SAT 93
[2023-02-04 10:10] VITALS: BP 105/70; PULSE 93; RESP 16; TEMP 35.9; O2SAT 98
[2023-02-04 11:13] VITALS: BP 110/71; PULSE 89; RESP 16; TEMP 35.8; O2SAT 97
== END ==
LOC: MEDOUTP 08:29
PROVIDERS: PCP Family Medicine; Referring Provider Internal Medicine Hematology & Oncology; Visit Provider Internal Medicine Hematology & Oncology
DX: D50.8 Other iron deficiency anemias (principal)
CPT/HCPCS: 36430; 86850; 86900; 86901; 86920; 86922; J7040; P9016; A4216

== ENCOUNTER 2023-03-20 09:35 | Emergency (ER) | payer MEDICARE, OTHER, SELFPAY ==
[2023-03-20 09:36] VITALS: BP 89/67; PULSE 131; RESP 22; TEMP 36.2; O2SAT 95; BMI 25.6
--- NOTE | 2023-03-20 09:50 | RAD_ITS ---
EXAM: XR LEFT SHOULDER COMPLETE, 2 OR MORE VIEWS CLINICAL INDICATION: pain -- -- -- LEFT SHOULDER PAIN S/P LUNG BX LAST WEEK TECHNIQUE: Two or more views of the left shoulder. COMPARISON: Chest radiograph on the same date. FINDINGS: BONES/JOINTS: Mild acromioclavicular joint arthrosis. No acute fracture. No subluxation. Normal alignment. No sclerotic or destructive changes observed. SOFT TISSUES: No significant abnormality. No soft tissue swelling or gas. No radiopaque foreign body. LUNGS AND PLEURAL SPACES: Pulmonary opacity in the left lower lobe may be related to postbiopsy changes, underlying mass, or other airspace disease. RAD/Shoulder min 2 Views IMPRESSION: 1. Pulmonary opacity in the left lower lobe may be related to postbiopsy changes, underlying mass, or other airspace disease. 2. Mild acromioclavicular joint arthrosis. No acute findings. Electronically Signed: Rishi Zhu DO at 11:00 EDT ,
--- NOTE | 2023-03-20 09:50 | RAD_ITS ---
STUDY: X-RAY CHEST REASON FOR EXAM: Male, 77 years old. Left shoulder pain, recent lung biopsy TECHNIQUE: Single AP portable view of the chest. COMPARISON: None. FINDINGS: No evidence of pneumothorax or plain film abnormality of the left shoulder. There is serpiginous lucency in the right scapula suggesting an old ununited fracture. EKG leads overlie the chest The lungs are clear and expanded. There is no demonstrated pleural abnormality. Normal size heart. Normal mediastinum and quinten. Normal visualized pulmonary arteries. Normal visualized aortic arch and descending thoracic aorta. Normal visualized thoracic spine. Normal visualized ribs, clavicles, and shoulders. There is no demonstrated abnormality of the visualized soft tissue structures of the upper abdomen. RAD/Chest 1 View (Portable) IMPRESSION: No acute pulmonary process, no left pneumothorax or plain film evidence of left shoulder abnormality. Serpiginous lucency in the right scapula suggests old ununited fracture Electronically Signed: Bryan Springer MD at 11:29 EDT ,
--- NOTE | 2023-03-20 09:51 | EKG12_ITS ---
Test Reason : UPPER EXTR PAIN Blood Pressure : / mmHG Vent. Rate : 134 BPM Atrial Rate : 134 BPM P-R Int : 136 ms QRS Dur : 080 ms QT Int : 298 ms P-R-T Axes : 012 -38 016 degrees QTc Int : 445 ms Sinus tachycardia Left axis deviation Abnormal ECG Confirmed by CHANEL DENTON, JAVON ([id number]), editor greeting card CASSANDRA TSANG ([id number]) on 03/24/2023 11:33:14 AM Referred By: Confirmed By:JAVON BUCHANAN MD
--- NOTE | 2023-03-20 09:53 | EDS_ITS ---
HPI History of Present Illness Chief Complaint: Upper Extremity Injury Detail of Chief Complaint: Left shoulder pain Informant: patient Narrative Narrative: Patient presents to the emergency department complaint of pain in his left shoulder that started about 5 days ago. states that he had a lung biopsy 5 days ago and the pain started afterwards. Initially the pain was in the right shoulder but it resolved and then settled in the left shoulder. Pain worse with palpation of the area and movement. Patient denies chest pain or shortness of breath. Patient had decreased p.o. intake. 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 reached out to hospice but patient not currently on hospice. He had decreased p.o. intake. Patient's been losing weight. 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 Pancytopenia Prostate CA Prostate cancer Prostate cancer metastatic to bone Pulmonary embolism Seizures Skin ulcer of right heel with fat layer exposed Spinal stenosis Thrombocytopenia Home Medications levetiracetam 750 mg tablet 500 mg PO BID seizure 08/26/15 [History Last Taken 02/11/22 11:00] pramipexole 2.25 mg tablet,extended release 24 hr 0.25 mg PO QHS health maintenance 02/18/21 [History Last Taken 02/10/22 21:00] oxycodone-acetaminophen 7.5 mg-325 mg tablet 1 tab PO Q8H PRN Pain 08/07/21 [History Last Taken 02/11/22 04:00] prednisone 5 mg tablet 5 mg PO QODAY sterioid 01/01/22 [History Last Taken 02/10/22 09:00] pantoprazole 40 mg tablet,delayed release (Protonix) 40 mg PO DAILY #30 tabs 02/14/22 [Rx Last Taken Unknown] promethazine 25 mg tablet 25 mg PO PRN PRN Nausea 04/17/22 [History Last Taken Unknown] zonisamide 25 mg capsule 100 mg PO BID Check with primary doctor 04/17/22 [History Last Taken Unknown] duloxetine 30 mg capsule,delayed release 30 mg PO DAILY 02/04/23 [History Last Taken Unknown] potassium chloride 20 mEq tablet,extended release(part/cryst) 20 meq PO DAILY 02/04/23 [History Last Taken Unknown] fentanyl 25 mcg/hr transdermal patch 1 patch transdermal Q72H 3 days #5 ea 03/20/23 [Rx Last Taken Unknown] Allergy/AdvReac Type Severity Reaction Status Date / Time Iodinated Contrast Media Allergy Hives Verified 03/20/23 09:44 [CONTRASTS] Penicillins Allergy Unknown Verified 03/20/23 09:44 morphine AdvReac Nausea/Vom/ Verified 03/20/23 09:44 Diarrhea Family History Mother Cancer Hypertension Heart disease Sister Cancer Brother Cancer Sister Ovarian cancer Father Alcohol-induced persisting dementia Surgical History Hx of cholecystectomy S/P TURP Social History household members: spouse Smoking Status: Former smoker quit date: 06/06/84 alcohol intake: current alcohol intake frequency: holidays/special occasions only substance use type: does not use ROS ROS ED Review of Systems ROS Unobtainable: other Constitutional Constitutional ED: Reports lethargy; Denies chills, fever(s), sweats or weight loss Eyes Eyes: Denies blurry vision, change in vision or diplopia ENT ENT ED: Denies rhinorrhea or sore throat Cardiovascular Cardiovascular: Denies chest pain, orthopnea or racing heartbeat Respiratory/Chest Respiratory/Chest: Denies cough, dyspnea, dyspnea on exertion, orthopnea or sputum Gastrointestinal Gastrointestinal: Denies abdominal pain, diarrhea, nausea or vomiting Genitourinary Genitourinary ED: Denies dysuria, hematuria or urinary frequency Musculoskeletal Musculoskeletal: Reports other Details: Left shoulder pain ; Denies arthralgias, back pain, myalgias or neck pain Integumentary Denies abscess, Abrasions or rash Neurologic Neurologic: Denies headache(s) or weakness Psychiatric Psychiatric: Denies anxiety, depression or suicidal thoughts Endocrine Endocrinology: Denies polydipsia, polyphagia or polyuria Hematologic/Lymphatic Hematologic/Lymphatic: Denies easy bleeding, easy bruising or lymphadenopathy Allergic/Immunologic Allergic/Immunologic ED: Denies mouth swelling, tongue swelling or urticaria EXAM Physical Exam Const Vital Signs: 03/20/23 09:36 Temperature 97.2 F L Temperature Source Temporal Pulse Rate 131 H Respiratory Rate 22 H Blood Pressure 89/67 L Blood Pressure Mean 74 Pulse Ox 95 Oxygen Delivery Method Room Air Positive well nourished and well developed General Appearance ED: well developed and NAD HEENT Reports TM's clear and moist mucous membranes normocephalic and atraumatic; Negative for trauma or tenderness Tympanic Membrane ED: Yes TM's clear Eyes PERRL and EOMs intact bilaterally General Eye ED: Negative for pale conjunctiva or scleral icterus Neck no lymphadenopathy, supple and no JVD General: Negative for tenderness Chest Wall inspection of chest normal and palpation of chest normal Chest: Negative for tenderness Resp normal respiratory effort and clear to auscultation bilaterally Effort and Inspection: Negative for respiratory distress or pain with movement Auscultation: Negative for rhonchi, wheezes or diminished lung sounds Cardio regular rhythm, S1 normal heart sound, S2 normal heart sound and no murmurs Rate: tachycardic Peripheral Pulses: pulses 2+ throughout GI normal to inspection, nondistended, normoactive bowel sounds, soft to palpation, non-tender, non-distended and no masses Back/Spine no CVA tenderness and no thoracic nor lumbar tenderness Extremity Extremity Narrative: Patient with tenderness diffusely about the left glenohumeral joint. No obvious deformity. No erythema or warmth noted. Pain with range of motion but has normal range of motion of the glenohumeral joint. Neurovascular intact distally. General Extremety ED: Negative for edema General Extremity: Negative for edema Neuro oriented x3, CN's II-XII intact bilaterally, no sensory deficits noted and gait normal Sensorium / Orientation: awake, alert, oriented to person, oriented to place and oriented to time Motor Exam: strength 5/5 throughout and strength abnormal Psych mental status grossly normal Skin no rashes or lesions noted and no wounds MDM MDM MDM Narrative Medical decision making narrative: Patient presents to the emergency department complaint of pain in his left shoulder that he has had for 5 days. Initially the pain was in his right shoulder now is in his left shoulder. He has been taking oxycodone and get some relief with that. Patient is a cancer patient and recently had bronchoscopy with biopsy. He denies chest pain or shortness of breath. In the differential would be musculoskeletal shoulder pain, arthritis, cervical radiculopathy, coronary artery disease, PE, or arthritis. Established on arrival. EKG obtained showed a sinus tachycardia with a rate of 134 bpm. Patient was given a liter of the same fluid bolus. Blood pressure improved however he is tachycardia remained. I did do a D-dimer which was elevated therefore CT of the chest was obtained which was negative for PE. Patient did have infiltration of the left lingula which may represent mass or inflammatory process. CBC with differential obtained was unremarkable. Markable. Troponin was normal. Had a long discussion with patient and his family. I did medicate him with half a milligram of Dilaudid and Zofran and he had very good pain relief with that. Patient had x-rays of the left shoulder that showed no fractures or abnormality. Etiology of his shoulder pain unclear if this is arthritic versus cervical radiculopathy potentially although I suspect more of an arthritic process. Cannot completely rule out bony metastasis from his cancer. Family wants to follow-up with hospice and palliative care. They want to take him home. I will start him on a Duragesic patch and he can continue to use the oxycodone for breakthrough pain. Lab Data Attestation: I reviewed the patient's lab results. EKG Initial EKG: Attestation: I personally reviewed and interpreted this EKG as follows: Comments: Sinus tachycardia with a rate of 134 bpm with no acute ST segme nt changes Discharge Plan Triage Chief Complaint: Upper Extremity Injury ED Provider: Raudel Thompson Dx/Rx/DC Orders Clinical Impression: Acute shoulder pain, Tachycardia, Hypotension Instructions: ED Pain, Acute, Uncertain Cause, ED Shoulder Pain, Uncertain Cause Prescriptions: New fentanyl 25 mcg/hr patch 72 hour 1 patch transdermal Q72H 3 Days Qty: 5 0RF No Action pramipexole 2.25 mg tablet extended release 24 hr 0.25 mg PO QHS levetiracetam 750 MG tablet 500 mg PO BID Patient Comments: SEIZURE oxycodone-acetaminophen 7.5-325 mg Tablet 1 tab PO Q8H PRN (Reason: Pain) prednisone 5 mg tablet 5 mg PO QODAY Rx Instructions: 5 mg orally; pantoprazole [Protonix] 40 mg tablet,delayed release (DR/EC) 40 mg PO DAILY Qty: 30 0RF promethazine 25 mg tablet 25 mg PO PRN PRN (Reason: Nausea) zonisamide 25 mg Capsule 100 mg PO BID potassium chloride 20 mEq tablet,ER particles/crystals 20 meq PO DAILY Patient Comments: TAKE 1 TABLET BY MOUTH ONCE DAILY duloxetine 30 mg capsule,delayed release(DR/EC) 30 mg PO DAILY Patient Comments: TAKE 1 CAPSULE BY MOUTH ONCE DAILY Primary Care Provider: Bib Dixon Referrals: Bib Dixon MD [Primary Care Provider] - As soon as possible (Follow-up regarding referral to hospice and palliative care) Activity Restrictions/Additional Instructions: Follow-up with pain management for ongoing pain control Disposition Disposition: Home, Self Care
[2023-03-20] MEDS: 0.9% Normal Saline (1000mL) 1,000 ML 1000 ML IV (10:17)
[2023-03-20 10:21] LABS: Hematocrit 32.6 % (40-54); Hemoglobin 9.8 g/dL (13.0-16.5); Mean Corp Hgb Conc 30.1 g/dL (32-36); Mean Corpuscular Hgb 25.3 pg (27.0-32.0); Mean Corpuscular Volume 84.2 fL (80-94); Mean Platelet Vol. 11.4 fl (6.2-12.0); POSITIVE COUNT YES; POSITIVE DIFFERENTIAL YES; POSITIVE MORPHOLOGY YES; Platelet Count 168 K/mm3 (150-450); RBC Distribution Width CV 18.8 % (11.6-14.6); RBC Distribution Width SD 57.8 fl (35.1-43.9); Red Blood Count 3.87 M/mm3 (4.6-6.2); White Blood Count 10.1 K/mm3 (4.4-11.0)
[2023-03-20 10:33] LABS: Differential Indicated MANUAL DIFF
[2023-03-20 10:38] LABS: ALB/GLOB Ratio 0.5 RATIO (0.9-2.4); AST(SGOT) 120 U/L (15-37); Alanine Aminotransfer ALT/SGPT 38 U/L (16-61); Albumin, Serum 2.4 g/dL (3.2-5.0); Alkaline Phosphatase 302 U/L (45-117); Anion Gap 12 (5-15); BUN 18 mg/dL (7-18); BUN/Creat Ratio 15.9 RATIO (10-20); Calcium,Total 8.6 mg/dL (8.5-10.1); Chloride 102 mmol/L (98-107); Creatinine, Serum 1.13 mg/dL (0.70-1.30); EST Glomerular Filtration Rate 67 mL/min (>60); Est Glom Filt Rate - Afr Amer 81 mL/min (>60); Estimated Creatinine Clearance 57.42 ml/min; Globulin 5.2 g/dL (2.2-4.2); Glucose 77 mg/dL (74-106); Potassium 3.5 mmol/L (3.5-5.1); Protein, Total 7.6 g/dL (6.4-8.2); Sodium Level 136 mmol/L (136-145); Troponin-I HS 7 pg/mL (3.0-78.0)
[2023-03-20] MEDS: Ondansetron 4 MG/2 ML Vial IV (10:50)
[2023-03-20] MEDS: HYDROmorphone 0.5 MG/0.5 ML SYRINGE IV (10:50)
[2023-03-20 11:17] LABS: Eosinophil 4 % (0-5); Lymphocyte 6 % (19-41); Metamyelocyte 1 % (0-1); Monocyte 3 % (0-10); Myelocyte 1 % (0-0); Neutrophil-Segmented 85 % (47-70); Total Cells Counted 100 (MANUAL DIFF)
[2023-03-20 11:18] LABS: Platelet Estimate ADEQUATE (ADEQ); Red Cell Morphology NORM C+C NORMAL (NORM C&C)
[2023-03-20 11:24] LABS: Absolute Neutrophil Count 8.6 X10^3/uL (2.0-7.7)
[2023-03-20 11:25] LABS: Absolute Lymphocyte Count 0.61 X10^3/uL (0.83-4.51)
--- NOTE | 2023-03-20 11:38 | CT_ITS ---
STUDY: CTA CHEST REASON FOR EXAM: Male, 77 years old. Atypical chest pain RADIATION DOSAGE (If Supplied By Facility): CTDIvol = ( 6.17 ) mGy, DLP = ( 398.15 ) mGycm TECHNIQUE: The examination was performed with the intravenous administration of IV 100mL Isovue-370. Post-processing of the angiographic images was performed, with multiplanar reformation and 3D reconstruction. Individualized dose optimization techniques were used for this CT. COMPARISON: 02/12/2021 FINDINGS: Normal enhancement of the main pulmonary artery and right and left pulmonary arteries. Normal enhancement of the bilateral peripheral pulmonary arteries. There is no demonstrated pulmonary embolism. Normal thoracic aorta and visualized great vessels. There is no demonstrated aortic dissection. Normal heart and pericardium. There are borderline enlarged mediastinal lymph nodes measuring up to 1.4 cm in short axis dimension. There is perihilar thickening consistent with chronic bronchitis. Lung windows show chronic interstitial changes in both lung long with consolidation in the lingula which I suspect represents an acute inflammatory process though an underlying neoplastic process cannot be excluded. Follow-up is recommended to ensure resolution. There is a stable noncalcified nodule in the superior segment of the left lower lobe on axial image 141. There are small pleural effusions with bibasilar atelectasis. . Normal chest wall structures. Normal osseous structures. Limited cuts through the upper abdomen show hepatomegaly with fatty infiltration of the liver but no discrete lesion. CT/CTA Chest W/WO Contrast IMPRESSION: No demonstrated PE, or thoracic aortic aneurysm or dissection Chronic interstitial changes in both lung long with chronic bronchitis, there is superimposed opacification in the lingula likely an inflammatory process but a neoplasm cannot be excluded and follow-up is recommended to reassess Stable noncalcified 1.2 cm nodule in the left lower lobe. Since there is no policy change clerk 2 years no specific follow-up is needed Borderline enlarged mediastinal lymph nodes Small bilateral pleural effusions with bibasilar atelectasis Electronically Signed: Bryan Springer MD at 14:45 EDT ,
[2023-03-20] MEDS: MethylPREDNISolone 125 MG/2 ML Vial IV (12:11)
[2023-03-20] MEDS: DiphenhydrAMINE 50 MG/ML Syringe 25 MG IV (12:11)
[2023-03-20 12:27] VITALS: BP 101/67; PULSE 126; RESP 19; O2SAT 91
[2023-03-20] MEDS: 0.9% Normal Saline (1000mL) 1,000 ML 125 ML IV (14:13)
[2023-03-20 14:26] VITALS: BP 99/67; PULSE 120; RESP 16; O2SAT 95
[2023-03-20 14:52] LABS: Mucous, Urine 0 SEEN /hpf (<or=2+)
[2023-03-20 15:05] LABS: Color, Urine Yellow (Yellow); Glucose, Dipstick Normal (Normal); Ketone-Dipstick 15 mg/dl (Negative); Leukocyte Esterase-Dipstick 500 /ul (Negative); Nitrite-Dipstick Negative (Negative); Occult Blood-Urine 150 /ul (Negative); Protein-Dipstick 30 mg/dl (Negative); Urine Bilirubin Dipstick Negative (Negative); Urine Clarity Clear (Clear); Urine Urobilinogen Normal (Normal)
[2023-03-20 15:31] VITALS: BP 105/70; PULSE 123; RESP 21; O2SAT 93
[2023-03-20 15:35] LABS: Amorphous Sediment 1+ URATE; Bacteria RARE /hpf (None Seen); Red Blood Cells-Urine 10-25 SEEN /hpf (0-5); Squamous Epithelial Cells - UA 0-5 SEEN /hpf (0-5); White Blood Cells 25-50 SEEN /hpf (0-5)
[2023-03-20] MEDS: fentaNYL 25 MCG Patch TD (15:39)
[2023-03-22 09:56] LABS: Pathologist Review Reviewed
== END 2023-03-20 15:55 | disposition home or self-care (01) ==
PROVIDERS: Emergency Provider Emergency Medicine; PCP Family Medicine; Visit Provider Emergency Medicine
DX: M25.512 Pain in left shoulder (principal); C79.51 Secondary malignant neoplasm of bone; C61 Malignant neoplasm of prostate; R00.0 Tachycardia, unspecified; M25.511 Pain in right shoulder; I95.9 Hypotension, unspecified; Z87.891 Personal history of nicotine dependence
CPT/HCPCS: 99285; 71045; 71275; 73030; 80053; 81001; 84484; 85025; 85379; 86850; 86900; 86901; 93005; J7030; Q9967; A4216; J2405

== ENCOUNTER 2023-03-22 09:01 | Inpatient (IN) | payer MEDICARE, OTHER, SELFPAY ==
[2023-03-22] VITALS (32 sets, daily range): BP systolic 72–139; BP diastolic 43–98; PULSE 112–148; RESP 17–25; TEMP 35.8–36.6; O2SAT 89–100; BMI 25.1; BMI 54.3
--- NOTE | 2023-03-22 09:14 | RAD_ITS ---
INDICATION: sepsis EXAMINATION/TECHNIQUE: X-RAY - XR Chest 1 View COMPARISON: Prior study dated: 03/20/2023 and CTA of the chest of 03/20/2023. FINDINGS: LINES/DEVICES: Defibrillator pad overlying the left chest. LUNGS: Patchy opacity in the left lower lung is again seen. Trace of left pleural effusion. Atelectatic changes in the right lung base. MEDIASTINUM AND CARDIOVASCULAR STRUCTURES: Cardiac silhouette not enlarged. Central airways and mediastinal contour are unremarkable. BONES AND SOFT TISSUES: Stable soft tissues and osseous structures. RAD/Chest 1 View (Portable) IMPRESSION: Persistent left lower lung opacity/consolidation corresponding to the CT abnormality. Follow-up exam is recommended. Electronically Signed: Fabiano Kevin MD at 10:39 EDT ,
--- NOTE | 2023-03-22 09:14 | EKG12_ITS ---
Test Reason : UNRESPONSIVE Blood Pressure : / mmHG Vent. Rate : 148 BPM Atrial Rate : 148 BPM P-R Int : 120 ms QRS Dur : 058 ms QT Int : 258 ms P-R-T Axes : 029 -09 031 degrees QTc Int : 405 ms Critical Test Result: High HR Sinus tachycardia Inferior infarct , age undetermined Abnormal ECG Confirmed by CHANEL DENTON, JAVON ([id number]), electronic news gathering editor CASSANDRA TSANG ([id number]) on 03/24/2023 2:00:00 PM Referred By: JANESSA Confirmed By:JAVON BUCHANAN MD
--- NOTE | 2023-03-22 09:19 | EX.ED.DYSGE1 ---
HPI History of Present Illness Chief Complaint: Unresponsive Informant: EMS Narrative Narrative: Brought in by EMS from home. Reported spouse noted witnessed seizure as he has history of this he was unresponsive. He is brought in here on arrival per nursing he was less responsive. During my evaluation had improving response. Reported metastatic prostate cancer history and had a pending hospice evaluation at home today. Patient denied cough. When discussed vomiting or diarrhea he states yes. No additional information at this time. He is brought in on a nonrebreather as a pulse ox unable to be obtained. He was hypotensive and tachycardic. After work-up initiated review records she was seen 2 days ago for nontraumatic left shoulder pain had recent bronchoscopy. PE work-up was negative. Shoulder x-ray was negative. He was hypotensive and tachycardic 2 days ago, however family request take him home to see hospice. He is on oxycodone. Heart rate is in the 130s blood pressure stock 89 with reported improvement of blood pressure with fluids. Family presented to the ED with his spouse and daughter. Prostate cancer 2 years recent concerning metastatic to the lung. Attempted biopsy earlier this month at [facility], also bronchoscopy with findings of bacterial infection. Was put on antibiotics. Patient 1 loose stool a day. Vomiting initially stopped after the antibiotics were held. This was held 5 days ago. 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 New seizure today witnessed by spouse. Patient was seen couple days were for the pain in his shoulder initially was improving with the oxycodone, he was provided fentanyl patch, increasing somnolence yesterday. No clear CODE STATUS at this time however reported had a first time hospice evaluation to be at home today at 3 PM. They are looking more towards palliative treatment, however did discuss that their oncologist told him no further treatment can be performed. They wanted discussion with hospice for more clarification. 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 Pancytopenia Prostate CA Prostate cancer Prostate cancer metastatic to bone Pulmonary embolism Seizures Skin ulcer of right heel with fat layer exposed Spinal stenosis Thrombocytopenia Home Medications levetiracetam 750 mg tablet 500 mg PO BID seizure 08/26/15 [History Last Taken 02/11/22 11:00] pramipexole 2.25 mg tablet,extended release 24 hr 0.25 mg PO QHS health maintenance 02/18/21 [History Last Taken 02/10/22 21:00] oxycodone-acetaminophen 7.5 mg-325 mg tablet 1 tab PO Q8H PRN Pain 08/07/21 [History Last Taken 02/11/22 04:00] prednisone 5 mg tablet 5 mg PO QODAY sterioid 01/01/22 [History Last Taken 02/10/22 09:00] pantoprazole 40 mg tablet,delayed release (Protonix) 40 mg PO DAILY #30 tabs 02/14/22 [Rx Last Taken Unknown] promethazine 25 mg tablet 25 mg PO PRN PRN Nausea 04/17/22 [History Last Taken Unknown] zonisamide 25 mg capsule 100 mg PO BID Check with primary doctor 04/17/22 [History Last Taken Unknown] duloxetine 30 mg capsule,delayed release 30 mg PO DAILY 02/04/23 [History Last Taken Unknown] potassium chloride 20 mEq tablet,extended release(part/cryst) 20 meq PO DAILY 02/04/23 [History Last Taken Unknown] fentanyl 25 mcg/hr transdermal patch 1 patch transdermal Q72H 3 days #5 ea 03/20/23 [Rx Last Taken Unknown] Allergy/AdvReac Type Severity Reaction Status Date / Time Iodinated Contrast Media Allergy Hives Verified 03/22/23 09:12 [CONTRASTS] Penicillins Allergy Unknown Verified 03/22/23 09:12 levofloxacin AdvReac Vomiting Verified 03/22/23 10:46 morphine AdvReac Nausea/Vom/ Verified 03/22/23 09:12 Diarrhea Family History Mother Cancer Hypertension Heart disease Sister Cancer Brother Cancer Sister Ovarian cancer Father Alcohol-induced persisting dementia Surgical History Hx of cholecystectomy S/P TURP Social History household members: spouse Smoking Status: Former smoker quit date: 06/06/84 alcohol intake: current alcohol intake frequency: holidays/special occasions only substance use type: does not use ROS ROS ED Review of Systems ROS Unobtainable: due to mental condition Gastrointestinal Gastrointestinal: Reports diarrhea and vomiting EXAM Physical Exam Const Vital Signs: 03/22/23 09:02 03/22/23 09:08 03/22/23 09:29 Temperature 96.8 F L 96.9 F L Temperature Source Temporal Temporal Pulse Rate 148 H 144 H Respiratory Rate 25 H 23 H Blood Pressure 80/51 L 80/51 L Blood Pressure Mean 60 60 Pulse Ox 89 95 Oxygen Delivery Method Non-Rebreather Non-Rebreather Non-Rebreather Oxygen Flow Rate (L/min) 15 15 15 03/22/23 09:57 03/22/23 10:08 03/22/23 11:41 Temperature Temperature Source Pulse Rate 112 H 134 H 121 H Respiratory Rate 18 20 H Blood Pressure 127/50 H 139/98 H 84/46 L Blood Pressure Mean 75 111 58 Pulse Ox 98 95 Oxygen Delivery Method Room Air Non-Rebreather Nasal Cannula Oxygen Flow Rate (L/min) 6 03/22/23 11:58 03/22/23 12:00 03/22/23 12:01 Temperature 96.9 F L 96.9 F L Temperature Source Temporal Temporal Pulse Rate 116 H 126 H Respiratory Rate 21 H 21 H 21 H Blood Pressure 75/53 L 75/54 L Blood Pressure Mean 60 61 Pulse Ox 95 94 Oxygen Delivery Method Nasal Cannula Nasal Cannula Oxygen Flow Rate (L/min) 6 6 03/22/23 12:17 03/22/23 12:38 Temperature Temperature Source Pulse Rate 121 H 124 H Respiratory Rate 17 23 H Blood Pressure 89/55 L 130/43 H Blood Pressure Mean 66 72 Pulse Ox Oxygen Delivery Method Oxygen Flow Rate (L/min) Positive well nourished and well developed Constitutional Narrative: Nonrebreather, answering some questions moving 4 extremities on instructions General Appearance ED: well developed and NAD HEENT Reports dry mucous membranes normocephalic and atraumatic Mouth ED: Yes dry mucous membranes Mouth: dry mucous membranes Eyes PERRL, EOMs intact bilaterally and conjunctivae normal General Eye ED: Yes normal appearance of both eyes Neck no lymphadenopathy and supple General: Negative for tenderness Chest Wall Chest: Negative for tenderness Resp Resp Narrative: Diminished, no tachypnea no accessory muscle use Effort and Inspection: symmetric chest movement; Negative for respiratory distress Cardio regular rhythm and no murmurs Rate: tachycardic Peripheral Pulses: pulses 2+ throughout GI normal to inspection, nondistended, normoactive bowel sounds and non-tender Palpation: Negative for guarding or rebound tenderness present Back/Spine no CVA tenderness and no thoracic nor lumbar tenderness Extremity normal to inspection General Extremety ED: Negative for edema or tenderness General Extremity: Negative for edema Neuro oriented x3 and no sensory deficits noted Sensorium / Orientation: awake and alert Skin no rashes or lesions noted and no wounds Sepsis Attestation Sepsis Alert: Yes Sepsis Attestation: Agree w/Sepsis Date exam was performed: 03/22/23 Possible Source of Sepsis: Genitourinary Sepsis Organ Dysfunction Criteria Present: SBP < 90 mmHg or MAP < 65 mmHg, Creatinine > 2.0 mg/dL and Lactic Acid > 2 mmol/L Fluid Resuscitation Fluid resuscitation indicated?: Yes Fluid Resuscitation ordered: 30 ml/kg fluid bolus ordered Amount of fluid ordered: 3,000 Sepsis Note Date exam was performed: 03/22/23 Time exam was performed: 14:46 Sepsis Attestation: Sepsis re-evaluation was performed Response to fluids: Non Fluid responsive hypotension and Vasopressors started MDM MDM MDM Narrative Medical decision making narrative: Interventions / MDM: Differential diagnosis: Seizure, septic shock, UTI, electrolyte abnormalities Diagnosis considered but do not suspect: N/A My EKG interpretation: Sinus rate of 148, no ST or T wave changes Imaging independently reviewed and interpreted by myself: CT brain noncontrast: No acute process. Chest x-ray 1 view: Left lower lung opacity similar to [address] scan reviewed at that time negative for any mass. Chest x-ray #2: Central line in good position, no pneumothorax. External documents reviewed: N/A Test considered but not ordered:N/A ED course: Dry mucosal membranes tachycardic. Blood pressure 80/51. Sepsis work-up initiated as he is not established with hospice at this time. Fluids will be given. He is afebrile. ABG ordered due to being on nonrebreather. Seizure precautions, likely postictal with seizure history from report now improving. Will wait for spouse arrival for further discussion. 1000: Heart rate still 130s blood pressure with fluids 127/50. Lactic acid returned at 10.9 likely from his see direct these. White count returned at 29 up from normal levels to the ago.. We will plan on broad spectrum antibiotics. Also elevated creatinine 2.2 GFR 34. We will hold off on any IV dye with CT scan at this. Elevated liver enzymes. Family reports cholecystectomy in the past. Allergy to penicillin as a child. Will cover with broad-spectrum antibiotics at this time with his leukocytosis. Cefepime and vancomycin started. 1045: Nursing reporting me blood pressure dropping down 70s over 40s, additional 2 L ordered from his 1 L. This will cover for the 30 cc/kg from sepsis protocol. There was hospice discussion to come see the patient ED as they had 1 pending however multiple discussions, slightly more for palliative treatment at this time. Patient was responding to fluids, however he is having intermittent hypotension rounds, discussed further with. Spouse and daughter they would want full code measures including pressors with central line and intubation and CPR needed at this time. Secondary to no clear decision for hospice, I did discuss with hospitalist Dr. Mixon, for ICU placement. She evaluated the patient in ED he became hypotensive again, requested central line to be placed. I discussed this with daughter and spouse who agrees. Central line placed with no complications. Post chest x-ray interpreted myself with good position no pneumothorax. Pressure remained low MAP of 62, Levophed ordered. Central line placement. Written consent. Risks and benefits discussed with patient and spouse daughter bedside. Timeout performed. Preperformance ultrasound right IJ with good vessel. Patient placed in Trendelenburg position, skin prepped with ChloraPrep. Full sterile conditions performed. Ultrasound guided, vessel isolated, skin was anesthetized. Seldinger technique with needle performed for stick dark blood, guidewire advanced, skin incision was made. Skin dilated. Central line placed right IJ 16 cm, guidewire removed. Line was secured, Biopatch placed. Dressing was placed. Patient tolerated procedure well. Post chest x-ray films in appropriate position. Re-evaluation: stable Disposition discussed with patient/family/significant other: Spouse and daughter Case discussed with consulting clinician: Hospitalist This note was generated with Dr. Scribbles dictation software. It may contain incorrect words, spelling, and punctuation that were not noted in checking the note before signing. Lab Data Attestation: I reviewed the patient's lab results. Labs: Laboratory Results - last 24 hr 03/22/23 03/22/23 09:15 11:44 WBC 29.6 H RBC 3.31 L Hgb 8.2 L Hct 29.0 L MCV 87.6 MCH 24.8 L MCHC 28.3 L D RDW Std Deviation 61.1 H RDW Coeff of [place] 19.1 H Plt Count 135 L MPV 12.2 H Neut % (Auto) Not Reportable Absolute Neuts (auto) 28.1 H Absolute Lymphs (auto) 0.90 Total Counted 100 Neutrophils % (Manual) 91 H Band Neutrophils % 4 Lymphocytes % (Manual) 3 L Metamyelocytes % 1 Myelocytes % 1 H Diff Path Review May foll Platelet Estimate SLT DEC RBC Morphology NORM C+C PT 17.5 H INR 1.4 APTT 33.7 Sodium 140 Potassium 3.6 Chloride 108 H Carbon Dioxide 17.0 L Anion Gap 15 BUN 30 H Creatinine 2.02 H Estim Creat Clear Calc 33.14 Est GFR (MDRD) Af Amer 42 L Est GFR (MDRD) Non-Af 34 L BUN/Creatinine Ratio 14.9 Glucose 93 Lactic Acid 10.9 H* Calcium 8.2 L Total Bilirubin 0.60 AST 470 H ALT 83 H Alkaline Phosphatase 605 H Total Protein 6.6 Albumin 2.2 L Globulin 4.4 H Albumin/Globulin Ratio 0.5 L Urine Color Yellow Urine Clarity Cloudy Urine pH 5.0 Ur Specific [place] 1.015 Urine Protein 100 H Urine Glucose (UA) Normal Urine Ketones Negative Urine Occult Blood 250 H Urine Nitrite Negative Urine Bilirubin Negative Urine Urobilinogen Normal Ur Leukocyte Esterase 500 H Urine RBC 25-50 SEEN Urine WBC 25-50 SEEN Ur Squamous Epith Cells 0-5 SEEN Amorphous Sediment 1+ Urine Bacteria 1+ Urine Mucus 0 SEEN ABG Data ABG results: ABG 03/22/23 09:42 Specimen Type ART Sample Site R Brach pH 7.35 Bicarbonate Actual 14.2 L Total CO2 15 Base Excess -11 L O2 Saturation 100 H O2 % 100.0 ABG pCO2 25.6 L ABG pO2 254 H Kemal Test Positive O2 Delivery Device NRB Vent Mode Not entered Radiography Diagnostic Testing: Clinical Impression(s) from Imaging Studies Chest X-Ray 03/22/23 09:14 IMPRESSION: Persistent left lower lung opacity/consolidation corresponding to the CT abnormality. Follow-up exam is recommended. Electronically Signed: Fabiano Kevin MD at 10:39 EDT , Brain CT 03/22/23 10:03 IMPRESSION: 1. No acute intracranial process. 2. Mild chronic involutional changes of the brain. Electronically Signed: Fabiano Kevin MD at 11:02 EDT , Critical Care Time Critical Care Time: Yes Critical care time (excluding procedures): 30-74 minutes, Discussing w/Patient &/or Family/Office Coordinator, Discussing w/Consultants, Arranging Admission or Transfer, Performing Direct Patient Care at Bedside and - (45 minutes) Discharge Plan Triage Chief Complaint: Unresponsive ED Provider: Roderick Balderas Dx/Rx/DC Orders Clinical Impression: MEGHNA (acute kidney injury), Prostate cancer metastatic to lung, Transaminitis, Anemia, Septic shock, Recurrent seizures, Acute UTI Primary Care Provider: Bib Dixon Disposition Disposition: Acute Care [facility]
[2023-03-22 09:30] LABS: Hemoglobin 8.2 g/dL (13.0-16.5); Mean Corp Hgb Conc 28.3 g/dL (32-36); Mean Corpuscular Hgb 24.8 pg (27.0-32.0); Mean Corpuscular Volume 87.6 fL (80-94); Mean Platelet Vol. 12.2 fl (6.2-12.0); POSITIVE COUNT YES; POSITIVE DIFFERENTIAL YES; POSITIVE MORPHOLOGY YES; Platelet Count 135 K/mm3 (150-450); RBC Distribution Width CV 19.1 % (11.6-14.6); RBC Distribution Width SD 61.1 fl (35.1-43.9); Red Blood Count 3.31 M/mm3 (4.6-6.2); White Blood Count 29.6 K/mm3 (4.4-11.0)
[2023-03-22] MEDS: 0.9% Normal Saline (1000mL) 1,000 ML 999 ML IV ×3 (09:30→11:49)
[2023-03-22 09:32] LABS: Differential Indicated MANUAL DIFF
[2023-03-22 09:39] LABS: International Normalized Ratio 1.4; Prothrombin Time (Protime)PT. 17.5 SECONDS (11.7-14.9)
[2023-03-22 09:40] LABS: Partial Thromboplast Time 33.7 Seconds (24.1-36.2)
[2023-03-22 09:45] LABS: Allen Test Positive; Base Excess -11 mmol/L (-2 to +2); Bicarbonate 14.2 mmol/L (22-26); Blood Gas Specimen Type ART; Mode Not entered; O2 Delivery Device NRB; PO2 254 mmHG (75-100); SITE R Brach; SO2 100 % (95-99); Total Carbon Dioxide 15 mmol/L; pCO2 25.6 mmHg (35-45); pH 7.35 (7.35-7.45)
[2023-03-22 09:48] LABS: ALB/GLOB Ratio 0.5 RATIO (0.9-2.4); AST(SGOT) 470 U/L (15-37); Alanine Aminotransfer ALT/SGPT 83 U/L (16-61); Albumin, Serum 2.2 g/dL (3.2-5.0); Alkaline Phosphatase 605 U/L (45-117); Anion Gap 15 (5-15); BUN 30 mg/dL (7-18); BUN/Creat Ratio 14.9 RATIO (10-20); Calcium,Total 8.2 mg/dL (8.5-10.1); Chloride 108 mmol/L (98-107); Creatinine, Serum 2.02 mg/dL (0.70-1.30); EST Glomerular Filtration Rate 34 mL/min (>60); Est Glom Filt Rate - Afr Amer 42 mL/min (>60); Estimated Creatinine Clearance 33.14 ml/min; Globulin 4.4 g/dL (2.2-4.2); Glucose 93 mg/dL (74-106); Potassium 3.6 mmol/L (3.5-5.1); Protein, Total 6.6 g/dL (6.4-8.2); Sodium Level 140 mmol/L (136-145)
[2023-03-22 09:55] LABS: Lymphocyte 3 % (19-41); Metamyelocyte 1 % (0-1); Myelocyte 1 % (0-0); Neutrophil-Band 4 % (0-5); Neutrophil-Segmented 91 % (47-70); Platelet Estimate SLT DEC (ADEQ); Red Cell Morphology NORM C+C NORMAL (NORM C&C); Total Cells Counted 100 (MANUAL DIFF)
[2023-03-22 09:56] LABS: Absolute Neutrophil Count 28.1 X10^3/uL (2.0-7.7)
[2023-03-22 10:02] LABS: Lactic Acid 10.9 mmol/L (0.4-1.9)
--- NOTE | 2023-03-22 10:03 | CT_ITS ---
INDICATION: seizure EXAMINATION: CT BRAIN - CT Head or Brain W/O Contrast Injection TECHNIQUE: Multiple axial images were obtained of the head without intravenous contrast. A radiation dose optimization technique was used for this scan. IV Contrast dosage and agent: None. RADIATION DOSAGE (If Supplied By Facility): CTDIvol = ( 44.99 ) mGy, DLP = ( 812.98 ) mGycm COMPARISON: Prior study dated: 01/18/2021. FINDINGS: BRAIN PARENCHYMA: No intra- or extra-axial hemorrhage. No evidence of acute infarct. No intracranial mass or mass effect. There is preservation of the stanton/white matter interface mild chronic periventricular deep white matter changes likely due to microvascular disease. Posterior fossa structures are unremarkable. CSF SPACES: Mild diffuse atrophy. No hydrocephalus. Basal cisterns are patent. CALVARIUM, SKULL BASE, PARANASAL SINUSES AND MASTOID AIR CELLS: Clear. No discrete lytic or blastic abnormalities. ORBITS: Both globes, extraocular muscles, optic nerves and retrobulbar fat appear unremarkable. CT/Brain/Head without Contrast IMPRESSION: 1. No acute intracranial process. 2. Mild chronic involutional changes of the brain. Electronically Signed: Fabiano Kevin MD at 11:02 EDT ,
--- NOTE | 2023-03-22 10:27 | NURSING ---
ATTEMPTED TO CALL HOSPICE [phone], PUT ON HOLD CALLED [phone], PUT ON HOLD, THEN LEFT MESSAGE
--- NOTE | 2023-03-22 10:46 | NURSING ---
[facility], [facility]OSP[facility], CALLED BACK.
[2023-03-22] MEDS: Cefepime HCl 2 GM in 0.9% Normal Saline (100mL MB+) 100 ML IV ×2 (11:38→21:29)
--- NOTE | 2023-03-22 11:48 | ED.RN ---
[place] with [facility] called, home visit will be moved to the ER. Nurse to be coming in.
[2023-03-22] MEDS: Vancomycin HCl 2,000 MG in 0.9% Normal Saline (500mL Bag) 500 ML 250 MG IV (11:49)
[2023-03-22 11:57] LABS: Mucous, Urine 0 SEEN /hpf (<or=2+)
[2023-03-22 12:03] LABS: Color, Urine Yellow (Yellow); Glucose, Dipstick Normal (Normal); Ketone-Dipstick Negative (Negative); Leukocyte Esterase-Dipstick 500 /ul (Negative); Nitrite-Dipstick Negative (Negative); Occult Blood-Urine 250 /ul (Negative); Protein-Dipstick 100 mg/dl (Negative); Specific Gravity, Urine 1.015 (1.002-1.030); Urine Bilirubin Dipstick Negative (Negative); Urine Clarity Cloudy (Clear); Urine Urobilinogen Normal (Normal)
[2023-03-22 12:13] LABS: Amorphous Sediment 1+; Bacteria 1+ /hpf (None Seen); Red Blood Cells-Urine 25-50 SEEN /hpf (0-5); Squamous Epithelial Cells - UA 0-5 SEEN /hpf (0-5); White Blood Cells 25-50 SEEN /hpf (0-5)
--- NOTE | 2023-03-22 12:45 | PCM.HP.STD ---
HPI - General General Date of Admission: 03/22/23 Date of Service: 03/22/23 Chief Complaint: altered mental status HPI Narrative RHONDA PAT, is a 77 M with a PMH as outlined who presents via the ED on 03/22/2023 after being found unresponsive. 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 He was seen 2 days ago in the ED and was hypotensive and tachycardic and had left shoulder pain. He was discharged home to see hospice; they had an appointment with hospice today at home. However, today he was found unresponsive, with concern for seizure. He was therefore brought in to the ED. Vitals in the ED wre BP of 130/43, NE of 124, RR of 23, and he was saturating at 94% on 6L of oxygen. He was initially hypotensive with blood pressure in the 70s systolic and responded to fluids. CBC showed WBC of 29.6, hemoglobin of 8.2 and platelets of 135. INR was 1.4. Chemistry shows sodium of 140 with bicarb of 17 and creatinine of 2.02. Lactic acid was 10.9. Urinalysis showed 1+ bacteria and CT of the brain showed no evidence of any acute intracranial pathology. Chest x-ray showed persistent left lower lung opacity and consolidation. He has been admitted to be managed for septic shock and acute metabolic encephalopathy with concern for seizure in the setting of metastatic lung cancer. 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 Pancytopenia Prostate CA Prostate cancer Prostate cancer metastatic to bone Pulmonary embolism Seizures Skin ulcer of right heel with fat layer exposed Spinal stenosis Thrombocytopenia Home Medications levetiracetam 750 mg tablet 500 mg PO BID seizure 08/26/15 [History Last Taken 02/11/22 11:00] pramipexole 2.25 mg tablet,extended release 24 hr 0.25 mg PO QHS health maintenance 02/18/21 [History Last Taken 02/10/22 21:00] oxycodone-acetaminophen 7.5 mg-325 mg tablet 1 tab PO Q8H PRN Pain 08/07/21 [History Last Taken 02/11/22 04:00] prednisone 5 mg tablet 5 mg PO QODAY sterioid 01/01/22 [History Last Taken 02/10/22 09:00] pantoprazole 40 mg tablet,delayed release (Protonix) 40 mg PO DAILY #30 tabs 02/14/22 [Rx Last Taken Unknown] promethazine 25 mg tablet 25 mg PO PRN PRN Nausea 04/17/22 [History Last Taken Unknown] zonisamide 25 mg capsule 100 mg PO BID Check with primary doctor 04/17/22 [History Last Taken Unknown] duloxetine 30 mg capsule,delayed release 30 mg PO DAILY 02/04/23 [History Last Taken Unknown] potassium chloride 20 mEq tablet,extended release(part/cryst) 20 meq PO DAILY 02/04/23 [History Last Taken Unknown] fentanyl 25 mcg/hr transdermal patch 1 patch transdermal Q72H 3 days #5 ea 03/20/23 [Rx Last Taken Unknown] Allergy/AdvReac Type Severity Reaction Status Date / Time Iodinated Contrast Media Allergy Hives Verified 03/22/23 09:12 [CONTRASTS] Penicillins Allergy Unknown Verified 03/22/23 09:12 levofloxacin AdvReac Vomiting Verified 03/22/23 10:46 morphine AdvReac Nausea/Vom/ Verified 03/22/23 09:12 Diarrhea Family History Mother Cancer Hypertension Heart disease Sister Cancer Brother Cancer Sister Ovarian cancer Father Alcohol-induced persisting dementia Surgical History Hx of cholecystectomy S/P TURP Social History household members: spouse Smoking Status: Former smoker quit date: 06/06/84 alcohol intake: current alcohol intake frequency: holidays/special occasions only substance use type: does not use ROS Constitutional Constitutional: Reports fatigue, malaise and weakness; Denies anorexia, change in weight, chills or fever(s) Eyes Eyes: Denies change in vision ENT HEENT: Denies dysphagia, headache(s), nasal discharge, sore throat or throat swelling Cardiovascular Cardiovascular: Denies chest pain, edema, orthopnea, palpitations, paroxysmal nocturnal dyspnea or syncope Respiratory/Chest Respiratory/Chest: Denies cough, shortness of breath at rest, shortness of breath with exertion or wheezing Genitourinary Genitourinary: Denies urinary frequency or urinary hesitancy Musculoskeletal Musculoskeletal: Denies back pain, joint pain or muscle weakness Integumentary Integumentary: Denies jaundice or rash Neurologic Neurologic: Denies confusion, dizziness, focal weakness, headache(s) or seizures Psychiatric Psychiatric: Denies anxiety or depression Endocrine Endocrinology: Denies change in body appearance Vital Signs Vital Signs Vital Signs: 03/22/23 09:02 03/22/23 09:08 03/22/23 09:29 Temperature 96.8 F L 96.9 F L Temperature Source Temporal Temporal Pulse Rate 148 H 144 H Respiratory Rate 25 H 23 H Blood Pressure 80/51 L 80/51 L Blood Pressure Mean 60 60 Pulse Ox 89 95 Oxygen Delivery Method Non-Rebreather Non-Rebreather Non-Rebreather Oxygen Flow Rate (L/min) 15 15 15 03/22/23 09:57 03/22/23 10:08 03/22/23 11:41 Temperature Temperature Source Pulse Rate 112 H 134 H 121 H Respiratory Rate 18 20 H Blood Pressure 127/50 H 139/98 H 84/46 L Blood Pressure Mean 75 111 58 Pulse Ox 98 95 Oxygen Delivery Method Room Air Non-Rebreather Nasal Cannula Oxygen Flow Rate (L/min) 6 03/22/23 11:58 03/22/23 12:00 03/22/23 12:01 Temperature 96.9 F L 96.9 F L Temperature Source Temporal Temporal Pulse Rate 116 H 126 H Respiratory Rate 21 H 21 H 21 H Blood Pressure 75/53 L 75/54 L Blood Pressure Mean 60 61 Pulse Ox 95 94 Oxygen Delivery Method Nasal Cannula Nasal Cannula Oxygen Flow Rate (L/min) 6 6 03/22/23 12:17 03/22/23 12:38 Temperature Temperature Source Pulse Rate 121 H 124 H Respiratory Rate 17 23 H Blood Pressure 89/55 L 130/43 H Blood Pressure Mean 66 72 Pulse Ox Oxygen Delivery Method Oxygen Flow Rate (L/min) Weight Weight: 180 lb Body Mass Index (BMI) 25.1 Physical Exam Const alert and oriented x3 Constitutional Narrative: very frail and weak General Appearance: cooperative HEENT normocephalic, head/scalp atraumatic and moist oral mucous membranes Eyes PERRL and EOMs intact bilaterally Neck no lymphadenopathy and supple Lymph Lymphatic: no lymphadenopathy noted Resp normal respiratory effort, normal air movement and clear to auscultation bilaterally Cardio regular rate, regular rhythm, S1 normal heart sound, S2 normal heart sound and no murmurs GI normal to inspection, nondistended, normoactive bowel sounds, soft to palpation, non-tender and non-distended Extremity normal capillary refill, no clubbing, cyanosis or edema and no calf tenderness General Extremity: no tenderness to palpation of joints or extremities Skin General Skin Exam: no breakdown Neuro CN's II-XII intact bilaterally, no focal motor deficits, no sensory deficits noted and deep tendon reflexes 2+ bilaterally Psych thought process normal and cooperative Appearance: appropriate Results Lab / Micro Data 03/22/23 09:15 03/22/23 09:15 Labs: Laboratory Results - last 24 hr 03/22/23 09:15: WBC 29.6 H, RBC 3.31 L, Hgb 8.2 L, Hct 29.0 L, MCV 87.6, MCH 24.8 L, MCHC 28.3 L D, RDW Std Deviation 61.1 H, RDW Coeff of [place] 19.1 H, Plt Count 135 L, MPV 12.2 H, Neut % (Auto) Not Reportable, Absolute Neuts (auto) 28.1 H, Absolute Lymphs (auto) 0.90, Total Counted 100, Neutrophils % (Manual) 91 H, Band Neutrophils % 4, Lymphocytes % (Manual) 3 L, Metamyelocytes % 1, Myelocytes % 1 H, Diff Path Review October, Platelet Estimate SLT DEC, RBC Morphology NORM C+C, PT 17.5 H, INR 1.4, APTT 33.7, Sodium 140, Potassium 3.6, Chloride 108 H, Carbon Dioxide 17.0 L, Anion Gap 15, BUN 30 H, Creatinine 2.02 H, Estim Creat Clear Calc 33.14, Est GFR (MDRD) Af Amer 42 L, Est GFR (MDRD) Non-Af 34 L, BUN/Creatinine Ratio 14.9, Glucose 93, Lactic Acid 10.9 H*, Calcium 8.2 L, Total Bilirubin 0.60, AST 470 H, ALT 83 H, Alkaline Phosphatase 605 H, Total Protein 6.6, Albumin 2.2 L, Globulin 4.4 H, Albumin/Globulin Ratio 0.5 L 03/22/23 11:44: Urine Color Yellow, Urine Clarity Cloudy, Urine pH 5.0, Ur Specific [place] 1.015, Urine Protein 100 H, Urine Glucose (UA) Normal, Urine Ketones Negative, Urine Occult Blood 250 H, Urine Nitrite Negative, Urine Bilirubin Negative, Urine Urobilinogen Normal, Ur Leukocyte Esterase 500 H, Urine RBC 25-50 SEEN, Urine WBC 25-50 SEEN, Ur Squamous Epith Cells 0-5 SEEN, Amorphous Sediment 1+, Urine Bacteria 1+, Urine Mucus 0 SEEN ABG Data ABG results: ABG 03/22/23 09:42 Specimen Type ART Sample Site R Brach pH 7.35 Bicarbonate Actual 14.2 L Total CO2 15 Base Excess -11 L O2 Saturation 100 H O2 % 100.0 ABG pCO2 25.6 L ABG pO2 254 H [place] Test Positive O2 Delivery Device NRB Vent Mode Not entered Radiology Impression Chest X-Ray 03/22/23 09:14 IMPRESSION: Persistent left lower lung opacity/consolidation corresponding to the CT abnormality. Follow-up exam is recommended. Electronically Signed: Fabiano Kevin MD at 10:39 EDT , Brain CT 03/22/23 10:03 IMPRESSION: 1. No acute intracranial process. 2. Mild chronic involutional changes of the brain. Electronically Signed: Fabiano Kevin MD at 11:02 EDT , Assessment & Plan Assessment/Plan (1) Septic shock: (2) Acute UTI: (3) MEGHNA (acute kidney injury): PLAN: Plan #Septic shock due to pneumonia and possible UTI admitted with a complaint of weakness and lethargy. Found to have elevated wbc of 29.6, as well as being hypotensive. Blood pressure was down in the 70s systolic initially responded a bit to fluids but became hypotensive again. Urinalysis showed 1+ bacteria. Patient has a history of metastatic prostate cancer with mets to the lungs. He recently had a bronchoscopy and states he was placed on levofloxacin afterwards due to concern for pneumonia. He however did not complete the course due to concern about allergies to the levofloxacin. Will get blood cultures and urine culture. Started on IV vancomycin and cefepime. central line inserted in the ED. To be admitted to the ICU Critical care consulted. Hydrate per sepsis protocol at 30 cc per EKG and if blood pressure is still not coming up, will start on vasopressors. #Seizure Patient states he had CT of the brain which did not show any evidence of any brain mets. He does not know whether he had an MRI of the brain. CT of the brain done during this admission showed no evidence of any mets. Patient is on Keppra so it appears that he is known to have seizures. This time lasted about 8 minutes by his and he had elevated lactic acid also on admission. On Keppra. Will resume. IV Ativan as needed #Lactic acidosis: Likely due to seizures and septic shock. Lactic acid was around 10. Hydrate with fluids and trend. #MEGHNA: Creatinine is 2.02. Baseline creatinine is 1.13. Likely due to septic shock. She would respond to fluid hydration. #Metastatic prostate cancer with mets to the lungs. Patient states he followed up with oncology. He is done with radiation and chemotherapy and also also had immunotherapy and states he has been told there is nothing else that can be done for him. He recently had bronchoscopy and was told he had cancer in his lungs. He had been interested in palliative care and hospice but now wants to be full code. DVT prophylaxis; heparin CODE STATUS: Full code Patient, his and daughter counseled extensively about the differences between full code, DNR CC and DNR CCA. Patient had been interested in hospice and was actually supposed to meet hospice today. However it appears that they do not fully understand the import of hospice as their and daughter, they feel closely hospice to get a hospital bed for him and keep him comfortable at home. However he wants aggressive measures and wants CPR and intubation if needed. I explained to them that this would not qualify them for hospice and he would have to be full code. Patient and family were agreeable to this. Patient is therefore full code. Total [id number]-[id number] time 17 minutes. Total critical care time spent: 78 minutes. Charges/Coding Visit Charges Inpatient E&M: 22813 Init Hosp L3 Procedures Hospitalists Procedures: 17189 Critial Care 1st Hr (advanced care plannin)
[2023-03-22 13:25] LABS: Reflex Lactate? Y
--- NOTE | 2023-03-22 14:15 | RAD_ITS ---
INDICATION: central line EXAMINATION/TECHNIQUE: X-RAY - XR Chest 1 View COMPARISON: Prior study dated: 03/22/2023, 10:12 AM. FINDINGS: LINES/DEVICES: New right internal jugular central venous catheter with its tip in the distal superior vena cava. Defibrillating pads overlying the chest. LUNGS: Improved left lower lung infiltrate and decreased left pleural effusion. MEDIASTINUM AND CARDIOVASCULAR STRUCTURES: Cardiac silhouette not enlarged. Central airways and mediastinal contour are unremarkable. BONES AND SOFT TISSUES: Unremarkable. RAD/Chest 1 View (Portable) IMPRESSION: 1. New right internal jugular central venous catheter with the tip in the distal superior vena cava. 2. Improved aeration of the left lower lung. Electronically Signed: Fabiano Kevin MD at 14:59 EDT ,
[2023-03-22] MEDS: Norepinephrine 8 MG in 0.9% Normal Saline (250mL Bag) 242 ML 9.4 MG CONT INF (14:41)
[2023-03-22 15:20] LABS: Lactic Acid 4.7 mmol/L (0.4-1.9)
--- NOTE | 2023-03-22 15:37 | ED.RN ---
Report called to Mariaelena NAILS on ICU.
--- NOTE | 2023-03-22 16:26 | PCM.RX.CS ---
Consult Antibiotic Management Pharmacy has been consulted to manage selected antiobiotic: Vancomycin Type of Intervention Type of Consult: New start Suspected Infection Suspected Infection: Sepsis Prior Doses of Antibiotics Prior Doses of Antibiotics Received/Current Regimen: Vancomycin 2000 mg IV x 1 on 03/22/23 @ 1149, also is on cefepime 1 gram Q12H. Labs Labs: Sodium 140 mmol/L (136-145) 03/22/23 09:15 Potassium 3.6 mmol/L (3.5-5.1) 03/22/23 09:15 Chloride 108 mmol/L (98-107) H 03/22/23 09:15 Carbon Dioxide 17.0 mmol/L (21.0-32.0) L 03/22/23 09:15 Anion Gap 15 (5-15) 03/22/23 09:15 BUN 30 mg/dL (7-18) H 03/22/23 09:15 Creatinine 2.02 mg/dL (0.70-1.30) H 03/22/23 09:15 Est GFR (MDRD) Af Amer 42 mL/min (>60) L 03/22/23 09:15 Est GFR (MDRD) Non-Af 34 mL/min (>60) L 03/22/23 09:15 BUN/Creatinine Ratio 14.9 RATIO (10-20) 03/22/23 09:15 Glucose 93 mg/dL (74-106) 03/22/23 09:15 Dosing Weight Weight used for dosin kg Estimated Creatinine Clearance Estimated Creatinine Clearance: 33 Goal Trough Goal Trough: 15-20 mcg/mL Pharmacy Plan for Drug Dosing Pharmacy Plan for Drug Dosing: Vancomycin 2000 mg IV x 1 given 03/22/23 @ 1149, subsequent dosing 1250 mg IV Q24H starting 03/23/23 @ 1200 with a trough prior to the 3rd dose. Pharmacy Service will continue to monitor and adjust dosing as required. Follow-Up Labs Follow-Up Labs: Trough: Vancomycin Date/Time Labs Ordered Labs to be done on [date and time ordered]: 03/22/23 @ 1130
[2023-03-22] MEDS: Heparin Injection (Vial) 5,000 UNIT/ML VIAL 5000 UNIT SC ×2 (17:50→21:21)
[2023-03-22] MEDS: Oxycodone/Apap 5/325 Tablet PO (21:06)
[2023-03-22] MEDS: levETIRAcetam 500 MG Tablet PO (21:06)
[2023-03-22] MEDS: Ondansetron 4 MG/2 ML Vial IV (23:11)
[2023-03-22] MEDS: Morphine 2 MG/ML Syringe IV (23:11)
[2023-03-23] VITALS (32 sets, daily range): BP systolic 86–112; BP diastolic 54–78; PULSE 122–140; RESP 23–32; TEMP 36–36.6; O2SAT 90–100; BMI 54.3
[2023-03-23] MEDS: Norepinephrine 8 MG in 0.9% Normal Saline (250mL Bag) 242 ML 28.1 MG CONT INF ×2 (00:38→09:32)
[2023-03-23 04:41] LABS: Hematocrit 25.8 % (40-54); Hemoglobin 7.5 g/dL (13.0-16.5); Mean Corp Hgb Conc 29.1 g/dL (32-36); POSITIVE COUNT YES; POSITIVE DIFFERENTIAL YES; POSITIVE MORPHOLOGY YES; Platelet Count 107 K/mm3 (150-450); RBC Distribution Width CV 19.7 % (11.6-14.6); RBC Distribution Width SD 60.7 fl (35.1-43.9); White Blood Count 30.2 K/mm3 (4.4-11.0)
[2023-03-23 04:44] LABS: Differential Indicated MANUAL DIFF
[2023-03-23 04:57] LABS: ALB/GLOB Ratio 0.5 RATIO (0.9-2.4); AST(SGOT) 527 U/L (15-37); Alanine Aminotransfer ALT/SGPT 80 U/L (16-61); Albumin, Serum 1.9 g/dL (3.2-5.0); Alkaline Phosphatase 457 U/L (45-117); Anion Gap 10 (5-15); BUN 34 mg/dL (7-18); Chloride 116 mmol/L (98-107); Creatinine, Serum 1.89 mg/dL (0.70-1.30); EST Glomerular Filtration Rate 37 mL/min (>60); Est Glom Filt Rate - Afr Amer 45 mL/min (>60); Estimated Creatinine Clearance 34.33 ml/min; Globulin 3.9 g/dL (2.2-4.2); Glucose 71 mg/dL (74-106); Potassium 3.7 mmol/L (3.5-5.1); Protein, Total 5.8 g/dL (6.4-8.2); Sodium Level 144 mmol/L (136-145)
[2023-03-23 05:11] LABS: Anisocytosis 2+; Platelet Estimate SLT DEC (ADEQ); Red Cell Morphology NORM C+C NORMAL (NORM C&C)
[2023-03-23 05:14] LABS: Absolute Neutrophil Count 26.8 X10^3/uL (2.0-7.7); Lymphocyte 3 % (19-41); Metamyelocyte 1 % (0-1); Monocyte 5 % (0-10); Myelocyte 2 % (0-0); Neutrophil-Band 17 % (0-5); Neutrophil-Segmented 72 % (47-70); Total Cells Counted 100 (MANUAL DIFF)
[2023-03-23] MEDS: 0.9% Saline Lock 10 ML Syringe IV ×2 (05:29→14:21)
[2023-03-23] MEDS: Heparin Injection (Vial) 5,000 UNIT/ML VIAL 5000 UNIT SC ×3 (05:29→21:08)
--- NOTE | 2023-03-23 06:45 | EX.PCM.CONCC ---
Assessment & Plan Assessment/Plan (1) Septic shock: PLAN: Plan RECOMMENDATIONS: 1. Continue empiric broad-spectrum antimicrobials, pending finalized culture results. 2. Continue Levophed to maintain mean arterial pressure at or above 65 mmHg. 3. Discontinue morphine, given underlying renal insufficiency. 4. Obtain outside hospital medical records. 5. Maintain n.p.o. status, pending evaluation by speech therapy. 6. Continue PPI therapy and appropriate DVT prophylaxis. IMPRESSIONS: 1. Septic shock The patient presented to the hospital with sepsis due to probable pneumonia and/or urinary tract source of infection with acute sepsis related organ dysfunction as evidenced by fluid refractory hypotension requiring vasopressor support, acute kidney injury and lactic acidemia. The patient did receive supplemental IV fluid hydration. He will be continued on empiric broad-spectrum antimicrobials, pending finalized culture results. Continue Levophed to maintain a mean arterial pressure at or above 65 mmHg. 2. Acute kidney injury Most likely prerenal in etiology in the setting of #1. Continue current supportive measures including vasopressor support to maintain hemodynamic stability. Continue to monitor urine output for now. If renal function continues to worsen, consider nephrology consultation. 3. History of unspecified seizures Plan to continue Keppra per home regimen. Transition to IV formulation, given n.p.o. status. Maintain seizure precautions and continue as needed Ativan. Depending on clinical course, the patient may require neurology consultation if additional seizure activity is noted. 4. History of metastatic prostate CA The patient has prostate cancer with metastasis to the liver, bone and lung. He underwent recent bronchoscopy and was noted to have an infection and evidence of malignancy. He has not yet followed up with his outpatient oncologist to discuss the results. However, according to the family, the patient was told that all treatment options have been exhausted with regard to his prostate CA. He was originally planning to meet with hospice care services prior to his hospitalization. We will attempt to obtain outside hospital medical records to clarify his diagnosis. Recommend ongoing goals of care discussion with the patient and family. 5. History of dysphagia with concern for aspiration Maintain n.p.o. status for now, pending evaluation by speech therapy. TIME: 40 minutes of critical care time, independent of procedures, was spent addressing the patient's septic shock, acute kidney injury, unspecified seizure disorder, metastatic prostate cancer, review of all data and collaboration with the care team. HPI Consult Data Date of Consult: 03/23/23 HPI Narrative Reason for Consultation: Septic shock HPI Narrative: The patient is a 77-year-old male, with a history as outlined below, who presented to the emergency department via EMS on March 22 with altered mental status in the setting of a witnessed seizure. The patient has an apparent history of metastatic prostate cancer. The patient apparently underwent a recent outside bronchoscopy and was placed on antimicrobials over concerns for an underlying infection +/- malignancy. He is apparently status post chemo and radiation treatment for his metastatic prostate cancer and was told that no additional therapy was available for him. Yesterday, the patient was scheduled to meet with hospice care services in the afternoon, but experienced his seizure activity prior to the appointment and was brought to the hospital for evaluation. According to the family, the patient has had difficulty with swallowing, with concern for aspiration. On presentation to the emergency department, the patient was documented to have a temperature of 96.8 ?F. He was notably tachycardic and tachypneic with a blood pressure of 80/51 mmHg. Initial laboratory evaluation revealed an elevated white blood cell count to 30,000. Platelet count was low at 135,000. Chemistry profile was notable for a chloride of 108, bicarbonate of 17 and creatinine of 2.02. Lactate was elevated at 10.9. AST and ALT were increased at 470 and 83, respectively. Urine analysis was positive for leukocyte esterase and 1+ urine bacteria. Chest imaging demonstrated a left lower lobe airspace opacity. Head CT revealed chronic involutional changes of the brain. The patient received supplemental IV fluid hydration and was initiated on antimicrobials. Unfortunately, the patient developed fluid refractory hypotension, which required central venous catheter placement and initiation of vasopressor support. The patient was ultimately transferred to the medical intensive care unit for further management. 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 Pancytopenia Prostate CA Prostate cancer Prostate cancer metastatic to bone Pulmonary embolism Seizures Skin ulcer of right heel with fat layer exposed Spinal stenosis Thrombocytopenia Home Medications levetiracetam 750 mg tablet 500 mg PO BID seizure 08/26/15 [History Last Taken 02/11/22 11:00] pramipexole 2.25 mg tablet,extended release 24 hr 0.25 mg PO QHS health maintenance 02/18/21 [History Last Taken 02/10/22 21:00] oxycodone-acetaminophen 7.5 mg-325 mg tablet 1 tab PO Q8H PRN Pain 08/07/21 [History Last Taken 02/11/22 04:00] prednisone 5 mg tablet 5 mg PO QODAY sterioid 01/01/22 [History Last Taken 02/10/22 09:00] pantoprazole 40 mg tablet,delayed release (Protonix) 40 mg PO DAILY #30 tabs 02/14/22 [Rx Last Taken Unknown] promethazine 25 mg tablet 25 mg PO PRN PRN Nausea 04/17/22 [History Last Taken Unknown] zonisamide 25 mg capsule 100 mg PO BID Check with primary doctor 04/17/22 [History Last Taken Unknown] duloxetine 30 mg capsule,delayed release 30 mg PO DAILY 02/04/23 [History Last Taken Unknown] potassium chloride 20 mEq tablet,extended release(part/cryst) 20 meq PO DAILY 02/04/23 [History Last Taken Unknown] fentanyl 25 mcg/hr transdermal patch 1 patch transdermal Q72H 3 days #5 ea 03/20/23 [Rx Last Taken Unknown] Allergy/AdvReac Type Severity Reaction Status Date / Time Iodinated Contrast Media Allergy Hives Verified 03/22/23 09:12 [CONTRASTS] Penicillins Allergy Unknown Verified 03/22/23 09:12 levofloxacin AdvReac Vomiting Verified 03/22/23 10:46 morphine AdvReac Nausea/Vom/ Verified 03/22/23 09:12 Diarrhea Family History Mother Cancer Hypertension Heart disease Sister Cancer Brother Cancer Sister Ovarian cancer Father Alcohol-induced persisting dementia Surgical History Hx of cholecystectomy S/P TURP Social History household members: spouse Smoking Status: Former smoker quit date: 06/06/84 alcohol intake: current alcohol intake frequency: holidays/special occasions only substance use type: does not use ROS ROS Narrative 10 systems were reviewed with pertinent positives as noted in the HPI above. Physical Exam Const alert and no apparent distress Constitutional Narrative: Ill in appearance. General Appearance: cooperative HEENT normocephalic and head/scalp atraumatic Eyes PERRL, EOMs intact bilaterally and conjunctivae normal Neck supple General: trachea midline and CVC in place Chest inspection of chest normal Resp normal respiratory effort Auscultation: Negative for rales, rhonchi or wheezes Cardio regular rate and regular rhythm GI normal to inspection, nondistended, normoactive bowel sounds Extremity no clubbing, cyanosis or edema Skin no rashes or lesions noted Neuro oriented x3, CN's II-XII intact bilaterally and moves all extremities Psych Mood & Affect: flat affect Lab / Micro Data 03/23/23 04:30 03/23/23 04:30 Labs: Laboratory Results - last 24 hr 03/22/23 09:15: WBC 29.6 H, RBC 3.31 L, Hgb 8.2 L, Hct 29.0 L, MCV 87.6, MCH 24.8 L, MCHC 28.3 L D, RDW Std Deviation 61.1 H, RDW Coeff of [place] 19.1 H, Plt Count 135 L, MPV 12.2 H, Neut % (Auto) Not Reportable, Absolute Neuts (auto) 28.1 H, Absolute Lymphs (auto) 0.90, Total Counted 100, Neutrophils % (Manual) 91 H, Band Neutrophils % 4, Lymphocytes % (Manual) 3 L, Metamyelocytes % 1, Myelocytes % 1 H, Diff Path Review October, Platelet Estimate SLT DEC, RBC Morphology NORM C+C, PT 17.5 H, INR 1.4, APTT 33.7, Sodium 140, Potassium 3.6, Chloride 108 H, Carbon Dioxide 17.0 L, Anion Gap 15, BUN 30 H, Creatinine 2.02 H, Estim Creat Clear Calc 33.14, Est GFR (MDRD) Af Amer 42 L, Est GFR (MDRD) Non-Af 34 L, BUN/Creatinine Ratio 14.9, Glucose 93, Lactic Acid 10.9 H*, Calcium 8.2 L, Total Bilirubin 0.60, AST 470 H, ALT 83 H, Alkaline Phosphatase 605 H, Total Protein 6.6, Albumin 2.2 L, Globulin 4.4 H, Albumin/Globulin Ratio 0.5 L 03/22/23 11:44: Urine Color Yellow, Urine Clarity Cloudy, Urine pH 5.0, Ur Specific [place] 1.015, Urine Protein 100 H, Urine Glucose (UA) Normal, Urine Ketones Negative, Urine Occult Blood 250 H, Urine Nitrite Negative, Urine Bilirubin Negative, Urine Urobilinogen Normal, Ur Leukocyte Esterase 500 H, Urine RBC 25-50 SEEN, Urine WBC 25-50 SEEN, Ur Squamous Epith Cells 0-5 SEEN, Amorphous Sediment 1+, Urine Bacteria 1+, Urine Mucus 0 SEEN 03/22/23 14:30: Lactic Acid 4.7 H* 03/23/23 04:30: WBC 30.2 H*, RBC 3.00 L, Hgb 7.5 L, Hct 25.8 L, MCV 86.0, MCH 25.0 L, MCHC 29.1 L, RDW Std Deviation 60.7 H, RDW Coeff of [place] 19.7 H, Plt Count 107 L, Neut % (Auto) Not Reportable, Absolute Neuts (auto) 26.8 H, Absolute Lymphs (auto) 0.90, Total Counted 100, Neutrophils % (Manual) 72 H, Band Neutrophils % 17 H, Lymphocytes % (Manual) 3 L, Monocytes % (Manual) 5, Metamyelocytes % 1, Myelocytes % 2 H, Diff Path Review October, Platelet Estimate SLT DEC, RBC Morphology NORM C+C, Anisocytosis 2+, Sodium 144, Potassium 3.7, Chloride 116 H, Carbon Dioxide 18.0 L, Anion Gap 10, BUN 34 H, Creatinine 1.89 H, Estim Creat Clear Calc 34.33, Est GFR (MDRD) Af Amer 45 L, Est GFR (MDRD) Non-Af 37 L, BUN/Creatinine Ratio 18.0, Glucose 71 L, Calcium 7.0 L, Total Bilirubin 0.70, AST 527 H, ALT 80 H, Alkaline Phosphatase 457 H, Total Protein 5.8 L, Albumin 1.9 L, Globulin 3.9, Albumin/Globulin Ratio 0.5 L Micro: Microbiology 03/22/23 11:44 Urine Catheter - Vera Legionella Antigen - Final 03/22/23 11:44 Urine Catheter - Vera Streptococcus pneumoniae Antigen (M - Final ABG Data ABG results: ABG 03/22/23 09:42 Specimen Type ART Sample Site R Brach pH 7.35 Bicarbonate Actual 14.2 L Total CO2 15 Base Excess -11 L O2 Saturation 100 H O2 % 100.0 ABG pCO2 25.6 L ABG pO2 254 H [place] Test Positive O2 Delivery Device NRB Vent Mode Not entered Radiology Impression Chest X-Ray 03/22/23 09:14 IMPRESSION: Persistent left lower lung opacity/consolidation corresponding to the CT abnormality. Follow-up exam is recommended. Electronically Signed: Fabiano Kevin MD at 10:39 EDT , Brain CT 03/22/23 10:03 IMPRESSION: 1. No acute intracranial process. 2. Mild chronic involutional changes of the brain. Electronically Signed: Fabiano Kevin MD at 11:02 EDT , Chest X-Ray 03/22/23 14:15 IMPRESSION: 1. New right internal jugular central venous catheter with the tip in the distal superior vena cava. 2. Improved aeration of the left lower lung. Electronically Signed: Fabiano Kevin MD at 14:59 EDT , Charges/Coding Procedures Hospitalists Procedures: [id number] [facility] Care 1st Hr
[2023-03-23] MEDS: Cefepime HCl 2 GM in 0.9% Normal Saline (100mL MB+) 100 ML IV ×2 (09:32→21:08)
[2023-03-23] MEDS: Vancomycin HCl 1,250 MG in 0.9% Normal Saline (250mL Bag) 250 ML 167 MG IV (11:21)
--- NOTE | 2023-03-23 13:07 | PN_ITS ---
Subjective Subjective Patient seen and examined. and son by his bedside. Patient looks more frail and weak today compared to yesterday. He had no active complaints. He denied any pain. He denied any fever or chills, nausea vomiting or any other symptoms. He failed a swallow evaluation yesterday. He is therefore currently NPO. Objective Data Objective Data Vital Signs: Vital Signs Temp Pulse Resp BP Pulse Ox O2 Del Method O2 Flow Rate 96.8 F L 127 H 27 H 104/60 96 Nasal Cannula 3 03/23/23 12:00 03/23/23 12:00 03/23/23 12:00 03/23/23 12:00 03/23/23 12:00 03/23/23 12:00 03/23/23 12:00 Oxygen Flow Rate (L/min) 3 Oxygen Delivery Method Nasal Cannula Weight: 171 lb 1.6 oz Body Mass Index (BMI) 54.3 Intake & Output: Intake and Output for Last 24 Hours 03/21/23 03/22/23 03/23/23 23:59 23:59 23:59 Intake Total 3911.84 / 3939.94 445.07 / 445.07 Output Total 300 / 300 Balance 3911.84 / 3939.94 145.07 / 145.07 Medical Nutrition Assessment Dietitian: Malnutrition Criteria Met Start: 03/23/23 12:51 Freq: Status: Active Protocol: Document 03/23/23 12:51 AG (Rec: 03/23/23 12:51 AG Desktop) Nutrition Malnutrition Evidence of Malnutrition Exists Yes Malnutrition (severe): Acute Illness/Injury Evidenced By Suboptimal Energy Intake ( Severe),Weight Loss (Severe) Clinical Problem Acute Disease or Injury Related Malnutrition Etiology severe, acute malnutrition related to inadequate energy intake d/t swallowing difficulty Signs/Symptoms as evidenced by estimated PO intake meeting <50% of estimated energy needs, unintentional 4% wt loss x 2-3 weeks. Status Active Problem Recommendation Dietitian Recommendations/Changes recommend advance diet as tolerated to regular; ensure w / medpass when PO diet is advanced. Lab / Micro Data 03/23/23 04:30 03/23/23 04:30 Labs: Laboratory Results - last 24 hr 03/22/23 14:30: Lactic Acid 4.7 H* 03/23/23 04:30: WBC 30.2 H*, RBC 3.00 L, Hgb 7.5 L, Hct 25.8 L, MCV 86.0, MCH 25.0 L, MCHC 29.1 L, RDW Std Deviation 60.7 H, RDW Coeff of [place] 19.7 H, Plt Count 107 L, Neut % (Auto) Not Reportable, Absolute Neuts (auto) 26.8 H, Absolute Lymphs (auto) 0.90, Total Counted 100, Neutrophils % (Manual) 72 H, Ba nd Neutrophils % 17 H, Lymphocytes % (Manual) 3 L, Monocytes % (Manual) 5, Metamyelocytes % 1, Myelocytes % 2 H, Diff Path Review October, Platelet Estimate SLT DEC, RBC Morphology NORM C+C, Anisocytosis 2+, Sodium 144, Potassium 3.7, Chloride 116 H, Carbon Dioxide 18.0 L, Anion Gap 10, BUN 34 H, Creatinine 1.89 H, Estim Creat Clear Calc 34.33, Est GFR (MDRD) Af Amer 45 L, Est GFR (MDRD) Non-Af 37 L, BUN/Creatinine Ratio 18.0, Glucose 71 L, Calcium 7.0 L, Total Bilirubin 0.70, AST 527 H, ALT 80 H, Alkaline Phosphatase 457 H, Total Protein 5.8 L, Albumin 1.9 L, Globulin 3.9, Albumin/Globulin Ratio 0.5 L Micro: Microbiology 03/22/23 11:44 Urine Catheter - Vera Legionella Antigen - Final 03/22/23 11:44 Urine Catheter - Vera Streptococcus pneumoniae Antigen (M - Final Radiography Diagnostic Testing: Radiology Impression Chest X-Ray 03/22/23 14:15 IMPRESSION: 1. New right internal jugular central venous catheter with the tip in the distal superior vena cava. 2. Improved aeration of the left lower lung. Electronically Signed: Fabiano Kevin MD at 14:59 EDT , Physical Exam Const alert and oriented x3 Constitutional Narrative: very frail and weak, looks very pale General Appearance: cooperative HEENT normocephalic, head/scalp atraumatic and moist oral mucous membranes Eyes PERRL and EOMs intact bilaterally Neck no lymphadenopathy and supple Lymph Lymphatic: no lymphadenopathy noted Resp normal respiratory effort, normal air movement and clear to auscultation bilat erally Cardio regular rate, regular rhythm, S1 normal heart sound, S2 normal heart sound and no murmurs GI normal to inspection, nondistended, normoactive bowel sounds, soft to palpation, non-tender and non-distended Extremity normal capillary refill, no clubbing, cyanosis or edema and no calf tenderness General Extremity: no tenderness to palpation of joints or extremities Skin General Skin Exam: no breakdown Neuro CN's II-XII intact bilaterally, no focal motor deficits, no sensory deficits noted and deep tendon reflexes 2+ bilaterally Motor Exam: strength 5/5 throughout and general weakness Psych thought process normal and cooperative Appearance: appropriate Assessment & Plan Assessment/Plan (1) Septic shock: (2) Acute UTI: (3) MEGHNA (acute kidney injury): PLAN: Plan #Septic shock * due to pneumonia and possible UTI * still on levophed drip. * wbc up to 30. * blood cultures and urine cultures pending * critical care on board * On IV vancomycin and cefepime * titrate levophed to maintain MAP >65 * * #Seizure * Patient states he had CT of the brain which did not show any evidence of any brain mets. He does not know whether he had an MRI of the brain. CT of the brain done during this admission showed no evidence of any mets. * Patient is on Keppra so it appears that he is known to have seizures. * On Keppra. * hasnt had any more seizures since admission * #Lactic acidosis: Likely due to seizures and septic shock. Lactic acid was around 10. Hydrate with fluids and trend. #MEGHNA: Creatinine is down to 1.89. Baseline creatinine is 1.13. Likely due to septic shock. Expect Cr to improve as shock resolves #Anemia: hb is 7.5, down from 8.2 on admission yesterday. Will monitor closely and transfuse if hb <7. #thrombocytopenia * platelets are 107 today, from 135 yesterday * Likely due to septic shock in aneesh setting of metastatic prostate cancer * #Metastatic prostate cancer with mets to the lungs. * Patient states he followed up with oncology. He is done with radiation and chemotherapy and also also had immunotherapy and states he has been told there is nothing else that can be done for him. * He recently had bronchoscopy and was told he had cancer in his lungs. * He had been interested in palliative care and hospice but now wants to be full code. * records requested from [facility]. * DVT prophylaxis; heparin; dc heparin if thrombocytopenia and anemia worsens. CODE STATUS: Full code * * Charges/Coding Visit Charges Inpatient E&M: 78561 Subs Hosp L3
[2023-03-23] MEDS: fentaNYL 100 MCG/2 ML Ampul 25 MCG IV ×3 (14:20→22:52)
[2023-03-23 15:19] LABS: Pathologist Review Reviewed
[2023-03-23 15:22] LABS: Pathologist Review Reviewed
[2023-03-23] MEDS: 0.9% Normal Saline (250mL Bag) 250 ML 15 ML IV (18:36)
--- NOTE | 2023-03-23 19:23 | NURSING ---
lengthy conversation with patient, patient's , Lorena, and patient's daughter, Sandra, regarding code status. Reviewed in-depth Full code, DNRCC-A with intubation, DNRCC-A no intubation, and DNRCC. All questions were answered and all agreed they understood the difference. They decided to think this over and see how numbers look in the morning and decide then. At this time, will continue FULL code.
[2023-03-23] MEDS: Norepinephrine 8 MG in 0.9% Normal Saline (250mL Bag) 242 ML 18.8 MG CONT INF (21:07)
[2023-03-23] MEDS: levETIRAcetam IV 500 MG in 0.9% Normal Saline (100mL Bag) 100 ML 400 MG IV (21:08)
[2023-03-24] VITALS (28 sets, daily range): BP systolic 83–139; BP diastolic 36–88; PULSE 105–142; RESP 18–30; TEMP 36.1–36.6; O2SAT 92–134; BMI 25.2
[2023-03-24] MEDS: fentaNYL 100 MCG/2 ML Ampul 25 MCG IV ×3 (04:24→19:28)
[2023-03-24 04:37] LABS: Hematocrit 25.5 % (40-54); Hemoglobin 7.2 g/dL (13.0-16.5); Mean Corp Hgb Conc 28.2 g/dL (32-36); Mean Corpuscular Hgb 24.7 pg (27.0-32.0); Mean Corpuscular Volume 87.3 fL (80-94); Mean Platelet Vol. 12.7 fl (6.2-12.0); POSITIVE COUNT YES; POSITIVE DIFFERENTIAL YES; POSITIVE MORPHOLOGY YES; Platelet Count 91 K/mm3 (150-450); RBC Distribution Width CV 20.2 % (11.6-14.6); Red Blood Count 2.92 M/mm3 (4.6-6.2); White Blood Count 31.1 K/mm3 (4.4-11.0)
[2023-03-24 04:43] LABS: Differential Indicated MANUAL DIFF
[2023-03-24] MEDS: Ipratropium/Albuterol Sulfate 3 ML AMPUL.NEB INHALATION (04:48)
[2023-03-24 04:51] LABS: ALB/GLOB Ratio 0.4 RATIO (0.9-2.4); AST(SGOT) 459 U/L (15-37); Alanine Aminotransfer ALT/SGPT 64 U/L (16-61); Albumin, Serum 1.7 g/dL (3.2-5.0); Alkaline Phosphatase 381 U/L (45-117); Anion Gap 10 (5-15); BUN 45 mg/dL (7-18); BUN/Creat Ratio 19.8 RATIO (10-20); Chloride 120 mmol/L (98-107); Creatinine, Serum 2.27 mg/dL (0.70-1.30); EST Glomerular Filtration Rate 30 mL/min (>60); Est Glom Filt Rate - Afr Amer 36 mL/min (>60); Estimated Creatinine Clearance 28.59 ml/min; Globulin 3.8 g/dL (2.2-4.2); Glucose 47 mg/dL (74-106); Potassium 3.9 mmol/L (3.5-5.1); Protein, Total 5.5 g/dL (6.4-8.2); Sodium Level 147 mmol/L (136-145)
[2023-03-24 05:01] LABS: Anisocytosis 2+
[2023-03-24 05:02] LABS: Platelet Estimate MOD DEC (ADEQ)
[2023-03-24 05:05] LABS: Absolute Lymphocyte Count 0.62 X10^3/uL (0.83-4.51); Absolute Neutrophil Count 28.6 X10^3/uL (2.0-7.7); Lymphocyte 2 % (19-41); Monocyte 3 % (0-10); Myelocyte 3 % (0-0); Neutrophil-Band 8 % (0-5); Neutrophil-Segmented 84 % (47-70); Total Cells Counted 100 (MANUAL DIFF)
[2023-03-24] MEDS: 0.9% Normal Saline (250mL Bag) 250 ML 15 ML IV (06:01)
[2023-03-24] MEDS: Heparin Injection (Vial) 5,000 UNIT/ML VIAL 5000 UNIT SC ×3 (06:03→21:31)
--- NOTE | 2023-03-24 06:47 | PCM.PN.INT ---
Assessment & Plan Assessment/Plan (1) Septic shock: PLAN: Plan RECOMMENDATIONS: 1. Continue empiric broad-spectrum antimicrobials, pending finalized culture results. 2. Continue Levophed to maintain mean arterial pressure at or above 65 mmHg. 3. Maintain n.p.o. status per speech therapy recommendations, pending reevaluation. 4. Transfuse 1 unit of packed red blood cells. 5. Obtain renal ultrasound. 6. Continue PPI therapy and appropriate DVT prophylaxis. 7. Ongoing goals of care discussion with the patient and family. IMPRESSIONS: 1. Septic shock The patient presented to the hospital with sepsis due to probable pneumonia and/or urinary tract source of infection with acute sepsis related organ dysfunction as evidenced by fluid refractory hypotension requiring vasopressor support, acute kidney injury and lactic acidemia. The patient did receive supplemental IV fluid hydration. He will be continued on empiric broad-spectrum antimicrobials, pending finalized culture results. Continue Levophed to maintain a mean arterial pressure at or above 65 mmHg. Outside hospital BAL cultures from early March were positive for Serratia. 2. Acute kidney injury Most likely prerenal in etiology in the setting of #1. Continue current supportive measures including vasopressor support to maintain hemodynamic stability. Continue to monitor urine output for now. Obtain renal ultrasound. 3. History of unspecified seizures Plan to continue Keppra per home regimen. Maintain seizure precautions and continue as needed Ativan. Depending on clinical course, the patient may require neurology consultation if additional seizure activity is noted. 4. History of metastatic prostate CA The patient has prostate cancer with metastasis to the liver, bone and lung. The patient underwent bronchoscopy through [facility] on March 09, which demonstrated extrinsic compression of the left upper lobe along with a partially obstructing airway abnormality in the left upper lobe, which was biopsied and found to be positive for metastatic prostate cancer. According to the patient's oncologist, no further treatment options are available. At this time, plan to continue current supportive measures, with eventual transition to comfort care, if the patient does not begin to improve clinically. 5. History of dysphagia with concern for aspiration Maintain n.p.o. status for now, pending re-evaluation by speech therapy. CODE STATUS: DNR CCA without intubation TIME: 42 minutes of critical care time, independent of procedures, was spent addressing the patient's septic shock, acute kidney injury, unspecified seizure disorder, metastatic prostate cancer, review of all data and collaboration with the care team. Subjective Subjective The patient was seen and examined at the bedside this morning. Events from the last 24 hours have been reviewed. The patient is currently afebrile maintaining appropriate oxygen saturations on 2 L/min via nasal cannula. He remains on Levophed at 10 mcg/min to maintain hemodynamic stability. Since yesterday, the patient has been complaining of a great deal of pain, for which he has been receiving as needed fentanyl. His white count remains elevated at 31,000 this morning with a hemoglobin of 7.2 g/dL and platelet count of 91,000. Sodium is elevated at 147 with a chloride of 120, bicarbonate of 17 and creatinine of 2.27. The patient is much more confused and disoriented this morning. The patient was evaluated by speech therapy yesterday, who noted severe dysphagia and recommended ongoing n.p.o. status. Record review from [facility] indicated that the patient underwent bronchoscopy on March 09, at which time, Dr. Jessica Howard noted that the patient had extrinsic compression in the left upper lobe along with a partially obstructing airway abnormality in the left upper lobe, which was biopsied. That biopsy was positive for metastatic prostate carcinoma. It does appear that the bronchoscopy culture demonstrated growth of Serratia marcescens, which was susceptible to cefepime. I did have a very melissa discussion with the patient's family this morning during rounds. Given the patient's clinical trajectory, underlying incurable disease, lack of nutritional support and worsening renal insufficiency, I advocated for a transition to DNR. The patient's family would like to transition the patient to DNR CCA/DNI. If there is no improvement over the next 24 to 48 hours, they seem amenable to the idea of initiation of comfort care measures. Objective Data Objective Data The patient's most recent lab work, culture data and imaging studies have all been personally reviewed. Strep and urine Legionella antigens were negative. Blood and urine cultures are pending. Vital Signs: Vital Signs Temp Pulse Resp BP Pulse Ox O2 Del Method O2 Flow Rate 97.5 F L 133 H 26 H 109/86 H 96 Nasal Cannula 2 03/24/23 04:00 03/24/23 06:00 03/24/23 06:00 03/24/23 06:00 03/24/23 06:00 03/24/23 06:00 03/24/23 06:00 Oxygen Flow Rate (L/min) 2 Oxygen Delivery Method Nasal Cannula Weight: 175 lb 8 oz Body Mass Index (BMI) 25.2 Intake & Output: Intake and Output for Last 24 Hours 03/22/23 03/23/23 03/24/23 23:59 23:59 23:59 Intake Total 3911.84 / 3939.94 1161.78 / 1180.58 302.85 / 302.85 Output Total 475 / 475 200 / 200 Balance 3911.84 / 3939.94 686.78 / 705.58 102.85 / 102.85 Medical Nutrition Assessment Dietitian: Malnutrition Criteria Met Start: 03/23/23 12:51 Freq: Status: Active Protocol: Document 03/23/23 12:51 AG (Rec: 03/23/23 12:51 AG Desktop) Nutrition Malnutrition Evidence of Malnutrition Exists Yes Malnutrition (severe): Acute Illness/Injury Evidenced By Suboptimal Energy Intake ( Severe),Weight Loss (Severe) Clinical Problem Acute Disease or Injury Related Malnutrition Etiology severe, acute malnutrition related to inadequate energy intake d/t swallowing difficulty Signs/Symptoms as evidenced by estimated PO intake meeting <50% of estimated energy needs, unintentional 4% wt loss x 2-3 weeks. Status Active Problem Recommendation Dietitian Recommendations/Changes recommend advance diet as tolerated to regular; ensure w / medpass when PO diet is advanced. Lab / Micro Data Attestation: I reviewed the patient's lab results. 03/24/23 04:25 03/24/23 04:25 Labs: Laboratory Results - last 24 hr 03/22/23 09:15: Diff Path Review Reviewed 03/23/23 04:30: Diff Path Review Reviewed 03/24/23 04:25: WBC 31.1 H*, RBC 2.92 L, Hgb 7.2 L, Hct 25.5 L, MCV 87.3, MCH 24.7 L, MCHC 28.2 L, RDW Std Deviation 64.0 H, RDW Coeff of Nemo 20.2 H, Plt Count 91 L, MPV 12.7 H, Neut % (Auto) Not Reportable, Absolute Neuts (auto) 28.6 H, Absolute Lymphs (auto) 0.62 L, Total Counted 100, Neutrophils % (Manual) 84 H, Band Neutrophils % 8 H, Lymphocytes % (Manual) 2 L, Monocytes % (Manual) 3, Myelocytes % 3 H, Diff Path Review May foll, Platelet Estimate MOD DEC, Anisocytosis 2+, Sodium 147 H, Potassium 3.9, Chloride 120 H, Carbon Dioxide 17.0 L, Anion Gap 10, BUN 45 H, Creatinine 2.27 H, Estim Creat Clear Calc 28.59, Est GFR (MDRD) Af Amer 36 L, Est GFR (MDRD) Non-Af 30 L, BUN/Creatinine Ratio 19.8, Glucose 47 L, Calcium 7.0 L, Total Bilirubin 0.60, AST 459 H, ALT 64 H, Alkaline Phosphatase 381 H, Total Protein 5.5 L, Albumin 1.7 L, Globulin 3.8, Albumin/Globulin Ratio 0.4 L Micro: Microbiology 03/22/23 11:44 Urine Catheter - Vera Legionella Antigen - Final 03/22/23 11:44 Urine Catheter - Vera Streptococcus pneumoniae Antigen (M - Final Physical Exam Const Constitutional Narrative: Ill in appearance. The patient is quite disoriented and confused this morning. He will not answer questions. HEENT normocephalic and head/scalp atraumatic Eyes PERRL, EOMs intact bilaterally and conjunctivae normal Neck supple General: trachea midline and CVC in place Chest inspection of chest normal Resp Effort and Inspection: tachypneic Auscultation: wheezes; Negative for rales or rhonchi Cardio regular rate and regular rhythm GI normal to inspection, nondistended, normoactive bowel sounds Extremity no clubbing, cyanosis or edema Skin no rashes or lesions noted Neuro oriented x3, CN's II-XII intact bilaterally and moves all extremities Psych Mood & Affect: flat affect Charges/Coding Procedures Hospitalists Procedures: 37826 Critial Care 1st Hr
--- NOTE | 2023-03-24 06:54 | US_ITS ---
INDICATION: MEGHNA, Septic Shock EXAMINATION: Ultrasound US Kidney(s) complete (eg, kidneys and bladder) TECHNIQUE: Yates scale and color doppler images were obtained of the kidneys. COMPARISON: No relevant prior comparison study available FINDINGS: RIGHT KIDNEY: 11.7 x 4.6 x 4.7 cm. The renal cortex measures 1.3 cm There is no hydronephrosis. No shadowing calculus, focal lesion or perinephric collection is demonstrated. LEFT KIDNEY: 9.8 x 5.3 x 5.4 cm. The renal cortex measures 1.4 cm. There is no hydronephrosis. No shadowing calculus, focal lesion or perinephric collection is demonstrated. Both kidneys are echogenic in texture. URINARY BLADDER: Not visualized. US/Kidney and Bladder IMPRESSION: 1. No evidence of hydronephrosis. 2. Somewhat echogenic kidneys which may reflect renal medical disease. Electronically Signed: Fabiano Kevin MD at 10:27 EDT ,
[2023-03-24] MEDS: Cefepime HCl 2 GM in 0.9% Normal Saline (100mL MB+) 100 ML IV (09:35)
[2023-03-24] MEDS: levETIRAcetam IV 500 MG in 0.9% Normal Saline (100mL Bag) 100 ML 400 MG IV ×2 (10:25→21:30)
[2023-03-24] MEDS: Vancomycin Trough/Random Due 1 LAB MC (10:30)
--- NOTE | 2023-03-24 10:30 | CASEMGMT ---
Addendum entered by Seng Rey 03/24/23 11:01: Initial RN CM assessment deferred at this time, as goals of care are being discussed w/family w/physician and if pt shows no improvement, they would like to transition pt to DNR CC and they are considering hospice services. Original Note: RN CM NOTE: RN CM to room. Pt resting in bed, confused. Introduced self and role to family, who are at bedside. RN CM offered support and questions answered. Discussed possible options w/hospice and they state when hospice came in to speak with them a couple days ago, the liaison was very informative and they were appreciative for the information. Family state they have no further questions at this time. They were made aware SW and RN CM will continue to be available for support and for any further questions they may have. Janes ELIZALDEN RN CM
--- NOTE | 2023-03-24 10:49 | PN_ITS ---
Subjective Subjective Patient seen and examined. Family was around. He is confused today and just keeps muttering in response to questions. He is tachycardic and tachypneic and is on 2L of oxygen. Wbc has gone up to 31 today. hb is 7.2 and platelets are 91. Patient's family changed code status to DNRCCA no intubation. Objective Data Objective Data Vital Signs: Vital Signs Temp Pulse Resp BP Pulse Ox O2 Del Method O2 Flow Rate 97.7 F L 122 H 25 H 115/55 L 97 Nasal Cannula 2 03/24/23 09:27 03/24/23 10:40 03/24/23 10:40 03/24/23 10:40 03/24/23 10:40 03/24/23 10:40 03/24/23 10:40 Oxygen Flow Rate (L/min) 2 Oxygen Delivery Method Nasal Cannula Weight: 175 lb 8 oz Body Mass Index (BMI) 25.2 Intake & Output: Intake and Output for Last 24 Hours 03/22/23 03/23/23 03/24/23 23:59 23:59 23:59 Intake Total 3911.84 / 3939.94 1161.78 / 1180.58 590.84 / 590.84 Output Total 475 / 475 200 / 200 Balance 3911.84 / 3939.94 686.78 / 705.58 390.84 / 390.84 Medical Nutrition Assessment Dietitian: Malnutrition Criteria Met Start: 03/23/23 12:51 Freq: Status: Active Protocol: Document 03/23/23 12:51 AG (Rec: 03/23/23 12:51 AG Desktop) Nutrition Malnutrition Evidence of Malnutrition Exists Yes Malnutrition (severe): Acute Illness/Injury Evidenced By Suboptimal Energy Intake ( Severe),Weight Loss (Severe) Clinical Problem Acute Disease or Injury Related Malnutrition Etiology severe, acute malnutrition related to inadequate energy intake d/t swallowing difficulty Signs/Symptoms as evidenced by estimated PO intake meeting <50% of estimated energy needs, unintentional 4% wt loss x 2-3 weeks. Status Active Problem Recommendation Dietitian Recommendations/Changes recommend advance diet as tolerated to regular; ensure w / medpass when PO diet is advanced. Lab / Micro Data 03/24/23 04:25 03/24/23 04:25 Labs: Laboratory Results - last 24 hr 03/22/23 09:15: Diff Path Review Reviewed 03/23/23 04:30: Diff Path Review Reviewed 03/24/23 04:25: WBC 31.1 H*, RBC 2.92 L, Hgb 7.2 L, Hct 25.5 L, MCV 87.3, MCH 24.7 L, MCHC 28.2 L, RDW Std Deviation 64.0 H, RDW Coeff of Nemo 20.2 H, Plt Count 91 L, MPV 12.7 H, Neut % (Auto) Not Reportable, Absolute Neuts (auto) 28.6 H, Absolute Lymphs (auto) 0.62 L, Total Counted 100, Neutrophils % (Manual) 84 H , Band Neutrophils % 8 H, Lymphocytes % (Manual) 2 L, Monocytes % (Manual) 3, Myelocytes % 3 H, Diff Path Review May foll, Platelet Estimate MOD DEC, Anisocytosis 2+, Sodium 147 H, Potassium 3.9, Chloride 120 H, Carbon Dioxide 17.0 L, Anion Gap 10, BUN 45 H, Creatinine 2.27 H, Estim Creat Clear Calc 28.59, Est GFR (MDRD) Af Amer 36 L, Est GFR (MDRD) Non-Af 30 L, BUN/Creatinine Ratio 19.8, Glucose 47 L, Calcium 7.0 L, Total Bilirubin 0.60, AST 459 H, ALT 64 H, Alkaline Phosphatase 381 H, Total Protein 5.5 L, Albumin 1.7 L, Globulin 3.8, Albumin/Globulin Ratio 0.4 L 03/24/23 07:20: Blood Type AB POSITIVE, Antibody Screen NEGATIVE, Crossmatch See Detail Micro: Microbiology 03/22/23 11:44 Urine, Catheterized Urine Culture - Final Culture exhibits no growth. 03/22/23 10:39 Blood Culture (Wb) - Arm Right Blood Culture - Preliminary No growth in 48 hours. 03/22/23 09:15 Blood Culture (Wb) - Right Forearm Blood Culture - Preliminary No growth in 48 hours. 03/22/23 11:44 Urine Catheter - Vera Legionella Antigen - Final 03/22/23 11:44 Urine Catheter - Vera Streptococcus pneumoniae Antigen (M - Final Radiography Diagnostic Testing: Radiology Impression Renal Ultrasound 03/24/23 06:54 IMPRESSION: 1. No evidence of hydronephrosis. 2. Somewhat echogenic kidneys which may reflect renal medical disease. Electronically Signed: Fabiano Kevin MD at 10:27 EDT , Physical Exam Const alert Constitutional Narrative: very frail and weak, looks very pale Orientation / Consciousness: confused HEENT normocephalic, head/scalp atraumatic and moist oral mucous membranes Eyes PERRL and EOMs intact bilaterally Neck no lymphadenopathy and supple Lymph Lymphatic: no lymphadenopathy noted Resp normal respiratory effort, normal air movement and clear to auscultation bilaterally Cardio regular rate, regular rhythm, S1 normal heart sound, S2 normal heart sound and no murmurs GI normal to inspection, nondistended, normoactive bowel sounds, soft to palpation, non-tender and non-distended Extremity normal capillary refill, no clubbing, cyanosis or edema and no calf tenderness General Extremity: no tenderness to palpation of joints or extremities Skin General Skin Exam: no breakdown Neuro CN's II-XII intact bilaterally, no focal motor deficits, no sensory deficits noted and deep tendon reflexes 2+ bilaterally Motor Exam: strength 5/5 throughout and general weakness Psych thought process normal and cooperative Appearance: appropriate Assessment & Plan Assessment/Plan (1) Septic shock: (2) Acute UTI: (3) MEGHNA (acute kidney injury): PLAN: Plan #Septic shock * due to pneumonia and possible UTI * still on levophed drip. * wbc up to 31 today. * blood cultures and urine cultures negative. * critical care on board * On IV vancomycin and cefepime * titrate levophed to maintain MAP >65 * * #Acute encephalopathy * likely infectious, due to septic shock * patient very confused. * brain imaging done on admission showed no evidence of brain mets * will hold off on getting an MRI of the brain due to code status changed to DNRCCA. * #Seizure * Patient states he had CT of the brain which did not show any evidence of any brain mets. He does not know whether he had an MRI of the brain. CT of the brain done during this admission showed no evidence of any mets. * Patient is on Keppra so it appears that he is known to have seizures. * On Keppra. * hasnt had any more seizures since admission * #Lactic acidosis: Likely due to seizures and septic shock. Lactic acid was around 10 and trended down with hydration. #MEGHNA: Cr has trended up to 2.27. Baseline Cr is 1.13. Cr is worsening. Likely d ue to septic shock not improving. If it continues to worsen, will consult nephrology consult. #Anemia: Hb is down to 7.2 today. Being transfused with one unit of PRBCs. #thrombocytopenia * platelets are dropping further and is down to 91. * Likely due to septic shock in the setting of metastatic prostate cancer * #Metastatic prostate cancer with mets to the lungs. * Patient states he followed up with oncology. He is done with radiation and chemotherapy and also also had immunotherapy and states he has been told there is nothing else that can be done for him. * He recently had bronchoscopy and was told he had cancer in his lungs. * He had been interested in palliative care and hospice but now wants to be full code. * records requested from [facility]. * DVT prophylaxis;on heparin. DC heparin if platelets continue to fall. CODE STATUS:code status switched to DNRCCA no intubation. * * Charges/Coding Visit Charges Inpatient E&M: 99030 Subs Hosp L3
[2023-03-24] MEDS: Norepinephrine 8 MG in 0.9% Normal Saline (250mL Bag) 242 ML 9.4 MG CONT INF (11:08)
[2023-03-24 12:01] LABS: Vancomycin, Trough Level 26.1 ug/mL (5.0-15.0)
--- NOTE | 2023-03-24 12:45 | PCM.RX.CS ---
Consult Antibiotic Management Pharmacy has been consulted to manage selected antiobiotic: Vancomycin Type of Intervention Type of Consult: Follow-up Suspected Infection Suspected Infection: Sepsis Prior Doses of Antibiotics Prior Doses of Antibiotics Received/Current Regimen: Vancomycin 1.25 g Q24H given 03/23/23 @ 1121 Labs Labs: Sodium 147 mmol/L (136-145) H 03/24/23 04:25 Potassium 3.9 mmol/L (3.5-5.1) 03/24/23 04:25 Chloride 120 mmol/L (98-107) H 03/24/23 04:25 Carbon Dioxide 17.0 mmol/L (21.0-32.0) L 03/24/23 04:25 Anion Gap 10 (5-15) 03/24/23 04:25 BUN 45 mg/dL (7-18) H 03/24/23 04:25 Creatinine 2.27 mg/dL (0.70-1.30) H 03/24/23 04:25 Est GFR (MDRD) Af Amer 36 mL/min (>60) L 03/24/23 04:25 Est GFR (MDRD) Non-Af 30 mL/min (>60) L 03/24/23 04:25 BUN/Creatinine Ratio 19.8 RATIO (10-20) 03/24/23 04:25 Glucose 47 mg/dL (74-106) L 03/24/23 04:25 Vancomycin Trough 26.1 ug/mL (5.0-15.0) H 03/24/23 10:25 Microbiology Microbiology: Microbiology 03/22/23 11:44 Urine, Catheterized Urine Culture - Final Culture exhibits no growth. 03/22/23 10:39 Blood Culture (Wb) - Arm Right Blood Culture - Preliminary No growth in 48 hours. 03/22/23 09:15 Blood Culture (Wb) - Right Forearm Blood Culture - Preliminary No growth in 48 hours. 03/22/23 11:44 Urine Catheter - Vera Legionella Antigen - Final 03/22/23 11:44 Urine Catheter - Vera Streptococcus pneumoniae Antigen (M - Final Dosing Weight Weight used for dosin.6 kg Estimated Creatinine Clearance Estimated Creatinine Clearance: ~30 Goal Trough Goal Trough: 15-20 mcg/mL Pharmacy Plan for Drug Dosing Pharmacy Plan for Drug Dosing: Vancomycin trough was 26.1, hold vancomycin until random level tomorrow morning. Pharmacy Service will continue to monitor and adjust dosing as required. Follow-Up Labs Follow-Up Labs: Trough: Vancomycin (random) Date/Time Labs Ordered Labs to be done on [date and time ordered]: 03/25/23 @ 0600
[2023-03-24] MEDS: LORazepam 2 MG/ML Syringe 1 MG IV ×2 (16:47→23:09)
[2023-03-24] MEDS: 0.9% Saline Lock 10 ML Syringe IV ×2 (16:47→19:29)
[2023-03-25] VITALS (15 sets, daily range): BP systolic 90–131; BP diastolic 53–83; PULSE 97–115; RESP 17–22; TEMP 36.2–36.4; O2SAT 93–100; BMI 24.5
[2023-03-25] MEDS: fentaNYL 100 MCG/2 ML Ampul 25 MCG IV ×3 (00:42→15:17)
[2023-03-25 03:45] LABS: Absolute Lymphocyte Count 0.82 X10^3/uL (0.83-4.51); Absolute Neutrophil Count 23.5 X10^3/uL (2.0-7.7); Basophil# 0.19 X10^3/uL; Basophil% 0.7 % (0-1); Eosinophil# 0.21 X10^3/uL; Eosinophils% 0.8 % (0-5); Hematocrit 26.7 % (40-54); Hemoglobin 7.7 g/dL (13.0-16.5); Lymphocyte # 0.82 X10^3/ul (0.83-4.51); Lymphocyte % 3.1 % (19-41); Mean Corp Hgb Conc 28.8 g/dL (32-36); Mean Corpuscular Hgb 25.3 pg (27.0-32.0); Mean Corpuscular Volume 87.8 fL (80-94); Monocyte# 0.48 X10^3/uL; Monocyte% 1.8 % (0-10); NRBC Flagged by Analyzer 0.1 % (0-5); Neutrophil # 23.48 X10^3/uL (2.7-7.7); Neutrophil % 89.2 % (47-70); POSITIVE COUNT YES; POSITIVE DIFFERENTIAL YES; POSITIVE MORPHOLOGY YES; Platelet Count 65 K/mm3 (150-450); RBC Distribution Width CV 19.9 % (11.6-14.6); RBC Distribution Width SD 62.5 fl (35.1-43.9); Red Blood Count 3.04 M/mm3 (4.6-6.2); White Blood Count 26.3 K/mm3 (4.4-11.0)
[2023-03-25 04:07] LABS: Vancomycin, Random Level 21.9 ug/mL (0.0-15.0)
[2023-03-25 04:09] LABS: ALB/GLOB Ratio 0.4 RATIO (0.9-2.4); AST(SGOT) 278 U/L (15-37); Alanine Aminotransfer ALT/SGPT 48 U/L (16-61); Albumin, Serum 1.6 g/dL (3.2-5.0); Alkaline Phosphatase 338 U/L (45-117); Anion Gap 12 (5-15); BUN 58 mg/dL (7-18); BUN/Creat Ratio 20.3 RATIO (10-20); Calcium,Total 6.9 mg/dL (8.5-10.1); Chloride 124 mmol/L (98-107); Creatinine, Serum 2.86 mg/dL (0.70-1.30); EST Glomerular Filtration Rate 23 mL/min (>60); Est Glom Filt Rate - Afr Amer 28 mL/min (>60); Estimated Creatinine Clearance 22.69 ml/min; Globulin 3.9 g/dL (2.2-4.2); Glucose 68 mg/dL (74-106); Potassium 3.7 mmol/L (3.5-5.1); Protein, Total 5.5 g/dL (6.4-8.2); Sodium Level 149 mmol/L (136-145)
[2023-03-25 04:19] LABS: Differential Indicated SCAN CRITERIA MET
[2023-03-25 04:58] LABS: Differential Comment SCANNED; Platelet Estimate MOD DEC (ADEQ); Platelet Morphology LARGE
[2023-03-25] MEDS: Dextrose 5%-Water (1000mL Bag) 1,000 ML 50 ML IV (05:11)
[2023-03-25] MEDS: 0.9% Normal Saline (250mL Bag) 250 ML 15 ML IV (05:11)
[2023-03-25] MEDS: 0.9% Saline Lock 10 ML Syringe IV ×2 (05:14→14:41)
[2023-03-25] MEDS: Heparin Injection (Vial) 5,000 UNIT/ML VIAL 5000 UNIT SC (06:05)
--- NOTE | 2023-03-25 06:17 | PCM.RX.CS ---
Consult Antibiotic Management Pharmacy has been consulted to manage selected antiobiotic: Vancomycin Type of Intervention Type of Consult: Follow-up Labs Labs: Sodium 149 mmol/L (136-145) H 03/25/23 03:30 Potassium 3.7 mmol/L (3.5-5.1) 03/25/23 03:30 Chloride 124 mmol/L (98-107) H 03/25/23 03:30 Carbon Dioxide 13.0 mmol/L (21.0-32.0) L 03/25/23 03:30 Anion Gap 12 (5-15) 03/25/23 03:30 BUN 58 mg/dL (7-18) H 03/25/23 03:30 Creatinine 2.86 mg/dL (0.70-1.30) H 03/25/23 03:30 Est GFR (MDRD) Af Amer 28 mL/min (>60) L 03/25/23 03:30 Est GFR (MDRD) Non-Af 23 mL/min (>60) L 03/25/23 03:30 BUN/Creatinine Ratio 20.3 RATIO (10-20) H 03/25/23 03:30 Glucose 68 mg/dL (74-106) L 03/25/23 03:30 Vancomycin Trough 26.1 ug/mL (5.0-15.0) H 03/24/23 10:25 Random Vancomycin 21.9 ug/mL (0.0-15.0) H 03/25/23 03:30 Microbiology Microbiology: Microbiology 03/22/23 11:44 Urine, Catheterized Urine Culture - Final Culture exhibits no growth. 03/22/23 10:39 Blood Culture (Wb) - Arm Right Blood Culture - Preliminary No growth in 48 hours. 03/22/23 09:15 Blood Culture (Wb) - Right Forearm Blood Culture - Preliminary No growth in 48 hours. 03/22/23 11:44 Urine Catheter - Vera Legionella Antigen - Final 03/22/23 11:44 Urine Catheter - Vera Streptococcus pneumoniae Antigen (M - Final Pharmacy Plan for Drug Dosing Pharmacy Plan for Drug Dosing: Pharmacy Service will continue to monitor and adjust dosing as required. RANDOM LEVEL 21.9, DRAW RANDOM LEVEL IN 8 HOURS Follow-Up Labs Follow-Up Labs: Trough: Vancomycin Date/Time Labs Ordered Labs to be done on [date and time ordered]: 03/25 @ 1131
[2023-03-25] MEDS: LORazepam 2 MG/ML Syringe 1 MG IV ×2 (06:48→14:41)
--- NOTE | 2023-03-25 07:11 | PN.CC_ITS ---
Assessment & Plan Assessment/Plan (1) Septic shock: PLAN: Plan RECOMMENDATIONS: 1. Continue empiric broad-spectrum antimicrobials. 2. Maintain n.p.o. status per speech therapy recommendations, pending reevaluation. 3. Continue PPI therapy and appropriate DVT prophylaxis. 4. Referral to hospice care services per family request. 5. Continue current pain and anxiety control regimen. IMPRESSIONS: 1. Septic shock The patient presented to the hospital with sepsis due to probable pneumonia and/or urinary tract source of infection with acute sepsis related organ dysfunction as evidenced by fluid refractory hypotension requiring vasopressor support, acute kidney injury and lactic acidemia. The patient did receive supplemental IV fluid hydration. He will be continued on empiric broad-spectrum antimicrobials. He has been weaned from vasopressor support with borderline blood pressures. Family is requesting hospice care referral. 2. Acute kidney injury Most likely prerenal in etiology in the setting of #1. Continue current supportive measures including vasopressor support to maintain hemodynamic stability. Continue to monitor urine output for now. Renal ultrasound showed no evidence of hydronephrosis. 3. History of unspecified seizures Plan to continue Keppra per home regimen. Maintain seizure precautions and continue as needed Ativan. 4. History of metastatic prostate CA The patient has prostate cancer with metastasis to the liver, bone and lung. The patient underwent bronchoscopy through [facility] on March 09, which demonstrated extrinsic compression of the left upper lobe along with a partially obstructing airway abnormality in the left upper lobe, which was biopsied and found to be positive for metastatic prostate cancer. According to the patient's oncologist, no further treatment options are available. At this time, plan to continue current supportive measures, with eventual transition to comfort care. 5. History of dysphagia with concern for aspiration Maintain n.p.o. status for now, pending re-evaluation by speech therapy. This note was generated with [employer] dictation software. It may contain incorrect words, spelling, and punctuation that were not noted in checking the note before signing. Subjective Subjective The patient was seen and examined at the bedside this morning. Events from the last 24 hours have been reviewed. The patient is currently afebrile, hemodynamically stable and maintaining appropriate oxygen saturations on 2 L/min via nasal cannula. The patient has been weaned off of Levophed as of this morning. The patient had episodes of hypoglycemia overnight, which required the initiation of dextrose containing fluids. The patient continues to receive as needed doses of fentanyl and Ativan due to pain and anxiety related symptoms. I did again speak with the patient's family this morning at the bedside. They are now wishing to pursue referral to hospice care services and initiation of comfort care measures. Objective Data Objective Data The patient's most recent lab work, culture data and imaging studies have all been personally reviewed. Strep and urine Legionella antigens were negative. Blood and urine cultures are pending. Vital Signs: Vital Signs Temp Pulse Resp BP Pulse Ox O2 Del Method O2 Flow Rate 97.5 F L 100 18 90/53 L 96 Nasal Cannula 2 03/25/23 04:00 03/25/23 07:00 03/25/23 07:00 03/25/23 07:00 03/25/23 07:00 03/25/23 07:00 03/25/23 07:00 FiO2 96 03/25/23 04:00 Oxygen Flow Rate (L/min) 2 Oxygen Delivery Method Nasal Cannula Weight: 171 lb 1.6 oz Body Mass Index (BMI) 24.5 Intake & Output: Intake and Output for Last 24 Hours 03/23/23 03/24/23 03/25/23 23:59 23:59 23:59 Intake Total 1161.78 / 1180.58 730.79 / 730.79 280.25 / 280.25 Output Total 475 / 475 370 / 370 Balance 686.78 / 705.58 360.79 / 360.79 280.25 / 280.25 Medical Nutrition Assessment Dietitian: Malnutrition Criteria Met Start: 03/23/23 12:51 Freq: Status: Active Protocol: Document 03/23/23 12:51 AG (Rec: 03/23/23 12:51 AG Desktop) Nutrition Malnutrition Evidence of Malnutrition Exists Yes Malnutrition (severe): Acute Illness/Injury Evidenced By Suboptimal Energy Intake ( Severe),Weight Loss (Severe) Clinical Problem Acute Disease or Injury Related Malnutrition Etiology severe, acute malnutrition related to inadequate energy intake d/t swallowing difficulty Signs/Symptoms as evidenced by estimated PO intake meeting <50% of estimated energy needs, unintentional 4% wt loss x 2-3 weeks. Status Active Problem Recommendation Dietitian Recommendations/Changes recommend advance diet as tolerated to regular; ensure w / medpass when PO diet is advanced. Lab / Micro Data Attestation: I reviewed the patient's lab results. 03/25/23 03:30 03/25/23 03:30 Labs: Laboratory Results - last 24 hr 03/24/23 07:20: Blood Type AB POSITIVE, Antibody Screen NEGATIVE, Crossmatch See Detail 03/24/23 10:25: Vancomycin Trough 26.1 H 03/25/23 03:30: WBC 26.3 H, RBC 3.04 L, Hgb 7.7 L, Hct 26.7 L, MCV 87.8, MCH 25.3 L, MCHC 28.8 L, RDW Std Deviation 62.5 H, RDW Coeff of Nemo 19.9 H, Plt Count 65 L, MPV TNP, Immature Gran % (Auto) 4.400 H, Neut % (Auto) 89.2 H, Lymph % (Auto) 3.1 L, [place] % (Auto) 1.8, Eos % (Auto) 0.8, Baso % (Auto) 0.7, Absolute Neuts (auto) 23.5 H, Absolute Lymphs (auto) 0.82 L, Nucleated RBC % 0.1, Differential Comment SCANNED, Platelet Estimate MOD DEC, Plt Morphology Comment LARGE, Sodium 149 H, Potassium 3.7, Chloride 124 H, Carbon Dioxide 13.0 L, Anion Gap 12, BUN 58 H, Creatinine 2.86 H, Estim Creat Clear Calc 22.69, Est GFR (MDRD) Af Amer 28 L, Est GFR (MDRD) Non-Af 23 L, BUN/Creatinine Ratio 20.3 H, Glucose 68 L, Calcium 6.9 L, Total Bilirubin 0.70, AST 278 H, ALT 48, Alkaline Phosphatase 338 H, Total Protein 5.5 L, Albumin 1.6 L, Globulin 3.9, Albumin/Globulin Ratio 0.4 L, Random Vancomycin 21.9 H Micro: Microbiology 03/22/23 11:44 Urine, Catheterized Urine Culture - Final Culture exhibits no growth. 03/22/23 10:39 Blood Culture (Wb) - Arm Right Blood Culture - Preliminary No growth in 48 hours. 03/22/23 09:15 Blood Culture (Wb) - Right Forearm Blood Culture - Preliminary No growth in 48 hours. 03/22/23 11:44 Urine Catheter - Vera Legionella Antigen - Final 03/22/23 11:44 Urine Catheter - Vera Streptococcus pneumoniae Antigen (M - Final Radiography Diagnostic Testing: Radiology Impression Renal Ultrasound 03/24/23 06:54 IMPRESSION: 1. No evidence of hydronephrosis. 2. Somewhat echogenic kidneys which may reflect renal medical disease. Electronically Signed: Fabiano Kevin MD at 10:27 EDT , Physical Exam Const Constitutional Narrative: Ill in appearance. Not currently responsive to verbal questioning. General Appearance: lethargic HEENT normocephalic and head/scalp atraumatic Eyes PERRL, EOMs intact bilaterally and conjunctivae normal Neck supple General: trachea midline and CVC in place Chest inspection of chest normal Resp Effort and Inspection: tachypneic Auscultation: wheezes; Negative for rales or rhonchi Cardio regular rhythm, S1 normal heart sound and S2 normal heart sound Rate: tachycardic GI normal to inspection, nondistended, normoactive bowel sounds Extremity no clubbing, cyanosis or edema Skin no rashes or lesions noted Neuro no focal motor deficits Psych Mood & Affect: flat affect Charges/Coding Visit Charges Inpatient E&M: 01889 Subs Hosp L3
[2023-03-25] MEDS: Cefepime HCl 2 GM in 0.9% Normal Saline (100mL MB+) 100 ML IV (08:06)
--- NOTE | 2023-03-25 09:29 | CASEMGMT ---
Physician, CLEVE, and RN spoke with patient's family. Family decided they would like patient to go hospice. Family spoke with [facility] on Tuesday. Family would like patient to go to the inpatient unit. CLEVE told family SW will contact hospice. CLEVE sent updated information to Opal at Hospice and also called leaving a voice mail regarding referral. Evelin Bray MSW HAKAN
--- NOTE | 2023-03-25 09:54 | CASEMGMT ---
[facility] will be at [facility] at 130 to evaluate patient for their inpatient unit. SW spoke with patient's . She and her family are aware hospice will be at [facility] at 130. Family is agreeable to DNRCC. Dr Howard signed the DNR form. RN and physician are aware. Evelin MCCLENDON
[2023-03-25] MEDS: levETIRAcetam IV 500 MG in 0.9% Normal Saline (100mL Bag) 100 ML 400 MG IV (10:08)
[2023-03-25] MEDS: Menthol/Lanolin/Calamine/Znox 113 GM Tube 1 APPLIC TOPICAL (10:09)
[2023-03-25 10:48] LABS: Pathologist Review Reviewed
--- NOTE | 2023-03-25 13:17 | PN_ITS ---
Subjective Subjective Patient seen and examined. and grandson were by his bedside. Patient was resting and not really responsive to questions. said they are looking at switching to hospice. They have a meeting with hospice later today. He remains tachypneic and tachycardic. He is on 2 L of oxygen. Objective Data Objective Data Vital Signs: Vital Signs Temp Pulse Resp BP Pulse Ox O2 Del Method O2 Flow Rate 97.6 F L 115 H 21 H 131/66 H 99 Nasal Cannula 2 03/25/23 08:00 03/25/23 12:00 03/25/23 12:00 03/25/23 12:00 03/25/23 12:00 03/25/23 12:00 03/25/23 12:00 FiO2 96 03/25/23 04:00 Oxygen Flow Rate (L/min) 2 Oxygen Delivery Method Nasal Cannula Weight: 171 lb 1.6 oz Body Mass Index (BMI) 24.5 Intake & Output: Intake and Output for Last 24 Hours 03/23/23 03/24/23 03/25/23 23:59 23:59 23:59 Intake Total 1161.78 / 1180.58 730.79 / 730.79 380.25 / 380.25 Output Total 475 / 475 370 / 370 Balance 686.78 / 705.58 360.79 / 360.79 380.25 / 380.25 Medical Nutrition Assessment Dietitian: Malnutrition Criteria Met Start: 03/23/23 12:51 Freq: Status: Active Protocol: Document 03/25/23 09:34 HIRAM (Rec: 03/25/23 09:34 HIRAM [id number]) Nutrition Malnutrition Evidence of Malnutrition Exists Yes Malnutrition (severe): Acute Illness/Injury Evidenced By Suboptimal Energy Intake ( Severe),Weight Loss (Severe) Clinical Problem Acute Disease or Injury Related Malnutrition Etiology severe, acute malnutrition related to inadequate energy intake d/t swallowing difficulty Signs/Symptoms as evidenced by estimated PO intake meeting <50% of estimated energy needs, 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 Status Active Problem Recommendation Dietitian Recommendations/Changes If medically able, recommend advance diet as tolerated to regular w/ ensure w/ medpass Lab / Micro Data 03/25/23 03:30 03/25/23 03:30 Labs: Laboratory Results - last 24 hr 03/24/23 04:25: Diff Path Review Reviewed 03/25/23 03:30: WBC 26.3 H, RBC 3.04 L, Hgb 7.7 L, Hct 26.7 L, MCV 87.8, MCH 25.3 L, MCHC 28.8 L, RDW Std Deviation 62.5 H, RDW Coeff of Nemo 19.9 H, Plt Count 65 L, MPV TNP, Immature Gran % (Auto) 4.400 H, Neut % (Auto) 89.2 H, Lymph % (Auto) 3.1 L, Jones % (Auto) 1.8, Eos % (Auto) 0.8, Baso % (Auto) 0.7, Absolute Neuts (auto) 23.5 H, Absolute Lymphs (auto) 0.82 L, Nucleated RBC % 0.1, Differential Comment SCANNED, Platelet Estimate MOD DEC, Plt Morphology Comment LARGE, Sodium 149 H, Potassium 3.7, Chloride 124 H, Carbon Dioxide 13.0 L, Anion Gap 12, BUN 58 H, Creatinine 2.86 H, Estim Creat Clear Calc 22.69, Est GFR (MDRD) Af Amer 28 L, Est GFR (MDRD) Non-Af 23 L, BUN/Creatinine Ratio 20.3 H, Glucose 68 L, Calcium 6.9 L, Total Bilirubin 0.70, AST 278 H, ALT 48, Alkaline Phosphatase 338 H, Total Protein 5.5 L, Albumin 1.6 L, Globulin 3.9, Albumin/Globulin Ratio 0.4 L, Random Vancomycin 21.9 H Micro: Microbiology 03/22/23 11:44 Urine, Catheterized Urine Culture - Final Culture exhibits no growth. 03/22/23 10:39 Blood Culture (Wb) - Arm Right Blood Culture - Preliminary No growth in 48 hours. 03/22/23 09:15 Blood Culture (Wb) - Right Forearm Blood Culture - Preliminary No growth in 48 hours. 03/22/23 11:44 Urine Catheter - Vera Legionella Antigen - Final 03/22/23 11:44 Urine Catheter - Vera Streptococcus pneumoniae Antigen (M - Final Physical Exam Const alert and oriented x3 Constitutional Narrative: very frail and weak, looks very pale General Appearance: cooperative Orientation / Consciousness: confused HEENT normocephalic, head/scalp atraumatic and moist oral mucous membranes Eyes PERRL and EOMs intact bilaterally Neck no lymphadenopathy and supple Lymph Lymphatic: no lymphadenopathy noted Resp normal respiratory effort, normal air movement and clear to auscultation bilaterally Cardio regular rate, regular rhythm, S1 normal heart sound, S2 normal heart sound and no murmurs GI normal to inspection, nondistended, normoactive bowel sounds, soft to palpation, non-tender and non-distended Extremity normal capillary refill, no clubbing, cyanosis or edema and no calf tenderness General Extremity: no tenderness to palpation of joints or extremities Skin General Skin Exam: no breakdown Neuro CN's II-XII intact bilaterally, no focal motor deficits, no sensory deficits noted and deep tendon reflexes 2+ bilaterally Motor Exam: strength 5/5 throughout and general weakness Psych thought process normal and cooperative Appearance: appropriate Assessment & Plan Assessment/Plan (1) Septic shock: (2) Acute UTI: (3) MEGHNA (acute kidney injury): PLAN: Plan #Septic shock * due to pneumonia and possible UTI * still on levophed drip. * WBC down to 26 today. * blood cultures and urine cultures negative. * critical care on board * On IV vancomycin and cefepime * titrate levophed to maintain MAP >65 * * #Acute encephalopathy * likely infectious, due to septic shock * patient more lethargic and weak today * brain imaging done on admission showed no evidence of brain mets * will hold off on getting an MRI of the brain due to code status changed to DNRCCA. * #Seizure * Patient states he had CT of the brain which did not show any evidence of any brain mets. He does not know whether he had an MRI of the brain. CT of the brain done during this admission showed no evidence of any mets. * Patient is on Keppra so it appears that he is known to have seizures. * On Keppra. * hasn't had any more seizures since admission * #Hyponatremia: Sodium is up to 149 today. Creatinine is also trended up to 2.86. Hydrate with D5W and monitor. #Lactic acidosis: Likely due to seizures and septic shock. Lactic acid was around 10 and trended down with hydration. #MEGHNA: Cr has trended up even further to 2.86 today.. Baseline Cr is 1.13. Since family is opting for hospice today and states they want to be hospice today, will hold off on consulting nephrology. #Anemia: Hb is down to 7.2 today. Being transfused with one unit of PRBCs. #Thrombocytopenia * platelets are dropping further and is down to 65, from 91 yesterday * Likely due to septic shock in the setting of metastatic prostate cancer * Not on any anticoagulation. Hold off on further work-up as family opting for hospice * #Dysphagia: patient failed swallow test. Speech therapy on board. Currently NPO #Metastatic prostate cancer with mets to the lungs. * Patient states he followed up with oncology. He is done with radiation and chemotherapy and also also had immunotherapy and states he has been told there is nothing else that can be done for him. * He recently had bronchoscopy and was told he had cancer in his lungs. * family now opting for hospice. * * #NOn anion gap metabolic acidosis: * bicarb is down to 13, with anion gap of 12. * Kidney function is worsening, with Cr up to 2.86. * hold off on nephrology consult, as family meeting with hospice today * DVT prophylaxis;place on SCDs nad dc heparin as platelets keep falling CODE STATUS:code status switched to DNRCCA no intubation. * * Disposition: family meeting with hospice today. Charges/Coding Visit Charges Inpatient E&M: 72903 Subs Hosp L3
--- NOTE | 2023-03-25 13:51 | NURSING ---
hospice here talking with family for placement to inpatient unit
--- NOTE | 2023-03-25 14:45 | NURSING ---
this RN took over care at this time
--- NOTE | 2023-03-25 14:49 | DS.PCM_ITS ---
Providers Date of Admission: 03/22/23 Primary Care Physician: Dr. Bib Dixon MD Consultations 03/22/23 16:09 Consult: Acidizer Helper / Pulmonary Medicine Routine Consulting Provider: Pulmonary Medicine xander Yip Reason for Consult: septic shock EMERGENT Consult: No MD Notified: Yes Date Notified: 03/22/23 Time Notified: 13:25 Method of Notification: Verbal Reason For Visit: SEIZURE, SEPTIC SHOCK, METASTATIC CA Diagnosis Discharge Diagnosis (1) Septic shock: Status: Acute Code(s): A41.9 - Sepsis, unspecified organism; R65.21 - Severe sepsis with septic shock (2) Acute UTI: Status: Acute Code(s): N39.0 - Urinary tract infection, site not specified (3) MEGHNA (acute kidney injury): Status: Acute Code(s): N17.9 - Acute kidney failure, unspecified Plan #Septic shock * due to pneumonia and possible UTI * still on levophed drip. * WBC down to 26 today. * blood cultures and urine cultures negative. * critical care on board * On IV vancomycin and cefepime * titrate levophed to maintain MAP >65 * * #Acute encephalopathy * likely infectious, due to septic shock * patient more lethargic and weak today * brain imaging done on admission showed no evidence of brain mets * will hold off on getting an MRI of the brain due to code status changed to DNRCCA. * #Seizure * Patient states he had CT of the brain which did not show any evidence of any brain mets. He does not know whether he had an MRI of the brain. CT of the brain done during this admission showed no evidence of any mets. * Patient is on Keppra so it appears that he is known to have seizures. * On Keppra. * hasn't had any more seizures since admission * #Hyponatremia: Sodium is up to 149 today. Creatinine is also trended up to 2.86. Hydrate with D5W and monitor. #Lactic acidosis: Likely due to seizures and septic shock. Lactic acid was a round 10 and trended down with hydration. #MEGHNA: Cr has trended up even further to 2.86 today.. Baseline Cr is 1.13. Since family is opting for hospice today and states they want to be hospice today, will hold off on consulting nephrology. #Anemia: Hb is down to 7.2 today. Being transfused with one unit of PRBCs. #Thrombocytopenia * platelets are dropping further and is down to 65, from 91 yesterday * Likely due to septic shock in the setting of metastatic prostate cancer * Not on any anticoagulation. Hold off on further work-up as family opting for hospice * #Dysphagia: patient failed swallow test. Speech therapy on board. Currently NPO #Metastatic prostate cancer with mets to the lungs. * Patient states he followed up with oncology. He is done with radiation and chemotherapy and also also had immunotherapy and states he has been told there is nothing else that can be done for him. * He recently had bronchoscopy and was told he had cancer in his lungs. * family now opting for hospice. * * #NOn anion gap metabolic acidosis: * bicarb is down to 13, with anion gap of 12. * Kidney function is worsening, with Cr up to 2.86. * hold off on nephrology consult, as family meeting with hospice today * DVT prophylaxis;place on SCDs nad dc heparin as platelets keep falling CODE STATUS:code status switched to DNRCCA no intubation. * * Disposition: family meeting with hospice today. Medications at Discharge Home Medications levetiracetam 750 mg tablet 500 mg PO BID seizure 08/26/15 pramipexole 2.25 mg tablet,extended release 24 hr 0.25 mg PO QHS health maintenance 02/18/21 oxycodone-acetaminophen 7.5 mg-325 mg tablet 1 tab PO Q8H PRN Pain 08/07/21 prednisone 5 mg tablet 5 mg PO QODAY sterioid 01/01/22 pantoprazole 40 mg tablet,delayed release (Protonix) 40 mg PO DAILY #30 tabs 02/14/22 promethazine 25 mg tablet 25 mg PO PRN PRN Nausea 04/17/22 zonisamide 25 mg capsule 100 mg PO BID Check with primary doctor 04/17/22 duloxetine 30 mg capsule,delayed release 30 mg PO DAILY 02/04/23 potassium chloride 20 mEq tablet,extended release(part/cryst) 20 meq PO DAILY 02/04/23 fentanyl 25 mcg/hr transdermal patch 1 patch transdermal Q72H 3 days #5 ea 03/20/23 Medical Records Data Medical Nutrition Assessment Dietitian: Malnutrition Criteria Met Start: 03/23/23 12:51 Freq: Status: Active Protocol: Document 03/25/23 09:34 SLA (Rec: 03/25/23 09:34 [facility] [id number]) Nutrition Malnutrition Evidence of Malnutrition Exists Yes Malnutrition (severe): Acute Illness/Injury Evidenced By Suboptimal Energy Intake ( Severe),Weight Loss (Severe) Clinical Problem Acute Disease or Injury Related Malnutrition Etiology severe, acute malnutrition related to inadequate energy intake d/t swallowing difficulty Signs/Symptoms as evidenced by estimated PO intake meeting <50% of estimated energy needs, 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 Status Active Problem Recommendation Dietitian Recommendations/Changes If medically able, recommend advance diet as tolerated to regular w/ ensure w/ medpass Weight / BMI Weight Weight: 171 lb 1.6 oz Body Mass Index (BMI) 24.5 ABG / Lab / Microbiology Data 03/25/23 03:30 03/25/23 03:30 Laboratory: Laboratory Results - last 24 hr 03/24/23 04:25: Diff Path Review Reviewed 03/25/23 03:30: WBC 26.3 H, RBC 3.04 L, Hgb 7.7 L, Hct 26.7 L, MCV 87.8, MCH 25.3 L, MCHC 28.8 L, RDW Std Deviation 62.5 H, RDW Coeff of Nemo 19.9 H, Plt Count 65 L, MPV TNP, Immature Gran % (Auto) 4.400 H, Neut % (Auto) 89.2 H, Lymph % (Auto) 3.1 L, [place] % (Auto) 1.8, Eos % (Auto) 0.8, Baso % (Auto) 0.7, Absolute Neuts (auto) 23.5 H, Absolute Lymphs (auto) 0.82 L, Nucleated RBC % 0.1, Differential Comment SCANNED, Platelet Estimate MOD DEC, Plt Morphology Comment LARGE, Sodium 149 H, Potassium 3.7, Chloride 124 H, Carbon Dioxide 13.0 L, Anion Gap 12, BUN 58 H, Creatinine 2.86 H, Estim Creat Clear Calc 22.69, Est GFR (MDRD) Af Amer 28 L, Est GFR (MDRD) Non-Af 23 L, BUN/Creatinine Ratio 20.3 H, Glucose 68 L, Calcium 6.9 L, Total Bilirubin 0.70, AST 278 H, ALT 48, Alkaline Phosphatase 338 H, Total Protein 5.5 L, Albumin 1.6 L, Globulin 3.9, Albumin/Globulin Ratio 0.4 L, Random Vancomycin 21.9 H Microbiology: Microbiology 03/22/23 11:44 Urine, Catheterized Urine Culture - Final Culture exhibits no growth. 03/22/23 10:39 Blood Culture (Wb) - Arm Right Blood Culture - Preliminary No growth in 48 hours. 03/22/23 09:15 Blood Culture (Wb) - Right Forearm Blood Culture - Preliminary No growth in 48 hours. 03/22/23 11:44 Urine Catheter - Vera Legionella Antigen - Final 03/22/23 11:44 Urine Catheter - Vera Streptococcus pneumoniae Antigen (M - Final Discharge Plan Admission Admit Date/Time: 03/22/23 13:19 Attending Provider: Pretty Mixon Primary Care Provider: Bib Dixon Consulting Providers: Mauricio Garcia; Abiodun Howard; Santiago Barnes; David Dumont; Royal Martins; Daysi Diamond RN CVICU Discharge Orders/Prescriptions Prescriptions: No Action pramipexole 2.25 mg tablet extended release 24 hr 0.25 mg PO QHS levetiracetam 750 MG tablet 500 mg PO BID Patient Comments: SEIZURE oxycodone-acetaminophen 7.5-325 mg Tablet 1 tab PO Q8H PRN (Reason: Pain) prednisone 5 mg tablet 5 mg PO QODAY Rx Instructions: 5 mg orally; pantoprazole [Protonix] 40 mg tablet,delayed release (DR/EC) 40 mg PO DAILY Qty: 30 0RF promethazine 25 mg tablet 25 mg PO PRN PRN (Reason: Nausea) zonisamide 25 mg Capsule 100 mg PO BID potassium chloride 20 mEq tablet,ER particles/crystals 20 meq PO DAILY Patient Comments: TAKE 1 TABLET BY MOUTH ONCE DAILY duloxetine 30 mg capsule,delayed release(DR/EC) 30 mg PO DAILY Patient Comments: TAKE 1 CAPSULE BY MOUTH ONCE DAILY fentanyl 25 mcg/hr patch 72 hour 1 patch transdermal Q72H 3 Days Qty: 5 0RF Referrals / Follow Up: Bib Dixon MD [Primary Care Provider] - Disposition Discharge Orders: Discharge Patient (Routine); Ordered 03/25/23 Ordered By: Dr. Pretty Mixon
--- NOTE | 2023-03-25 14:49 | PCM.DC.SUM ---
Providers Date of Admission: 03/22/23 Date of Discharge: 03/25/23 Primary Care Physician: Dr. Bib Dixon MD Consultations 03/22/23 16:09 Consult: Pulp Making Plant Operator / Pulmonary Medicine Routine Consulting Provider: Pulmonary Medicine xander Yip Reason for Consult: septic shock EMERGENT Consult: No MD Notified: Yes Date Notified: 03/22/23 Time Notified: 13:25 Method of Notification: Verbal Reason For Visit: SEIZURE, SEPTIC SHOCK, METASTATIC CA Diagnosis Discharge Diagnosis (1) Septic shock: Status: Acute Code(s): A41.9 - Sepsis, unspecified organism; R65.21 - Severe sepsis with septic shock (2) Acute UTI: Status: Acute Code(s): N39.0 - Urinary tract infection, site not specified (3) MEGHNA (acute kidney injury): Status: Acute Code(s): N17.9 - Acute kidney failure, unspecified Plan #Septic shock due to pneumonia and possible UTI still on levophed drip. WBC down to 26 today. blood cultures and urine cultures negative. critical care on board On IV vancomycin and cefepime titrate levophed to maintain MAP >65 #Acute encephalopathy likely infectious, due to septic shock patient more lethargic and weak today brain imaging done on admission showed no evidence of brain mets will hold off on getting an MRI of the brain due to code status changed to DNRCCA. #Seizure Patient states he had CT of the brain which did not show any evidence of any brain mets. He does not know whether he had an MRI of the brain. CT of the brain done during this admission showed no evidence of any mets. Patient is on Keppra so it appears that he is known to have seizures. On Keppra. hasn't had any more seizures since admission #Hyponatremia: Sodium is up to 149 today. Creatinine is also trended up to 2.86. Hydrate with D5W and monitor. #Lactic acidosis: Likely due to seizures and septic shock. Lactic acid was around 10 and trended down with hydration. #MEGHNA: Cr has trended up even further to 2.86 today.. Baseline Cr is 1.13. Since family is opting for hospice today and states they want to be hospice today, will hold off on consulting nephrology. #Anemia: Hb is down to 7.2 today. Being transfused with one unit of PRBCs. #Thrombocytopenia platelets are dropping further and is down to 65, from 91 yesterday Likely due to septic shock in the setting of metastatic prostate cancer Not on any anticoagulation. Hold off on further work-up as family opting for hospice #Dysphagia: patient failed swallow test. Speech therapy on board. Currently NPO #Metastatic prostate cancer with mets to the lungs. Patient states he followed up with oncology. He is done with radiation and chemotherapy and also also had immunotherapy and states he has been told there is nothing else that can be done for him. He recently had bronchoscopy and was told he had cancer in his lungs. family now opting for hospice. #NOn anion gap metabolic acidosis: bicarb is down to 13, with anion gap of 12. Kidney function is worsening, with Cr up to 2.86. hold off on nephrology consult, as family meeting with hospice today DVT prophylaxis;place on SCDs nad dc heparin as platelets keep falling CODE STATUS:code status switched to DNRCCA no intubation. Disposition: family meeting with hospice today. Medications at Discharge Home Medications levetiracetam 750 mg tablet 500 mg PO BID seizure 08/26/15 pramipexole 2.25 mg tablet,extended release 24 hr 0.25 mg PO QHS health maintenance 02/18/21 oxycodone-acetaminophen 7.5 mg-325 mg tablet 1 tab PO Q8H PRN Pain 08/07/21 prednisone 5 mg tablet 5 mg PO QODAY sterioid 01/01/22 pantoprazole 40 mg tablet,delayed release (Protonix) 40 mg PO DAILY #30 tabs 02/14/22 promethazine 25 mg tablet 25 mg PO PRN PRN Nausea 04/17/22 zonisamide 25 mg capsule 100 mg PO BID Check with primary doctor 04/17/22 duloxetine 30 mg capsule,delayed release 30 mg PO DAILY 02/04/23 potassium chloride 20 mEq tablet,extended release(part/cryst) 20 meq PO DAILY 02/04/23 fentanyl 25 mcg/hr transdermal patch 1 patch transdermal Q72H 3 days #5 ea 03/20/23 Hospital Course Operations None Procedures Central line placement Summary of Care Provided Minutes Spent on Discharge: 55 Hospital Course: RHONDA PAT, is a 77 M with a PMH as outlined who presents via the ED on 03/22/2023 after being found unresponsive. 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 He was seen 2 days ago in the ED and was hypotensive and tachycardic and had left shoulder pain. He was discharged home to see hospice; they had an appointment with hospice today at home. However, today he was found unresponsive, with concern for seizure. He was therefore brought in to the ED. Vitals in the ED wre BP of 130/43, VA of 124, RR of 23, and he was saturating at 94% on 6L of oxygen. He was initially hypotensive with blood pressure in the 70s systolic and responded to fluids. CBC showed WBC of 29.6, hemoglobin of 8.2 and platelets of 135. INR was 1.4. Chemistry shows sodium of 140 with bicarb of 17 and creatinine of 2.02. Lactic acid was 10.9. Urinalysis showed 1+ bacteria and CT of the brain showed no evidence of any acute intracranial pathology. Chest x-ray showed persistent left lower lung opacity and consolidation. He has been admitted to be managed for septic shock and acute metabolic encephalopathy with concern for seizure in the setting of metastatic lung cancer. She was admitted to the ICU and started on broad-spectrum antibiotics with IV vancomycin and cefepime. Critical care was consulted. He was started on Levophed to help support his blood pressure. Blood and urine cultures were obtained. Patient however deteriorated and white cell count started trending upwards. He became more confused and lethargic. Sodium also trended upwards and he could not be weaned off of the Levophed. Patient's family was agreeable to switching his CODE STATUS to DNR CCA. They are also amenable to talking to hospice. They spoke to hospice on 03/25/2023 and opted to discharge patient to hospice medical facility. He was therefore discharged skilled medical facility on 03/25/2023. Patient was seen and examined prior to discharge. He is very weak and resting calmly. Unable to do review of systems. Labs and vitals reviewed. Physical Exam Const Constitutional Narrative: very frail and weak, looks very pale, lethargic HEENT normocephalic, head/scalp atraumatic and moist oral mucous membranes Eyes PERRL and EOMs intact bilaterally Neck no lymphadenopathy and supple Lymph Lymphatic: no lymphadenopathy noted Resp normal respiratory effort, normal air movement and clear to auscultation bilaterally Cardio regular rate, regular rhythm, S1 normal heart sound, S2 normal heart sound and no murmurs GI normal to inspection, nondistended, normoactive bowel sounds, soft to palpation, non-tender and non-distended Extremity normal capillary refill, no clubbing, cyanosis or edema and no calf tenderness General Extremity: no tenderness to palpation of joints or extremities Skin General Skin Exam: no breakdown Neuro Neuro Narrative: very weak and lethargic Medical Records Data Medical Nutrition Assessment Dietitian: Malnutrition Criteria Met Start: 03/23/23 12:51 Freq: Status: Active Protocol: Document 03/25/23 09:34 [facility] (Rec: 03/25/23 09:34 [facility] [id number]) Nutrition Malnutrition Evidence of Malnutrition Exists Yes Malnutrition (severe): Acute Illness/Injury Evidenced By Suboptimal Energy Intake ( Severe),Weight Loss (Severe) Clinical Problem Acute Disease or Injury Related Malnutrition Etiology severe, acute malnutrition related to inadequate energy intake d/t swallowing difficulty Signs/Symptoms as evidenced by estimated PO intake meeting <50% of estimated energy needs, 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 Status Active Problem Recommendation Dietitian Recommendations/Changes If medically able, recommend advance diet as tolerated to regular w/ ensure w/ medpass Weight / BMI Weight Weight: 171 lb 1.6 oz Body Mass Index (BMI) 24.5 ABG / Lab / Microbiology Data 03/25/23 03:30 03/25/23 03:30 Laboratory: Laboratory Results - last 24 hr 03/24/23 04:25: Diff Path Review Reviewed 03/25/23 03:30: WBC 26.3 H, RBC 3.04 L, Hgb 7.7 L, Hct 26.7 L, MCV 87.8, MCH 25.3 L, MCHC 28.8 L, RDW Std Deviation 62.5 H, RDW Coeff of [place] 19.9 H, Plt Count 65 L, MPV TNP, Immature Gran % (Auto) 4.400 H, Neut % (Auto) 89.2 H, Lymph % (Auto) 3.1 L, [place] % (Auto) 1.8, Eos % (Auto) 0.8, Baso % (Auto) 0.7, Absolute Neuts (auto) 23.5 H, Absolute Lymphs (auto) 0.82 L, Nucleated RBC % 0.1, Differential Comment SCANNED, Platelet Estimate MOD DEC, Plt Morphology Comment LARGE, Sodium 149 H, Potassium 3.7, Chloride 124 H, Carbon Dioxide 13.0 L, Anion Gap 12, BUN 58 H, Creatinine 2.86 H, Estim Creat Clear Calc 22.69, Est GFR (MDRD) Af Amer 28 L, Est GFR (MDRD) Non-Af 23 L, BUN/Creatinine Ratio 20.3 H, Glucose 68 L, Calcium 6.9 L, Total Bilirubin 0.70, AST 278 H, ALT 48, Alkaline Phosphatase 338 H, Total Protein 5.5 L, Albumin 1.6 L, Globulin 3.9, Albumin/Globulin Ratio 0.4 L, Random Vancomycin 21.9 H Microbiology: Microbiology 03/22/23 11:44 Urine, Catheterized Urine Culture - Final Culture exhibits no growth. 03/22/23 10:39 Blood Culture (Wb) - Arm Right Blood Culture - Preliminary No growth in 48 hours. 03/22/23 09:15 Blood Culture (Wb) - Right Forearm Blood Culture - Preliminary No growth in 48 hours. 03/22/23 11:44 Urine Catheter - Vera Legionella Antigen - Final 03/22/23 11:44 Urine Catheter - Vera Streptococcus pneumoniae Antigen (M - Final Meaningful Use Info Meaningful Use Diagnoses (Choose all that apply): None applicable Discharge Plan Admission Admit Date/Time: 03/22/23 13:19 Attending Provider: Pretty Mixon Primary Care Provider: Bib Dixon Consulting Providers: Mauricio Garcia; Abiodun Howard; Santiago Barnes; David Dumont; Royal Martins; Daysi Diamond ASSEMBLER [employer] Discharge Orders/Prescriptions Prescriptions: No Action pramipexole 2.25 mg tablet extended release 24 hr 0.25 mg PO QHS levetiracetam 750 MG tablet 500 mg PO BID Patient Comments: SEIZURE oxycodone-acetaminophen 7.5-325 mg Tablet 1 tab PO Q8H PRN (Reason: Pain) prednisone 5 mg tablet 5 mg PO QODAY Rx Instructions: 5 mg orally; pantoprazole [Protonix] 40 mg tablet,delayed release (DR/EC) 40 mg PO DAILY Qty: 30 0RF promethazine 25 mg tablet 25 mg PO PRN PRN (Reason: Nausea) zonisamide 25 mg Capsule 100 mg PO BID potassium chloride 20 mEq tablet,ER particles/crystals 20 meq PO DAILY Patient Comments: TAKE 1 TABLET BY MOUTH ONCE DAILY duloxetine 30 mg capsule,delayed release(DR/EC) 30 mg PO DAILY Patient Comments: TAKE 1 CAPSULE BY MOUTH ONCE DAILY fentanyl 25 mcg/hr patch 72 hour 1 patch transdermal Q72H 3 Days Qty: 5 0RF Referrals / Follow Up: Bib Dixon MD [Primary Care Provider] - Disposition Disposition (needs filled in before D/C Order can be placed): Hospice in Medical Facility Charges/Coding Visit Charges Inpatient E&M: 65130 Disch Hosp >30min
== END 2023-03-25 15:30 | disposition hospice, inpatient (51) | DRG 871 ==
LOC: ED 13:12 → ICU 13:31
PROVIDERS: Admitting Provider Student in an Organized Health Care Education/Training Program; Emergency Provider Emergency Medicine; PCP Family Medicine; Visit Provider Student in an Organized Health Care Education/Training Program
DX: A41.9 Sepsis, unspecified organism (principal); R65.21 Severe sepsis with septic shock; G93.41 Metabolic encephalopathy; E43 Unspecified severe protein-calorie malnutrition; J18.9 Pneumonia, unspecified organism; C78.01 Secondary malignant neoplasm of right lung; C78.02 Secondary malignant neoplasm of left lung; N17.9 Acute kidney failure, unspecified; C78.7 Secondary malignant neoplasm of liver and intrahepatic bile duct; C79.51 Secondary malignant neoplasm of bone; E87.1 Hypo-osmolality and hyponatremia; N39.0 Urinary tract infection, site not specified; G40.909 Epilepsy, unspecified, not intractable, without status epilepticus; C61 Malignant neoplasm of prostate; D64.9 Anemia, unspecified; F41.9 Anxiety disorder, unspecified; R13.10 Dysphagia, unspecified; R74.01 Elevation of levels of liver transaminase levels; Z68.25 Body mass index [BMI] 25.0-25.9, adult; Z79.899 Other long term (current) drug therapy; Z87.891 Personal history of nicotine dependence; Z92.21 Personal history of antineoplastic chemotherapy; Z92.3 Personal history of irradiation; Z88.0 Allergy status to penicillin; Z66 Do not resuscitate
CPT/HCPCS: 36556; 36600; 51702; 70450; 71045; 71275; 73030; 76770; 80053; 80202; 81001; 82803; 83605; 84484; 85025; 85379; 85610; 85730; 86850; 86900; 86901; 86920; 86922; 87040; 87086; 87449; 92526; 92610; 93005; 94640; 94762; 96361; 96374; 96375; 97802; 97803; 99285; J7030; J7040; J7050; P9016; Q9967; A4216; J2405